=== PATIENT | female | born 1950 | race Caucasian/White ===

== ENCOUNTER 2016-07-20 13:23 | Inpatient (IN) | payer MEDICARE, OTHER ==
[~2016-07-20] VITALS: Ht 157.5 cm; Wt 75.0 kg
[~2016-07-20 13:23] MED LIST: ETOMIDATE 20 MG INJ ONE
[2016-07-20 13:25] VITALS: Ht 157.5 cm; Wt 75.0 kg
[2016-07-20] MEDS ORDERED: CEFEPIME 2GM/50 ML (PMX) 50 ML IVPB STA (13:28)
[2016-07-20] MEDS ORDERED: SOD CHLORIDE 0.9% 1,000 ML IV STA ×3 (13:28→14:08)
[2016-07-20] MEDS ORDERED: PROPOFOL 100 ML IV STA (13:29)
[2016-07-20] MEDS ORDERED: ETOMIDATE 20 MG INJ IV STA (13:29)
[2016-07-20] MEDS ORDERED: ROCURONIUM 50 MG INJ IV STA (13:29)
[2016-07-20] MEDS ORDERED: VANCOMYCIN 1 GM (PMX) 250 ML IVPB ONE (13:30)
[2016-07-20] MEDS ORDERED: METO-448 PO (13:44)
[2016-07-20] MEDS ORDERED: TICA90TA PO (13:44)
[2016-07-20] MEDS ORDERED: HYDROmorphONE 1 MG/ML SYG IV STA (13:44)
[2016-07-20] MEDS ORDERED: ASPI-664 PO (13:44)
[2016-07-20] MEDS ORDERED: NIFE60TA7 PO (13:45)
[2016-07-20] MEDS ORDERED: TRAM-40 PO (13:46)
[2016-07-20] MEDS ORDERED: GABA100C14 PO (13:47)
[2016-07-20] MEDS ORDERED: DIAZ2TAB3 PO (13:47)
[2016-07-20] MEDS ORDERED: ACET-141 PO (13:47)
[2016-07-20 13:48] LABS: HEMATOCRIT 26.1 % (37.0-47.0); HEMOGLOBIN 8.8 g/dl (12.0-16.0); MEAN CORPUSCULAR HEMOGLOBIN 32.1 pg (29.0-33.0); MEAN CORPUSCULAR HGB CONC 33.7 g/dl (32.0-37.0); MEAN CORPUSCULAR VOLUME 95.2 fl (82.0-101.0); PLATELET COUNT 340 10^3/UL (140-440); RED BLOOD COUNT 2.74 10^6/ul (4.20-5.40); RED CELL DISTRIBUTION WIDTH 16.7 % (11.5-14.5)
[2016-07-20] MEDS ORDERED: ISOS60TA PO (13:49)
[2016-07-20] MEDS ORDERED: NOVO3I SC (13:49)
[2016-07-20] MEDS ORDERED: HYDR-3671 PO (13:50)
[2016-07-20] MEDS ORDERED: ATOR40TA68 PO (13:52)
[2016-07-20] MEDS ORDERED: SEVE800T7 PO (13:52)
[2016-07-20] MEDS ORDERED: DOCU-159 PO (13:53)
[2016-07-20] MEDS ORDERED: BENA40TA41 PO (13:53)
[2016-07-20] MEDS ORDERED: LANT3I SC (13:54)
[2016-07-20] MEDS ORDERED: CALC667C PO (13:55)
[2016-07-20] MEDS ORDERED: MIN25 PO (13:55)
[2016-07-20] MEDS ORDERED: DOXA2TAB PO (13:56)
[2016-07-20] MEDS ORDERED: FOLI-49 PO (13:56)
[2016-07-20 13:57] LABS: CONDITION 1; INR 1.05; LH ANALYZER COMMENTS 1; PROTIME 13.7 Sec (12.2-14.2); PT RATIO 1.1; SUSPECT 1
[2016-07-20 13:58] LABS: ALBUMIN 3.7 g/dl (3.3-4.9); CHLORIDE 93 mmol/L (97-110); PARTIAL THROMBOPLASTIN TIME 27.6 Sec (25.0-35.0); POTASSIUM 4.6 mmol/L (3.5-5.1); SODIUM 144 mmol/L (135-144)
--- NOTE | 2016-07-20 13:58 | RADRPT ---
PROCEDURE: XR Chest. CLINICAL INDICATION: Shortness of breath. Sepsis. TECHNIQUE: Single frontal view. COMPARISON: None. FINDINGS: There is consolidation in the right upper lobe consistent with pneumonia. The lungs are otherwise cl ear. The endotracheal tube and nasogastric tube are in satisfactory position. The heart is enlarged. There is calcification in the aorta consistent with atherosclerosis. There is no pleural effusion. There is no pneumothorax. IMPRESSION: 1. Right upper lobe pneumonia. 2. Endotracheal tube and nasogastric tube in satisfactory position. 3. Cardiomegaly and atherosclerosis. RPTAT: QQ .Sebastian Banks MD, MD Date Time Electronically viewed and signed by .Sebastian Banks MD, MD on 07/20/2016 13:57 .R/
[2016-07-20 14:00] LABS: CREATININE 5.44 mg/dl (0.44-1.00)
[2016-07-20 14:01] LABS: ALANINE AMINOTRANSFERASE 20 IU/L (13-69); ALBUMIN/GLOBULIN RATIO 0.88; ALKALINE PHOSPHATASE 202 IU/L (42-121); ANION GAP 22 (8-16); ASPARTATE AMINO TRANSFERASE 31 IU/L (15-46); BLOOD UREA NITROGEN 38 mg/dl (7-20); CALCIUM 9.3 mg/dl (8.4-10.2); CARBON DIOXIDE 34 mmol/L (21-31); GLUCOSE 128 mg/dl (70-220); TOTAL PROTEIN 7.9 g/dl (6.1-8.1)
[2016-07-20 14:02] LABS: ACETAMINOPHEN < 10.0 ug/ml (10.0-30.0); ETHANOL < 10.0 mg/dl; SALICYLATE < 1.0 mg/dl (5.0-30.0)
[2016-07-20] MEDS ORDERED: MIDAZOLAM 50 MG in DEXTROSE 5% 40 ML IV STA (14:11)
[2016-07-20] MEDS ORDERED: NORepinephrine 8MG/250 ML (PMX 250 ML IV STA (14:11)
[2016-07-20 14:18] LABS: TROPONIN-I 0.199 ng/ml (0.00-0.12)
[2016-07-20] MEDS ORDERED: ASPIRIN 300 MG SUPP PR ONE (14:30)
[2016-07-20 14:57] LABS: AADO2 Arterial 253.6 mmHg (7.0-24.0); Arterial Base Excess 6.5 mmol/L (-3.0-3); Arterial Fraction of Oxyhgb 98.3 % (93.0-99.0); Arterial HCO3 30.8 mmol/L (22.0-26.0); Arterial MetHb 0.3 % (0.0-1.5); Arterial Total Hemglobin 7.8 g/dl (12.0-18.0); MODE VENT - AC
[2016-07-20 15:51] LABS: LYMPHOCYTES # 0.9 10^3/ul (0.8-2.9); MONOCYTE # 2.1 10^3/ul (0.3-0.9)
--- NOTE | 2016-07-20 16:03 | ERA ---
ER Documentation Chief Complaint Date/Time DATE: 07/20/16 TIME: 15:58 Chief Complaint PT MARY BETH FROM HOME FOUND DOWN IN RES ARREST. HPI Patient is a 65-year-old female with dialysis who presents as a respiratory arrest. Please note the history and physical exam is limited secondary to the patient's mental status upon arrival. The patient was brought in by ambulance and was being bagged as she was not breathing well. The patient never lost pulses but she was unresponsive. She was unable to be intubated in the field. She did have dialysis on Thursday. Her sugar by the paramedics was 167. Upon review of old medical records this is the patient's first visit to the ER but my staff knows her from 2 weeks ago when she was actually admitted and had a cardiac arrest. ROS All systems reviewed and are negative except as per history of present illness. Medications Home Meds Reported Medications Doxazosin Mesylate* (Doxazosin Mesylate*) 2 Mg Tablet, 2 MG PO HS, TAB 07/20/16 Folic Acid* (Folic Acid*) 1 Mg Tablet, 1 MG PO DAILY, TAB 07/20/16 Calcium Acetate* (Calcium Acetate*) 667 Mg Capsule, 667 MG PO WITH MEALS, #30 CAP 07/20/16 Minoxidil* (Lonitin*) 2.5 Mg Tab, 1.25 MG PO BID, TAB 07/20/16 Insulin Glargine* (Lantus*) 100 Unit/Ml Soln, 10 UNIT SC QHS, #1 VIAL 07/20/16 Benazepril Hcl* (Benazepril Hcl*) 40 Mg Tablet, 40 MG PO DAILY, #30 TAB 07/20/16 Docusate Sodium* (Docusate Sodium*) 100 Mg Capsule, 100 MG PO TID Y for CONSTIPATION, #30 CAP 07/20/16 Atorvastatin* (Atorvastatin*) 40 Mg Tablet, 40 MG PO QHS, #30 TAB 07/20/16 Sevelamer Carbonate* (Renvela*) 800 Mg Tablet, 3.2 GM PO WITH MEALS, TAB 07/20/16 Hydralazine Hcl* (Hydralazine Hcl*) 25 Mg Tab, 25 MG PO TID, #90 TAB 07/20/16 Insulin Aspart* (Novolog Insulin Pen*) 100 Unit/Ml Soln, 2 UNIT SC BID, EA 07/20/16 Isosorbide Mononitrate* (Isosorbide Mononitrate*) 60 Mg Tab.er.24h, 60 MG PO DAILY, TAB 07/20/16 Acetaminophen* (Acetaminophen*) 500 MG Extra Strength Tablet, 500 MG PO Q4H Y for PAIN AND OR ELEVATED TEMP, TAB 07/20/16 Gabapentin* (Gabapentin*) 100 Mg Capsule, 100 MG PO TID, #90 CAP 07/20/16 Tramadol Hcl* (Ultram*) 50 Mg Tablet, 50 MG PO Q4 Y for PAIN, TAB 07/20/16 Nifedipine* (Nifedipine ER*) 60 Mg Tablet.sa, 120 MG PO DAILY, TAB.SA 07/20/16 Aspirin (Low Dose Aspirin) 81 Mg Tablet.dr, 81 MG PO DAILY, #30 TAB 07/20/16 Ticagrelor* (Brilinta*) 90 Mg Tablet, 90 MG PO Q12, TAB 07/20/16 Metoprolol Tartrate* (Lopressor*) 25 Mg Tab, 75 MG PO TID, #180 TAB 07/20/16 Discontinued Reported Medications Diazepam* (Diazepam*) 2 Mg Tablet, 2 MG PO TID, TAB 07/20/16 Allergies Allergies: Coded Allergies: No Known Allergy (Unverified , 07/20/16) PMhx/Soc Anesthesia Reaction: No Hx Neurological Disorder: No Hx Cardiac Disorders: Yes (CARDIAC ARREST 06/27, HTN) Hx Psychiatric Problems: No Hx Miscellaneous Medical Probl: Yes (DM, KIDNEY FAILURE. ) Hx Alcohol Use: No Hx Substance Use: No Hx Tobacco Use: No Smoking Status: Unknown if ever smoked FmHx Unable to obtain Physical Exam Vitals Vital Signs Date Time Temp Pulse Resp B/P Pulse Ox O2 Delivery O2 Flow Rate FiO2 07/20/16 15:05 92 152/56 100 Mechanical Ventilator 07/20/16 15:02 92 14 100 60 07/20/16 14:38 90 82/46 100 Mechanical Ventilator 07/20/16 14:10 90 70/42 100 Mechanical Ventilator 07/20/16 13:35 92 14 100 100 07/20/16 13:25 Bag Valve Mask 07/20/16 13:25 99.1 91 177/88 93 Physical Exam Const: Acute distress of being bagged at this time Head: Atraumatic Eyes: Normal Conjunctiva ENT: Normal External Ears, Nose and Mouth. Neck: Full range of motion..~ No meningismus. Resp: Clear to auscultation bilaterally Cardio: Regular rate and rhythm, no murmurs Abd: Soft, non tender, non distended. Normal bowel sounds Skin: Pale Back: No midline or flank tenderness Ext: No cyanosis, or edema Neur: Unresponsive and not moving at this time, GCS 1, 1, 1 Result Diagram: 07/20/16 1328 07/20/16 1328 Results 24 hrs Laboratory Tests Test 07/20/16 13:28 07/20/16 13:29 Acetaminophen Level < 10.0ug/ml Activated Partial Thromboplast Time 27.6Sec Alanine Aminotransferase (ALT/SGPT) 20IU/L Albumin 3.7g/dl Albumin/Globulin Ratio 0.88 Alkaline Phosphatase 202IU/L Anion Gap 22 Aspartate Amino Transf (AST/SGOT) 31IU/L Basophils # 10^3/ul Basophils % % Blood Morphology Comment Blood Urea Nitrogen 38mg/dl Calcium Level 9.3mg/dl Carbon Dioxide Level 34mmol/L Chloride Level 93mmol/L Creatinine 5.44mg/dl Direct Bilirubin 0.00mg/dl Eosinophils # 10^3/ul Eosinophils % % Ethyl Alcohol Level < 10.0mg/dl Globulin 4.20g/dl Glucose Level 128mg/dl Hematocrit 26.1% Hemoglobin 8.8g/dl INR International Normalized Ratio 1.05 Indirect Bilirubin 0.0mg/dl Lactic Acid Level 2.6mmol/L Lymphocytes # 0.910^3/ul Lymphocytes % 3.0% Macrocytosis 1+ Mean Corpuscular Hemoglobin 32.1pg Mean Corpuscular Hemoglobin Concent 33.7g/dl Mean Corpuscular Volume 95.2fl Mean Platelet Volume 8.0fl Monocytes # 2.110^3/ul Monocytes % 7.0% Neutrophils # 27.010^3/ul Neutrophils % 90.0% Nucleated Red Blood Cells # 10^3/ul Nucleated Red Blood Cells % /100WBC Platelet Count 91079^3/UL Potassium Level 4.6mmol/L Prothrombin Time 13.7Sec Prothrombin Time Ratio 1.1 Red Blood Count 2.7410^6/ul Red Cell Distribution Width 16.7% Salicylates Level < 1.0mg/dl Sodium Level 144mmol/L Total Bilirubin 0.0mg/dl Total Protein 7.9g/dl Troponin I 0.199ng/ml White Blood Count 30.010^3/ul Arterial Blood HCO3 30.8mmol/L Arterial Blood Base Excess 6.5mmol/L Arterial Blood Oxygen Saturation 99.6mmHG Javi Test N/A Arterial Blood Gas Puncture Site Right Brachial Arterial Blood Carboxyhemoglobin 1.0% Arterial Blood Date Drawn 07/20/2016 2:47:31 PM Arterial Blood Methemoglobin 0.3% Arterial Blood pCO2 (Temp correct) 43.7mmhg Arterial Blood pH (Temp corrected) 7.466 Arterial Blood pO2 (Temp corrected) 415.7mmHG Blood Gas A-a O2 Differential 253.6mmHg Blood Gas Actual Respiration Rate 14 Blood Gas Low PEEP Setting 5.0cmH2O Blood Gas Modality VENT - AC Blood Gas Notified Time 07/20/2016 2:57:39 PM Blood Gas Notified Whom AT Blood Gas Respiration Rate 14.0 Blood Gas Specimen Source Blood arterial Blood Gas Temperature 37.0C Blood Gas Tidal Volume 500.0mL FiO2 100.0% Oxyhemoglobin Percent 98.3% Total Hemoglobin 7.8g/dl Current Medications Medications (Trade) Dose Ordered Sig/Harriet Route PRN Reason Start Time Stop Time Status Last Admin Dose Admin Cefepime HCl 50 ml @ 100 mls/hr ONCE STAT IVPB 07/20/16 13:28 07/20/16 13:57 DC 07/20/16 14:35 Vancomycin HCl 250 ml @ 125 mls/hr ONCE ONCE IVPB 07/20/16 13:30 07/20/16 15:29 DC 07/20/16 15:44 Sodium Chloride 1,000 ml @ 1,000 mls/hr Q1H STAT IV 07/20/16 13:28 07/20/16 14:27 DC 07/20/16 14:13 Sodium Chloride (NS) 1,000 ml @ 1,000 mls/hr Q1H STAT IV 07/20/16 13:28 07/20/16 14:27 DC 07/20/16 14:34 Rocuronium [place] (Zemuron) 70 mg ONCE STAT IV 07/20/16 13:29 07/20/16 13:30 DC Etomidate 20 mg 20 mg ONCE STAT IV 07/20/16 13:29 07/20/16 13:30 DC Propofol (Diprivan) 100 ml @ 0 mls/hr ONCE STAT IV 07/20/16 13:29 07/20/16 14:12 DC Hydromorphone HCl 1 mg 1 mg ONCE STAT IV 07/20/16 13:44 07/20/16 13:45 DC Sodium Chloride 1,000 ml @ 1,000 mls/hr Q1H STAT IV 07/20/16 14:08 07/20/16 15:07 DC Norepinephrine 250 ml @ 7.5 mls/hr ONCE STAT IV 07/20/16 14:11 07/21/16 23:30 07/20/16 14:33 Midazolam HCl/ Dextrose (Versed/D5W) 50 ml @ 3 mls/hr [id number] STAT IV 07/20/16 14:11 07/21/16 06:50 07/20/16 15:45 Aspirin (Aspirin) 300 mg ONCE ONCE IA 07/20/16 14:30 07/20/16 14:31 DC Procedures/MDM EKG read by me: Rate/Rhythm: Regular rate and rhythm at a rate of 93 Intervals: Normal Impression: ST depressions in the lateral leads Chest X-ray 1V Interpreted by me: Soft Tissue: No acute abnormalities Bones: No acute abnormalities Mediastinum/Cardiac Silhouette/Lungs: Right upper lobe pneumonia with ET tube in good position CT scan of the brain pending at this time. Admit MDM: Patient's infectious symptoms have not stabilized and the patient is at risk of rapid decompensation. The patient will be admitted for careful hydration, antibiotic therapy, and infectious source control. Severe Sepsis criteria: Infectious source: Pneumonia End organ damage indicated by: Lactate greater than 2 and respiratory failure Sepsis Management: Time of recognition of sepsis: Upon arrival Within 3 hours of recognition: Blood cultures x 2 before broad-spectrum antibiotics: Yes 30 ml/kg NS bolus Completed Initial lactate 2.6 Repeat lactate pending Time of recognition of septic shock: Upon arrival Septic Shock Assessment: Any lactic acid > 4.0 No Persistent hypotension (SBP < 90 or 40 mmHg drop, MAP < 65) despite 30 mL/kg IV fluid bolus yes Volume Re-assessment for Septic Shock (post 30 ml/kg bolus): Temp 99.1, BP 152/56, HR 92, RR 14, Pox 100% Heart Regular rate & rhythm Lungs No crackles Skin Warm & dry Cap Refill Less than 2 seconds Peripheral pulses Radially present Persistent Hypotension Treatment: Comfort care No Central line right femoral central line Vasopressor started Levophed I considered further perfusion assessment with CVP measurement, SCVO2, bedside ultrasound volume assessment, passive leg raise, trial of further fluid bolus. And proceeded with 30 ml/kg fluid bolus of NSS, broad spectrum antibiotics, and admission. Accepting Care Team Current data and ongoing care discussed. Admitting Physician: Dr. Cox as the patient has regal [employer] Rater(s): None Outstanding Data: Culture results and repeat lactic acid Critical Care: Critical care time 45 minutes excluding all billable procedures Emergent fluid management while maintaining close respiratory support. Provision of immediate and broad-spectrum antibiotic therapy. Simultaneous assessment for possible sources in order to direct targeted therapy. Consideration for invasive and chemical support to prevent cardiopulmonary collapse. Endotracheal Intubation by me: Pre assessment performed. Pre-oxygenation performed with 100% oxygen RSI: Performed w/o complication or hypoxic events. Medications as ordered. Blade: MAC 4 Glidescope ET Tube: 7.5 cm Depth: 23 cm at the lip Intubation confirmed by colorimetric CO2, equal breath sounds, quiet over the stomach. Central Line Placement by me: Patient consented, sterilely draped, full prep, gown, glove, mask, time out performed. Anesthesia: 1% lidocaine locally Location: Right femoral Device: Multiple lumen Technique: Seldinger technique. Secured with suture. Results: Venous return from all ports with easy saline flush. No complications. Guide wire retrieved and disposed of. ED Ultrasound: Central line placed by me using concurrent ultrasound guidance. Real time image confirms vascular anatomy. Unable to print images due to our usual ultrasound being fixed at this time. Departure Diagnosis: Primary Impression: Septic shock Additional Impressions: Respiratory arrest NSTEMI (non-ST elevated myocardial infarction) Pneumonia Qualified Code: J18.9 - Pneumonia of right upper lobe due to infectious organism Condition: Critical HARRIS MURRAY MD Jul 20, 2016 16:03
--- NOTE | 2016-07-20 16:36 | HP ---
Date/Time of Note Date/Time of Note DATE: 07/20/16 TIME: 16:29 Assessment/Plan VTE Prophylaxis VTE Prophylaxis Intervention: heparin Assessment/Plan Assessment/Plan [facility] 1. 65-year-old woman who was found in unresponsive by her daughter this afternoon. Mask ventilation in the field and intubation on arrival in the ER. She was hospitalized two weeks ago for weakness and suffered a cardiac arrest with asystole in the ER. 2-D echocardiogram then showed normal left ventricular systolic function and cavity size, with moderate concentric left ventricular hypertrophy and EF est at 65%. Her estimated peak PA systolic pressure 61 mmHg, with moderate tricuspid regurgitation. She has elevated troponin now, with lateral T-wave depression. Concern for acute ischemia as a precipitating event. 2. Endstage renal disease on hemodialysis, most recently two days ago * Repeat hemodialysis planned for tomorrow; contacted Dr. Talita Leon about arranging dialysis. 3. Diabetes mellitus. * Continue Lantus insulin 4. Possible anoxic injury. There was a two-hour window during which she was "asleep" prior to being found unresponsive at 12:30pm today. Wincing to abdominal deep palpation and movement of her extremities. * Neuro consult tomorrow with Dr. Jessy Arshad. 5. Lateral T-wave abnormalities, similar to previous pattern two weeks ago. * Serial troponins * Aspirin given per rectum * Too hypotensive for nitrates for now * Cardiology consultation; contacted Dr. Matt Castelan (performed the PTCA two weeks ago). 6. History of hypertension, but her daughters said she had been hypotensive since discharge 07/11/16 and had not received any of her hypertensive medications. * Hold anti-hypertensives for now 7. Right lower extremity pain with questionable history of sciatica. Cord still present on exam. * Doppler study negative ten days ago for DVT on the right. 8. Prophylaxis. * Famotidine for gastrointestinal prophylaxis. * SQ heparin for DVT prevention 9. DISPOSITION: She is admitted to the intensive care unit. Critical care consult pending. Nephrology consult pending. * Confirmed with her daughter Shara that she is Full-Code. Christoph Cox MD PhD [phone] HPI/ROS Admit Date/Time Admit Date/Time Hx of Present Illness DATE OF ADMISSION: 07/20/2016 CHIEF COMPLAINT ON ADMISSION: Respiratory arrest HISTORY OF PRESENT ILLNESS: This 65-year-old woman is well-known to me from her hospitalization two weeks ago (under the name "Libby") for asystole cardiac arrest with compelte recovery. She has a history of endstage renal disease on hemodialysis (last two days ago), hypertension, diabetes mellitus, and hyperlipidemia. She was discharged on 07/11/16, feeling great, and continued to feel quite well until early this morning. I spoke today with 2 for daughters, who were at her bedside in the emergency room. They indicated that she had been relatively hypotensive since the previous discharge, and had not received any of her antihypertensive medications. She woke up at about 3 AM feeling sick to her stomach, and had an episode of emesis today, but went right back to sleep. Twice this morning, she felt very sleepy and lethargic, and insisted on going back to bed without any breakfast, most recently at 10:30 AM. At 12:30 AM, her daughter went to wake her and found her unresponsive. Paramedics were summoned, and she was determined to be in respiratory arrest. She had had a negative Lexiscan in April 2016, which showed only diastolic dysfunction. But she presented last month with generalized weakness, and while in the emergency department after ambulating to the restroom, she lost consciousness and progressed to asystole cardiac arrest. CPR was initiated, she received epinephrine, was intubated, and was subsequently treated in the intensive care unit on heparin drip for NSTEMI, with an EKG showing inferior and lateral T-wave abnormalities. She subsequently underwent PTCA/stent to a thrombotic ostial left circumflex lesion and also with PTCA of a subtotal occlusion of a previously stented long left circumflex zone. She was treated with antibiotics, aspirin, Brilinta, and had Procardia XL added to address persistent hypertension. On hospital day 4 she had the first cardiac catheterization, and on hospital day 8 returned to the cardiac clinical laboratory assistant for left heart catheterization that led to PTCA with placement of a Promus drug- eluting stent to the distal circumflex, 2.25 x 12 mm, and with PTCA alone to a, another total mid circumflex area of in-stent restenosis. The post-PTCA course was also marked by persistent leukocytosis and her sputum grew E.coli (ESBL) and Marilyn. She was treated with Cefepime, Diflucan, and Flagyl, all of which were discontinued at the time of discharge. Home Meds Active Scripts Metoprolol Tartrate* (Lopressor*) 25 Mg Tab, 75 MG PO TID, #90 TAB Prov:KRZYSZTOF COX M.D. 07/11/16 Ticagrelor* (Brilinta*) 90 Mg Tablet, 90 MG PO BID, #60 TAB Prov:KRZYSZTOF COX M.D. 07/11/16 Aspirin* (Aspirin* EC) 81 Mg Tablet.dr, 81 MG PO DAILY, #30 Prov:KRZYSZTOF COX M.D. 07/11/16 Tramadol HCl (Tramadol HCl) 50 Mg Tablet, 50 MG PO Q4 Y for PAIN, #20 TAB Prov:KIAH GARCIA 06/15/16 Reported Medications Acetaminophen* (Acetaminophen*) 500 MG Extra Strength Tablet, 500 MG PO Q4H Y for PAIN AND OR ELEVATED TEMP, TAB 07/01/16 Gabapentin* (Gabapentin*) 100 Mg Capsule, 100 MG PO TID, #90 CAP 07/01/16 Diazepam* (Diazepam*) 2 Mg Tablet, 2 MG PO TID, TAB 07/01/16 Nifedipine* (Nifedipine ER*) 30 Mg Tablet.sa, 120 MG PO DAILY, TAB.SA 05/22/15 Isosorbide Mononitrate* (Isosorbide Mononitrate*) 60 Mg Tab.er.24h, 60 MG PO DAILY, TAB 05/22/15 Insulin Aspart* (Novolog Insulin Vial*) 100 U/Ml Vial, 2 UNIT SC BID, VIAL 05/22/15 Hydralazine Hcl* (Hydralazine Hcl*) 25 Mg Tab, 25 MG PO TID, TAB 05/22/15 Sevelamer Carbonate* (Renvela*) 800 Mg Tablet, 3200 MG PO WITH MEALS, TAB 05/22/15 Calcium Acetate* (Phoslo*) 667 Mg Tablet, 667 MG PO WITH MEALS, TAB 05/22/15 Minoxidil* (Lonitin*) 2.5 Mg Tab, 1.25 MG PO BID, TAB 05/22/15 Insulin Glargine* (Lantus*) 100 Unit/Ml Soln, 10 UNIT SC QHS, EA 05/22/15 Benazepril Hcl* (Benazepril Hcl*) 40 Mg Tablet, 40 MG PO DAILY, TAB 05/22/15 Docusate Sodium* (Colace*) 100 Mg Capsule, 100 MG PO TID Y for CONSTIPATION 07/28/13 Atorvastatin* (Atorvastatin*) 40 Mg Tablet, 40 MG PO DAILY 07/28/13 Doxazosin* (CARDURA*) 2 Mg Tablet, 2 MG PO HS 04/21/13 Folic Acid* (Folic Acid*) 1 Mg Tablet, 1 MG PO DAILY 04/21/13 Discontinued Reported Medications Meloxicam* (Meloxicam*) 7.5 Mg Tablet, 15 MG PO DAILY, #30 TAB 07/01/16 Clonidine Hcl* (Clonidine Hcl*) 0.1 Mg Tab, 0.1 MG PO BID, TAB 05/22/15 Metoprolol Tartrate* (Lopressor*) 25 Mg Tab, 25 MG PO BID 04/21/13 ALLERGIES: NO KNOWN ALLERGIES. PAST MEDICAL HISTORY: 1. Hypertension. 2. Endstage renal disease on hemodialysis Thursday, Thursday, Thursday. 3. Diabetes mellitus. 4. Hyperlipidemia. 5. Questionable history of coronary artery disease with recent episode of elevated troponin on her past admission. She was seen by Dr. Castelan and Dr. Puga then. PAST SURGICAL HISTORY: 1. Status post foot surgery. 2. Status post AV graft placement. SOCIAL HISTORY: The patient lives with family. She does not smoke or drink alcohol. ROS Her daughters indicated that she had not complained of any headache, visual change, loss of appetite, nausea, change in bowel habitus, cough or fever. Another sister from [place] did have a cold during a visit 2 weeks ago, but that was the only recalled no contact. PMH/Family/Social Social History Smoking Status: Unknown if ever smoked Exam/Review of Systems Vital Signs Vitals Vital Signs Date Time Temp Pulse Resp B/P Pulse Ox O2 Delivery O2 Flow Rate FiO2 07/20/16 16:12 90 107/54 100 Mechanical Ventilator 07/20/16 16:02 98.2 07/20/16 15:02 14 60 Exam Exam Constitutional: Grimacing in response to abdominal palpation. Intubated and ventilated. Respiratory: Clear to auscultation bilaterally, good air movement Cardiovascular: Symmetric pulses, regular rhythm, normal rate. Gastrointestinal: Moderate tenderness, no hepatosplenomegaly, bowel sounds positive Musculoskeletal: nl extremities to inspection. Intact vascular hemodialysis access. Neurological: Pupils responsive. Toes upgoing bilaterally. Trace patellar reflexes. Labs Result Diagram: 07/20/16 1328 07/20/16 1328 Copies To: CC: MATT CASTELAN; NADIA SARGENT; ADELFO PUGA MD; TALITA LEON JOHN P. M.D. Jul 20, 2016 16:35
[2016-07-20] MEDS ORDERED: ACETAMINOPHEN 325 MG TAB NGT PRN (17:30)
[2016-07-20] MEDS ORDERED: HYDROCODONE/APAP (5/325) TAB NGT PRN (17:30)
[2016-07-20] MEDS ORDERED: DOCUSATE SODIUM 10 MG/ML (10ML CUP) NGT PRN (17:30)
[2016-07-20] MEDS ORDERED: NACL 0.9% 3 ML SYG IV SCH (17:30)
--- NOTE | 2016-07-20 18:08 | RADRPT ---
PROCEDURE: CT Brain without contrast. CLINICAL INDICATION: Pain, headache TECHNIQUE: Routine CT scan of the brain was performed on a high resolution multi detector scanner without intravenous contrast. One or more of the following dose reduction techniques were used: Auto mated exposure control; Adjustment of the mA and/or kV according to patient size; Use of iterative r econstruction technique. CTDI = 43 mGy. DLP = 720 mGy-cm. COMPARISON: No prior relevant examinations are available for comparison. FINDINGS: Hemorrhage: No evidence of intracranial hemorrhage. Acute ischemic changes: No evidence of acute ischemic changes. Mass effect/Midline shift: None. Parenchymal volume: Mild central parenchymal volume loss is evident. Ventricular system: Concordant with parenchymal volume. Chronic changes: Mild chronic-appearing microvascular ischemic changes of the supratentorial white m atter. Atherosclerotic calcifications of the cavernous portions of both internal carotid arteries ar e present. Small idiopathic appearing dural calcifications are noted. Extracranial soft tissues: Unremarkable. Calvarium: No fractures. Paranasal sinuses: Visualized paranasal sinuses are clear. Mastoid air cells: Visualized mastoid air cells are clear. IMPRESSION: No acute intracranial abnormalities. Mild chronic-appearing microvascular ischemic changes of the supratentorial white matter. RPTAT: AADD .Rodríguez Haddad MD, MD Date Time Electronically viewed and signed by .Rodríguez Haddad MD, on 07/20/2016 18:08 .B/
[2016-07-20 18:34] LABS: ALBUMIN 2.8 g/dl (3.3-4.9)
[2016-07-20 18:35] LABS: POTASSIUM 4.3 mmol/L (3.5-5.1)
[2016-07-20 18:37] LABS: ALBUMIN/GLOBULIN RATIO 0.82; CREATININE 5.14 mg/dl (0.44-1.00); TOTAL PROTEIN 6.2 g/dl (6.1-8.1)
[2016-07-20 18:38] LABS: CALCIUM 8.1 mg/dl (8.4-10.2)
[2016-07-20] MEDS: SEVELAMER CARBONATE 0.8 GM PKT NGT SCH (20:05)
[2016-07-20] MEDS: CALCIUM ACETATE 667 MG CAP NGT SCH (20:05)
[2016-07-20] MEDS: HEPARIN 5,000 UNIT/0.5 ML SYG SC SCH ×2 (20:06→22:00)
[2016-07-20] MEDS ORDERED: INSULIN GLARGINE [LANtus] 3 ML PEN SC SCH (21:00)
[2016-07-20] MEDS: FAMOTIDINE 20 MG INJ IV SCH (21:54)
[2016-07-20] MEDS: ATORVASTATIN 40 MG TAB NGT SCH (21:54)
[2016-07-20] MEDS: TICAGRELOR 90 MG TABLET NGT SCH (23:26)
[2016-07-21] VITALS (25 sets, daily range): BP systolic 134–195; BP diastolic 43–82; PULSE 65–84; RESP 16–21; TEMP 99
[2016-07-21 02:33] LABS: ADD UMIC YES; URINE BILIRUBIN (Dip) 1+ (NEGATIVE); URINE BLOOD (Dip) 3+ (NEGATIVE); URINE COLOR DK. YELLOW (YELLOW); URINE GLUCOSE (Dip) NEGATIVE (NEGATIVE); URINE KETONES (Dip) NEGATIVE (NEGATIVE); URINE LEUKOCYTE ESTERASE (Dip) TRACE (NEGATIVE); URINE NITRITE (Dip) POSITIVE (NEGATIVE); URINE TOTAL PROTEIN (Dip) 4+ (NEGATIVE); URINE UROBILINOGEN (Dip) 0.2 E.U./dL (0.1-1.0)
[2016-07-21 02:59] LABS: ICTOTEST NEGATIVE (NEGATIVE)
[2016-07-21 03:02] LABS: BACTERIA,URINE MANY; SQUAMOUS EPITHELIAL CELL,UR FEW
[2016-07-21] MEDS: HEPARIN 5,000 UNIT/0.5 ML SYG SC SCH ×3 (05:17→22:05)
[2016-07-21 06:09] LABS: HEMATOCRIT 21.9 % (37.0-47.0); HEMOGLOBIN 7.4 g/dl (12.0-16.0); MEAN CORPUSCULAR HEMOGLOBIN 32.3 pg (29.0-33.0); MEAN CORPUSCULAR HGB CONC 33.8 g/dl (32.0-37.0); MEAN CORPUSCULAR VOLUME 95.6 fl (82.0-101.0); PLATELET COUNT 249 10^3/UL (140-440); RED BLOOD COUNT 2.29 10^6/ul (4.20-5.40); UNCORRECTED WBC 21.6 10^3/ul (4.8-10.8); WHITE BLOOD COUNT 21.6 10^3/ul (4.8-10.8)
[2016-07-21 06:13] LABS: CONDITION 1; LH ANALYZER COMMENTS 1; SUSPECT 1
[2016-07-21 06:16] LABS: ALBUMIN 2.9 g/dl (3.3-4.9)
[2016-07-21 06:17] LABS: POTASSIUM 4.6 mmol/L (3.5-5.1)
[2016-07-21 06:18] LABS: CREATININE 5.76 mg/dl (0.44-1.00)
[2016-07-21 06:19] LABS: ALBUMIN/GLOBULIN RATIO 0.85; CALCIUM 8.4 mg/dl (8.4-10.2); MAGNESIUM 2.4 mg/dl (1.7-2.5); TOTAL PROTEIN 6.3 g/dl (6.1-8.1)
[2016-07-21 06:45] LABS: TROPONIN-I 0.44 ng/ml (0.00-0.12)
--- NOTE | 2016-07-21 07:38 | RADRPT ---
PROCEDURE: XR Chest. CLINICAL INDICATION: Sepsis TECHNIQUE: An AP view of the chest was obtained. COMPARISON: Chest x-ray dated 07/20/2016 FINDINGS: The endotracheal tube tip is approximately 3 point a cm above the osfya. The tip of the enteric t ube extends below the left diaphragm. There is prominence of the interstitial markings. There is a focal opacity in the left mid lung. No pleural effusion or pneumothorax is seen. The cardiomediastinal silhouette is mildly enlarged . C alcifications are seen within the aortic arch. The osseous structures demonstrate senescent changes . IMPRESSION: 1. Mild prominence of the interstitial markings, may reflect mild underlying interstitial edema or chronic lung changes. There is improved aeration of the right upper lobe when compared to the prior examination. 2. Focal left mid lung opacity may reflect residual pneumonitis. Follow-up to resolution is advise d. 3. Mild cardiomegaly and aortic atherosclerosis. 4. Tubes and lines, as described above. RPTAT: .Juhi Ruano MD, Date Time Electronically viewed and signed by .Juhi Ruano MD, on 07/21/2016 07:38 .G/
[2016-07-21] MEDS: SEVELAMER CARBONATE 0.8 GM PKT NGT SCH ×3 (08:00→18:13)
[2016-07-21] MEDS: CALCIUM ACETATE 667 MG CAP NGT SCH ×3 (08:00→18:12)
[2016-07-21] MEDS: FOLIC ACID 1 MG TAB NGT SCH (09:22)
[2016-07-21] MEDS: TICAGRELOR 90 MG TABLET NGT SCH ×2 (09:22→21:01)
[2016-07-21] MEDS: ASPIRIN 81 MG TAB NGT SCH (09:22)
[2016-07-21 10:02] LABS: BASOPHIL # 0.4 10^3/ul (0.0-0.1); LYMPHOCYTES # 2.4 10^3/ul (0.8-2.9); MONOCYTE # 1.5 10^3/ul (0.3-0.9); NEUTROPHIL # 17.3 10^3/ul (1.6-7.5)
--- NOTE | 2016-07-21 14:00 | CONS ---
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 REQUESTING PHYSICIAN: Dr. Sargent HISTORY OF PRESENT ILLNESS: Ms. Carranza is a 65-year-old female with a history of recent NSTEMI sta tus post PTCA and stent placement to ostial circumflex lesion and a distal circumflex lesion Decembe r 2015, diastolic dysfunction by most recent echo April 2016, end-stage renal disease, on hemodial ysis, dyslipidemia, hypertension who presents with recurrent respiratory failure. Per family, the venita hollins had been doing fine at home, and when they went to awaken her on the day of admit, she says s he is very sleepy and slept in. Thereafter the family says they tried to arouse her later and it wa s very difficult, she was breathing heavily, 911 was called and she was brought here to the emergenc y department at [facility]. Upon arrival, temperature 99.1, blood pressure 177/88 , pulse 91, saturating 93% on 100%. The patient's labs revealed a white blood count of 30, hemoglob in 8.8, platelet count 340. Sodium of 144, potassium 4.6, creatinine 5.44, BUN 38. Troponin 0.199. AST 31, ALT 20. INR 1.0. Tox screen negative. UA positive. The patient underwent a chest x-ray revealing endotracheal tube, right upper lobe pneumonia, and a head CT revealed no acute intracrani al abnormalities, mild chronic-appearing microvascular ischemic change. The patient's EKG revealed n ormal sinus rhythm at a rate of 93 with sinus arrhythmia, borderline inferior and anterolatera l T-wave inversions deep across precordial leads. The patient subsequently required emergent intuba tion, has been treated with aspirin, and now is to be continued on her aspirin and Brilinta with sta ble to elevated systolic blood pressures after having a low blood pressure when she first arrived an d was intubated. PAST MEDICAL HISTORY: As above in HPI. MEDICATIONS CURRENTLY IN HOSPITAL: 1. Aspirin 81 mg daily. 2. Lipitor 40 mg at bedtime. 3. Lantus 10 units subQ at bedtime. 4. Brilinta 90 mg q.12h. 5. Pepcid 20 mg IV q.12h. 6. PhosLo. 7. Colace. 8. Tylenol. 9. [place]. 10. Heparin 5000 subQ q.8h. Leave the pressor support now off. ALLERGIES: NO KNOWN DRUG ALLERGIES. SOCIAL HISTORY: No tobacco, ETOH, or illicit drug use. FAMILY HISTORY: No history of sudden cardiac or early CAD. REVIEW OF SYSTEMS: As above in HPI. CONSTITUTIONAL: No fevers, chills. PULMONARY: Respiratory failure. CARDIOVASCULAR: History of recent NSTEMI, positive troponin. GASTROINTESTINAL: Positive volume prior to admit. GENITOURINARY: Renal failure. PSYCHIATRIC: No documented psychiatric history. NEUROLOGIC: Altered mental state. PHYSICAL EXAMINATION: VITAL SIGNS: Temperature of 99, blood pressure 149/54, pulse 76, respiratory rate 16, saturating 10 0% on FIO2 50%. GENERAL: The patient is encephalopathic, not arousable. NECK: JVP approximately 9 to 10 cm of water. CHEST: Bibasilar crackles. Upper airway sounds are rhonchorous sounds. HEART: Regular rate and rhythm. Normal S1, S2, 1/6 systolic murmur, nondisplaced PMI. ABDOMEN: Positive bowel sounds, soft. EXTREMITIES: No pitting edema, 1+ pulses bilaterally posterior tibial. LABORATORIES: As above in HPI, with most recent from yesterday, sodium 144, potassium 4.3, creatini ne 5.1. White blood cell count 21.6, hemoglobin 7.4, platelet count of 249, MCV 95. Troponin trend ed up to 0.504 and back down to 0.440. IMAGING STUDIES: As above in HPI with a chest x-ray from today revealing mild prominence of interst itial markings, improved aeration, right upper lobe, focal left mid lung opacity may represent recre ational pneumonitis. ECG: As above in HPI. No further electrocardiograms for my review at this time. IMPRESSION: 1. Positive troponin in the setting of respiratory failure and renal failure. 2. Abnormal electrocardiogram, assess for acute coronary syndrome. 3. History of a recent PTCA and stent placement to circumflex June 2016 with drug-eluting stent s. 4. Altered mental state. 5. Respiratory failure, status post intubation. 6. End-stage renal disease on hemodialysis. 7. Urinary tract infection. 8. Pneumonia. 9. Dyslipidemia. RECOMMENDATIONS: 1. At this time, the patient will be admitted to the ICU and maintained on telemetry monitoring. 2. Will continue the patient's dual antiplatelet therapy with aspirin and Brilinta for stent patenc y. 3. Would continue to trend the patient's cardiac enzymes. 4. Would check serial EKGs to assess for significant ongoing changes, consider repeat echocardiogra phic imaging to ensure no change had occurred the patient's ejection fraction. 5. Continue the patient's statin therapy and adjust it according to a fasting lipid panel to be colleen cked. 6. Hemodialysis for volume removal. 7. Continue to follow the patient's volume status closely and wean the patient's ventilator as poss ible. 8. Follow the patient's blood pressure closely with possible reinitiation of antihypertensives if h is blood pressure remains stable, initiating with beta kathy given positive troponin. Thank you for allowing me to take part in the care of this patient. I will continue to follow along very closely with you with further recommendations to be made as the patient progresses through her inpatient hospital clinical course. Dictated By: MATT NOGUEIRA/RANI Conf#: [id number] DID#: [id number] CC: NADIA SARGENT MD;*EndCC*
[2016-07-21] MEDS ORDERED: SOD CHLORIDE 0.9% 250 ML IV* ONE (15:54)
[2016-07-21] MEDS ORDERED: VANCOMYCIN IV PER PHARMACY XX SCH (16:00)
--- NOTE | 2016-07-21 16:17 | PN ---
Date/Time of Note Date/Time of Note DATE: 07/21/16 TIME: 15:35 Assessment/Plan VTE Prophylaxis VTE Prophylaxis Intervention: SCD's Assessment/Plan Assessment/Plan 65-year-old woman: 1. Acute respiratory failure and unresponsiveness, s/p intubation on arrival in the ER. Etiology unclear She was hospitalized two weeks ago after suffered a cardiac arrest with asystole in the ER. S/p Angio x 2 with stenting 2-D echocardiogram then showed normal left ventricular systolic function and cavity size, with moderate concentric left ventricular hypertrophy and EF est at 65%. Mildly elevated troponin on this admission Cardiology, Pulmonary, Nephrology and Neurology consulted 2. Endstage renal disease on hemodialysis: on HD M/W/F Hemodialysis today Appreciate assistance from Dr. Gomez. 3. Acute on chronic anemia with hb down to 7.4, will ogive 2 units pRBC with HD if possible today 4. Diabetes mellitus: d/c Lantus for now and SSI, once more stable and on tube feeding or extubated or if BG up with resume Lantus 5. 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 There was a two-hour window during which she was "asleep" prior to being found unresponsive yesterday. Awake now but on Versed Appreciate Neurology consult with Dr. Arshad. EEG ordered 6. CAD s/p angio and stenting x 2 approx 2 weeks ago EKG similar to previous ekg two weeks ago. Serial troponins ASA and Brilinta, Cardiology consultation with Dr. Castelan. 7. History of hypertension, but her daughters said she had been hypotensive since discharge 07/11/16 and had not received any of her hypertensive medications. Continue Holding anti-hypertensives for now 8. Right lower extremity pain with questionable history of sciatica. Doppler study negative ten days ago for DVT on the right. 9. Leukocytosis and likely aspiration pneumonitis/pneumonia vs HCAP Agree with Vancomycin and Cefepime given in ED, will continue to be dosed by pharmacy. Prophylaxis: Famotidine for gastrointestinal prophylaxis. SCDs for DVT prevention Disposition: ICU level of care. Critical care consult with Dr Mayen, Nephrology consult with Dr Barraza and Neurology consult with Dr Arshad. Full-Code. Subjective 24 Hr Interval Summary Free Text/Dictation Patient on versed for sedation EEG pending CT head negative WBC trending down pRBC with HD today Exam/Review of Systems Vital Signs Vitals Vital Signs Date Time Temp Pulse Resp B/P Pulse Ox O2 Delivery O2 Flow Rate FiO2 07/21/16 15:12 80 16 98 50 07/21/16 15:00 100.1 145/52 Mechanical Ventilator Intake and Output 07/20/16 07/20/16 07/21/16 14:59 22:59 06:59 Intake Total 23.5 ml Balance 23.5 ml Exam Constitutional: frail, other Respiratory: diminished breath sounds (bases > upper lobes ) Cardiovascular: nl pulses, regular rate and rhythm Gastrointestinal: non-tender, soft Musculoskeletal: nl extremities to inspection Extremities: normal pulses, other (no edema, clubbing or cyanosis ) Neurological: lethargic, other (intubated and sedated ) Results Result Diagram: 07/21/16 0550 07/21/16 0550 Results 24 hrs Laboratory Tests Test 07/20/16 17:25 07/20/16 17:33 07/20/16 21:30 07/20/16 21:45 Alanine Aminotransferase (ALT/SGPT) 23 Albumin 2.8 L Albumin/Globulin Ratio 0.82 Alkaline Phosphatase 165 H Anion Gap 18 H Aspartate Amino Transf (AST/SGOT) 24 Blood Urea Nitrogen 35 H Calcium Level 8.1 L Carbon Dioxide Level 30 Chloride Level 100 Creatinine 5.14 H Direct Bilirubin 0.00 Globulin 3.40 H Glucose Level 106 Indirect Bilirubin 0.0 Potassium Level 4.3 Sodium Level 144 Total Bilirubin 0.0 L Total Protein 6.2 # Lactic Acid Level 1.0 1.0 Troponin I 0.504 *H Bedside Glucose 101 Test 07/21/16 01:05 07/21/16 05:50 Urine Bacteria MANY Urine Bilirubin 1+ H Urine Clarity CLEAR Urine Color DK. YELLOW Urine Glucose NEGATIVE Urine Hemoglobin 3+ H Urine Ictotest NEGATIVE Urine Ketones NEGATIVE Urine Leukocyte Esterase TRACE H Urine Microscopic RBC 2-5 Urine Microscopic WBC 25-50 Urine Nitrite POSITIVE H Urine Specific [place] 1.020 Urine Squamous Epithelial Cells FEW Urine Total Protein 4+ H Urine Urobilinogen 0.2 E.U./dL Urine pH 7.5 Alanine Aminotransferase (ALT/SGPT) 20 Albumin 2.9 L Albumin/Globulin Ratio 0.85 Alkaline Phosphatase 165 H Anion Gap 18 H Aspartate Amino Transf (AST/SGOT) 21 Basophils # 0.4 H Basophils % 2.0 Blood Morphology Comment Blood Urea Nitrogen 44 H Calcium Level 8.4 Carbon Dioxide Level 29 Chloride Level 99 Creatinine 5.76 H Differential Comment MANUAL DIFF Direct Bilirubin 0.00 Eosinophils # Eosinophils % Globulin 3.40 H Glucose Level 71 Hematocrit 21.9 L Hemoglobin 7.4 L Indirect Bilirubin 0.0 Lactic Acid Level 0.7 Lymphocytes # 2.4 Lymphocytes % 11.0 L Magnesium Level 2.4 Mean Corpuscular Hemoglobin 32.3 Mean Corpuscular Hemoglobin Concent 33.8 Mean Corpuscular Volume 95.6 Mean Platelet Volume 8.0 Monocytes # 1.5 H Monocytes % 7.0 Neutrophils # 17.3 H Neutrophils % 80.0 H Nucleated Red Blood Cells # Nucleated Red Blood Cells % Platelet Count 249 # Potassium Level 4.6 Red Blood Count 2.29 L Red Cell Distribution Width 17.0 H Sodium Level 141 Total Bilirubin 0.0 L Total Protein 6.3 Troponin I 0.440 *H White Blood Count 21.6 #H Medications Medications Current Medications Aspirin (Aspirin) 81 mg DAILY NGT Last administered on 07/21/16 09:22; Admin Dose 81 MG; Start 07/21/16 at 09:00 Atorvastatin Calcium (Lipitor) 40 mg QHS NGT Last administered on 07/20/16 21: 54; Admin Dose 40 MG; Start 07/20/16 at 21:00 Docusate Sodium (Colace Liquid Cup) 100 mg TID PRN NGT CONSTIPATION; Start 07/20 at 17:30 Folic Acid (Folic Acid) 1 mg DAILY NGT Last administered on 07/21/16 09:22; Admin Dose 1 MG; Start 07/21/16 at 09:00 Insulin Glargine (Lantus) 10 unit QHS SC Last administered on 07/20/16 21:56; Admin Dose 10 UNIT; Start 07/20/16 at 21:00 Ticagrelor (Brilinta) 90 mg Q12 NGT Last administered on 07/21/16 09:22; Admin Dose 90 MG; Start 07/20/16 at 21:00 Acetaminophen (Tylenol Tab) 650 mg Q6H PRN NGT PAIN LEVEL 1-3 OR FEVER; Start 07/20/16 at 17:30 Acetaminophen/ Hydrocodone Bitart ([place] (5/325)) 1 tab Q6H PRN NGT PAIN LEVEL 4-6; Start 07/20/16 at 17:30 Acetaminophen/ Hydrocodone Bitart ([place] [address] (5/325)) 2 tab Q6H PRN NGT PAIN LEVEL 7-10; Start 07/20/16 at 17:30 Famotidine (Pepcid Iv) 20 mg Q24H IV Last administered on 07/20/16 21:54; Admin Dose 20 MG; Start 07/20/16 at 21:00 Heparin Sodium (Porcine) (Heparin (5000 Units/0.5 ml)) 5,000 unit Q8 SC Last administered on 07/21/16 05:17; Admin Dose 5,000 UNIT; Start 07/20/16 at 17:30 Metoprolol Tartrate 25 mg 25 mg BID PO ; Start 07/21/16 at 21:00 Midazolam HCl/ Dextrose (Versed/D5W) 50 ml @ 1 mls/hr TITRATE IV ; Start at 15:30; Stop 07/28/16 at 09:00 NADIA SARGENT Jul 21, 2016 15:46
[2016-07-21] MEDS ORDERED: GLUCAGON 1 MG INJ IM PRN (16:30)
[2016-07-21] MEDS ORDERED: DEXTROSE 50% 50 ML SYRINGE IV PRN ×2 (16:30)
[2016-07-21] MEDS ORDERED: GLUCOSE GEL 15 GRAM TUBE BUCCAL PRN (16:30)
[2016-07-21] MEDS ORDERED: GLUCOSE GEL 15 GRAM TUBE PO PRN ×2 (16:30)
[2016-07-21] MEDS: INSULIN ASPART [NOVOLOG] 3 ML PEN SC SCH ×2 (17:00→21:00)
--- NOTE | 2016-07-21 17:07 | CONS ---
DATE OF ADMISSION: 07/20/2016 DATE OF CONSULTATION: 07/21/2016 REASON FOR CONSULTATION: End-stage renal disease, volume overload. REQUESTING PHYSICIAN: Osman Cox MD HISTORY OF PRESENT ILLNESS: This is a 65-year-old female with a past medical history of end-stage r enal disease on dialysis Thursday, Thursday, Thursday, access is a left upper extremity AV fistula. [facility] patient's primary queen producer is Dr. Perez. The patient's last hemodialysis was Thursday. The andrea ent recently was admitted to [facility] due to a non-STEMI, cardiac arrest. The p atdelores had a prolonged hospital course where she underwent cardiac catheterization and PCI was perfo rmed to her distal circumflex and left main. The patient was also in respiratory failure, was event ually extubated and recovered and discharged home on 07/11/2016. Since her discharge, the patient h ad been stable until 1 day prior to admission when she was noted to be lethargic. The patient sever al hours later was noted to be more confused and had an episode of emesis. The patient was found to be unresponsive by her family members and 911 was called when the patient was brought into the [facility] room, found to be in respiratory distress and underwent urgent mechanical ventilation. In [facility] emergency room, the patient was diagnosed with a pneumonia and was in severe sepsis. The patient was given IV fluids, started on IV antibiotics and was placed on pressor support. The patient in [facility] emergency room was able to be weaned off pressors. She still remains critically ill on full venti latory support. In terms of the patient's renal failure she is currently dialysis dependent. As stated above, last hemodialysis was Thursday. Of note, the patient's family says that she was looking more edematous ove r the last 2 to 3 days. PAST MEDICAL HISTORY: As stated above, history of end-stage renal disease, history of hypertension, history of coronary artery disease, history of diabetes, dyslipidemia. PAST SURGICAL HISTORY: Status post AV fistula placement, status post foot surgery, status post PCI. SOCIAL HISTORY: Lives with her family. FAMILY HISTORY: No family history of kidney disease or heart disease. ALLERGIES: NO KNOWN DRUG ALLERGIES. MEDICATIONS: The patient's medications have been reviewed. REVIEW OF SYSTEMS: Unable to do adequate review of systems as patient is intubated and obtunded. PHYSICAL EXAMINATION: VITAL SIGNS: Blood pressure is currently 161/56, respiration 18, pulse 78, temperature 99.0. HEENT: Head is normocephalic. NECK: Supple. HEART: Regular rate. LUNGS: Show diminished breath sounds at the base. Positive rhonchi and crackles. ABDOMEN: Soft, nontender to palpation. No rebound or guarding. EXTREMITIES: Negative for clubbing, cyanosis. Positive edema upper and lower extremity. DERMATOLOGIC: No rashes. MUSCULOSKELETAL: No joint effusions. The patient has a left AV fistula with palpable thrill and bru it. NEUROLOGIC: Limited exam due to lack of patient cooperation. IMAGING STUDIES: Chest x-ray shows interstitial edema, chronic lung changes, upper lobe, improved a eration of the upper lobe, left middle lung opacity. LABORATORY DATA: Shows white count 21.6, hemoglobin 7.4, hematocrit 21.9, platelet count 249. Sodi um 141, potassium 4.6, chloride 99, BUN 44, creatinine 5.6 and troponin 0.44. Urinalysis positive n itrites. Microbiology: Blood cultures no growth after 24 hours. Urine culture is pending. ASSESSMENT AND PLAN: This is a 65-year-old female who presents with: 1. End-stage renal disease. The patient is on dialysis Thursday, Thursday, Thursday with access of le ft upper extremity AV fistula. The patient's last hemodialysis was Thursday. Plan for urgent dialysi s today for 3 hours on 3 K bath, calcium 2.5, will ultrafiltrate as tolerated. Also, anticipate sly lysis in the next 1 to 2 days daily for solute clearance and volume removal. 2. Volume overload. The patient's chest x-ray shows noted interstitial edema. The patient also horton s edema on her upper and lower extremities. Plan for ultrafiltration with dialysis, minimize IV flu ids. 3. Anemia of chronic disease. We will check iron panel, stool for occult blood. We will give Epog en following dialysis. Monitor closely. 4. Mineral bone disorder, monitor calcium and phosphorus levels. Continue phosphate binders. 5. Severe sepsis, status post shock. Underlying etiology is likely due to healthcare-associated pn eumonia, possible urinary tract infection. The patient is currently on broad spectrum antibiotics. We will continue. Cultures have been reviewed. 6. Ventilator dependent respiratory failure. Etiology is felt to be secondary to pneumonia. Vent settings have been reviewed. ABG has been reviewed. Follow up with Pulmonary. 7. Elevated troponin. Etiology may be due to non-STEMI type 1 versus type 2. We will continue to check serial troponins. Follow up with Cardiology. Continue medical management. 8. History of coronary artery disease status post recent PCI. Currently stable. Continue medical m anagement and follow up with Cardiology. 9. Dyslipidemia. Continue statin therapy. 10. Diabetes. Continue Accu-Cheks, insulin sliding scale. 11. Hypertension. Etiology is multifactorial in part due to increased intravascular volume. Clarice nue current blood pressure regimen. We will ultrafiltrate as tolerated. Thank you, Dr. Cox, for this interesting consultation. It will be a pleasure to follow patient w vincent rivera throughout the hospital course. Dictated By: TALITA GARCIA/RANI Conf#: [id number] DID#: [id number]
--- NOTE | 2016-07-21 17:15 | CONS ---
Date/Time of Note Date/Time of Note DATE: 07/21/16 TIME: 17:09 Assessment/Plan Assessment/Plan Chief Complaint/Hosp Course 65 year old F with ESRD, recent admission for cardiac arrest s/p stent admitted after she was found unresponsive with respiratory distress possibly over 2 hours undergoing further medical management, neurology consulted to evaluate for potential hypoxic ischemic encephalopathy. -CTH reviewed no acute changes will require MRI Brain w/o contrast when more stable if unable to obtain in the next few days due to critical status we may repeat Head CT -Routine EEG this afternoon -will continue to follow Problems: Consultation Date/Type/Reason Admit Date/Time 07/21/2016 Date of Consultation: Jul 21, 2016 Type of Consultation: neurology Reason for Consultation evaluate for anoxic injury Referring Provider: KRZYSZTOF MAY M.D. Hx of Present Illness 65 year old female with ESRD on HD M/W/F, acute on chronic anemia, DM, admitted with acute respiratory failure and unresponsiveness. She was hospitalized 2 weeks ago after cardiac arrest with asystole, s/p angiogram and stenting. Per hx obtained from daughter at bedside,her mom was c/o abdominal pain vomiting and went to sleep yesterday with difficulty breathing noted by another daughter. She was reportedly sleeping in the room for 2 hours prior to being found unresponsive, neurology eval requested to evaluate for possible anoxic injury. Subjective hx not possible: pt critical Social History Smoking Status: Unknown if ever smoked Exam/Review of Systems Vital Signs Vitals Vital Signs Date Time Temp Pulse Resp B/P Pulse Ox O2 Delivery O2 Flow Rate FiO2 07/21/16 16:45 81 07/21/16 15:20 17 07/21/16 15:12 98 50 07/21/16 15:00 100.1 145/52 Mechanical Ventilator Intake and Output 07/20/16 07/20/16 07/21/16 15:00 23:00 07:00 Intake Total 23.5 ml Balance 23.5 ml Exam patient is intubated examined on sedation limited exam she is unable to open her eyes to verbal stimuli when eyes are forced open she attempts to close them grimaces briefly not following any commands CN: right pupil sightly irregular b/l 2 mm reactive, no sig. facial asymmetry appreciated corneals and gag reflex present Motor: withdraws briefly in both arms, minimal withdrawal in legs to noxious toes are mute Results Result Diagram: 07/21/16 0550 07/21/16 0550 Results 24 hrs Laboratory Tests Test 07/20/16 17:25 07/20/16 17:33 07/20/16 21:30 07/20/16 21:45 Alanine Aminotransferase (ALT/SGPT) 23 Albumin 2.8 L Albumin/Globulin Ratio 0.82 Alkaline Phosphatase 165 H Anion Gap 18 H Aspartate Amino Transf (AST/SGOT) 24 Blood Urea Nitrogen 35 H Calcium Level 8.1 L Carbon Dioxide Level 30 Chloride Level 100 Creatinine 5.14 H Direct Bilirubin 0.00 Globulin 3.40 H Glucose Level 106 Indirect Bilirubin 0.0 Potassium Level 4.3 Sodium Level 144 Total Bilirubin 0.0 L Total Protein 6.2 # Lactic Acid Level 1.0 1.0 Troponin I 0.504 *H Bedside Glucose 101 Test 07/21/16 01:05 07/21/16 05:50 Urine Bacteria MANY Urine Bilirubin 1+ H Urine Clarity CLEAR Urine Color DK. YELLOW Urine Glucose NEGATIVE Urine Hemoglobin 3+ H Urine Ictotest NEGATIVE Urine Ketones NEGATIVE Urine Leukocyte Esterase TRACE H Urine Microscopic RBC 2-5 Urine Microscopic WBC 25-50 Urine Nitrite POSITIVE H Urine Specific Tracy 1.020 Urine Squamous Epithelial Cells FEW Urine Total Protein 4+ H Urine Urobilinogen 0.2 E.U./dL Urine pH 7.5 Alanine Aminotransferase (ALT/SGPT) 20 Albumin 2.9 L Albumin/Globulin Ratio 0.85 Alkaline Phosphatase 165 H Anion Gap 18 H Aspartate Amino Transf (AST/SGOT) 21 Basophils # 0.4 H Basophils % 2.0 Blood Morphology Comment Blood Urea Nitrogen 44 H Calcium Level 8.4 Carbon Dioxide Level 29 Chloride Level 99 Creatinine 5.76 H Differential Comment MANUAL DIFF Direct Bilirubin 0.00 Eosinophils # Eosinophils % Globulin 3.40 H Glucose Level 71 Hematocrit 21.9 L Hemoglobin 7.4 L Indirect Bilirubin 0.0 Lactic Acid Level 0.7 Lymphocytes # 2.4 Lymphocytes % 11.0 L Magnesium Level 2.4 Mean Corpuscular Hemoglobin 32.3 Mean Corpuscular Hemoglobin Concent 33.8 Mean Corpuscular Volume 95.6 Mean Platelet Volume 8.0 Monocytes # 1.5 H Monocytes % 7.0 Neutrophils # 17.3 H Neutrophils % 80.0 H Nucleated Red Blood Cells # Nucleated Red Blood Cells % Platelet Count 249 # Potassium Level 4.6 Red Blood Count 2.29 L Red Cell Distribution Width 17.0 H Sodium Level 141 Total Bilirubin 0.0 L Total Protein 6.3 Troponin I 0.440 *H White Blood Count 21.6 #H Medications Medications Current Medications Aspirin (Aspirin) 81 mg DAILY NGT Last administered on 07/21/16 09:22; Admin Dose 81 MG; Start 07/21/16 at 09:00 Atorvastatin Calcium (Lipitor) 40 mg QHS NGT Last administered on 07/20/16 21: 54; Admin Dose 40 MG; Start 07/20/16 at 21:00 Docusate Sodium (Colace Liquid Cup) 100 mg TID PRN NGT CONSTIPATION; Start 07/20 at 17:30 Folic Acid (Folic Acid) 1 mg DAILY NGT Last administered on 07/21/16 09:22; Admin Dose 1 MG; Start 07/21/16 at 09:00 Ticagrelor (Brilinta) 90 mg Q12 NGT Last administered on 07/21/16 09:22; Admin Dose 90 MG; Start 07/20/16 at 21:00 Acetaminophen (Tylenol Tab) 650 mg Q6H PRN NGT PAIN LEVEL 1-3 OR FEVER; Start 07/20/16 at 17:30 Acetaminophen/ Hydrocodone Bitart ([place] (5/325)) 1 tab Q6H PRN NGT PAIN LEVEL 4-6; Start 07/20/16 at 17:30 Acetaminophen/ Hydrocodone Bitart ([place] (5/325)) 2 tab Q6H PRN NGT PAIN LEVEL 7-10; Start 07/20/16 at 17:30 Famotidine (Pepcid Iv) 20 mg Q24H IV Last administered on 07/20/16 21:54; Admin Dose 20 MG; Start 07/20/16 at 21:00 Heparin Sodium (Porcine) (Heparin (5000 Units/0.5 ml)) 5,000 unit Q8 SC Last administered on 07/21/16 05:17; Admin Dose 5,000 UNIT; Start 07/20/16 at 17:30 Metoprolol Tartrate 25 mg 25 mg BID PO ; Start 07/21/16 at 21:00 Midazolam HCl 50 mg/Dextrose 50 ml @ 1 mls/hr TITRATE IV ; Start 07/21/16 at 15: 30; Stop 07/28/16 at 09:00 Cefepime HCl (Maxipime 1gm/50 ml (Pmx)) 50 ml @ 100 mls/hr Q24H IVPB ; Start at 18:00 Insulin Aspart (Novolog Insulin Pen) NOVOLOG *MODERATE* ALGORI... Q4 SC ; Start 07/21/16 at 17:00 Miscellaneous Information 1 ea NOTE XX ; Start 07/21/16 at 16:30 Glucose (Glutose) 15 gm Q15M PRN PO DECREASED GLUCOSE; Start 07/21/16 at 16:30 Glucose (Glutose) 22.5 gm Q15M PRN PO DECREASED GLUCOSE; Start 07/21/16 at 16:30 Dextrose (D50w Syringe) 25 ml Q15M PRN IV DECREASED GLUCOSE; Start 07/21/16 at 16:30 Dextrose (D50w Syringe) 50 ml Q15M PRN IV DECREASED GLUCOSE; Start 07/21/16 at 16:30 Glucagon (Glucagen) 1 mg Q15M PRN IM DECREASED GLUCOSE; Start 07/21/16 at 16:30 Glucose (Glutose) 15 gm Q15M PRN BUCCAL DECREASED GLUCOSE; Start 07/21/16 at 16: 30 Miscellaneous Information (*Rx Drug Level Order Reminder*) VANCOMYCIN RANDOM AT 0,500 ON... ONCE ONCE XX ; Start 07/22/16 at 05:00; Stop 07/22/16 at 05:01 CHARLIE MUNOZ MD Jul 21, 2016 17:15
[2016-07-21] MEDS: MIDAZOLAM 50 MG in DEXTROSE 5% 40 ML IV SCH ×2 (17:39→21:33)
[2016-07-21] MEDS: CEFEPIME 1GM/50 ML (PMX) 50 ML IVPB SCH (18:13)
[2016-07-21 18:16] LABS: CK-MB 0.94 ng/ml (0.0-2.4)
[2016-07-21 18:23] LABS: TROPONIN-I 0.396 ng/ml (0.00-0.12)
[2016-07-21] MEDS: FAMOTIDINE 20 MG INJ IV SCH (20:59)
[2016-07-21] MEDS: ATORVASTATIN 40 MG TAB NGT SCH (21:00)
[2016-07-21] MEDS: METOPROLOL 25 MG TAB PO SCH (21:00)
--- NOTE | 2016-07-21 22:20 | SP ---
DATE OF PROCEDURE: 07/21/2016 ELECTROENCEPHALOGRAM REPORT HISTORY: This is a patient admitted with cardiac arrest. EEG is to rule out encephalopathy. CURRENT MEDICATIONS: Not known. PROCEDURE: Utilizing a 16-channel EEG machine, cap scalp electrodes were applied in accordance with International 10-20 system. [id number] and quoht-[id number] montages were displayed. Electrical i mpedances were measured and reported. DESCRIPTION: During the resting state, a posterior dominant rhythm of about 7 to 8 Hz were seen bih emispherically. Photic stimulation had a good response. Blink artifact was noted at times during t he tracing. There was no focal lateralizing or epileptiform discharge identified. INTERPRETATION: This is an abnormal EEG because of presence of generalized bihemispheric background slowing consistent with bihemispheric subcortical dysfunction consistent with encephalopathy withou t epileptiform activity. Please correlate these findings with the patient's clinical picture. Dictated By: CONCETTA ORTEGA/RANI Conf#: [id number] DID#: [id number]
[2016-07-22] VITALS (42 sets, daily range): BP systolic 106–179; BP diastolic 42–94; PULSE 61–76; RESP 14–20
[2016-07-22] MEDS: INSULIN ASPART [NOVOLOG] 3 ML PEN SC SCH ×6 (01:30→22:05)
[2016-07-22 01:48] LABS: CK-MB 0.76 ng/ml (0.0-2.4)
[2016-07-22 01:54] LABS: TROPONIN-I 0.283 ng/ml (0.00-0.12)
[2016-07-22] MEDS: MIDAZOLAM 50 MG in DEXTROSE 5% 40 ML IV SCH ×3 (04:26→20:23)
[2016-07-22 06:03] LABS: BASOPHIL # 0.1 10^3/ul (0.0-0.1); BASOPHILS % 0.3 % (0.0-2.0); EOSINOPHILS # 0.1 10^3/ul (0.0-0.5); EOSINOPHILS % 0.8 % (0.0-7.0); HEMATOCRIT 21.1 % (37.0-47.0); HEMOGLOBIN 7.2 g/dl (12.0-16.0); LYMPHOCYTES # 1.7 10^3/ul (0.8-2.9); LYMPHOCYTES % 10.4 % (15.0-51.0); MEAN CORPUSCULAR HEMOGLOBIN 32.6 pg (29.0-33.0); MEAN PLATELET VOLUME 8.4 fl (7.4-10.4); MONOCYTE # 1.4 10^3/ul (0.3-0.9); MONOCYTES % 8.3 % (0.0-11.0); NEUTROPHIL # 13.1 10^3/ul (1.6-7.5); NEUTROPHILS % 80.2 % (39.0-77.0); PLATELET COUNT 236 10^3/UL (140-440); RED CELL DISTRIBUTION WIDTH 16.5 % (11.5-14.5); UNCORRECTED WBC 16.3 10^3/ul (4.8-10.8); WHITE BLOOD COUNT 16.3 10^3/ul (4.8-10.8)
[2016-07-22 06:12] LABS: CONDITION 1; LH ANALYZER COMMENTS 1
[2016-07-22 06:30] LABS: CHOL/HDL RATIO 4.6 RATIO
[2016-07-22] MEDS: HEPARIN 5,000 UNIT/0.5 ML SYG SC SCH ×3 (06:30→22:05)
[2016-07-22 06:33] LABS: POTASSIUM 3.8 mmol/L (3.5-5.1)
[2016-07-22 06:35] LABS: CREATININE 3.81 mg/dl (0.44-1.00)
[2016-07-22 06:36] LABS: PHOSPHORUS 2.5 mg/dl (2.5-4.9)
[2016-07-22 06:37] LABS: CALCIUM 8.4 mg/dl (8.4-10.2); MAGNESIUM 2.1 mg/dl (1.7-2.5)
[2016-07-22] MEDS: CALCIUM ACETATE 667 MG CAP NGT SCH ×3 (08:34→17:49)
[2016-07-22] MEDS: SEVELAMER CARBONATE 0.8 GM PKT NGT SCH ×3 (08:34→17:49)
[2016-07-22] MEDS: FOLIC ACID 1 MG TAB NGT SCH (08:35)
[2016-07-22] MEDS: TICAGRELOR 90 MG TABLET NGT SCH ×2 (08:35→22:04)
[2016-07-22] MEDS: METOPROLOL 25 MG TAB PO SCH (08:36)
[2016-07-22] MEDS: DEXTROSE 5% 1,000 ML IV SCH (08:39)
[2016-07-22] MEDS: ASPIRIN 81 MG TAB NGT SCH (08:43)
--- NOTE | 2016-07-22 09:09 | PN ---
DATE: 07/22/2016 SUBJECTIVE: The patient remains critically ill on ventilatory support. No other acute events noted overnight. The patient had hemodialysis yesterday, tolerated well with 3.5 L removed. OBJECTIVE: VITAL SIGNS: Blood pressure 126/48, respirations 14, pulse 61, temperature 99.3. I'S and O's reviewed. HEENT: Head is normocephalic. NECK: Supple. HEART: Regular rate. LUNGS: Show diminished breath sounds at base. ABDOMEN: Soft, nontender to palpation, no rebound or guarding. EXTREMITIES: Negative for clubbing, cyanosis. Trace edema. DERMATOLOGIC: No rashes. MUSCULOSKELETAL: No joint effusions. NEUROLOGIC: No change in exam. MEDICATIONS: The patient's medications have been reviewed. LABORATORY DATA: Shows sodium 140, potassium 3.8, chloride 98, bicarbonate 31, BUN 29, creatinine 3 .81. White count today is 16.3, hemoglobin 7.2, hematocrit 21.1, platelet count 236. The patient's cultures have been negative to date. ASSESSMENT AND PLAN: 1. End-stage renal disease. The patient is on dialysis Thursday, Thursday, Thursday with access to le ft upper extremity AV fistula. The patient had hemodialysis yesterday, tolerated it well. Plan for dialysis again today for solute clearance and volume removal. The patient will be transfused 2 uni ts of PRBCs today. 2. Volume overload. The patient is clinically improving with 3.5 L removed yesterday. Will contin ue dialysis today for ultrafiltration. 3. Anemia of chronic disease. Hemoglobin levels are low, will transfuse 2 units of PRBC. Continue Epogen. 4. Mineral bone disorder. Will monitor calcium and phosphorus levels. Continue phosphate binders. 5. Severe sepsis status post shock secondary to healthcare-associated pneumonia, possible urinary t ract infection. The patient is on broad-spectrum antibiotics. Will continue. Follow up with cultu res. 6. Ventilator-dependent respiratory failure. Etiology secondary to pneumonia. Vent settings have been reviewed. ABG has have been reviewed. Continue to monitor. 7. Elevated troponin, possibly [id number] myocardial infarction type 2 due to demand ischemia . We will continue medical management. Follow up with cardiology. 8. History of coronary artery disease, status post recent percutaneous coronary intervention. Cont inue current treatment plan. 9. Dyslipidemia. Continue statin therapy. 10. Diabetes. Continue Accu-Cheks and insulin sliding scale. 11. Hypertension. Blood pressure improved. Continue current blood pressure regimen. Dictated By: TALITA GARCIA/RANI Conf#: [id number] DID#: [id number]
--- NOTE | 2016-07-22 09:13 | CONS ---
Date/Time of Note Date/Time of Note DATE: 07/22/16 TIME: 09:10 Assessment/Plan Assessment/Plan Additional Assessment/Plan 1. Positive troponin in the setting of respiratory failure and renal failure- stable BP, conservative Rx for now. 2. Abnormal electrocardiogram, assess for acute coronary syndrome- stable. 3. History of a recent PTCA and stent placement to circumflex June 2016 with drug-eluting stents- con't dual anti-platelet therapy 4. Altered mental state- now intibated. 5. Respiratory failure, status post intubation- better, con't to wean. 6. End-stage renal disease on hemodialysis - Rx as needed p[er renal team. 7. Urinary tract infection. 8. Pneumonia- on anti-Bx now, 9. Dyslipidemia. Consultation Date/Type/Reason Admit Date/Time Jul 20, 2016 at 15:20 Initial Consult Date 07/21/16 Type of Consultation: neurology Referring Provider: KRZYSZTOF MAY M.D. 24 HR Interval Summary Free Text/Dictation NO acute change - BP stable - on anti-Bx now. ROS: No fever, no chills, no nausea, no vomiting, no diarrhea/constipation No recent weight changes No chest pain, no PND, no orthopnea No dizziness, blurred vision No thirst, no heat or cold intolerance (per nurse) Exam/Review of Systems Vital Signs Vitals Vital Signs Date Time Temp Pulse Resp B/P Pulse Ox O2 Delivery O2 Flow Rate FiO2 07/22/16 07:57 73 16 100 40 07/22/16 07:00 126/48 Mechanical Ventilator 07/22/16 04:00 99.3 Intake and Output 07/21/16 07/21/16 07/22/16 15:00 23:00 07:00 Intake Total 0 ml 560 ml 66.5 ml Output Total 0 ml 4000 ml Balance 0 ml -3440 ml 66.5 ml Exam General: WN/WD/NAD, AOx 0 HEENT: Unicetric/atraumatic/EOMI (does not follow commands) NECK: JVD elevated, no thyromegaly, intub Lymph: no lymphadenopathy HEART: regular with no S3, II/ systolic murmur at apex LUNGS: Coarse sounds ABD: soft, NT, ND, +BS : Intact Neuro: non focal SKIN: chronic changes EXT: trace edema Results Result Diagram: 07/22/16 0500 07/22/16 0500 Results 24 hrs Laboratory Tests Test 07/21/16 17:35 07/21/16 18:10 07/21/16 21:07 07/21/16 21:30 Creatine Kinase 41 Creatine Kinase Index 2.3 Creatinine Kinase MB (Mass) 0.94 Troponin I 0.396 *H Bedside Glucose 124 67 L 112 Test 07/21/16 21:59 07/22/16 00:23 07/22/16 01:32 07/22/16 04:55 Bedside Glucose 98 83 81 Creatine Kinase 44 Creatine Kinase Index 1.7 Creatinine Kinase MB (Mass) 0.76 Troponin I 0.283 *H Test 07/22/16 05:00 07/22/16 08:46 Anion Gap 15 Basophils # 0.1 Basophils % 0.3 Blood Morphology Comment Blood Urea Nitrogen 29 #H Calcium Level 8.4 Carbon Dioxide Level 31 Chloride Level 98 Cholesterol Level 88 L Cholesterol/HDL Ratio 4.6 Creatinine 3.81 #H Eosinophils # 0.1 Eosinophils % 0.8 Glucose Level 78 HDL Cholesterol 19 L Hematocrit 21.1 L Hemoglobin 7.2 L LDL Cholesterol, Calculated 40 Lymphocytes # 1.7 Lymphocytes % 10.4 L Magnesium Level 2.1 Mean Corpuscular Hemoglobin 32.6 Mean Corpuscular Hemoglobin Concent 34.0 Mean Corpuscular Volume 96.0 Mean Platelet Volume 8.4 Monocytes # 1.4 H Monocytes % 8.3 Neutrophils # 13.1 H Neutrophils % 80.2 H Nucleated Red Blood Cells # 0.0 Nucleated Red Blood Cells % 0.0 Phosphorus Level 2.5 Platelet Count 236 Potassium Level 3.8 Random Vancomycin Level 10.4 Red Blood Count 2.20 L Red Cell Distribution Width 16.5 H Sodium Level 140 Triglycerides Level 145 White Blood Count 16.3 #H Bedside Glucose 81 Medications Medications Current Medications Aspirin (Aspirin) 81 mg DAILY NGT Last administered on 07/22/16 08:43; Admin Dose 81 MG; Start 07/21/16 at 09:00 Atorvastatin Calcium (Lipitor) 40 mg QHS NGT Last administered on 07/21/16 21: 00; Admin Dose 40 MG; Start 07/20/16 at 21:00 Docusate Sodium (Colace Liquid Cup) 100 mg TID PRN NGT CONSTIPATION; Start 07/20 at 17:30 Folic Acid (Folic Acid) 1 mg DAILY NGT Last administered on 07/22/16 08:35; Admin Dose 1 MG; Start 07/21/16 at 09:00 Ticagrelor (Brilinta) 90 mg Q12 NGT Last administered on 07/22/16 08:35; Admin Dose 90 MG; Start 07/20/16 at 21:00 Acetaminophen (Tylenol Tab) 650 mg Q6H PRN NGT PAIN LEVEL 1-3 OR FEVER; Start 07/20/16 at 17:30 Acetaminophen/ Hydrocodone Bitart ([place] (5/325)) 1 tab Q6H PRN NGT PAIN LEVEL 4-6; Start 07/20/16 at 17:30 Acetaminophen/ Hydrocodone Bitart ([place] (5/325)) 2 tab Q6H PRN NGT PAIN LEVEL 7-10; Start 07/20/16 at 17:30 Famotidine (Pepcid Iv) 20 mg Q24H IV Last administered on 07/21/16 20:59; Admin Dose 20 MG; Start 07/20/16 at 21:00 Heparin Sodium (Porcine) (Heparin (5000 Units/0.5 ml)) 5,000 unit Q8 SC Last administered on 07/22/16 06:30; Admin Dose 5,000 UNIT; Start 07/20/16 at 17:30 Metoprolol Tartrate 25 mg 25 mg BID PO Last administered on 07/22/16 08:36; Admin Dose 25 MG; Start 07/21/16 at 21:00 Midazolam HCl 50 mg/Dextrose 50 ml @ 1 mls/hr TITRATE IV Last administered on 08:43; Admin Dose 7 MLS/HR; Start 07/21/16 at 15:30; Stop 07/28/16 at 09 :00 Cefepime HCl (Maxipime 1gm/50 ml (Pmx)) 50 ml @ 100 mls/hr Q24H IVPB Last administered on 07/21/16 18:13; Admin Dose 100 MLS/HR; Start 07/21/16 at 18:00 Insulin Aspart (Novolog Insulin Pen) NOVOLOG *MODERATE* ALGORI... Q4 SC ; Start 07/21/16 at 17:00 Miscellaneous Information 1 ea NOTE XX ; Start 07/21/16 at 16:30 Glucose (Glutose) 15 gm Q15M PRN PO DECREASED GLUCOSE; Start 07/21/16 at 16:30 Glucose (Glutose) 22.5 gm Q15M PRN PO DECREASED GLUCOSE; Start 07/21/16 at 16:30 Dextrose (D50w Syringe) 25 ml Q15M PRN IV DECREASED GLUCOSE Last administered on 07/21/16t 21:13; Admin Dose 25 ML; Start 07/21/16 at 16:30 Dextrose (D50w Syringe) 50 ml Q15M PRN IV DECREASED GLUCOSE; Start 07/21/16 at 16:30 Glucagon (Glucagen) 1 mg Q15M PRN IM DECREASED GLUCOSE; Start 07/21/16 at 16:30 Glucose 15 gm 15 gm Q15M PRN BUCCAL DECREASED GLUCOSE; Start 07/21/16 at 16:30 Dextrose (D5W) 1,000 ml @ 40 mls/hr Q24H IV Last administered on 07/22/16 08: 39; Admin Dose 40 MLS/HR; Start 07/22/16 at 09:00 ADELFO PUGA MD Jul 22, 2016 09:12
--- NOTE | 2016-07-22 09:53 | PN ---
Date/Time of Note Date/Time of Note DATE: 07/22/16 TIME: 09:26 Assessment/Plan VTE Prophylaxis VTE Prophylaxis Intervention: SCD's Lines/Catheters IV Catheter Type (from Nrsg): Central Line Central line still needed: Yes (for IV access ) Assessment/Plan Assessment/Plan 65-year-old woman: 1. Acute respiratory failure and unresponsiveness, s/p intubation on arrival in the ER. Etiology unclear She was hospitalized two weeks ago after suffered a cardiac arrest with asystole in the ER. S/p Angio x 2 with stenting 2-D echocardiogram 2 weeks ago EF 65%. Mildly elevated troponin on this admission, appreciate cardiology recommendations Cardiology, Pulmonary, Nephrology and Neurology consulted 2. Endstage renal disease on hemodialysis: on HD M/W/F Hemodialysis yesterday and also planned for today with 2 units pRBC to be given Appreciate assistance from Dr. Gomez. 3. Acute on chronic anemia with hb down to 7.2, getting 2 units pRBC with HD today 4. Diabetes mellitus: OFF Lantus with episode of hypoglycemia noted SSI Will start TF post dietary consult 5. 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 There was a two-hour window during which she was "asleep" prior to being found unresponsive yesterday. Titrating Versed down EEG done yesterday and showing encephalopathy Appreciate Neurology consult with Dr. Arshad. 6. CAD s/p angio and stenting x 2 approx 2 weeks ago EKG similar to previous ekg two weeks ago. Serial troponins KURT and Juan, Dr Castelan following 7. History of hypertension, but her daughters said she had been hypotensive since discharge 07/11/16 and had not received any of her hypertensive medications. Continue Holding anti-hypertensives for now, BP stable 8. Right lower extremity pain with questionable history of sciatica. Doppler study negative ten days ago for DVT on the right. 9. Leukocytosis and likely aspiration pneumonitis/pneumonia vs HCAP Agree with Vancomycin and Cefepime given in ED, will continue to be dosed by pharmacy. Prophylaxis: Pepcid for gastrointestinal prophylaxis. SCDs for DVT prevention Disposition: ICU level of care. Dr Mayen, Dr Castelan, Dr Barraza and Dr Arshad following. Full-Code. Subjective 24 Hr Interval Summary Free Text/Dictation Patient's sedation being weaned down VSS more stable WBC trending down and afebrile BG down, will start TF Vent weaning per Pulmonary Exam/Review of Systems Vital Signs Vitals Vital Signs Date Time Temp Pulse Resp B/P Pulse Ox O2 Delivery O2 Flow Rate FiO2 07/22/16 07:57 73 16 100 40 07/22/16 07:00 126/48 Mechanical Ventilator 07/22/16 04:00 99.3 Intake and Output 07/21/16 07/21/16 07/22/16 15:00 23:00 07:00 Intake Total 0 ml 560 ml 66.5 ml Output Total 0 ml 4000 ml Balance 0 ml -3440 ml 66.5 ml Exam Constitutional: other (sedated and intubated ) Respiratory: diminished breath sounds (bases ), other (on mechanical ventialtion ) Cardiovascular: nl pulses, regular rate and rhythm Gastrointestinal: non-tender, soft Musculoskeletal: nl extremities to inspection, other (no edema, clubbing or cyanosis ) Extremities: normal pulses Neurological: other (intubated and sedated ) Results Result Diagram: 07/22/16 0500 07/22/16 0500 Results 24 hrs Laboratory Tests Test 07/21/16 17:35 07/21/16 18:10 07/21/16 21:07 07/21/16 21:30 Creatine Kinase 41 Creatine Kinase Index 2.3 Creatinine Kinase MB (Mass) 0.94 Troponin I 0.396 *H Bedside Glucose 124 67 L 112 Test 07/21/16 21:59 07/22/16 00:23 07/22/16 01:32 07/22/16 04:55 Bedside Glucose 98 83 81 Creatine Kinase 44 Creatine Kinase Index 1.7 Creatinine Kinase MB (Mass) 0.76 Troponin I 0.283 *H Test 07/22/16 05:00 07/22/16 08:46 Anion Gap 15 Basophils # 0.1 Basophils % 0.3 Blood Morphology Comment Blood Urea Nitrogen 29 #H Calcium Level 8.4 Carbon Dioxide Level 31 Chloride Level 98 Cholesterol Level 88 L Cholesterol/HDL Ratio 4.6 Creatinine 3.81 #H Eosinophils # 0.1 Eosinophils % 0.8 Glucose Level 78 HDL Cholesterol 19 L Hematocrit 21.1 L Hemoglobin 7.2 L LDL Cholesterol, Calculated 40 Lymphocytes # 1.7 Lymphocytes % 10.4 L Magnesium Level 2.1 Mean Corpuscular Hemoglobin 32.6 Mean Corpuscular Hemoglobin Concent 34.0 Mean Corpuscular Volume 96.0 Mean Platelet Volume 8.4 Monocytes # 1.4 H Monocytes % 8.3 Neutrophils # 13.1 H Neutrophils % 80.2 H Nucleated Red Blood Cells # 0.0 Nucleated Red Blood Cells % 0.0 Phosphorus Level 2.5 Platelet Count 236 Potassium Level 3.8 Random Vancomycin Level 10.4 Red Blood Count 2.20 L Red Cell Distribution Width 16.5 H Sodium Level 140 Triglycerides Level 145 White Blood Count 16.3 #H Bedside Glucose 81 Medications Medications Current Medications Aspirin (Aspirin) 81 mg DAILY NGT Last administered on 07/22/16 08:43; Admin Dose 81 MG; Start 07/21/16 at 09:00 Atorvastatin Calcium (Lipitor) 40 mg QHS NGT Last administered on 07/21/16 21: 00; Admin Dose 40 MG; Start 07/20/16 at 21:00 Docusate Sodium (Colace Liquid Cup) 100 mg TID PRN NGT CONSTIPATION; Start 07/20 at 17:30 Folic Acid (Folic Acid) 1 mg DAILY NGT Last administered on 07/22/16 08:35; Admin Dose 1 MG; Start 07/21/16 at 09:00 Ticagrelor (Brilinta) 90 mg Q12 NGT Last administered on 07/22/16 08:35; Admin Dose 90 MG; Start 07/20/16 at 21:00 Acetaminophen (Tylenol Tab) 650 mg Q6H PRN NGT PAIN LEVEL 1-3 OR FEVER; Start 07/20/16 at 17:30 Acetaminophen/ Hydrocodone Bitart ([place] (5/325)) 1 tab Q6H PRN NGT PAIN LEVEL 4-6; Start 07/20/16 at 17:30 Acetaminophen/ Hydrocodone Bitart ([place] (5/325)) 2 tab Q6H PRN NGT PAIN LEVEL 7-10; Start 07/20/16 at 17:30 Famotidine (Pepcid Iv) 20 mg Q24H IV Last administered on 07/21/16 20:59; Admin Dose 20 MG; Start 07/20/16 at 21:00 Heparin Sodium (Porcine) (Heparin (5000 Units/0.5 ml)) 5,000 unit Q8 SC Last administered on 07/22/16 06:30; Admin Dose 5,000 UNIT; Start 07/20/16 at 17:30 Metoprolol Tartrate 25 mg 25 mg BID PO Last administered on 07/22/16 08:36; Admin Dose 25 MG; Start 07/21/16 at 21:00 Midazolam HCl 50 mg/Dextrose 50 ml @ 1 mls/hr TITRATE IV Last administered on 08:43; Admin Dose 7 MLS/HR; Start 07/21/16 at 15:30; Stop 07/28/16 at 09 :00 Cefepime HCl (Maxipime 1gm/50 ml (Pmx)) 50 ml @ 100 mls/hr Q24H IVPB Last administered on 07/21/16 18:13; Admin Dose 100 MLS/HR; Start 07/21/16 at 18:00 Insulin Aspart (Novolog Insulin Pen) NOVOLOG *MODERATE* ALGORI... Q4 SC ; Start 07/21/16 at 17:00 Miscellaneous Information 1 ea NOTE XX ; Start 07/21/16 at 16:30 Glucose (Glutose) 15 gm Q15M PRN PO DECREASED GLUCOSE; Start 07/21/16 at 16:30 Glucose (Glutose) 22.5 gm Q15M PRN PO DECREASED GLUCOSE; Start 07/21/16 at 16:30 Dextrose (D50w Syringe) 25 ml Q15M PRN IV DECREASED GLUCOSE Last administered on 07/21/16 21:13; Admin Dose 25 ML; Start 07/21/16 at 16:30 Dextrose (D50w Syringe) 50 ml Q15M PRN IV DECREASED GLUCOSE; Start 07/21/16 at 16:30 Glucagon (Glucagen) 1 mg Q15M PRN IM DECREASED GLUCOSE; Start 07/21/16 at 16:30 Glucose 15 gm 15 gm Q15M PRN BUCCAL DECREASED GLUCOSE; Start 07/21/16 at 16:30 Dextrose (D5W) 1,000 ml @ 40 mls/hr Q24H IV Last administered on 07/22/16 08: 39; Admin Dose 40 MLS/HR; Start 07/22/16 at 09:00 NADIA SARGENT Jul 22, 2016 09:41
--- NOTE | 2016-07-22 10:48 | RADRPT ---
Echocardiogram Report Patient Name: OH ZHONG Gender: Female Date: 1950 Study Date: 21-Jul-2016 Poke In: Yan Trujillo RDCS Location: Ref. Physician: MATT PEARCE Quality: Good Procedures: Transthoracic echocardiogram with complete 2D, M-Mode, and doppler examination. Indications: Evaluate Left Ventricular function. 2D/M Mode Doppler Measurement Value Normal Ranges Measurement Value Normal Ranges LVIDd 2D 5.2 3.5 - 5.6 cm AV Peak José 1.6 m/sec LVIDs 2D 3.4 2.1 - 4.1 cm AV Peak PG 11.0 mmHg FS 2D 34.5 % LVOT Peak José 1.3 m/sec LVPWd 2D 1.1 0.6 - 1.1 cm LVOT Peak PG 6.0 mmHg IVSd 2D 1.2 0.6 - 1.1 cm MV E Peak José 1.4 m/sec IVS/LVPW 2D 1.0 MV A Peak José 1.4 m/sec AoR Diam 2D 2.3 2.0 - 3.7 cm MV E/A 1.0 LA/Ao 2D 2 0 - 1 MV Decel Time 271 msec EDV 2D 141.0 cm3 MV E/A 1.0 ESV 2D 39.7 cm3 TR Peak José 3.1 m/sec LA Dimen 2D 3.6 2.3 - 4.0 cm TR Peak PG 39.0 mmHg RVSP 54.0 mmHg Findings Left Ventricle: Normal left ventricular systolic function. Normal left ventricular cavity size. Mild concentric left ventricular hypertrophy. Ejection fraction is visually estimated at 55 %. Tissue Doppler/Mitral Doppler indices are consistent with impaired relaxation (Stage I diastolic dysfunction). Right Ventricle: Normal right ventricular size. Normal right ventricular systolic function. Left Atrium: The left atrium is normal in size. Right Atrium: The right atrium is normal in size. Mitral Valve: Mitral valve leaflets appear mildly thickened. Mild mitral valve regurgitation. Aortic Valve: Normal appearance of the aortic valve. No significant aortic stenosis or insufficiency. Tricuspid Valve: Normal appearance of the tricuspid valve. Estimated peak PA systolic pressure 54 mmHg. There is mild tricuspid regurgitation. Pericardium: Trivial pericardial effusion. No echocardiographic evidence to suggest pericardial tamponade. Aorta: Normal aortic root. IVC: Inferior vena cava without respiratory collapse, however, patient on ventilator. Conclusions 1.Normal left ventricular systolic function. Normal left ventricular cavity size. Mild concentric left ventricular hypertrophy. Ejection fraction is visually estimated at 55 %. Tissue Doppler/Mitral Doppler indices are consistent with impaired relaxation (Stage I diastolic dysfunction). 2.Mitral valve leaflets appear mildly thickened. Mild mitral valve regurgitation. 3.Normal appearance of the aortic valve. No significant aortic stenosis or insufficiency. 4.Normal appearance of the tricuspid valve. Estimated peak PA systolic pressure 54 mmHg. There is mild tricuspid regurgitation. Electronically Signed By: Petar Sanchez 22-Jul-2016 10:47:45 -0800 Patient Name: OH ZHONG Study Date: 21-Jul-2016 [id number]
[2016-07-22] MEDS ORDERED: VANCOMYCIN 1 GM in NS 250 ML IVPB ONE (11:00)
--- NOTE | 2016-07-22 11:30 | CONS ---
Date/Time of Note Date/Time of Note DATE: 07/22/16 TIME: 11:27 Consult Date/Type/Reason Admit Date/Time Jul 20, 2016 at 15:20 Initial Consult Date 07/21/16 Type of Consultation: neurology Reason for Consultation evaluate for anoxic injury Ordering Provider: KRZYSZTOF MAY M.D. Subjective remains intubated, per daughter she briefly awakens not following any commands Objective Vital Signs Date Time Temp Pulse Resp B/P Pulse Ox O2 Delivery O2 Flow Rate FiO2 07/22/16 09:00 30 07/22/16 09:00 63 15 154/54 100 Mechanical Ventilator 07/22/16 08:00 99.3 Intake and Output 07/21/16 07/21/16 07/22/16 15:00 23:00 07:00 Intake Total 0 ml 560 ml 66.5 ml Output Total 0 ml 4000 ml Balance 0 ml -3440 ml 66.5 ml patient is intubated examined off sedation she is unable to open her eyes to verbal stimuli when eyes are forced open she attempts to close them grimaces briefly to noxious in all four extremities not following any commands CN: right pupil sightly irregular b/l 2 mm reactive, no sig. facial asymmetry appreciated corneals and gag reflex present Motor: withdraws briefly in both arms, minimal withdrawal in legs to noxious toes are mute Results/Medications Result Diagram: 07/22/16 0500 07/22/16 0500 Results 24 hrs Laboratory Tests Test 07/21/16 17:35 07/21/16 18:10 07/21/16 21:07 07/21/16 21:30 Creatine Kinase 41 Creatine Kinase Index 2.3 Creatinine Kinase MB (Mass) 0.94 Troponin I 0.396 *H Bedside Glucose 124 67 L 112 Test 07/21/16 21:59 07/22/16 00:23 07/22/16 01:32 07/22/16 04:55 Bedside Glucose 98 83 81 Creatine Kinase 44 Creatine Kinase Index 1.7 Creatinine Kinase MB (Mass) 0.76 Troponin I 0.283 *H Test 07/22/16 05:00 07/22/16 08:46 Anion Gap 15 Basophils # 0.1 Basophils % 0.3 Blood Morphology Comment Blood Urea Nitrogen 29 #H Calcium Level 8.4 Carbon Dioxide Level 31 Chloride Level 98 Cholesterol Level 88 L Cholesterol/HDL Ratio 4.6 Creatinine 3.81 #H Eosinophils # 0.1 Eosinophils % 0.8 Glucose Level 78 HDL Cholesterol 19 L Hematocrit 21.1 L Hemoglobin 7.2 L LDL Cholesterol, Calculated 40 Lymphocytes # 1.7 Lymphocytes % 10.4 L Magnesium Level 2.1 Mean Corpuscular Hemoglobin 32.6 Mean Corpuscular Hemoglobin Concent 34.0 Mean Corpuscular Volume 96.0 Mean Platelet Volume 8.4 Monocytes # 1.4 H Monocytes % 8.3 Neutrophils # 13.1 H Neutrophils % 80.2 H Nucleated Red Blood Cells # 0.0 Nucleated Red Blood Cells % 0.0 Phosphorus Level 2.5 Platelet Count 236 Potassium Level 3.8 Random Vancomycin Level 10.4 Red Blood Count 2.20 L Red Cell Distribution Width 16.5 H Sodium Level 140 Triglycerides Level 145 White Blood Count 16.3 #H Bedside Glucose 81 Medications Current Medications Aspirin (Aspirin) 81 mg DAILY NGT Last administered on 07/22/16 08:43; Admin Dose 81 MG; Start 07/21/16 at 09:00 Atorvastatin Calcium (Lipitor) 40 mg QHS NGT Last administered on 07/21/16 21: 00; Admin Dose 40 MG; Start 07/20/16 at 21:00 Docusate Sodium (Colace Liquid Cup) 100 mg TID PRN NGT CONSTIPATION; Start 07/20 at 17:30 Folic Acid (Folic Acid) 1 mg DAILY NGT Last administered on 07/22/16 08:35; Admin Dose 1 MG; Start 07/21/16 at 09:00 Ticagrelor (Brilinta) 90 mg Q12 NGT Last administered on 07/22/16 08:35; Admin Dose 90 MG; Start 07/20/16 at 21:00 Acetaminophen (Tylenol Tab) 650 mg Q6H PRN NGT PAIN LEVEL 1-3 OR FEVER; Start 07/20/16 at 17:30 Acetaminophen/ Hydrocodone Bitart ([place] (5/325)) 1 tab Q6H PRN NGT PAIN LEVEL 4-6; Start 07/20/16 at 17:30 Acetaminophen/ Hydrocodone Bitart ([place] (5/325)) 2 tab Q6H PRN NGT PAIN LEVEL 7-10; Start 07/20/16 at 17:30 Famotidine (Pepcid Iv) 20 mg Q24H IV Last administered on 07/21/16 20:59; Admin Dose 20 MG; Start 07/20/16 at 21:00 Heparin Sodium (Porcine) (Heparin (5000 Units/0.5 ml)) 5,000 unit Q8 SC Last administered on 07/22/16 06:30; Admin Dose 5,000 UNIT; Start 07/20/16 at 17:30 Metoprolol Tartrate 25 mg 25 mg BID PO Last administered on 07/22/16 08:36; Admin Dose 25 MG; Start 07/21/16 at 21:00 Midazolam HCl 50 mg/Dextrose 50 ml @ 1 mls/hr TITRATE IV Last administered on 08:43; Admin Dose 7 MLS/HR; Start 07/21/16 at 15:30; Stop 07/28/16 at 09 :00 Cefepime HCl (Maxipime 1gm/50 ml (Pmx)) 50 ml @ 100 mls/hr Q24H IVPB Last administered on 07/21/16 18:13; Admin Dose 100 MLS/HR; Start 07/21/16 at 18:00 Insulin Aspart (Novolog Insulin Pen) NOVOLOG *MODERATE* ALGORI... Q4 SC ; Start 07/21/16 at 17:00 Miscellaneous Information 1 ea NOTE XX ; Start 07/21/16 at 16:30 Glucose (Glutose) 15 gm Q15M PRN PO DECREASED GLUCOSE; Start 07/21/16 at 16:30 Glucose (Glutose) 22.5 gm Q15M PRN PO DECREASED GLUCOSE; Start 07/21/16 at 16:30 Dextrose (D50w Syringe) 25 ml Q15M PRN IV DECREASED GLUCOSE Last administered on 07/21/16 21:13; Admin Dose 25 ML; Start 07/21/16 at 16:30 Dextrose (D50w Syringe) 50 ml Q15M PRN IV DECREASED GLUCOSE; Start 07/21/16 at 16:30 Glucagon (Glucagen) 1 mg Q15M PRN IM DECREASED GLUCOSE; Start 07/21/16 at 16:30 Glucose 15 gm 15 gm Q15M PRN BUCCAL DECREASED GLUCOSE; Start 07/21/16 at 16:30 Dextrose 1,000 ml @ 40 mls/hr Q24H IV Last administered on 07/22/16 08:39; Admin Dose 40 MLS/HR; Start 07/22/16 at 09:00 Vancomycin HCl (Vancocin) 250 ml @ 125 mls/hr ONCE ONCE IVPB Last administered on 07/22/16t 10:54; Admin Dose 125 MLS/HR; Start 07/22/16 at 11:00 ; Stop 07/22/16 at 12:59 Assessment/Plan Chief Complaint/Hosp Course 65 year old F with ESRD, recent admission for cardiac arrest s/p stent admitted after she was found unresponsive with respiratory distress possibly over 2 hours undergoing further medical management, neurology consulted to evaluate for potential hypoxic ischemic encephalopathy. CTH shows no acute changes Routine EEG shows generalized background slowing c/w encephalopathy. Plan: MRI Brain w/o contrast today to evaluate for hypoxic injury discussed results with daughter at bedside Problems: CHARLIE MUNOZ MD Jul 22, 2016 11:30
--- NOTE | 2016-07-22 12:44 | CONS ---
DATE OF ADMISSION: 07/20/2016 DATE OF CONSULTATION: REASON FOR CONSULTATION: Ventilator management. Thank you, Dr. Feng, for this consultation. HISTORY OF PRESENT ILLNESS: This is an unfortunate 65-year-old lady who presented to [facility] with increasing shortness of breath, altered mental status, found to be altered by [facility] members. Upon arrival, she required emergent intubation, mechanical ventilation, and since the n has been somewhat altered from baseline. Currently pending further hemodialysis. PAST MEDICAL HISTORY: 1. End-stage renal failure on hemodialysis. 2. Morbid obesity. 3. History of coronary artery disease status post stent placement. 4. Hypertension. 5. Hyperlipidemia. 6. Diabetes. 7. Probable underlying obstructive sleep apnea. MEDICATIONS: Per chart. ALLERGIES: NONE. SOCIAL HISTORY: Nonsmoker, no alcohol, no history of drug use. FAMILY HISTORY: Noncontributory. SYSTEMS REVIEW: A 12-point review of systems was negative other than that mentioned above. PHYSICAL EXAMINATION: GENERAL: Chronically ill appearing lady, intubated on mechanical ventilation, appears comfortable a t rest, no acute distress. VITAL SIGNS: Currently afebrile, pulse is 60, blood pressure 154/54, O2 saturation 96%, FIO2 of 30% , orally intubated. NECK: Supple, no JVD or lymphadenopathy. CARDIAC EXAMINATION: S1, S2, no added sounds or murmurs. CHEST: Diminished air entry bilaterally. ABDOMEN: Soft, nontender. No guarding or rebound. EXTREMITIES: No cyanosis, clubbing. !+ edema. NEUROLOGIC: Generalized weakness. LABORATORY DATA: White count 16.3 down from 30, hemoglobin 7.2, platelets 236. BUN 29, creatinine 3.81. INR 1.15. Repeat arterial blood gas is pending. Urinalysis was consistent with UTI. DIAGNOSTIC DATA: Chest x-ray was reviewed, shows mild pulmonary edema, possible left-sided pneumoni a. IMPRESSION AND PLAN: 1. Hypoxemic respiratory failure. 2. Possible aspiration. 3. Probable underlying obstructive sleep apnea. 4. Encephalopathy, toxic metabolic. 5. End-stage renal failure on hemodialysis. 6. Significant anemia, questionable . 7. History of hypertension. THE PATIENT WILL NEED: 1. Continued mechanical ventilation. 2. Neurology recommendations. 3. Consider transfusion of 1 unit packed red blood cells. 4. Continue antibiotics for possible pneumonia. 5. Continue glycemic management. 6. DVT and GI prophylaxis. Dictated By: SANDI DOE/RANI Conf#: [id number] DID#: [id number]
[2016-07-22] MEDS: CEFEPIME 1GM/50 ML (PMX) 50 ML IVPB SCH (17:50)
[2016-07-22] MEDS: EPOETIN 10000 UNITS/1 ML INJ (ESRD) SC SCH (17:50)
[2016-07-22] MEDS: METOPROLOL 50 MG TAB PO SCH (22:01)
[2016-07-22] MEDS: ATORVASTATIN 40 MG TAB NGT SCH (22:02)
[2016-07-22] MEDS: FAMOTIDINE 20 MG INJ IV SCH (22:02)
[2016-07-23] VITALS (43 sets, daily range): BP systolic 135–189; BP diastolic 47–97; PULSE 60–77; RESP 13–28
[2016-07-23] MEDS: INSULIN ASPART [NOVOLOG] 3 ML PEN SC SCH ×6 (01:00→20:56)
[2016-07-23 05:55] LABS: BASOPHILS % 0.1 % (0.0-2.0); EOSINOPHILS # 0.1 10^3/ul (0.0-0.5); EOSINOPHILS % 1.1 % (0.0-7.0); HEMATOCRIT 27.3 % (37.0-47.0); HEMOGLOBIN 9.5 g/dl (12.0-16.0); LYMPHOCYTES # 1.2 10^3/ul (0.8-2.9); LYMPHOCYTES % 9.7 % (15.0-51.0); MEAN CORPUSCULAR HEMOGLOBIN 32.6 pg (29.0-33.0); MEAN CORPUSCULAR HGB CONC 34.7 g/dl (32.0-37.0); MEAN PLATELET VOLUME 8.2 fl (7.4-10.4); MONOCYTE # 1.2 10^3/ul (0.3-0.9); MONOCYTES % 9.4 % (0.0-11.0); NEUTROPHIL # 10.2 10^3/ul (1.6-7.5); NEUTROPHILS % 79.7 % (39.0-77.0); PLATELET COUNT 222 10^3/UL (140-440); RED BLOOD COUNT 2.91 10^6/ul (4.20-5.40); RED CELL DISTRIBUTION WIDTH 15.3 % (11.5-14.5); UNCORRECTED WBC 12.8 10^3/ul (4.8-10.8); WHITE BLOOD COUNT 12.8 10^3/ul (4.8-10.8)
[2016-07-23 05:58] LABS: CONDITION 1; LH ANALYZER COMMENTS 1
[2016-07-23 06:04] LABS: POTASSIUM 3.5 mmol/L (3.5-5.1)
[2016-07-23 06:06] LABS: CREATININE 3.13 mg/dl (0.44-1.00)
[2016-07-23 06:07] LABS: CALCIUM 8.1 mg/dl (8.4-10.2); MAGNESIUM 2.1 mg/dl (1.7-2.5); PHOSPHORUS 2.1 mg/dl (2.5-4.9)
[2016-07-23] MEDS: HEPARIN 5,000 UNIT/0.5 ML SYG SC SCH ×3 (06:50→23:53)
[2016-07-23] MEDS: MIDAZOLAM 50 MG in DEXTROSE 5% 40 ML IV SCH ×2 (07:00→20:14)
[2016-07-23] MEDS: DEXTROSE 5% 1,000 ML IV SCH (07:28)
[2016-07-23] MEDS ORDERED: NEUTRA-PHOS 250 MG PACKET PO ONE (07:30)
[2016-07-23 07:59] LABS: AADO2 Arterial 69.7 mmHg (7.0-24.0); Allen Test ACCEPTAB; Arterial Base Excess 5.6 mmol/L (-3.0-3); Arterial COHb 0.2 % (0.0-3.0); Arterial Fraction of Oxyhgb 96.9 % (93.0-99.0); Arterial HCO3 29.5 mmol/L (22.0-26.0); Arterial MetHb 0.1 % (0.0-1.5); Arterial Total Hemglobin 10.3 g/dl (12.0-18.0); MODE VENT - AC
[2016-07-23] MEDS: ASPIRIN 81 MG TAB NGT SCH (08:01)
[2016-07-23] MEDS: FOLIC ACID 1 MG TAB NGT SCH (08:01)
[2016-07-23] MEDS: METOPROLOL 50 MG TAB PO SCH ×2 (08:03→20:53)
[2016-07-23] MEDS: TICAGRELOR 90 MG TABLET NGT SCH ×2 (08:06→20:56)
--- NOTE | 2016-07-23 08:58 | RADRPT ---
PROCEDURE: XR Chest. CLINICAL INDICATION: Pneumonia. TECHNIQUE: Single frontal view of the chest was obtained. COMPARISON: 07/21/2016. FINDINGS: Cardiac silhouette is enlarged. There is calcification and unfolding of the thoracic aorta. There is pulmonary vascular congestion. There is prominence of interstitial markings similar to the prior study. There is early air space consolidation and/or atelectasis at the left lung base. There is a small left pleural effusion. Endotracheal tube tip is in the mid trachea. There is a nasogastric tube descending into the body of the stomach. Osseous structures appear intact. IMPRESSION: 1. There is slight interval increase in congestive heart failure. 2. Early air space consolidation and/or atelectasis in the left lower lobe. This may reflect alveol ar edema versus superimposed pneumonitis. 3. Aortic atherosclerosis. RPTAT: [facility] Physician Jovan Date Time Electronically viewed and signed by Physician Jovan on 07/23/2016 08:58 /
--- NOTE | 2016-07-23 09:32 | PN ---
DATE: 07/23/2016 SUBJECTIVE: The patient is stable, no acute events overnight. The patient had hemodialysis yesterd ay with 3 liters removed. No other acute events noted. OBJECTIVE: VITAL SIGNS: Blood pressure 154/59, respirations 15, pulse 67, temperature 99.8. HEENT: Head is normocephalic. NECK: Supple. HEART: Regular rate. LUNGS: Show diminished breath sounds at the base. ABDOMEN: Soft, nontender to palpation without rebound or guarding. EXTREMITIES: Negative for clubbing, cyanosis. Trace edema. DERMATOLOGIC: No rashes. MUSCULOSKELETAL: No joint effusions. NEUROLOGIC: Limited exam as patient is obtunded. LABORATORY DATA: Shows white count 12.8, hemoglobin 9.5, hematocrit 27.3, platelet count 222. [place] um 138, potassium 3.4, chloride 98, BUN 21, creatinine 3.13, calcium 8.1, phosphorus 2.1. IMAGING: Chest x-ray on July 21 shows focal lung opacity with residual pneumonitis. ASSESSMENT AND PLAN: 1. End-stage renal disease. The patient is on dialysis Thursday, Thursday, Thursday with an access le ft upper extremity fistula. The patient was dialyzed last 2 days for solute clearance and volume re moval. Plan is to continue dialysis today to maintain a normal schedule. We will dialyze for 2 enrique rs on 3 K bath, calcium 2.5. Will ultrafiltrate as tolerated. 2. Volume overload, clinically improving. Continue dialysis. Continue ultrafiltration. 3. Anemia. The patient is status post blood transfusion. Hemoglobin level stable. Continue Epogen . 4. Mineral bone disorder. Continue to monitor calcium and phosphorous levels. Continue phosphate bi nders. 5. Sepsis, status post shock secondary to healthcare-associated pneumonia. Continue broad spectrum antibiotics. Cultures have been reviewed. 6. Ventilator dependent respiratory failure. Vent settings have been reviewed. ABG has been revie thu. Follow up with pulmonary. 7. Acute encephalopathy, etiology is unclear. EEG shows no evidence of epilepsy. MRI is pending. Elevated troponin, possible non-ST elevation myocardial infarction type 2. Continue medical manage ment. 8. History of coronary artery disease. Continue medical management. 9. Dyslipidemia. Continue statin therapy. 10. Diabetes. Continue Accu-Cheks and sliding scale. 11. Hypertension. Continue current blood pressure regimen. Dictated By: TALITA LEON DO NR/NTS Conf#: [id number] DID#: [id number]
--- NOTE | 2016-07-23 10:23 | CONS ---
Date/Time of Note Date/Time of Note DATE: 07/23/16 TIME: 10:16 Assessment/Plan Assessment/Plan Chief Complaint/Hosp Course IMPRESSION: 1. Positive troponin in the setting of respiratory failure and renal failure- now downtrended. 2. Abnormal electrocardiogram, assess for acute coronary syndrome. 3. History of a recent PTCA and stent placement to circumflex June 2016 with drug-eluting stents.- EF 55% by echo this admit 4. Altered mental state. 5. Respiratory failure, status post intubation. 6. End-stage renal disease on hemodialysis. 7. Urinary tract infection. 8. Pneumonia. 9. Dyslipidemia. 10.HTN-elevated moderately Recc: -Tele -Continue BB -Continue asa/brilinta -HD for volume removal -pnding MRI -Slow resumption of baseline anti-hypertensives -Continue abx's and f/u cx data Problems: Consultation Date/Type/Reason Admit Date/Time Jul 20, 2016 at 15:20 Initial Consult Date 07/21/16 Type of Consultation: Cardiology Reason for Consultation positive troponin Referring Provider: KRZYSZTOF MAY M.D. Exam/Review of Systems Vital Signs Vitals Vital Signs Date Time Temp Pulse Resp B/P Pulse Ox O2 Delivery O2 Flow Rate FiO2 07/23/16 10:00 17 166/60 100 Mechanical Ventilator 07/23/16 09:00 68 07/23/16 07:00 99.0 07/23/16 05:19 30 Intake and Output 07/22/16 07/22/16 07/23/16 15:00 23:00 07:00 Intake Total 565 ml 732 ml 282 ml Output Total 3000 ml 5 ml Balance 565 ml -2268 ml 277 ml Exam Review of Systems: CONSTITUTIONAL: No fevers, chills. PULMONARY: intubated CARDIOVASCULAR: No obvious chest pain/palpitations GASTROINTESTINAL: No nausea/vomiting. GENITOURINARY: No hematuria/dysuria. MUSCULOSKELETAL: No obvious myagias/arthalgias. PSYCHIATRIC: The patient denies depression. NEUROLOGIC: sedated Constitutional: other (sedated) ENMT: intubated Neck: jvd (9 cm water), supple Respiratory: other (upoper airway rhonchi) Cardiovascular: regular rate and rhythm Gastrointestinal: non-tender, soft Musculoskeletal: muscle tone Extremities: edema (none) Neurological: other (sedated) Results Result Diagram: 07/23/16 0530 07/23/16 0530 Results 24 hrs Laboratory Tests Test 07/22/16 13:08 07/22/16 17:48 07/22/16 22:03 07/23/16 01:17 Bedside Glucose 83 116 106 107 Test 07/23/16 05:30 07/23/16 07:00 07/23/16 07:59 Anion Gap 14 Basophils # 0.0 Basophils % 0.1 Blood Morphology Comment Blood Urea Nitrogen 21 H Calcium Level 8.1 L Carbon Dioxide Level 30 Chloride Level 98 Creatinine 3.13 H Eosinophils # 0.1 Eosinophils % 1.1 Glucose Level 123 # Hematocrit 27.3 #L Hemoglobin 9.5 #L Lymphocytes # 1.2 Lymphocytes % 9.7 L Magnesium Level 2.1 Mean Corpuscular Hemoglobin 32.6 Mean Corpuscular Hemoglobin Concent 34.7 Mean Corpuscular Volume 94.0 Mean Platelet Volume 8.2 Monocytes # 1.2 H Monocytes % 9.4 Neutrophils # 10.2 H Neutrophils % 79.7 H Nucleated Red Blood Cells # 0.0 Nucleated Red Blood Cells % 0.0 Phosphorus Level 2.1 L Platelet Count 222 Potassium Level 3.5 Red Blood Count 2.91 #L Red Cell Distribution Width 15.3 H Sodium Level 138 White Blood Count 12.8 #H Arterial Blood HCO3 29.5 H Arterial Blood Base Excess 5.6 H Arterial Blood Oxygen Saturation 97.2 Javi Test ACCEPTAB Arterial Blood Gas Puncture Site Right Radial Arterial Blood Carboxyhemoglobin 0.2 Arterial Blood Date Drawn 07/23/2016 7:20:03 AM Arterial Blood Methemoglobin 0.1 Arterial Blood pCO2 (Temp correct) 40.4 Arterial Blood pH (Temp corrected) 7.481 H Arterial Blood pO2 (Temp corrected) 96.7 Blood Gas A-a O2 Differential 69.7 H Blood Gas Actual Respiration Rate 16 Blood Gas Low PEEP Setting 5.0 Blood Gas Modality VENT - AC Blood Gas Notified Time 07/23/2016 7:59:51 AM Blood Gas Notified Whom JLD Blood Gas Respiration Rate 16.0 Blood Gas Specimen Source Blood arterial Blood Gas Temperature 37.0 Blood Gas Tidal Volume 500.0 FiO2 30.0 Oxyhemoglobin Percent 96.9 Total Hemoglobin 10.3 L Bedside Glucose 165 Medications Medications Current Medications Aspirin (Aspirin) 81 mg DAILY NGT Last administered on 07/23/16 08:01; Admin Dose 81 MG; Start 07/21/16 at 09:00 Atorvastatin Calcium (Lipitor) 40 mg QHS NGT Last administered on 07/22/16 22: 02; Admin Dose 40 MG; Start 07/20/16 at 21:00 Docusate Sodium (Colace Liquid Cup) 100 mg TID PRN NGT CONSTIPATION; Start 07/20 at 17:30 Folic Acid (Folic Acid) 1 mg DAILY NGT Last administered on 07/23/16 08:01; Admin Dose 1 MG; Start 07/21/16 at 09:00 Ticagrelor (Brilinta) 90 mg Q12 NGT Last administered on 07/23/16 08:06; Admin Dose 90 MG; Start 07/20/16 at 21:00 Acetaminophen (Tylenol Tab) 650 mg Q6H PRN NGT PAIN LEVEL 1-3 OR FEVER; Start 07/20/16 at 17:30 Acetaminophen/ Hydrocodone Bitart ([place] (5/325)) 1 tab Q6H PRN NGT PAIN LEVEL 4-6; Start 07/20/16 at 17:30 Acetaminophen/ Hydrocodone Bitart ([place] (5/325)) 2 tab Q6H PRN NGT PAIN LEVEL 7-10; Start 07/20/16 at 17:30 Famotidine (Pepcid Iv) 20 mg Q24H IV Last administered on 07/22/16 22:02; Admin Dose 20 MG; Start 07/20/16 at 21:00 Heparin Sodium (Porcine) 5000 unit 5,000 unit Q8 SC Last administered on 06:50; Admin Dose 5,000 UNIT; Start 07/20/16 at 17:30 Midazolam HCl 50 mg/Dextrose 50 ml @ 1 mls/hr TITRATE IV Last administered on 07:00; Admin Dose 5 MLS/HR; Start 07/21/16 at 15:30; Stop 07/28/16 at 09 :00 Cefepime HCl (Maxipime 1gm/50 ml (Pmx)) 50 ml @ 100 mls/hr Q24H IVPB Last administered on 07/22/16 17:50; Admin Dose 100 MLS/HR; Start 07/21/16 at 18:00 Insulin Aspart (Novolog Insulin Pen) NOVOLOG *MODERATE* ALGORI... Q4 SC Last administered on 07/23/16 08:05; Admin Dose 2 UNIT; Start 07/21/16 at 17:00 Miscellaneous Information 1 ea NOTE XX ; Start 07/21/16 at 16:30 Glucose (Glutose) 15 gm Q15M PRN PO DECREASED GLUCOSE; Start 07/21/16 at 16:30 Glucose (Glutose) 22.5 gm Q15M PRN PO DECREASED GLUCOSE; Start 07/21/16 at 16:30 Dextrose (D50w Syringe) 25 ml Q15M PRN IV DECREASED GLUCOSE Last administered on 07/21/16 21:13; Admin Dose 25 ML; Start 07/21/16 at 16:30 Dextrose (D50w Syringe) 50 ml Q15M PRN IV DECREASED GLUCOSE; Start 07/21/16 at 16:30 Glucagon (Glucagen) 1 mg Q15M PRN IM DECREASED GLUCOSE; Start 07/21/16 at 16:30 Glucose (Glutose) 15 gm Q15M PRN BUCCAL DECREASED GLUCOSE; Start 07/21/16 at 16: 30 Metoprolol Tartrate (Lopressor) 50 mg BID PO Last administered on 07/23/16 08: 03; Admin Dose 50 MG; Start 07/22/16 at 21:00 MTAT PEARCE Jul 23, 2016 10:23
[2016-07-23] MEDS ORDERED: BENAZEPRIL 40 MG TAB PO SCH (10:30)
--- NOTE | 2016-07-23 10:45 | PN ---
Date/Time of Note Date/Time of Note DATE: 07/23/16 TIME: 10:28 Assessment/Plan VTE Prophylaxis VTE Prophylaxis Intervention: heparin Lines/Catheters IV Catheter Type (from Nrsg): Central Line Central line still needed: Yes (for IV access ) Assessment/Plan Assessment/Plan 65-year-old woman: 1. Acute respiratory failure and unresponsiveness, s/p intubation on arrival in the ER. Etiology unclear She was hospitalized two weeks ago after suffered a cardiac arrest with asystole in the ER. S/p Angio x 2 with stenting 2-D echocardiogram 2 weeks ago EF 65%. Mildly elevated troponin on this admission, appreciate cardiology recommendations Cardiology, Pulmonary, Nephrology and Neurology following. 2. Endstage renal disease on hemodialysis: on HD M/W/F Hemodialysis yesterday and also planned for today with 2 units pRBC to be given Appreciate assistance from Dr. Gomez. 3. Acute on chronic anemia with hb down to 7.2, s/p 2 units pRBC with HD yesterday and hb up to 9.5. 4. Diabetes mellitus: OFF Lantus with episode of hypoglycemia noted SSI On TF and free H20 now 5. 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 There was a two-hour window during which she was "asleep" prior to being found unresponsive yesterday. Titrating Versed down EEG done yesterday and showing encephalopathy Appreciate Neurology consult with Dr. Arshad, MRI brain pending today 6. CAD s/p angio and stenting x 2 approx 2 weeks ago EKG similar to previous ekg two weeks ago. Serial troponins trended down Continue ASA and Brilinta, Dr Castelan following and also back on BBlock as BP up 7. Hypertension, but her daughters said she had been hypotensive since discharge 07/11/16 and had not received any of her hypertensive medications. Now hypertensive back to baseline Resumed Metoprolol yesterday and today resuming Benazepril and Nifedipine 8. Right lower extremity pain with questionable history of sciatica. Doppler study negative ten days ago for DVT on the right. 9. Leukocytosis and likely aspiration pneumonitis/pneumonia vs HCAP, trending down On Vancomycin and Cefepime. Prophylaxis: Pepcid for gastrointestinal prophylaxis. SCDs for DVT prevention Disposition: ICU level of care. Dr Mayen, Dr Castelan, Dr Barraza and Dr Arshad following. MRI pending this AM Full-Code. Subjective 24 Hr Interval Summary Free Text/Dictation Patient doing Ok , stable and BP now up and requiring BP meds to be resumed Afebrile, WBC trending down and awaiting MRI this AM Exam/Review of Systems Vital Signs Vitals Vital Signs Date Time Temp Pulse Resp B/P Pulse Ox O2 Delivery O2 Flow Rate FiO2 07/23/16 10:00 17 166/60 100 Mechanical Ventilator 07/23/16 09:00 68 07/23/16 08:00 30 07/23/16 07:00 99.0 Intake and Output 07/22/16 07/22/16 07/23/16 15:00 23:00 07:00 Intake Total 565 ml 732 ml 282 ml Output Total 3000 ml 5 ml Balance 565 ml -2268 ml 277 ml Exam Constitutional: other (sedated and intubated) Respiratory: diminished breath sounds (bases bilaterally ), other (on vent) Cardiovascular: nl pulses, regular rate and rhythm Gastrointestinal: non-tender, soft Musculoskeletal: nl extremities to inspection Extremities: normal pulses, other (no edema, clubbinfor cyanosis) Neurological: other (sedated and intubated ) Results Result Diagram: 07/23/16 0530 07/23/16 0530 Results 24 hrs Laboratory Tests Test 07/22/16 13:08 07/22/16 17:48 07/22/16 22:03 07/23/16 01:17 Bedside Glucose 83 116 106 107 Test 07/23/16 05:30 07/23/16 07:00 07/23/16 07:59 Anion Gap 14 Basophils # 0.0 Basophils % 0.1 Blood Morphology Comment Blood Urea Nitrogen 21 H Calcium Level 8.1 L Carbon Dioxide Level 30 Chloride Level 98 Creatinine 3.13 H Eosinophils # 0.1 Eosinophils % 1.1 Glucose Level 123 # Hematocrit 27.3 #L Hemoglobin 9.5 #L Lymphocytes # 1.2 Lymphocytes % 9.7 L Magnesium Level 2.1 Mean Corpuscular Hemoglobin 32.6 Mean Corpuscular Hemoglobin Concent 34.7 Mean Corpuscular Volume 94.0 Mean Platelet Volume 8.2 Monocytes # 1.2 H Monocytes % 9.4 Neutrophils # 10.2 H Neutrophils % 79.7 H Nucleated Red Blood Cells # 0.0 Nucleated Red Blood Cells % 0.0 Phosphorus Level 2.1 L Platelet Count 222 Potassium Level 3.5 Red Blood Count 2.91 #L Red Cell Distribution Width 15.3 H Sodium Level 138 White Blood Count 12.8 #H Arterial Blood HCO3 29.5 H Arterial Blood Base Excess 5.6 H Arterial Blood Oxygen Saturation 97.2 Javi Test ACCEPTAB Arterial Blood Gas Puncture Site Right Radial Arterial Blood Carboxyhemoglobin 0.2 Arterial Blood Date Drawn 07/23/2016 7:20:03 AM Arterial Blood Methemoglobin 0.1 Arterial Blood pCO2 (Temp correct) 40.4 Arterial Blood pH (Temp corrected) 7.481 H Arterial Blood pO2 (Temp corrected) 96.7 Blood Gas A-a O2 Differential 69.7 H Blood Gas Actual Respiration Rate 16 Blood Gas Low PEEP Setting 5.0 Blood Gas Modality VENT - AC Blood Gas Notified Time 07/23/2016 7:59:51 AM Blood Gas Notified Whom JLD Blood Gas Respiration Rate 16.0 Blood Gas Specimen Source Blood arterial Blood Gas Temperature 37.0 Blood Gas Tidal Volume 500.0 FiO2 30.0 Oxyhemoglobin Percent 96.9 Total Hemoglobin 10.3 L Bedside Glucose 165 Medications Medications Current Medications Aspirin (Aspirin) 81 mg DAILY NGT Last administered on 07/23/16 08:01; Admin Dose 81 MG; Start 07/21/16 at 09:00 Atorvastatin Calcium (Lipitor) 40 mg QHS NGT Last administered on 07/22/16 22: 02; Admin Dose 40 MG; Start 07/20/16 at 21:00 Docusate Sodium (Colace Liquid Cup) 100 mg TID PRN NGT CONSTIPATION; Start 07/20 at 17:30 Folic Acid (Folic Acid) 1 mg DAILY NGT Last administered on 07/23/16 08:01; Admin Dose 1 MG; Start 07/21/16 at 09:00 Ticagrelor (Brilinta) 90 mg Q12 NGT Last administered on 07/23/16 08:06; Admin Dose 90 MG; Start 07/20/16 at 21:00 Acetaminophen (Tylenol Tab) 650 mg Q6H PRN NGT PAIN LEVEL 1-3 OR FEVER; Start 07/20/16 at 17:30 Acetaminophen/ Hydrocodone Bitart ([place] (5/325)) 1 tab Q6H PRN NGT PAIN LEVEL 4-6; Start 07/20/16 at 17:30 Acetaminophen/ Hydrocodone Bitart ([place] (5/325)) 2 tab Q6H PRN NGT PAIN LEVEL 7-10; Start 07/20/16 at 17:30 Famotidine (Pepcid Iv) 20 mg Q24H IV Last administered on 07/22/16 22:02; Admin Dose 20 MG; Start 07/20/16 at 21:00 Heparin Sodium (Porcine) 5000 unit 5,000 unit Q8 SC Last administered on 06:50; Admin Dose 5,000 UNIT; Start 07/20/16 at 17:30 Midazolam HCl 50 mg/Dextrose 50 ml @ 1 mls/hr TITRATE IV Last administered on 07:00; Admin Dose 5 MLS/HR; Start 07/21/16 at 15:30; Stop 07/28/16 at 09 :00 Cefepime HCl (Maxipime 1gm/50 ml (Pmx)) 50 ml @ 100 mls/hr Q24H IVPB Last administered on 07/22/16 17:50; Admin Dose 100 MLS/HR; Start 07/21/16 at 18:00 Insulin Aspart (Novolog Insulin Pen) NOVOLOG *MODERATE* ALGORI... Q4 SC Last administered on 07/23/16 08:05; Admin Dose 2 UNIT; Start 07/21/16 at 17:00 Miscellaneous Information 1 ea NOTE XX ; Start 07/21/16 at 16:30 Glucose (Glutose) 15 gm Q15M PRN PO DECREASED GLUCOSE; Start 07/21/16 at 16:30 Glucose (Glutose) 22.5 gm Q15M PRN PO DECREASED GLUCOSE; Start 07/21/16 at 16:30 Dextrose (D50w Syringe) 25 ml Q15M PRN IV DECREASED GLUCOSE Last administered on 07/21/16 21:13; Admin Dose 25 ML; Start 07/21/16 at 16:30 Dextrose (D50w Syringe) 50 ml Q15M PRN IV DECREASED GLUCOSE; Start 07/21/16 at 16:30 Glucagon (Glucagen) 1 mg Q15M PRN IM DECREASED GLUCOSE; Start 07/21/16 at 16:30 Glucose (Glutose) 15 gm Q15M PRN BUCCAL DECREASED GLUCOSE; Start 07/21/16 at 16: 30 Metoprolol Tartrate (Lopressor) 50 mg BID PO Last administered on 07/23/16t 08: 03; Admin Dose 50 MG; Start 07/22/16 at 21:00 Procedures Procedures PROCEDURE: XR Chest. CLINICAL INDICATION: Pneumonia. TECHNIQUE: Single frontal view of the chest was obtained. COMPARISON: 07/21/2016. FINDINGS: Cardiac silhouette is enlarged. There is calcification and unfolding of the thoracic aorta. There is pulmonary vascular congestion. There is prominence of interstitial markings similar to the prior study. There is early air space consolidation and/or atelectasis at the left lung base. There is a small left pleural effusion. Endotracheal tube tip is in the mid trachea. There is a nasogastric tube descending into the body of the stomach. Osseous structures appear intact. IMPRESSION: 1. There is slight interval increase in congestive heart failure. 2. Early air space consolidation and/or atelectasis in the left lower lobe. This may reflect alveolar edema versus superimposed pneumonitis. 3. Aortic atherosclerosis. NADIA SARGENT Jul 23, 2016 10:39
[2016-07-23] MEDS ORDERED: NIFEdipine (XL) 60 MG TAB PO SCH (12:00)
--- NOTE | 2016-07-23 12:28 | RADRPT ---
PROCEDURE: MRI Brain without contrast. CLINICAL INDICATION: Altered mental status, sepsis. TECHNIQUE: An MRI of the brain was performed utilizing the following sequences: Sagittal and axial T1 weighted, axial T2 weighted, axial diffusion weighted with ADC mapping, coronal GRE, and axial F LAIR. COMPARISON: Brain CT 07/20/2016. FINDINGS: No diffusion weighted abnormalities are seen to suggest the presence of acute ischemia or recent inf arct. No hypointense signal abnormalities are seen on the GRE images to suggest the presence of blo od degradation products. There is no evidence of intracranial hemorrhage, mass effect, or midline s hift. No extra-axial fluid collections are seen. The ventricles and sulci are mildly enlarged indica tive of volume loss. There are mild foci of T2 FLAIR hyperintensity in the periventricular, deep, and subcortical white m atter, which are nonspecific in etiology but likely reflect chronic small vessel ischemic changes. No abnormal intracranial vascular flow void is noted. The visualized paranasal sinuses demonstrate p artial opacification of the ethmoid air cells and sphenoid sinuses with associated air fluid levels as well as moderate circumferential mucosal thickening. There is trace fluid in bilateral mastoid ai r cells. There is thinning of right lens indicative of prior lens replacement. IMPRESSION: 1. No acute intracranial hemorrhage, infarction or mass. 2. Mild chronic small vessel ischemic changes. 3. Mild generalized cerebral volume loss. 4. Moderate paranasal sinus disease with associated air fluid levels, correlate for acute sinusitis . RPTAT: HH .Wei Hernandez MD, MD Date Time Electronically viewed and signed by .Wei Hernandez MD, MD on 07/23/2016 12:28 .N/
--- NOTE | 2016-07-23 12:53 | CONS ---
Date/Time of Note Date/Time of Note DATE: 07/23/16 TIME: 12:52 Consult Date/Type/Reason Admit Date/Time Jul 20, 2016 at 15:20 Initial Consult Date 07/21/16 Type of Consultation: pulmonary Ordering Provider: [email or web address] MAY M.D. Subjective Continues mechanical ventilation remains somewhat somnolent Currently hemodynamically stable Pending MRI this morning pending repeat hemodialysis this afternoon Objective Vital Signs Date Time Temp Pulse Resp B/P Pulse Ox O2 Delivery O2 Flow Rate FiO2 07/23/16 12:00 63 07/23/16 10:00 17 166/60 100 Mechanical Ventilator 07/23/16 08:00 30 07/23/16 07:00 99.0 Intake and Output 07/22/16 07/22/16 07/23/16 14:59 22:59 06:59 Intake Total 534 ml 751 ml 308 ml Output Total 3000 ml 5 ml Balance 534 ml -2249 ml 303 ml PHYSICAL EXAMINATION: GENERAL: Chronically ill appearing lady, intubated on mechanical ventilation, appears comfortable at rest, no acute distress. VITAL SIGNS: As above NECK: Supple, no JVD or lymphadenopathy. CARDIAC EXAMINATION: S1, S2, no added sounds or murmurs. CHEST: Diminished air entry bilaterally. ABDOMEN: Soft, nontender. No guarding or rebound. EXTREMITIES: No cyanosis, clubbing. !+ edema. NEUROLOGIC: Generalized weakness. Results/Medications Result Diagram: 07/23/16 0530 07/23/16 0530 Results 24 hrs Laboratory Tests Test 07/22/16 13:08 07/22/16 17:48 07/22/16 22:03 07/23/16 01:17 Bedside Glucose 83 116 106 107 Test 07/23/16 05:30 07/23/16 07:00 07/23/16 07:59 Anion Gap 14 Basophils # 0.0 Basophils % 0.1 Blood Morphology Comment Blood Urea Nitrogen 21 H Calcium Level 8.1 L Carbon Dioxide Level 30 Chloride Level 98 Creatinine 3.13 H Eosinophils # 0.1 Eosinophils % 1.1 Glucose Level 123 # Hematocrit 27.3 #L Hemoglobin 9.5 #L Lymphocytes # 1.2 Lymphocytes % 9.7 L Magnesium Level 2.1 Mean Corpuscular Hemoglobin 32.6 Mean Corpuscular Hemoglobin Concent 34.7 Mean Corpuscular Volume 94.0 Mean Platelet Volume 8.2 Monocytes # 1.2 H Monocytes % 9.4 Neutrophils # 10.2 H Neutrophils % 79.7 H Nucleated Red Blood Cells # 0.0 Nucleated Red Blood Cells % 0.0 Phosphorus Level 2.1 L Platelet Count 222 Potassium Level 3.5 Red Blood Count 2.91 #L Red Cell Distribution Width 15.3 H Sodium Level 138 White Blood Count 12.8 #H Arterial Blood HCO3 29.5 H Arterial Blood Base Excess 5.6 H Arterial Blood Oxygen Saturation 97.2 Javi Test ACCEPTAB Arterial Blood Gas Puncture Site Right Radial Arterial Blood Carboxyhemoglobin 0.2 Arterial Blood Date Drawn 07/23/2016 7:20:03 AM Arterial Blood Methemoglobin 0.1 Arterial Blood pCO2 (Temp correct) 40.4 Arterial Blood pH (Temp corrected) 7.481 H Arterial Blood pO2 (Temp corrected) 96.7 Blood Gas A-a O2 Differential 69.7 H Blood Gas Actual Respiration Rate 16 Blood Gas Low PEEP Setting 5.0 Blood Gas Modality VENT - AC Blood Gas Notified Time 07/23/2016 7:59:51 AM Blood Gas Notified Whom JLD Blood Gas Respiration Rate 16.0 Blood Gas Specimen Source Blood arterial Blood Gas Temperature 37.0 Blood Gas Tidal Volume 500.0 FiO2 30.0 Oxyhemoglobin Percent 96.9 Total Hemoglobin 10.3 L Bedside Glucose 165 Medications Current Medications Aspirin (Aspirin) 81 mg DAILY NGT Last administered on 07/23/16 08:01; Admin Dose 81 MG; Start 07/21/16 at 09:00 Atorvastatin Calcium (Lipitor) 40 mg QHS NGT Last administered on 07/22/16 22: 02; Admin Dose 40 MG; Start 07/20/16 at 21:00 Docusate Sodium (Colace Liquid Cup) 100 mg TID PRN NGT CONSTIPATION; Start 07/20 at 17:30 Folic Acid (Folic Acid) 1 mg DAILY NGT Last administered on 07/23/16 08:01; Admin Dose 1 MG; Start 07/21/16 at 09:00 Ticagrelor (Brilinta) 90 mg Q12 NGT Last administered on 07/23/16 08:06; Admin Dose 90 MG; Start 07/20/16 at 21:00 Acetaminophen (Tylenol Tab) 650 mg Q6H PRN NGT PAIN LEVEL 1-3 OR FEVER; Start 07/20/16 at 17:30 Acetaminophen/ Hydrocodone Bitart ([place] (5/325)) 1 tab Q6H PRN NGT PAIN LEVEL 4-6; Start 07/20/16 at 17:30 Acetaminophen/ Hydrocodone Bitart ([place] (5/325)) 2 tab Q6H PRN NGT PAIN LEVEL 7-10; Start 07/20/16 at 17:30 Famotidine (Pepcid Iv) 20 mg Q24H IV Last administered on 07/22/16 22:02; Admin Dose 20 MG; Start 07/20/16 at 21:00 Heparin Sodium (Porcine) 5000 unit 5,000 unit Q8 SC Last administered on 06:50; Admin Dose 5,000 UNIT; Start 07/20/16 at 17:30 Midazolam HCl 50 mg/Dextrose 50 ml @ 1 mls/hr TITRATE IV Last administered on 07:00; Admin Dose 5 MLS/HR; Start 07/21/16 at 15:30; Stop 07/28/16 at 09 :00 Cefepime HCl (Maxipime 1gm/50 ml (Pmx)) 50 ml @ 100 mls/hr Q24H IVPB Last administered on 07/22/16 17:50; Admin Dose 100 MLS/HR; Start 07/21/16 at 18:00 Insulin Aspart (Novolog Insulin Pen) NOVOLOG *MODERATE* ALGORI... Q4 SC Last administered on 07/23/16 08:05; Admin Dose 2 UNIT; Start 07/21/16 at 17:00 Miscellaneous Information 1 ea NOTE XX ; Start 07/21/16 at 16:30 Glucose (Glutose) 15 gm Q15M PRN PO DECREASED GLUCOSE; Start 07/21/16 at 16:30 Glucose (Glutose) 22.5 gm Q15M PRN PO DECREASED GLUCOSE; Start 07/21/16 at 16:30 Dextrose (D50w Syringe) 25 ml Q15M PRN IV DECREASED GLUCOSE Last administered on 07/21/16 21:13; Admin Dose 25 ML; Start 07/21/16 at 16:30 Dextrose (D50w Syringe) 50 ml Q15M PRN IV DECREASED GLUCOSE; Start 07/21/16 at 16:30 Glucagon (Glucagen) 1 mg Q15M PRN IM DECREASED GLUCOSE; Start 07/21/16 at 16:30 Glucose (Glutose) 15 gm Q15M PRN BUCCAL DECREASED GLUCOSE; Start 07/21/16 at 16: 30 Metoprolol Tartrate (Lopressor) 50 mg BID PO Last administered on 07/23/16t 08: 03; Admin Dose 50 MG; Start 07/22/16 at 21:00 Nifedipine (Procardia Xl) 120 mg DAILY PO ; Start 07/23/16 at 12:00 Benazepril HCl (Lotensin) 40 mg DAILY PO ; Start 07/23/16 at 11:00 Assessment/Plan Chief Complaint/Hosp Course IMPRESSION AND PLAN: 1. Hypoxemic respiratory failure. 2. Possible aspiration. 3. Probable underlying obstructive sleep apnea. 4. Encephalopathy, toxic metabolic. Rule out CVA 5. End-stage renal failure on hemodialysis. 6. Significant anemia, questionable GI bleed 7. History of hypertension. THE PATIENT WILL NEED: 1. Continued mechanical ventilation. 2. Neurology recommendations. MRI today 3. Monitor H&H 4. Continue antibiotics for possible pneumonia. 5. Continue glycemic management. 6. DVT and GI prophylaxis. Disposition Continue ICU care Discussed with staff and family at bedside Problems: SANDI BUSCH MD, [facility] Jul 23, 2016 12:53
[2016-07-23] MEDS: BENAZEPRIL 20 MG TAB PO SCH (13:19)
[2016-07-23] MEDS: AMLODIPINE 5 MG TAB GTB SCH ×2 (17:08→20:52)
[2016-07-23] MEDS: CEFEPIME 1GM/50 ML (PMX) 50 ML IVPB SCH (17:09)
[2016-07-23] MEDS: ATORVASTATIN 40 MG TAB NGT SCH (20:52)
[2016-07-23] MEDS: FAMOTIDINE 20 MG INJ IV SCH (20:53)
--- NOTE | 2016-07-23 22:50 | RADRPT ---
Vent Rate: 65 bpm RR Interval: 0 msec ID Interval: 190 msec QRS Duration: 96 msec QT Interval: 412 msec QTC Interval: 428 msec P-R-T [place]: 51 - 39 - 0 degrees Normal sinus rhythm ST amp; T wave abnormality, consider inferolateral ischemia Abnormal ECG Electronically Signed By: Osman Yañez [id number]
[2016-07-24] VITALS (33 sets, daily range): BP systolic 146–183; BP diastolic 51–130; PULSE 59–78; RESP 13–28
[2016-07-24] MEDS: INSULIN ASPART [NOVOLOG] 3 ML PEN SC SCH ×6 (01:00→20:24)
[2016-07-24] MEDS: hydrALAzine 20 MG INJ IV PRN ×2 (04:01→18:10)
[2016-07-24] MEDS: MIDAZOLAM 50 MG in DEXTROSE 5% 40 ML IV SCH ×2 (04:04→19:51)
[2016-07-24 05:58] LABS: BASOPHIL # 0.1 10^3/ul (0.0-0.1); BASOPHILS % 0.6 % (0.0-2.0); EOSINOPHILS # 0.2 10^3/ul (0.0-0.5); EOSINOPHILS % 2.1 % (0.0-7.0); HEMATOCRIT 26.4 % (37.0-47.0); LYMPHOCYTES # 1.4 10^3/ul (0.8-2.9); LYMPHOCYTES % 12.9 % (15.0-51.0); MEAN CORPUSCULAR HEMOGLOBIN 32.4 pg (29.0-33.0); MEAN CORPUSCULAR HGB CONC 34.1 g/dl (32.0-37.0); MEAN CORPUSCULAR VOLUME 95.1 fl (82.0-101.0); MEAN PLATELET VOLUME 8.4 fl (7.4-10.4); MONOCYTE # 1.2 10^3/ul (0.3-0.9); MONOCYTES % 11.4 % (0.0-11.0); NEUTROPHIL # 7.8 10^3/ul (1.6-7.5); PLATELET COUNT 197 10^3/UL (140-440); RED BLOOD COUNT 2.78 10^6/ul (4.20-5.40); UNCORRECTED WBC 10.7 10^3/ul (4.8-10.8); WHITE BLOOD COUNT 10.7 10^3/ul (4.8-10.8)
[2016-07-24] MEDS: HEPARIN 5,000 UNIT/0.5 ML SYG SC SCH ×3 (06:00→20:17)
[2016-07-24 06:08] LABS: CONDITION 1; LH ANALYZER COMMENTS 1
[2016-07-24 06:26] LABS: POTASSIUM 3.4 mmol/L (3.5-5.1)
[2016-07-24 06:28] LABS: CREATININE 3.08 mg/dl (0.44-1.00)
[2016-07-24 06:29] LABS: CALCIUM 8.4 mg/dl (8.4-10.2); PHOSPHORUS 1.8 mg/dl (2.5-4.9)
[2016-07-24 06:30] LABS: MAGNESIUM 2.1 mg/dl (1.7-2.5)
[2016-07-24] MEDS ORDERED: POTASSIUM CHLORIDE (SR) 20 MEQ TAB PO STA (07:41)
[2016-07-24] MEDS ORDERED: POTASSIUM CHLORIDE 20 MEQ POWDER FOR ORAL SOLN NGT ONE (08:00)
[2016-07-24] MEDS ORDERED: POTASSIUM PHOSPHATE 15 MM in SOD CHLORIDE 0.9% 250 ML IVPB ONE (08:00)
[2016-07-24] MEDS: AMLODIPINE 5 MG TAB GTB SCH ×2 (08:19→20:15)
[2016-07-24] MEDS: ASPIRIN 81 MG TAB NGT SCH (08:19)
[2016-07-24] MEDS: FOLIC ACID 1 MG TAB NGT SCH (08:19)
[2016-07-24] MEDS: BENAZEPRIL 20 MG TAB PO SCH ×2 (08:20→21:00)
[2016-07-24] MEDS: METOPROLOL 50 MG TAB PO SCH ×2 (08:20→20:15)
[2016-07-24] MEDS: EPOETIN 10000 UNITS/1 ML INJ (ESRD) SC SCH (08:21)
[2016-07-24] MEDS: TICAGRELOR 90 MG TABLET NGT SCH ×2 (08:21→20:17)
--- NOTE | 2016-07-24 09:53 | PN ---
Date/Time of Note Date/Time of Note DATE: 07/24/16 TIME: 09:49 Assessment/Plan VTE Prophylaxis VTE Prophylaxis Intervention: heparin Lines/Catheters IV Catheter Type (from Nrsg): Central Line Central line still needed: Yes (for IV access ) Urinary Cath still in place: Yes Reason Cath still needed: other (indicate) (intubated ) Assessment/Plan Assessment/Plan 65-year-old woman: 1. Acute respiratory failure and unresponsiveness, s/p intubation on arrival in the ER. Etiology unclear She was hospitalized two weeks ago after suffered a cardiac arrest with asystole in the ER. S/p Angio x 2 with stenting Repeat echo with EF 55% Mildly elevated troponin on this admission, appreciate cardiology recommendations Cardiology, Pulmonary, Nephrology and Neurology following. 2. Endstage renal disease on hemodialysis: on HD M/W/F Hemodialysis yesterday and also planned for today with 2 units pRBC to be given Appreciate assistance from Dr. Gomez. 3. Acute on chronic anemia with hb down to 7.2, s/p 2 units pRBC with HD yesterday and hb up to 9.5. 4. Diabetes mellitus: OFF Lantus with episode of hypoglycemia noted SSI On TF and free H20 now 5. 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 There was a two-hour window during which she was "asleep" prior to being found unresponsive yesterday. Titrating Versed down EEG showing encephalopathy, MRI with no acute findings Appreciate Neurology consult with Dr. Asrhad. 6. CAD s/p angio and stenting x 2 approx 2 weeks ago EKG similar to previous ekg two weeks ago. Serial troponins trended down Continue ASA and Brilinta, Dr Castelan following and also back on BBlock as BP up 7. Hypertension, but her daughters said she had been hypotensive since discharge 07/11/16 and had not received any of her hypertensive medications. Now hypertensive back to baseline Resumed Metoprolol, Benazepril and Norvasc while intubated, further titration of meds prn 8. Right lower extremity pain with questionable history of sciatica. Doppler study negative ten days ago for DVT on the right. 9. Leukocytosis and likely aspiration pneumonitis/pneumonia vs HCAP, trending down On Vancomycin and Cefepime. 10. ? Enterococcal UTI: on Vancomycin already Prophylaxis: Pepcid for gastrointestinal prophylaxis. SCDs for DVT prevention Disposition: ICU level of care. Dr Mayen, Dr Castelan, Dr Barraza and Dr Arshad following. MRI pending this AM Full-Code. Subjective 24 Hr Interval Summary Free Text/Dictation Patient on CPAP trial WBC wnl On Abx Exam/Review of Systems Vital Signs Vitals Vital Signs Date Time Temp Pulse Resp B/P Pulse Ox O2 Delivery O2 Flow Rate FiO2 07/24/16 08:00 60 07/24/16 08:00 99.5 16 158/52 97 Mechanical Ventilator 07/24/16 05:10 30 Intake and Output 07/23/16 07/23/16 07/24/16 15:00 23:00 07:00 Intake Total 307 ml 946 ml 282 ml Output Total 15 ml 2500 ml 0 ml Balance 292 ml -1554 ml 282 ml Exam Constitutional: other (intubated and on CPAP trial ) Respiratory: diminished breath sounds (lower lobes bilaterally), other (on Vent ) Cardiovascular: nl pulses, regular rate and rhythm Gastrointestinal: non-tender, soft Musculoskeletal: nl extremities to inspection Extremities: normal pulses, other (no edema, clubbing or cyanosis ) Neurological: other (sedated and on vent ) Results Result Diagram: 07/24/16 0435 07/24/16 0435 Results 24 hrs Laboratory Tests Test 07/23/16 13:17 07/23/16 17:10 07/23/16 20:56 07/24/16 01:53 Bedside Glucose 120 139 133 119 Test 07/24/16 04:35 07/24/16 05:57 07/24/16 08:18 Anion Gap 14 Basophils # 0.1 Basophils % 0.6 Blood Morphology Comment Blood Urea Nitrogen 21 H Calcium Level 8.4 Carbon Dioxide Level 32 H Chloride Level 97 Creatinine 3.08 H Eosinophils # 0.2 Eosinophils % 2.1 Glucose Level 108 Hematocrit 26.4 L Hemoglobin 9.0 L Lymphocytes # 1.4 Lymphocytes % 12.9 L Magnesium Level 2.1 Mean Corpuscular Hemoglobin 32.4 Mean Corpuscular Hemoglobin Concent 34.1 Mean Corpuscular Volume 95.1 Mean Platelet Volume 8.4 Monocytes # 1.2 H Monocytes % 11.4 H Neutrophils # 7.8 H Neutrophils % 73.0 Nucleated Red Blood Cells # 0.0 Nucleated Red Blood Cells % 0.0 Phosphorus Level 1.8 L Platelet Count 197 Potassium Level 3.4 L Red Blood Count 2.78 L Red Cell Distribution Width 15.0 H Sodium Level 140 White Blood Count 10.7 Bedside Glucose 125 120 Medications Medications Current Medications Aspirin (Aspirin) 81 mg DAILY NGT Last administered on 07/24/16 08:19; Admin Dose 81 MG; Start 07/21/16 at 09:00 Atorvastatin Calcium (Lipitor) 40 mg QHS NGT Last administered on 07/23/16 20: 52; Admin Dose 40 MG; Start 07/20/16 at 21:00 Docusate Sodium (Colace Liquid Cup) 100 mg TID PRN NGT CONSTIPATION; Start 07/20 at 17:30 Folic Acid (Folic Acid) 1 mg DAILY NGT Last administered on 07/24/16 08:19; Admin Dose 1 MG; Start 07/21/16 at 09:00 Ticagrelor (Brilinta) 90 mg Q12 NGT Last administered on 07/24/16 08:21; Admin Dose 90 MG; Start 07/20/16 at 21:00 Acetaminophen (Tylenol Tab) 650 mg Q6H PRN NGT PAIN LEVEL 1-3 OR FEVER; Start 07/20/16 at 17:30 Acetaminophen/ Hydrocodone Bitart ([place] (5/325)) 1 tab Q6H PRN NGT PAIN LEVEL 4-6; Start 07/20/16 at 17:30 Acetaminophen/ Hydrocodone Bitart ([place] (5/325)) 2 tab Q6H PRN NGT PAIN LEVEL 7-10; Start 07/20/16 at 17:30 Famotidine (Pepcid Iv) 20 mg Q24H IV Last administered on 07/23/16 20:53; Admin Dose 20 MG; Start 07/20/16 at 21:00 Heparin Sodium (Porcine) 5000 unit 5,000 unit Q8 SC Last administered on 06:00; Admin Dose 5,000 UNIT; Start 07/20/16 at 17:30 Midazolam HCl 50 mg/Dextrose 50 ml @ 1 mls/hr TITRATE IV Last administered on 04:04; Admin Dose 6 MLS/HR; Start 07/21/16 at 15:30; Stop 07/28/16 at 09 :00 Cefepime HCl (Maxipime 1gm/50 ml (Pmx)) 50 ml @ 100 mls/hr Q24H IVPB Last administered on 07/23/16 17:09; Admin Dose 100 MLS/HR; Start 07/21/16 at 18:00 Insulin Aspart (Novolog Insulin Pen) NOVOLOG *MODERATE* ALGORI... Q4 SC Last administered on 07/23/16 08:05; Admin Dose 2 UNIT; Start 07/21/16 at 17:00 Miscellaneous Information 1 ea NOTE XX ; Start 07/21/16 at 16:30 Glucose (Glutose) 15 gm Q15M PRN PO DECREASED GLUCOSE; Start 07/21/16 at 16:30 Glucose (Glutose) 22.5 gm Q15M PRN PO DECREASED GLUCOSE; Start 07/21/16 at 16:30 Dextrose (D50w Syringe) 25 ml Q15M PRN IV DECREASED GLUCOSE Last administered on 07/21/16 21:13; Admin Dose 25 ML; Start 07/21/16 at 16:30 Dextrose (D50w Syringe) 50 ml Q15M PRN IV DECREASED GLUCOSE; Start 07/21/16 at 16:30 Glucagon (Glucagen) 1 mg Q15M PRN IM DECREASED GLUCOSE; Start 07/21/16 at 16:30 Glucose (Glutose) 15 gm Q15M PRN BUCCAL DECREASED GLUCOSE; Start 07/21/16 at 16: 30 Metoprolol Tartrate (Lopressor) 50 mg BID PO Last administered on 07/24/16 08: 20; Admin Dose 50 MG; Start 07/22/16 at 21:00 Benazepril HCl (Lotensin) 40 mg DAILY PO Last administered on 07/24/16 08:20; Admin Dose 40 MG; Start 07/23/16 at 11:00 Amlodipine Besylate (Norvasc) 5 mg BID GTB Last administered on 07/24/16 08:19 ; Admin Dose 5 MG; Start 07/23/16 at 14:30 Hydralazine HCl 10 mg 10 mg Q4H PRN IV SBP GREATER THAN 170 Last administered on 07/24/16 04:01; Admin Dose 10 MG; Start 07/24/16 at 04:00 Potassium Phosphate/Sodium Chloride (K Phos (Mm)/NS) 255 ml @ 63.75 mls/ hr ONCE ONCE IVPB ; Start 07/24/16 at 08:00; Stop 07/24/16 at 11:59 Procedures Procedures PROCEDURE: MRI Brain without contrast. CLINICAL INDICATION: Altered mental status, sepsis. TECHNIQUE: An MRI of the brain was performed utilizing the following sequences : Sagittal and axial T1 weighted, axial T2 weighted, axial diffusion weighted with ADC mapping, coronal GRE, and axial FLAIR. COMPARISON: Brain CT 07/20/2016. FINDINGS: No diffusion weighted abnormalities are seen to suggest the presence of acute ischemia or recent infarct. No hypointense signal abnormalities are seen on the GRE images to suggest the presence of blood degradation products. There is no evidence of intracranial hemorrhage, mass effect, or midline shift. No extra- axial fluid collections are seen. The ventricles and sulci are mildly enlarged indicative of volume loss. There are mild foci of T2 FLAIR hyperintensity in the periventricular, deep, and subcortical white matter, which are nonspecific in etiology but likely reflect chronic small vessel ischemic changes. No abnormal intracranial vascular flow void is noted. The visualized paranasal sinuses demonstrate partial opacification of the ethmoid air cells and sphenoid sinuses with associated air fluid levels as well as moderate circumferential mucosal thickening. There is trace fluid in bilateral mastoid air cells. There is thinning of right lens indicative of prior lens replacement. IMPRESSION: 1. No acute intracranial hemorrhage, infarction or mass. 2. Mild chronic small vessel ischemic changes. 3. Mild generalized cerebral volume loss. 4. Moderate paranasal sinus disease with associated air fluid levels, correlate for acute sinusitis. NADIA SARGENT Jul 24, 2016 09:53
--- NOTE | 2016-07-24 10:17 | RADRPT ---
PROCEDURE: XR Chest. CLINICAL INDICATION: Shortness of breath. TECHNIQUE: Single frontal view. COMPARISON: 07/23/2016. FINDINGS: The endotracheal tube and nasogastric tube remain in satisfactory position. Pulmonary edema is unch anged. The heart is enlarged. There is calcification in the aorta consistent with atherosclerosis. There is no pleural effusion. There is no pneumothorax. IMPRESSION: 1. No change from 07/23/2016. RPTAT: QQ .Sebastian Banks MD, MD Date Time Electronically viewed and signed by .Sebastian Banks MD, MD on 07/24/2016 10:17 .R/
--- NOTE | 2016-07-24 10:23 | PN ---
DATE: 07/24/2016 SUBJECTIVE: The patient had hemodialysis yesterday, tolerated well. No other acute events are note d. The patient had an MRI yesterday, showed no acute findings. The patient's daughter is at bedsid e. OBJECTIVE: VITAL SIGNS: Blood pressure is 163/58, respiration is 17, pulse 69, temperature 99.3. HEENT: Head is normocephalic. NECK: Supple. HEART: Regular rate. LUNGS: Show diminished breath sounds at the base. ABDOMEN: Soft, nontender to palpation without guarding. EXTREMITIES: Negative for clubbing, cyanosis. No edema. DERMATOLOGIC: No rashes. MUSCULOSKELETAL: No joint effusions. NEUROLOGIC: No change in exam. MEDICATIONS: The patient's medications have been reviewed. LABORATORY DATA: Showed sodium 140, potassium 3.4, chloride 97, BUN 21, creatinine 3.08, phosphorus 1.8. White count 10.7, hemoglobin 9.0, hematocrit 26.4, platelet count is 197. Patient's chest x-ray is currently pending. ASSESSMENT AND PLAN: 1. End-stage renal disease. The patient's dialysis last several days for solute clearance and volu me removal. Will anticipate hemodialysis for tomorrow. 2. Volume overload, clinically improving. Continue ultrafiltration with dialysis. 3. Anemia. The patient is status post transfusion. Continue to monitor hemoglobin and hematocrit levels. Continue Epogen. 4. Mineral bone disorder. The patient's phosphorus levels remain low, will replete with potassium phosphate 15 millimoles IV x1. 5. Hyperkalemia with potassium chloride 40 mEq p.o. x1. Will dialyze on a higher potassium bath. 6. Sepsis, status post shock secondary to healthcare-associated pneumonia. Continue current antibi otic regimen. 7. Ventilator dependent respiratory failure. Vent settings reviewed. reviewed. Continue to monitor. Follow up with pulmonary. 8. Encephalopathy. Etiology is unclear. Questionable toxic metabolic, questionable anoxic injury. The patient is status post MRI, showed no acute findings. Continue to monitor. Follow up with [place] urology. 9. Coronary artery disease. Continue current medical management. 10. Dyslipidemia. Continue statin therapy. 11. Diabetes. Continue Accu-Cheks and sliding scale. 12. Hypertension. Continue current blood pressure regimen. Continue ultrafiltration with hemodial ysis. Dictated By: TALITA GARCIA/RANI Conf#: [id number] DID#: [id number]
--- NOTE | 2016-07-24 10:31 | CONS ---
Date/Time of Note Date/Time of Note DATE: 07/24/16 TIME: 10:29 Consult Date/Type/Reason Admit Date/Time Jul 20, 2016 at 15:20 Initial Consult Date 07/21/16 Type of Consultation: pulmonary Ordering Provider: RKZYSZTOF MAY M.D. Subjective Patient more alert today Continues mechanical ventilation Remains intermittently somnolent No hemodynamic compromise Objective Vital Signs Date Time Temp Pulse Resp B/P Pulse Ox O2 Delivery O2 Flow Rate FiO2 07/24/16 10:00 66 16 166/56 97 Mechanical Ventilator 07/24/16 08:00 99.5 07/24/16 05:10 30 Intake and Output 07/23/16 07/23/16 07/24/16 15:00 23:00 07:00 Intake Total 307 ml 946 ml 282 ml Output Total 15 ml 2500 ml 0 ml Balance 292 ml -1554 ml 282 ml PHYSICAL EXAMINATION: GENERAL: Chronically ill appearing lady, intubated on mechanical ventilation, appears comfortable at rest, no acute distress. VITAL SIGNS: As above NECK: Supple, no JVD or lymphadenopathy. CARDIAC EXAMINATION: S1, S2, no added sounds or murmurs. CHEST: Diminished air entry bilaterally. ABDOMEN: Soft, nontender. No guarding or rebound. EXTREMITIES: No cyanosis, clubbing. !+ edema. NEUROLOGIC: Generalized weakness. Results/Medications Result Diagram: 07/24/16 0435 07/24/16 0435 Results 24 hrs Laboratory Tests Test 07/23/16 13:17 07/23/16 17:10 07/23/16 20:56 07/24/16 01:53 Bedside Glucose 120 139 133 119 Test 07/24/16 04:35 07/24/16 05:57 07/24/16 08:18 Anion Gap 14 Basophils # 0.1 Basophils % 0.6 Blood Morphology Comment Blood Urea Nitrogen 21 H Calcium Level 8.4 Carbon Dioxide Level 32 H Chloride Level 97 Creatinine 3.08 H Eosinophils # 0.2 Eosinophils % 2.1 Glucose Level 108 Hematocrit 26.4 L Hemoglobin 9.0 L Lymphocytes # 1.4 Lymphocytes % 12.9 L Magnesium Level 2.1 Mean Corpuscular Hemoglobin 32.4 Mean Corpuscular Hemoglobin Concent 34.1 Mean Corpuscular Volume 95.1 Mean Platelet Volume 8.4 Monocytes # 1.2 H Monocytes % 11.4 H Neutrophils # 7.8 H Neutrophils % 73.0 Nucleated Red Blood Cells # 0.0 Nucleated Red Blood Cells % 0.0 Phosphorus Level 1.8 L Platelet Count 197 Potassium Level 3.4 L Red Blood Count 2.78 L Red Cell Distribution Width 15.0 H Sodium Level 140 White Blood Count 10.7 Bedside Glucose 125 120 Medications Current Medications Aspirin (Aspirin) 81 mg DAILY NGT Last administered on 07/24/16 08:19; Admin Dose 81 MG; Start 07/21/16 at 09:00 Atorvastatin Calcium (Lipitor) 40 mg QHS NGT Last administered on 07/23/16 20: 52; Admin Dose 40 MG; Start 07/20/16 at 21:00 Docusate Sodium (Colace Liquid Cup) 100 mg TID PRN NGT CONSTIPATION; Start 07/20 at 17:30 Folic Acid (Folic Acid) 1 mg DAILY NGT Last administered on 07/24/16 08:19; Admin Dose 1 MG; Start 07/21/16 at 09:00 Ticagrelor (Brilinta) 90 mg Q12 NGT Last administered on 07/24/16 08:21; Admin Dose 90 MG; Start 07/20/16 at 21:00 Acetaminophen (Tylenol Tab) 650 mg Q6H PRN NGT PAIN LEVEL 1-3 OR FEVER; Start 07/20/16 at 17:30 Acetaminophen/ Hydrocodone Bitart ([place] (5/325)) 1 tab Q6H PRN NGT PAIN LEVEL 4-6; Start 07/20/16 at 17:30 Acetaminophen/ Hydrocodone Bitart ([place] (5/325)) 2 tab Q6H PRN NGT PAIN LEVEL 7-10; Start 07/20/16 at 17:30 Famotidine (Pepcid Iv) 20 mg Q24H IV Last administered on 07/23/16 20:53; Admin Dose 20 MG; Start 07/20/16 at 21:00 Heparin Sodium (Porcine) 5000 unit 5,000 unit Q8 SC Last administered on 06:00; Admin Dose 5,000 UNIT; Start 07/20/16 at 17:30 Midazolam HCl 50 mg/Dextrose 50 ml @ 1 mls/hr TITRATE IV Last administered on 04:04; Admin Dose 6 MLS/HR; Start 07/21/16 at 15:30; Stop 07/28/16 at 09 :00 Cefepime HCl (Maxipime 1gm/50 ml (Pmx)) 50 ml @ 100 mls/hr Q24H IVPB Last administered on 07/23/16 17:09; Admin Dose 100 MLS/HR; Start 07/21/16 at 18:00 Insulin Aspart (Novolog Insulin Pen) NOVOLOG *MODERATE* ALGORI... Q4 SC Last administered on 07/23/16 08:05; Admin Dose 2 UNIT; Start 07/21/16 at 17:00 Miscellaneous Information 1 ea NOTE XX ; Start 07/21/16 at 16:30 Glucose (Glutose) 15 gm Q15M PRN PO DECREASED GLUCOSE; Start 07/21/16 at 16:30 Glucose (Glutose) 22.5 gm Q15M PRN PO DECREASED GLUCOSE; Start 07/21/16 at 16:30 Dextrose (D50w Syringe) 25 ml Q15M PRN IV DECREASED GLUCOSE Last administered on 07/21/16 21:13; Admin Dose 25 ML; Start 07/21/16 at 16:30 Dextrose (D50w Syringe) 50 ml Q15M PRN IV DECREASED GLUCOSE; Start 07/21/16 at 16:30 Glucagon (Glucagen) 1 mg Q15M PRN IM DECREASED GLUCOSE; Start 07/21/16 at 16:30 Glucose (Glutose) 15 gm Q15M PRN BUCCAL DECREASED GLUCOSE; Start 07/21/16 at 16: 30 Metoprolol Tartrate (Lopressor) 50 mg BID PO Last administered on 07/24/16 08: 20; Admin Dose 50 MG; Start 07/22/16 at 21:00 Benazepril HCl (Lotensin) 40 mg DAILY PO Last administered on 07/24/16 08:20; Admin Dose 40 MG; Start 07/23/16 at 11:00 Amlodipine Besylate (Norvasc) 5 mg BID GTB Last administered on 07/24/16 08:19 ; Admin Dose 5 MG; Start 07/23/16 at 14:30 Hydralazine HCl 10 mg 10 mg Q4H PRN IV SBP GREATER THAN 170 Last administered on 07/24/16 04:01; Admin Dose 10 MG; Start 07/24/16 at 04:00 Potassium Phosphate/Sodium Chloride (K Phos (Mm)/NS) 255 ml @ 63.75 mls/ hr ONCE ONCE IVPB Last administered on 07/24/16t 10:06; Admin Dose 63.75 MLS/HR; Start 07/24/16 at 08:00; Stop 07/24/16 at 11:59 Assessment/Plan Chief Complaint/Hosp Course IMPRESSION AND PLAN: 1. Hypoxemic respiratory failure. 2. Possible aspiration. 3. Probable underlying obstructive sleep apnea. 4. Encephalopathy, toxic metabolic. Rule out CVA 5. End-stage renal failure on hemodialysis. 6. Significant anemia, questionable GI bleed 7. History of hypertension. THE PATIENT WILL NEED: 1. Continued mechanical ventilation. CPAP weaning trial 2. Neurology recommendations. MRI noted 3. Monitor H&H 4. Continue antibiotics for possible pneumonia. 5. Continue glycemic management. 6. DVT and GI prophylaxis. 7. Hemodialysis per nephrology Disposition Continue ICU care Discussed with staff and family at bedside Problems: SANDI BUSCH MD, [facility] Jul 24, 2016 10:30
--- NOTE | 2016-07-24 11:22 | CONS ---
Date/Time of Note Date/Time of Note DATE: 07/24/16 TIME: 11:18 Assessment/Plan Assessment/Plan Chief Complaint/Hosp Course IMPRESSION: 1. Positive troponin in the setting of respiratory failure and renal failure- now downtrended. 2. Abnormal electrocardiogram, assess for acute coronary syndrome. 3. History of a recent PTCA and stent placement to circumflex June 2016 with drug-eluting stents.- EF 55% by echo this admit 4. Altered mental state.-MRI negative 07/23 5. Respiratory failure, status post intubation. 6. End-stage renal disease on hemodialysis. 7. Urinary tract infection. 8. Pneumonia. 9. Dyslipidemia. 10.HTN-elevated moderately Recc: -Tele -Continue BB -Continue norvasc -increase benazepril to improve BP control -Continue asa/brilinta -HD for volume removal -Continue abx's and f/u cx data Problems: Consultation Date/Type/Reason Admit Date/Time Jul 20, 2016 at 15:20 Initial Consult Date 07/21/16 Type of Consultation: Cardiology Reason for Consultation positive troponin Referring Provider: KRZYSZTOF MAY M.D. Exam/Review of Systems Vital Signs Vitals Vital Signs Date Time Temp Pulse Resp B/P Pulse Ox O2 Delivery O2 Flow Rate FiO2 07/24/16 10:00 66 16 166/56 97 Mechanical Ventilator 07/24/16 08:00 99.5 07/24/16 05:10 30 Intake and Output 07/23/16 07/23/16 07/24/16 15:00 23:00 07:00 Intake Total 307 ml 946 ml 282 ml Output Total 15 ml 2500 ml 0 ml Balance 292 ml -1554 ml 282 ml Exam Review of Systems: CONSTITUTIONAL: No fevers, chills. PULMONARY: intubated CARDIOVASCULAR: No obvious chest pain/palpitations GASTROINTESTINAL: No nausea/vomiting. GENITOURINARY: No hematuria/dysuria. MUSCULOSKELETAL: No obvious myagias/arthalgias. PSYCHIATRIC: The patient denies depression. NEUROLOGIC: sedated Constitutional: other (sedated) Head: normocephalic ENMT: mucosa pink and moist Neck: jvd (9 cm water), supple Respiratory: diminished breath sounds (at bases/B) Cardiovascular: regular rate and rhythm Gastrointestinal: non-tender, soft Musculoskeletal: muscle tone (normal) Extremities: edema (none) Neurological: other (sedated) Results Result Diagram: 07/24/16 0435 07/24/16 0435 Results 24 hrs Laboratory Tests Test 07/23/16 13:17 07/23/16 17:10 07/23/16 20:56 07/24/16 01:53 Bedside Glucose 120 139 133 119 Test 07/24/16 04:35 07/24/16 05:57 07/24/16 08:18 Anion Gap 14 Basophils # 0.1 Basophils % 0.6 Blood Morphology Comment Blood Urea Nitrogen 21 H Calcium Level 8.4 Carbon Dioxide Level 32 H Chloride Level 97 Creatinine 3.08 H Eosinophils # 0.2 Eosinophils % 2.1 Glucose Level 108 Hematocrit 26.4 L Hemoglobin 9.0 L Lymphocytes # 1.4 Lymphocytes % 12.9 L Magnesium Level 2.1 Mean Corpuscular Hemoglobin 32.4 Mean Corpuscular Hemoglobin Concent 34.1 Mean Corpuscular Volume 95.1 Mean Platelet Volume 8.4 Monocytes # 1.2 H Monocytes % 11.4 H Neutrophils # 7.8 H Neutrophils % 73.0 Nucleated Red Blood Cells # 0.0 Nucleated Red Blood Cells % 0.0 Phosphorus Level 1.8 L Platelet Count 197 Potassium Level 3.4 L Red Blood Count 2.78 L Red Cell Distribution Width 15.0 H Sodium Level 140 White Blood Count 10.7 Bedside Glucose 125 120 Medications Medications Current Medications Aspirin (Aspirin) 81 mg DAILY NGT Last administered on 07/24/16 08:19; Admin Dose 81 MG; Start 07/21/16 at 09:00 Atorvastatin Calcium (Lipitor) 40 mg QHS NGT Last administered on 07/23/16 20: 52; Admin Dose 40 MG; Start 07/20/16 at 21:00 Docusate Sodium (Colace Liquid Cup) 100 mg TID PRN NGT CONSTIPATION; Start 07/20 at 17:30 Folic Acid (Folic Acid) 1 mg DAILY NGT Last administered on 07/24/16 08:19; Admin Dose 1 MG; Start 07/21/16 at 09:00 Ticagrelor (Brilinta) 90 mg Q12 NGT Last administered on 07/24/16 08:21; Admin Dose 90 MG; Start 07/20/16 at 21:00 Acetaminophen (Tylenol Tab) 650 mg Q6H PRN NGT PAIN LEVEL 1-3 OR FEVER; Start 07/20/16 at 17:30 Acetaminophen/ Hydrocodone Bitart ([place] (5/325)) 1 tab Q6H PRN NGT PAIN LEVEL 4-6; Start 07/20/16 at 17:30 Acetaminophen/ Hydrocodone Bitart ([place] (5/325)) 2 tab Q6H PRN NGT PAIN LEVEL 7-10; Start 07/20/16 at 17:30 Famotidine (Pepcid Iv) 20 mg Q24H IV Last administered on 07/23/16 20:53; Admin Dose 20 MG; Start 07/20/16 at 21:00 Heparin Sodium (Porcine) 5000 unit 5,000 unit Q8 SC Last administered on 06:00; Admin Dose 5,000 UNIT; Start 07/20/16 at 17:30 Midazolam HCl 50 mg/Dextrose 50 ml @ 1 mls/hr TITRATE IV Last administered on 04:04; Admin Dose 6 MLS/HR; Start 07/21/16 at 15:30; Stop 07/28/16 at 09 :00 Cefepime HCl (Maxipime 1gm/50 ml (Pmx)) 50 ml @ 100 mls/hr Q24H IVPB Last administered on 07/23/16 17:09; Admin Dose 100 MLS/HR; Start 07/21/16 at 18:00 Insulin Aspart (Novolog Insulin Pen) NOVOLOG *MODERATE* ALGORI... Q4 SC Last administered on 07/23/16 08:05; Admin Dose 2 UNIT; Start 07/21/16 at 17:00 Miscellaneous Information 1 ea NOTE XX ; Start 07/21/16 at 16:30 Glucose (Glutose) 15 gm Q15M PRN PO DECREASED GLUCOSE; Start 07/21/16 at 16:30 Glucose (Glutose) 22.5 gm Q15M PRN PO DECREASED GLUCOSE; Start 07/21/16 at 16:30 Dextrose (D50w Syringe) 25 ml Q15M PRN IV DECREASED GLUCOSE Last administered on 07/21/16 21:13; Admin Dose 25 ML; Start 07/21/16 at 16:30 Dextrose (D50w Syringe) 50 ml Q15M PRN IV DECREASED GLUCOSE; Start 07/21/16 at 16:30 Glucagon (Glucagen) 1 mg Q15M PRN IM DECREASED GLUCOSE; Start 07/21/16 at 16:30 Glucose (Glutose) 15 gm Q15M PRN BUCCAL DECREASED GLUCOSE; Start 07/21/16 at 16: 30 Metoprolol Tartrate (Lopressor) 50 mg BID PO Last administered on 07/24/16 08: 20; Admin Dose 50 MG; Start 07/22/16 at 21:00 Benazepril HCl (Lotensin) 40 mg DAILY PO Last administered on 07/24/16 08:20; Admin Dose 40 MG; Start 07/23/16 at 11:00 Amlodipine Besylate (Norvasc) 5 mg BID GTB Last administered on 07/24/16 08:19 ; Admin Dose 5 MG; Start 07/23/16 at 14:30 Hydralazine HCl 10 mg 10 mg Q4H PRN IV SBP GREATER THAN 170 Last administered on 07/24/16 04:01; Admin Dose 10 MG; Start 07/24/16 at 04:00 Potassium Phosphate/Sodium Chloride (K Phos (Mm)/NS) 255 ml @ 63.75 mls/ hr ONCE ONCE IVPB Last administered on 07/24/16 10:06; Admin Dose 63.75 MLS/HR; Start 07/24/16 at 08:00; Stop 07/24/16 at 11:59 MATT PEARCE Jul 24, 2016 11:21
--- NOTE | 2016-07-24 11:51 | CONS ---
Date/Time of Note Date/Time of Note DATE: 07/24/16 TIME: 11:41 Consult Date/Type/Reason Admit Date/Time Jul 20, 2016 at 15:20 Initial Consult Date 07/21/16 Type of Consultation: Neurology Reason for Consultation encephalopathy evaluate for anoxic injury Ordering Provider: KRZYSZTOF MAY M.D. Subjective remains intubated, on very light sedation per daughter she briefly opens her eyes at times she is unable to follow commands, withdraws to noxious and grimaces Objective Vital Signs Date Time Temp Pulse Resp B/P Pulse Ox O2 Delivery O2 Flow Rate FiO2 07/24/16 10:00 66 16 166/56 97 Mechanical Ventilator 07/24/16 08:00 99.5 07/24/16 08:00 30 Intake and Output 07/23/16 07/23/16 07/24/16 15:00 23:00 07:00 Intake Total 307 ml 946 ml 288 ml Output Total 15 ml 2500 ml 0 ml Balance 292 ml -1554 ml 288 ml patient is intubated, examined on very light sedation briefly opens her eyes to voice when eyes are forced open she attempts to close them grimaces briefly to noxious in all four extremities not following any commands CN: right pupil sightly irregular b/l 2 mm reactive, no sig. facial asymmetry appreciated corneals and gag reflex present Motor: withdraws briefly in both arms, minimal withdrawal in legs to noxious toes are mute Results/Medications Result Diagram: 07/24/16 0435 07/24/16 0435 Results 24 hrs Laboratory Tests Test 07/23/16 13:17 07/23/16 17:10 07/23/16 20:56 07/24/16 01:53 Bedside Glucose 120 139 133 119 Test 07/24/16 04:35 07/24/16 05:57 07/24/16 08:18 Anion Gap 14 Basophils # 0.1 Basophils % 0.6 Blood Morphology Comment Blood Urea Nitrogen 21 H Calcium Level 8.4 Carbon Dioxide Level 32 H Chloride Level 97 Creatinine 3.08 H Eosinophils # 0.2 Eosinophils % 2.1 Glucose Level 108 Hematocrit 26.4 L Hemoglobin 9.0 L Lymphocytes # 1.4 Lymphocytes % 12.9 L Magnesium Level 2.1 Mean Corpuscular Hemoglobin 32.4 Mean Corpuscular Hemoglobin Concent 34.1 Mean Corpuscular Volume 95.1 Mean Platelet Volume 8.4 Monocytes # 1.2 H Monocytes % 11.4 H Neutrophils # 7.8 H Neutrophils % 73.0 Nucleated Red Blood Cells # 0.0 Nucleated Red Blood Cells % 0.0 Phosphorus Level 1.8 L Platelet Count 197 Potassium Level 3.4 L Red Blood Count 2.78 L Red Cell Distribution Width 15.0 H Sodium Level 140 White Blood Count 10.7 Bedside Glucose 125 120 Medications Current Medications Aspirin (Aspirin) 81 mg DAILY NGT Last administered on 07/24/16 08:19; Admin Dose 81 MG; Start 07/21/16 at 09:00 Atorvastatin Calcium (Lipitor) 40 mg QHS NGT Last administered on 07/23/16 20: 52; Admin Dose 40 MG; Start 07/20/16 at 21:00 Docusate Sodium (Colace Liquid Cup) 100 mg TID PRN NGT CONSTIPATION; Start 07/20 at 17:30 Folic Acid (Folic Acid) 1 mg DAILY NGT Last administered on 07/24/16 08:19; Admin Dose 1 MG; Start 07/21/16 at 09:00 Ticagrelor (Brilinta) 90 mg Q12 NGT Last administered on 07/24/16 08:21; Admin Dose 90 MG; Start 07/20/16 at 21:00 Acetaminophen (Tylenol Tab) 650 mg Q6H PRN NGT PAIN LEVEL 1-3 OR FEVER; Start 07/20/16 at 17:30 Acetaminophen/ Hydrocodone Bitart ([place] (5/325)) 1 tab Q6H PRN NGT PAIN LEVEL 4-6; Start 07/20/16 at 17:30 Acetaminophen/ Hydrocodone Bitart ([place] (5/325)) 2 tab Q6H PRN NGT PAIN LEVEL 7-10; Start 07/20/16 at 17:30 Famotidine (Pepcid Iv) 20 mg Q24H IV Last administered on 07/23/16 20:53; Admin Dose 20 MG; Start 07/20/16 at 21:00 Heparin Sodium (Porcine) 5000 unit 5,000 unit Q8 SC Last administered on 06:00; Admin Dose 5,000 UNIT; Start 07/20/16 at 17:30 Midazolam HCl 50 mg/Dextrose 50 ml @ 1 mls/hr TITRATE IV Last administered on 04:04; Admin Dose 6 MLS/HR; Start 07/21/16 at 15:30; Stop 07/28/16 at 09 :00 Cefepime HCl (Maxipime 1gm/50 ml (Pmx)) 50 ml @ 100 mls/hr Q24H IVPB Last administered on 07/23/16 17:09; Admin Dose 100 MLS/HR; Start 07/21/16 at 18:00 Insulin Aspart (Novolog Insulin Pen) NOVOLOG *MODERATE* ALGORI... Q4 SC Last administered on 07/23/16 08:05; Admin Dose 2 UNIT; Start 07/21/16 at 17:00 Miscellaneous Information 1 ea NOTE XX ; Start 07/21/16 at 16:30 Glucose (Glutose) 15 gm Q15M PRN PO DECREASED GLUCOSE; Start 07/21/16 at 16:30 Glucose (Glutose) 22.5 gm Q15M PRN PO DECREASED GLUCOSE; Start 07/21/16 at 16:30 Dextrose (D50w Syringe) 25 ml Q15M PRN IV DECREASED GLUCOSE Last administered on 07/21/16 21:13; Admin Dose 25 ML; Start 07/21/16 at 16:30 Dextrose (D50w Syringe) 50 ml Q15M PRN IV DECREASED GLUCOSE; Start 07/21/16 at 16:30 Glucagon (Glucagen) 1 mg Q15M PRN IM DECREASED GLUCOSE; Start 07/21/16 at 16:30 Glucose (Glutose) 15 gm Q15M PRN BUCCAL DECREASED GLUCOSE; Start 07/21/16 at 16: 30 Metoprolol Tartrate (Lopressor) 50 mg BID PO Last administered on 07/24/16 08: 20; Admin Dose 50 MG; Start 07/22/16 at 21:00 Amlodipine Besylate (Norvasc) 5 mg BID GTB Last administered on 07/24/16 08:19 ; Admin Dose 5 MG; Start 07/23/16 at 14:30 Hydralazine HCl 10 mg 10 mg Q4H PRN IV SBP GREATER THAN 170 Last administered on 07/24/16 04:01; Admin Dose 10 MG; Start 07/24/16 at 04:00 Potassium Phosphate/Sodium Chloride (K Phos (Mm)/NS) 255 ml @ 63.75 mls/ hr ONCE ONCE IVPB Last administered on 07/24/16t 10:06; Admin Dose 63.75 MLS/HR; Start 07/24/16 at 08:00; Stop 07/24/16 at 11:59 Benazepril HCl (Lotensin) 40 mg Q12 PO ; Start 07/24/16 at 21:00 Assessment/Plan Chief Complaint/Hosp Course 65 year old F with ESRD, recent admission for cardiac arrest s/p stent admitted after she was found unresponsive with respiratory distress possibly over 2 hours undergoing further medical management, neurology consulted to evaluate for potential hypoxic ischemic encephalopathy. CTH shows no acute changes Routine EEG shows generalized background slowing c/w encephalopathy. MRI shows no acute areas of ischemia. Plan: discussed results with daughter at bedside will reevaluate her on Thursday/ after extubated to assess neurologic status if any issues arise over the weekend, Dr. Omalley will be covering Problems: CHARLIE MUNOZ MD Jul 24, 2016 11:51
[2016-07-24] MEDS: CEFEPIME 1GM/50 ML (PMX) 50 ML IVPB SCH (17:15)
[2016-07-24] MEDS: FAMOTIDINE 20 MG INJ IV SCH (20:15)
[2016-07-24] MEDS: ATORVASTATIN 40 MG TAB NGT SCH (20:15)
[2016-07-25] VITALS (47 sets, daily range): BP systolic 150–187; BP diastolic 7–77; PULSE 62–82; RESP 14–25
[2016-07-25] MEDS: INSULIN ASPART [NOVOLOG] 3 ML PEN SC SCH ×6 (01:00→21:00)
[2016-07-25] MEDS: hydrALAzine 20 MG INJ IV PRN ×4 (01:11→17:27)
[2016-07-25 05:44] LABS: BASOPHIL # 0.1 10^3/ul (0.0-0.1); BASOPHILS % 0.5 % (0.0-2.0); EOSINOPHILS # 0.4 10^3/ul (0.0-0.5); EOSINOPHILS % 3.6 % (0.0-7.0); HEMATOCRIT 26.5 % (37.0-47.0); HEMOGLOBIN 9.1 g/dl (12.0-16.0); LYMPHOCYTES # 1.2 10^3/ul (0.8-2.9); LYMPHOCYTES % 12.2 % (15.0-51.0); MEAN CORPUSCULAR HEMOGLOBIN 32.2 pg (29.0-33.0); MEAN CORPUSCULAR HGB CONC 34.2 g/dl (32.0-37.0); MEAN CORPUSCULAR VOLUME 94.2 fl (82.0-101.0); MEAN PLATELET VOLUME 8.3 fl (7.4-10.4); MONOCYTE # 1.2 10^3/ul (0.3-0.9); MONOCYTES % 11.7 % (0.0-11.0); NEUTROPHIL # 7.3 10^3/ul (1.6-7.5); PLATELET COUNT 236 10^3/UL (140-440); RED BLOOD COUNT 2.81 10^6/ul (4.20-5.40); RED CELL DISTRIBUTION WIDTH 15.7 % (11.5-14.5); UNCORRECTED WBC 10.1 10^3/ul (4.8-10.8); WHITE BLOOD COUNT 10.1 10^3/ul (4.8-10.8)
[2016-07-25 05:54] LABS: CONDITION 1; LH ANALYZER COMMENTS 1
[2016-07-25 05:56] LABS: POTASSIUM 4.3 mmol/L (3.5-5.1)
[2016-07-25] MEDS: HEPARIN 5,000 UNIT/0.5 ML SYG SC SCH ×3 (05:57→21:28)
[2016-07-25 05:58] LABS: CREATININE 4.29 mg/dl (0.44-1.00)
[2016-07-25 05:59] LABS: CALCIUM 8.6 mg/dl (8.4-10.2); MAGNESIUM 2.2 mg/dl (1.7-2.5); PHOSPHORUS 2.8 mg/dl (2.5-4.9)
[2016-07-25] MEDS: MIDAZOLAM 50 MG in DEXTROSE 5% 40 ML IV SCH ×2 (07:54→15:47)
--- NOTE | 2016-07-25 08:40 | RADRPT ---
PROCEDURE: XR Chest. CLINICAL INDICATION: Pneumonia/CHF TECHNIQUE: Single portable view of the chest was obtained COMPARISON: Chest 07/24/2016 FINDINGS: Again noted is an endotracheal tube and nasogastric tube unchanged in position. The heart is enlarg ed. The pulmonary vessels appear prominent and there is adriana vascular wall indistinctness. Rule out mild congestive heart failure and interstitial pulmonary edema. Increased density at the bases as likely due to atelectasis though basilar infiltrates particularly at the left base cannot be exclude d. No gross pleural effusions and pneumothorax. IMPRESSION: 1. Cardiomegaly and probable mild congestive heart failure and interstitial edema. 2. Increased density bases probably all due to atelectasis in technique the rule out basilar infilt rates particularly at the left base. RPTAT:AAJJ Physician Angely Date Time Electronically viewed and signed by Jesus Strong Physician on 07/25/2016 08:39 /
[2016-07-25] MEDS: FOLIC ACID 1 MG TAB NGT SCH (08:42)
[2016-07-25] MEDS: METOPROLOL 50 MG TAB PO SCH ×2 (08:43→21:20)
[2016-07-25] MEDS: ASPIRIN 81 MG TAB NGT SCH (08:44)
[2016-07-25] MEDS: TICAGRELOR 90 MG TABLET NGT SCH ×2 (08:44→21:28)
[2016-07-25] MEDS: AMLODIPINE 5 MG TAB GTB SCH ×2 (08:45→21:20)
[2016-07-25] MEDS: BENAZEPRIL 20 MG TAB PO SCH ×2 (08:45→21:19)
--- NOTE | 2016-07-25 09:12 | PN ---
DATE: 07/25/2016 SUBJECTIVE: The patient remains intubated on full ventilatory support. No significant change noted . No hemoptysis symptoms, hematochezia. OBJECTIVE: VITAL SIGNS: Blood pressure 179/63, respirations 14, pulse 68, temperature 98.8. I'S AND O'S: Have been reviewed. HEENT: Head is normocephalic. NECK: Supple. HEART: Regular rate. LUNGS: Show diminished breath sounds at the base. ABDOMEN: Soft, nontender to palpation, no rebound or guarding. EXTREMITIES: Negative for clubbing, cyanosis, no edema. DERMATOLOGIC: No rashes. MUSCULOSKELETAL: No joint effusions. NEUROLOGIC: No change in exam. MEDICATIONS: The patient's medications have been reviewed. LABORATORY DATA: Showed sodium 142, potassium 4.3, chloride 99, BUN 32, creatinine 4.29. White cou nt is 10.1, hemoglobin 9.1, hematocrit 26.5, platelet count is 236. ASSESSMENT AND PLAN: 1. End-stage renal disease. The patient is scheduled for hemodialysis today for 3 hours on a 3 K b ath, calcium 2.5, ultrafiltrate as tolerated. 2. Volume overload. Continue ultrafiltration with dialysis. 3. Anemia. Continue to monitor H and H levels. Continue Epogen. 4. Mineral bone disorder, continue to monitor calcium and phosphorus levels. 5. Hypokalemia, improved. 6. Sepsis, status post shock secondary to pneumonia. Continue current antibiotic regimen. 7. Ventilator-dependent respiratory failure. Vent settings have been reviewed. ABG is reviewed. Continue to monitor. 8. Encephalopathy. Etiology is unclear, possibly toxic metabolic. MRI reviewed. Continue to [facility]. Follow up with neurology. 9. Coronary artery disease. Continue current treatment plan. 10. Dyslipidemia. Continue statin therapy. 11. Diabetes. Continue Accu-Cheks and insulin sliding scale. 12. Hypertension. Continue current blood pressure regimen. Continue ultrafiltration with dialysis . Dictated By: TALITA GARCIA/RANI Conf#: [id number] DID#: [id number]
--- NOTE | 2016-07-25 09:47 | PN ---
Date/Time of Note Date/Time of Note DATE: 07/25/16 TIME: 09:46 Assessment/Plan VTE Prophylaxis VTE Prophylaxis Intervention: heparin Lines/Catheters IV Catheter Type (from Nrsg): Central Line Central line still needed: Yes (for IV access ) Urinary Cath still in place: Yes Reason Cath still needed: other (indicate) (monitor UOP ) Assessment/Plan Assessment/Plan 65-year-old woman: 1. Acute respiratory failure and unresponsiveness, s/p intubation on arrival in the ER. Etiology unclear She was hospitalized two weeks ago after suffered a cardiac arrest with asystole in the ER. S/p Angio x 2 with stenting Repeat echo with EF 55% Mildly elevated troponin on this admission, appreciate cardiology recommendations Cardiology, Pulmonary, Nephrology and Neurology following. 2. Endstage renal disease on hemodialysis: on HD M/W/F Hemodialysis planned for today Appreciate assistance from Dr. Gomez. 3. Acute on chronic anemia with hb stable @ 9.1. 4. Diabetes mellitus: OFF Lantus with episode of hypoglycemia noted SSI On TF and free H20 now 5. 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 There was a two-hour window during which she was "asleep" prior to being found unresponsive on admission EEG showing encephalopathy, MRI with no acute findings Appreciate Neurology consult with Dr. Arshad. No further intervention for now per Neurology, Dr Bentley covering this weekend 6. CAD s/p angio and stenting x 2 approx 2 weeks ago EKG similar to previous ekg two weeks ago. Serial troponins trended down Continue ASA and Brilinta, Dr Castelan following and also back on BBlock as BP up 7. Hypertension, better controlled BP with current regimen Metoprolol, Benazepril and Norvasc and will also resume Imdur today, further titration of meds prn 8. Right lower extremity pain with questionable history of sciatica. Doppler study negative ten days ago for DVT on the right. 9. Leukocytosis and likely aspiration pneumonitis/pneumonia vs HCAP, back to normal On Vancomycin and Cefepime. 10. ? Enterococcal UTI: on Vancomycin already Prophylaxis: Pepcid for gastrointestinal prophylaxis. SCDs for DVT prevention Disposition: ICU level of care. Dr Mayen, Dr Castelan, Dr Barraza and Dr Arshad following. ? CPAP trial today Full-Code. Subjective 24 Hr Interval Summary Free Text/Dictation Patient on A, full vent support Labs stable and HD today HTN and BP meds to be adjusted Exam/Review of Systems Vital Signs Vitals Vital Signs Date Time Temp Pulse Resp B/P Pulse Ox O2 Delivery O2 Flow Rate FiO2 07/25/16 08:09 30 07/25/16 07:20 70 16 99 07/25/16 06:00 179/63 Mechanical Ventilator 07/25/16 04:00 98.8 Intake and Output 07/24/16 07/24/16 07/25/16 15:00 23:00 07:00 Intake Total 78 ml 268 ml 51 ml Output Total 5 ml 0 ml 0 ml Balance 73 ml 268 ml 51 ml Exam Constitutional: obese, other (sedated and intubated ) Respiratory: diminished breath sounds (bilaterally ), other (on full vent support ) Cardiovascular: nl pulses, regular rate and rhythm Gastrointestinal: non-tender, soft Extremities: normal pulses, other (edema, clubibng or cyanosis ) Neurological: other (sedated and intubated ) Results Result Diagram: 07/25/16 0430 07/25/16 0430 Results 24 hrs Laboratory Tests Test 07/24/16 13:44 07/24/16 17:14 07/24/16 20:14 07/25/16 01:09 Bedside Glucose 109 88 103 104 Test 07/25/16 04:30 07/25/16 05:56 07/25/16 08:49 Anion Gap 18 H Basophils # 0.1 Basophils % 0.5 Blood Morphology Comment Blood Urea Nitrogen 32 #H Calcium Level 8.6 Carbon Dioxide Level 29 Chloride Level 99 Creatinine 4.29 #H Eosinophils # 0.4 Eosinophils % 3.6 Glucose Level 98 Hematocrit 26.5 L Hemoglobin 9.1 L Lymphocytes # 1.2 Lymphocytes % 12.2 L Magnesium Level 2.2 Mean Corpuscular Hemoglobin 32.2 Mean Corpuscular Hemoglobin Concent 34.2 Mean Corpuscular Volume 94.2 Mean Platelet Volume 8.3 Monocytes # 1.2 H Monocytes % 11.7 H Neutrophils # 7.3 Neutrophils % 72.0 Nucleated Red Blood Cells # 0.0 Nucleated Red Blood Cells % 0.0 Phosphorus Level 2.8 Platelet Count 236 Potassium Level 4.3 Random Vancomycin Level 12.4 Red Blood Count 2.81 L Red Cell Distribution Width 15.7 H Sodium Level 142 White Blood Count 10.1 Bedside Glucose 103 116 Medications Medications Current Medications Aspirin (Aspirin) 81 mg DAILY NGT Last administered on 07/25/16 08:44; Admin Dose 81 MG; Start 07/21/16 at 09:00 Atorvastatin Calcium (Lipitor) 40 mg QHS NGT Last administered on 07/24/16 20: 15; Admin Dose 40 MG; Start 07/20/16 at 21:00 Docusate Sodium (Colace Liquid Cup) 100 mg TID PRN NGT CONSTIPATION; Start 07/20 at 17:30 Folic Acid (Folic Acid) 1 mg DAILY NGT Last administered on 07/25/16 08:42; Admin Dose 1 MG; Start 07/21/16 at 09:00 Ticagrelor (Brilinta) 90 mg Q12 NGT Last administered on 07/25/16 08:44; Admin Dose 90 MG; Start 07/20/16 at 21:00 Acetaminophen (Tylenol Tab) 650 mg Q6H PRN NGT PAIN LEVEL 1-3 OR FEVER; Start 07/20/16 at 17:30 Acetaminophen/ Hydrocodone Bitart ([place] (5/325)) 1 tab Q6H PRN NGT PAIN LEVEL 4-6; Start 07/20/16 at 17:30 Acetaminophen/ Hydrocodone Bitart ([place] (5/325)) 2 tab Q6H PRN NGT PAIN LEVEL 7-10; Start 07/20/16 at 17:30 Famotidine (Pepcid Iv) 20 mg Q24H IV Last administered on 07/24/16 20:15; Admin Dose 20 MG; Start 07/20/16 at 21:00 Heparin Sodium (Porcine) 5000 unit 5,000 unit Q8 SC Last administered on 05:57; Admin Dose 5,000 UNIT; Start 07/20/16 at 17:30 Midazolam HCl 50 mg/Dextrose 50 ml @ 1 mls/hr TITRATE IV Last administered on 07:54; Admin Dose 6 MLS/HR; Start 07/21/16 at 15:30; Stop 07/28/16 at 09 :00 Cefepime HCl (Maxipime 1gm/50 ml (Pmx)) 50 ml @ 100 mls/hr Q24H IVPB Last administered on 07/24/16 17:15; Admin Dose 100 MLS/HR; Start 07/21/16 at 18:00 Insulin Aspart (Novolog Insulin Pen) NOVOLOG *MODERATE* ALGORI... Q4 SC Last administered on 07/23/16 08:05; Admin Dose 2 UNIT; Start 07/21/16 at 17:00 Miscellaneous Information 1 ea NOTE XX ; Start 07/21/16 at 16:30 Glucose (Glutose) 15 gm Q15M PRN PO DECREASED GLUCOSE; Start 07/21/16 at 16:30 Glucose (Glutose) 22.5 gm Q15M PRN PO DECREASED GLUCOSE; Start 07/21/16 at 16:30 Dextrose (D50w Syringe) 25 ml Q15M PRN IV DECREASED GLUCOSE Last administered on 07/21/16 21:13; Admin Dose 25 ML; Start 07/21/16 at 16:30 Dextrose (D50w Syringe) 50 ml Q15M PRN IV DECREASED GLUCOSE; Start 07/21/16 at 16:30 Glucagon (Glucagen) 1 mg Q15M PRN IM DECREASED GLUCOSE; Start 07/21/16 at 16:30 Glucose (Glutose) 15 gm Q15M PRN BUCCAL DECREASED GLUCOSE; Start 07/21/16 at 16: 30 Metoprolol Tartrate (Lopressor) 50 mg BID PO Last administered on 07/25/16 08: 43; Admin Dose 50 MG; Start 07/22/16 at 21:00 Amlodipine Besylate (Norvasc) 5 mg BID GTB Last administered on 07/25/16 08:45 ; Admin Dose 5 MG; Start 07/23/16 at 14:30 Hydralazine HCl (Apresoline) 10 mg Q4H PRN IV SBP GREATER THAN 170 Last administered on 07/25/16 05:59; Admin Dose 10 MG; Start 07/24/16 at 04:00 Benazepril HCl (Lotensin) 40 mg Q12 PO Last administered on 07/25/16 08:45; Admin Dose 40 MG; Start 07/24/16 at 21:00 Procedures Procedures PROCEDURE: XR Chest. CLINICAL INDICATION: Pneumonia/CHF TECHNIQUE: Single portable view of the chest was obtained COMPARISON: Chest 07/24/2016 FINDINGS: Again noted is an endotracheal tube and nasogastric tube unchanged in position. The heart is enlarged. The pulmonary vessels appear prominent and there is adriana vascular wall indistinctness. Rule out mild congestive heart failure and interstitial pulmonary edema. Increased density at the bases as likely due to atelectasis though basilar infiltrates particularly at the left base cannot be excluded. No gross pleural effusions and pneumothorax. IMPRESSION: 1. Cardiomegaly and probable mild congestive heart failure and interstitial edema. 2. Increased density bases probably all due to atelectasis in technique the rule out basilar infiltrates particularly at the left base. RPTAT:AAJJ Physician Angely Date Time Electronically viewed and signed by Jesus Strong Physician on 07/25/2016 08:39 NADIA SARGENT Jul 25, 2016 09:47
--- NOTE | 2016-07-25 11:12 | CONS ---
Date/Time of Note Date/Time of Note DATE: 07/25/16 TIME: 11:10 Consult Date/Type/Reason Admit Date/Time Jul 20, 2016 at 15:20 Initial Consult Date 07/21/16 Type of Consultation: pulmonary Ordering Provider: KRZYSZTOF MAY M.D. Subjective Remains intubated sedated still somewhat confused Continues mechanical ventilation Objective Vital Signs Date Time Temp Pulse Resp B/P Pulse Ox O2 Delivery O2 Flow Rate FiO2 07/25/16 08:09 30 07/25/16 07:20 70 16 99 07/25/16 06:00 179/63 Mechanical Ventilator 07/25/16 04:00 98.8 Intake and Output 07/24/16 07/24/16 07/25/16 15:00 23:00 07:00 Intake Total 78 ml 268 ml 51 ml Output Total 5 ml 0 ml 0 ml Balance 73 ml 268 ml 51 ml PHYSICAL EXAMINATION: GENERAL: Chronically ill appearing lady, intubated on mechanical ventilation, appears comfortable at rest, no acute distress. VITAL SIGNS: As above NECK: Supple, no JVD or lymphadenopathy. CARDIAC EXAMINATION: S1, S2, no added sounds or murmurs. CHEST: Diminished air entry bilaterally. ABDOMEN: Soft, nontender. No guarding or rebound. EXTREMITIES: No cyanosis, clubbing. !+ edema. NEUROLOGIC: Generalized weakness. Results/Medications Result Diagram: 07/25/16 0430 07/25/16 0430 Results 24 hrs Laboratory Tests Test 07/24/16 13:44 07/24/16 17:14 07/24/16 20:14 07/25/16 01:09 Bedside Glucose 109 88 103 104 Test 07/25/16 04:30 07/25/16 05:56 07/25/16 08:49 Anion Gap 18 H Basophils # 0.1 Basophils % 0.5 Blood Morphology Comment Blood Urea Nitrogen 32 #H Calcium Level 8.6 Carbon Dioxide Level 29 Chloride Level 99 Creatinine 4.29 #H Eosinophils # 0.4 Eosinophils % 3.6 Glucose Level 98 Hematocrit 26.5 L Hemoglobin 9.1 L Lymphocytes # 1.2 Lymphocytes % 12.2 L Magnesium Level 2.2 Mean Corpuscular Hemoglobin 32.2 Mean Corpuscular Hemoglobin Concent 34.2 Mean Corpuscular Volume 94.2 Mean Platelet Volume 8.3 Monocytes # 1.2 H Monocytes % 11.7 H Neutrophils # 7.3 Neutrophils % 72.0 Nucleated Red Blood Cells # 0.0 Nucleated Red Blood Cells % 0.0 Phosphorus Level 2.8 Platelet Count 236 Potassium Level 4.3 Random Vancomycin Level 12.4 Red Blood Count 2.81 L Red Cell Distribution Width 15.7 H Sodium Level 142 White Blood Count 10.1 Bedside Glucose 103 116 Medications Current Medications Aspirin (Aspirin) 81 mg DAILY NGT Last administered on 07/25/16 08:44; Admin Dose 81 MG; Start 07/21/16 at 09:00 Atorvastatin Calcium (Lipitor) 40 mg QHS NGT Last administered on 07/24/16 20: 15; Admin Dose 40 MG; Start 07/20/16 at 21:00 Docusate Sodium (Colace Liquid Cup) 100 mg TID PRN NGT CONSTIPATION; Start 07/20 at 17:30 Folic Acid (Folic Acid) 1 mg DAILY NGT Last administered on 07/25/16 08:42; Admin Dose 1 MG; Start 07/21/16 at 09:00 Ticagrelor (Brilinta) 90 mg Q12 NGT Last administered on 07/25/16 08:44; Admin Dose 90 MG; Start 07/20/16 at 21:00 Acetaminophen (Tylenol Tab) 650 mg Q6H PRN NGT PAIN LEVEL 1-3 OR FEVER; Start 07/20/16 at 17:30 Acetaminophen/ Hydrocodone Bitart ([place] (5/325)) 1 tab Q6H PRN NGT PAIN LEVEL 4-6; Start 07/20/16 at 17:30 Acetaminophen/ Hydrocodone Bitart ([place] (5/325)) 2 tab Q6H PRN NGT PAIN LEVEL 7-10; Start 07/20/16 at 17:30 Famotidine (Pepcid Iv) 20 mg Q24H IV Last administered on 07/24/16 20:15; Admin Dose 20 MG; Start 07/20/16 at 21:00 Heparin Sodium (Porcine) 5000 unit 5,000 unit Q8 SC Last administered on 05:57; Admin Dose 5,000 UNIT; Start 07/20/16 at 17:30 Midazolam HCl 50 mg/Dextrose 50 ml @ 1 mls/hr TITRATE IV Last administered on 07:54; Admin Dose 6 MLS/HR; Start 07/21/16 at 15:30; Stop 07/28/16 at 09 :00 Cefepime HCl (Maxipime 1gm/50 ml (Pmx)) 50 ml @ 100 mls/hr Q24H IVPB Last administered on 07/24/16 17:15; Admin Dose 100 MLS/HR; Start 07/21/16 at 18:00 Insulin Aspart (Novolog Insulin Pen) NOVOLOG *MODERATE* ALGORI... Q4 SC Last administered on 07/23/16 08:05; Admin Dose 2 UNIT; Start 07/21/16 at 17:00 Miscellaneous Information 1 ea NOTE XX ; Start 07/21/16 at 16:30 Glucose (Glutose) 15 gm Q15M PRN PO DECREASED GLUCOSE; Start 07/21/16 at 16:30 Glucose (Glutose) 22.5 gm Q15M PRN PO DECREASED GLUCOSE; Start 07/21/16 at 16:30 Dextrose (D50w Syringe) 25 ml Q15M PRN IV DECREASED GLUCOSE Last administered on 07/21/16 21:13; Admin Dose 25 ML; Start 07/21/16 at 16:30 Dextrose (D50w Syringe) 50 ml Q15M PRN IV DECREASED GLUCOSE; Start 07/21/16 at 16:30 Glucagon (Glucagen) 1 mg Q15M PRN IM DECREASED GLUCOSE; Start 07/21/16 at 16:30 Glucose (Glutose) 15 gm Q15M PRN BUCCAL DECREASED GLUCOSE; Start 07/21/16 at 16: 30 Metoprolol Tartrate (Lopressor) 50 mg BID PO Last administered on 07/25/16 08: 43; Admin Dose 50 MG; Start 07/22/16 at 21:00 Amlodipine Besylate (Norvasc) 5 mg BID GTB Last administered on 07/25/16 08:45 ; Admin Dose 5 MG; Start 07/23/16 at 14:30 Hydralazine HCl (Apresoline) 10 mg Q4H PRN IV SBP GREATER THAN 170 Last administered on 07/25/16 09:54; Admin Dose 10 MG; Start 07/24/16 at 04:00 Benazepril HCl (Lotensin) 40 mg Q12 PO Last administered on 07/25/16 08:45; Admin Dose 40 MG; Start 07/24/16 at 21:00 Isosorbide Mononitrate (Imdur) 60 mg DAILY PO ; Start 07/25/16 at 10:30 Assessment/Plan Chief Complaint/Hosp Course IMPRESSION AND PLAN: 1. Hypoxemic respiratory failure. 2. Possible aspiration. 3. Probable underlying obstructive sleep apnea. 4. Encephalopathy, toxic metabolic. 5. End-stage renal failure on hemodialysis. 6. Significant anemia, questionable GI bleed 7. History of hypertension. THE PATIENT WILL NEED: 1. Continued mechanical ventilation. CPAP weaning trial once more alert 2. Neurology recommendations. MRI noted 3. Monitor H&H 4. Continue antibiotics for possible pneumonia. 5. Continue glycemic management. 6. DVT and GI prophylaxis. 7. Hemodialysis per nephrology Disposition Continue ICU care Discussed with staff and family at bedside Problems: SANDI BUSCH MD, [facility] Jul 25, 2016 11:12
[2016-07-25] MEDS: VANCOMYCIN 1 GM in NS 250 ML IVPB SCH (12:58)
[2016-07-25] MEDS: ISOSORBIDE MONONITRATE(SR)60 MG TAB PO SCH (12:59)
--- NOTE | 2016-07-25 15:53 | CONS ---
Date/Time of Note Date/Time of Note DATE: 07/25/16 TIME: 15:48 Assessment/Plan Assessment/Plan Chief Complaint/Hosp Course IMPRESSION: 1. Positive troponin in the setting of respiratory failure and renal failure- now downtrended. 2. Abnormal electrocardiogram, assess for acute coronary syndrome. 3. History of a recent PTCA and stent placement to circumflex June 2016 with drug-eluting stents.- EF 55% by echo this admit 4. Altered mental state.-MRI negative 07/23 5. Respiratory failure, status post intubation. 6. End-stage renal disease on hemodialysis. 7. Urinary tract infection. 8. Pneumonia. 9. Dyslipidemia. 10.HTN-elevated moderately Recc: -Tele -Continue BB -Continue norvasc/benazepril with possible need for further uptitration -Continue asa/brilinta -HD for volume removal -Continue abx's and f/u cx data Problems: Consultation Date/Type/Reason Admit Date/Time Jul 20, 2016 at 15:20 Initial Consult Date 07/21/16 Type of Consultation: Cardiology Reason for Consultation positive troponin Referring Provider: KRZYSZTOF MAY M.D. Exam/Review of Systems Vital Signs Vitals Vital Signs Date Time Temp Pulse Resp B/P Pulse Ox O2 Delivery O2 Flow Rate FiO2 07/25/16 15:30 73 07/25/16 15:07 16 100 30 07/25/16 13:00 164/57 Mechanical Ventilator 07/25/16 12:00 98.9 Intake and Output 07/24/16 07/24/16 07/25/16 15:00 23:00 07:00 Intake Total 78 ml 268 ml 77 ml Output Total 5 ml 0 ml 0 ml Balance 73 ml 268 ml 77 ml Exam Review of Systems: CONSTITUTIONAL: No fevers, chills. PULMONARY: intubated CARDIOVASCULAR: No obvious chest pain/palpitations GASTROINTESTINAL: No nausea/vomiting. GENITOURINARY: No hematuria/dysuria. MUSCULOSKELETAL: No obvious myagias/arthalgias. PSYCHIATRIC: The patient denies depression. NEUROLOGIC: sedated Constitutional: other (sedated) Psych: no complaints Head: normocephalic ENMT: intubated, mucosa pink and moist Neck: jvd (9 cm water), supple Respiratory: diminished breath sounds (at bases/B) Cardiovascular: regular rate and rhythm Gastrointestinal: non-tender, soft Musculoskeletal: muscle tone (norMAL) Extremities: edema (none) Neurological: other (No focal deficits) Results Result Diagram: 07/25/16 0430 07/25/16 0430 Results 24 hrs Laboratory Tests Test 07/24/16 17:14 07/24/16 20:14 07/25/16 01:09 07/25/16 04:30 Bedside Glucose 88 103 104 Anion Gap 18 H Basophils # 0.1 Basophils % 0.5 Blood Morphology Comment Blood Urea Nitrogen 32 #H Calcium Level 8.6 Carbon Dioxide Level 29 Chloride Level 99 Creatinine 4.29 #H Eosinophils # 0.4 Eosinophils % 3.6 Glucose Level 98 Hematocrit 26.5 L Hemoglobin 9.1 L Lymphocytes # 1.2 Lymphocytes % 12.2 L Magnesium Level 2.2 Mean Corpuscular Hemoglobin 32.2 Mean Corpuscular Hemoglobin Concent 34.2 Mean Corpuscular Volume 94.2 Mean Platelet Volume 8.3 Monocytes # 1.2 H Monocytes % 11.7 H Neutrophils # 7.3 Neutrophils % 72.0 Nucleated Red Blood Cells # 0.0 Nucleated Red Blood Cells % 0.0 Phosphorus Level 2.8 Platelet Count 236 Potassium Level 4.3 Random Vancomycin Level 12.4 Red Blood Count 2.81 L Red Cell Distribution Width 15.7 H Sodium Level 142 White Blood Count 10.1 Test 07/25/16 05:56 07/25/16 08:49 07/25/16 13:07 Bedside Glucose 103 116 139 Medications Medications Current Medications Aspirin (Aspirin) 81 mg DAILY NGT Last administered on 07/25/16 08:44; Admin Dose 81 MG; Start 07/21/16 at 09:00 Atorvastatin Calcium (Lipitor) 40 mg QHS NGT Last administered on 07/24/16 20: 15; Admin Dose 40 MG; Start 07/20/16 at 21:00 Docusate Sodium (Colace Liquid Cup) 100 mg TID PRN NGT CONSTIPATION; Start 07/20 at 17:30 Folic Acid (Folic Acid) 1 mg DAILY NGT Last administered on 07/25/16 08:42; Admin Dose 1 MG; Start 07/21/16 at 09:00 Ticagrelor (Brilinta) 90 mg Q12 NGT Last administered on 07/25/16 08:44; Admin Dose 90 MG; Start 07/20/16 at 21:00 Acetaminophen (Tylenol Tab) 650 mg Q6H PRN NGT PAIN LEVEL 1-3 OR FEVER; Start 07/20/16 at 17:30 Acetaminophen/ Hydrocodone Bitart ([place] (5/325)) 1 tab Q6H PRN NGT PAIN LEVEL 4-6; Start 07/20/16 at 17:30 Acetaminophen/ Hydrocodone Bitart ([place] (5/325)) 2 tab Q6H PRN NGT PAIN LEVEL 7-10; Start 07/20/16 at 17:30 Famotidine (Pepcid Iv) 20 mg Q24H IV Last administered on 07/24/16 20:15; Admin Dose 20 MG; Start 07/20/16 at 21:00 Heparin Sodium (Porcine) 5000 unit 5,000 unit Q8 SC Last administered on 13:23; Admin Dose 5,000 UNIT; Start 07/20/16 at 17:30 Midazolam HCl 50 mg/Dextrose 50 ml @ 1 mls/hr TITRATE IV Last administered on 15:47; Admin Dose 6 MLS/HR; Start 07/21/16 at 15:30; Stop 07/28/16 at 09 :00 Cefepime HCl (Maxipime 1gm/50 ml (Pmx)) 50 ml @ 100 mls/hr Q24H IVPB Last administered on 07/24/16 17:15; Admin Dose 100 MLS/HR; Start 07/21/16 at 18:00 Insulin Aspart (Novolog Insulin Pen) NOVOLOG *MODERATE* ALGORI... Q4 SC Last administered on 07/23/16 08:05; Admin Dose 2 UNIT; Start 07/21/16 at 17:00 Miscellaneous Information 1 ea NOTE XX ; Start 07/21/16 at 16:30 Glucose (Glutose) 15 gm Q15M PRN PO DECREASED GLUCOSE; Start 07/21/16 at 16:30 Glucose (Glutose) 22.5 gm Q15M PRN PO DECREASED GLUCOSE; Start 07/21/16 at 16:30 Dextrose (D50w Syringe) 25 ml Q15M PRN IV DECREASED GLUCOSE Last administered on 07/21/16 21:13; Admin Dose 25 ML; Start 07/21/16 at 16:30 Dextrose (D50w Syringe) 50 ml Q15M PRN IV DECREASED GLUCOSE; Start 07/21/16 at 16:30 Glucagon (Glucagen) 1 mg Q15M PRN IM DECREASED GLUCOSE; Start 07/21/16 at 16:30 Glucose (Glutose) 15 gm Q15M PRN BUCCAL DECREASED GLUCOSE; Start 07/21/16 at 16: 30 Metoprolol Tartrate (Lopressor) 50 mg BID PO Last administered on 07/25/16 08: 43; Admin Dose 50 MG; Start 07/22/16 at 21:00 Amlodipine Besylate (Norvasc) 5 mg BID GTB Last administered on 07/25/16 08:45 ; Admin Dose 5 MG; Start 07/23/16 at 14:30 Hydralazine HCl (Apresoline) 10 mg Q4H PRN IV SBP GREATER THAN 170 Last administered on 07/25/16 09:54; Admin Dose 10 MG; Start 07/24/16 at 04:00 Benazepril HCl (Lotensin) 40 mg Q12 PO Last administered on 07/25/16 08:45; Admin Dose 40 MG; Start 07/24/16 at 21:00 Isosorbide Mononitrate 60 mg 60 mg DAILY PO Last administered on 07/25/16 12: 59; Admin Dose 60 MG; Start 07/25/16 at 10:30 Vancomycin HCl (Vancocin) 250 ml @ 125 mls/hr Q72H IVPB Last administered on 12:58; Admin Dose 125 MLS/HR; Start 07/25/16 at 13:00 MATT PEARCE Jul 25, 2016 15:53
[2016-07-25] MEDS: CEFEPIME 1GM/50 ML (PMX) 50 ML IVPB SCH (17:20)
[2016-07-25] MEDS ORDERED: hydrALAzine 20 MG INJ IV STA (20:09)
[2016-07-25] MEDS: FAMOTIDINE 20 MG INJ IV SCH (21:19)
[2016-07-25] MEDS: ATORVASTATIN 40 MG TAB NGT SCH (21:20)
[2016-07-26] VITALS (37 sets, daily range): BP systolic 131–170; BP diastolic 53–68; PULSE 62–93; RESP 8–38
[2016-07-26] MEDS: NITROGLYCERIN 2% 1 GM OINT PKT TD SCH ×2 (01:07→07:58)
[2016-07-26] MEDS: INSULIN ASPART [NOVOLOG] 3 ML PEN SC SCH ×6 (01:17→21:00)
[2016-07-26] MEDS: MIDAZOLAM 50 MG in DEXTROSE 5% 40 ML IV SCH ×2 (01:18→23:45)
[2016-07-26] MEDS: hydrALAzine 20 MG INJ IV PRN ×3 (03:58→18:35)
[2016-07-26 05:29] LABS: BASOPHIL # 0.1 10^3/ul (0.0-0.1); BASOPHILS % 0.6 % (0.0-2.0); EOSINOPHILS # 0.2 10^3/ul (0.0-0.5); EOSINOPHILS % 1.2 % (0.0-7.0); HEMATOCRIT 28.1 % (37.0-47.0); HEMOGLOBIN 9.6 g/dl (12.0-16.0); LYMPHOCYTES # 1.2 10^3/ul (0.8-2.9); LYMPHOCYTES % 9.1 % (15.0-51.0); MEAN CORPUSCULAR HEMOGLOBIN 32.4 pg (29.0-33.0); MEAN CORPUSCULAR VOLUME 95.4 fl (82.0-101.0); MEAN PLATELET VOLUME 8.4 fl (7.4-10.4); MONOCYTE # 1.2 10^3/ul (0.3-0.9); MONOCYTES % 9.2 % (0.0-11.0); NEUTROPHIL # 10.6 10^3/ul (1.6-7.5); NEUTROPHILS % 79.9 % (39.0-77.0); PLATELET COUNT 258 10^3/UL (140-440); RED BLOOD COUNT 2.94 10^6/ul (4.20-5.40); RED CELL DISTRIBUTION WIDTH 15.9 % (11.5-14.5); UNCORRECTED WBC 13.3 10^3/ul (4.8-10.8); WHITE BLOOD COUNT 13.3 10^3/ul (4.8-10.8)
[2016-07-26 05:38] LABS: MAGNESIUM 2.2 mg/dl (1.7-2.5)
[2016-07-26] MEDS: HEPARIN 5,000 UNIT/0.5 ML SYG SC SCH ×3 (05:41→23:42)
[2016-07-26 05:58] LABS: POTASSIUM 3.6 mmol/L (3.5-5.1)
[2016-07-26 06:01] LABS: CREATININE 3.01 mg/dl (0.44-1.00)
[2016-07-26 06:02] LABS: CALCIUM 8.7 mg/dl (8.4-10.2)
[2016-07-26 06:21] LABS: CONDITION 1; LH ANALYZER COMMENTS 1
[2016-07-26] MEDS ORDERED: POTASSIUM PHOSPHATE 20 MEQ in SOD CHLORIDE 0.9% 250 ML IVPB ONE (07:00)
[2016-07-26] MEDS: BENAZEPRIL 20 MG TAB PO SCH ×2 (07:59→23:39)
[2016-07-26] MEDS: METOPROLOL 50 MG TAB PO SCH ×2 (08:00→23:38)
[2016-07-26] MEDS: ASPIRIN 81 MG TAB NGT SCH (08:00)
--- NOTE | 2016-07-26 08:00 | PN ---
DATE: 07/26/2016 SUBJECTIVE: The patient had hemodialysis yesterday, with 4 liters removed. The patient overnight s till remains hypertensive, with systolic pressures in the 160s to 180s. No other acute events noted . No hemoptysis, hematemesis or hematochezia. OBJECTIVE: VITAL SIGNS: Blood pressure is 169/55, respirations , pulse 72, temperature 98.6. I's AND O'S: The patient had 200 in, with 4 liters out. HEENT: Head is normocephalic. NECK: Supple. HEART: Regular rate. LUNGS: Show diminished breath sounds at the base. ABDOMEN: Soft, nontender to palpation. No rebound or guarding. EXTREMITIES: Negative for clubbing or cyanosis. Trace edema. DERMATOLOGIC: No rashes. MUSCULOSKELETAL: Have no joint effusion. NEUROLOGIC: No change in exam. MEDICATIONS: The patient's medications have been reviewed. LABORATORY DATA: Shows sodium 141, potassium 3.6, chloride 98, bicarbonate 33, BUN 18, creatinine 3 .01, phosphorus 2.0. White count 13.3, hemoglobin 9.6, hematocrit 28.1, and platelet count is 258. Chest x-ray on 07/25/2016 shows increased base density, probably due to atelectasis and mild CHF wit h interstitial edema. ASSESSMENT AND PLAN: 1. End-stage renal disease. The patient has been receiving near daily dialysis without clearance v olume removal. Will continue dialysis today for ultrafiltration. 2. Volume overload. The patient's x-rays continue to show interstitial edema. Continue ultrafiltr ation dialysis. 3. Anemia. Continue to monitor hemoglobin and hematocrit levels. Will continue Epogen. 4. Mineral bone disorder. Will continue to monitor calcium and phosphorus levels. Will hold phosp hate binders, as the patient is hypophosphatemic. 5. Hypokalemia. Improved. 6. Sepsis. Status post shock secondary to pneumonia. Continue the current antibiotic regimen. 7. Ventilatory-dependent respiratory failure. Vent settings have been reviewed. ABG was reviewed. Will continue to monitor. 8. Encephalopathy. Etiology is unclear, possibly toxic metabolic. MRI reviewed. Continue to obse rve. 9. Coronary artery disease. Continue the current treatment plan. 10. Dyslipidemia. Continue statin therapy. 11. Diabetes. Continue Accu-Cheks and insulin sliding scale. 12. Hypertension. Etiology is multifactorial secondary to increased intravascular volume and endot helial dysfunction. Will continue the current blood pressure regimen. Will continue ultrafiltratio n with dialysis and monitor closely. May consider adding Minoxidil if blood pressures remain elevat ed. Dictated By: TALITA LEON DO NR/NTS Conf#: [id number] DID#: [id number]
[2016-07-26] MEDS: ISOSORBIDE MONONITRATE(SR)60 MG TAB PO SCH (08:01)
[2016-07-26] MEDS: AMLODIPINE 5 MG TAB GTB SCH ×2 (08:01→23:39)
[2016-07-26] MEDS: FOLIC ACID 1 MG TAB NGT SCH (08:02)
[2016-07-26] MEDS: TICAGRELOR 90 MG TABLET NGT SCH ×2 (08:03→23:45)
[2016-07-26] MEDS ORDERED: POTASSIUM PHOSPHATE 20 MEQ in SOD CHLORIDE 0.9% 250 ML IVPB SCH (09:00)
--- NOTE | 2016-07-26 09:30 | RADRPT ---
PROCEDURE: XR Chest. CLINICAL INDICATION: Shortness of breath. TECHNIQUE: Single frontal view. COMPARISON: 07/25/2016. FINDINGS: The endotracheal tube and nasogastric tube remain in satisfactory position. Mild pulmonary edema is slightly worse than seen previously. There is mild atelectasis at the lung bases, unchanged. The heart is enlarged. There is calcification in the aorta consistent with atherosclerosis. There is no pleural effusion. There is no pneumothorax. IMPRESSION: 1. Slightly worse pulmonary edema. 2. No other change from 07/25/2016. RPTAT: QQ .Sebastian Banks MD, Date Time Electronically viewed and signed by .Sebastian Banks MD, on 07/26/2016 09:30 .R/
--- NOTE | 2016-07-26 10:10 | PN ---
Date/Time of Note Date/Time of Note DATE: 07/26/16 TIME: 09:59 Assessment/Plan VTE Prophylaxis VTE Prophylaxis Intervention: heparin (5000u SQ q8h) Lines/Catheters IV Catheter Type (from Nrsg): Central Line Central line still needed: Yes (Critically ill) Urinary Cath still in place: Yes Reason Cath still needed: terminal illness/intractable pain Assessment/Plan Assessment/Plan [facility] 1. 65-year-old woman who is hospital day 8 s/p acute respiratory failure, arrest , and unresponsiveness at home, intubated on arrival in the ER. Etiology unclear She was hospitalized two weeks ago after suffered a cardiac arrest with asystole in the ER. S/p PCI x 2 with stenting. Repeat echo with EF 55%. Mildly elevated troponin on this admission. Cardiology, Pulmonary, Nephrology and Neurology following. She was hypertensive overnight, slightly improved with topical nitrates. * Discussed with Dr. Gomez this morning; continued hemodialysis to take off extra fluid that is evident on CXR * Discussed with Dr. Mayen; Continued full ventilatory support 2. Endstage renal disease on hemodialysis: on HD M/W/ * Hemodialysis planned again for today 3. Acute on chronic anemia with hemoglobin stable at 9.6g/dl today. 4. Diabetes mellitus, with blood sugars 88 - 109 * Sliding scale insulin for now; continue to hold Lantus with episode of hypoglycemia * Continue tube feedings and free H20 supplementation 5. 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 There was a two-hour window during which she was "asleep" prior to being found unresponsive on admission. EEG showing encephalopathy, MRI with no acute findings. * Our thanks to Dr. Arshad and Dr. Medrano for Neurology input 6. CAD s/p angio and stenting x 2 approx 2 weeks ago. EKG unchanged. Serial troponins trended down. Increased systolic pressures overnight, possibly secondary to fluid overload. * Continue ASA and Brilinta * Lopressor 25mg q12h; Lotensin 40mg daily; Imdur; Norvasc * Discontinue topical nitrates * Dialysis today 7. Right lower extremity pain with history of sciatica. Doppler study negative ten days ago for DVT. 8. Leukocytosis resolved. Likely secondary to aspiration pneumonitis/pneumonia vs health care-associated pneumonia. * Day 8 Vancomycin and Cefepime. 9. Enterococcal UTI *vVancomycin 10. Prophylaxis: Pepcid for gastrointestinal prophylaxis. SCDs for DVT prevention 11. Disposition: ICU level of care. Dr Mayen, Dr Castelan, Dr Barraza and Dr Medrano following today. Currently on Versed, holding trial of CPAP for completion of dialysis and assessment of current mental status. * Full-Code. Christoph Cox MD PhD [phone] Subjective 24 Hr Interval Summary Free Text/Dictation Two daughters at bedside. Unresponsive on Versed, but they report that she was interacting yesterday and pulled out her own NG tube. Exam/Review of Systems Vital Signs Vitals Vital Signs Date Time Temp Pulse Resp B/P Pulse Ox O2 Delivery O2 Flow Rate FiO2 07/26/16 08:00 68 07/26/16 05:04 16 100 30 07/26/16 00:00 169/55 Mechanical Ventilator 07/25/16 20:00 99.2 Intake and Output 07/25/16 07/25/16 07/26/16 15:00 23:00 07:00 Intake Total 608 ml 814 ml 132 ml Output Total 10 ml 4505 ml 0 ml Balance 598 ml -3691 ml 132 ml Exam Constitutional: Intubated and ventilated, sedated. Respiratory: Clear to auscultation bilaterally, good air movement Cardiovascular: Symmetric pulses, regular rhythm, normal rate. Gastrointestinal: Moderate tenderness, no hepatosplenomegaly, bowel sounds positive Musculoskeletal: Chronic stasis changes of the lower extremities to inspection. Intact vascular hemodialysis access. Neurological: Sedated. Trace patellar reflexes. Results Result Diagram: 07/26/16 0420 07/26/16 0400 Results 24 hrs Laboratory Tests Test 07/25/16 13:07 07/25/16 17:12 07/25/16 21:18 07/26/16 01:15 Bedside Glucose 139 156 128 151 Test 07/26/16 04:00 07/26/16 04:20 07/26/16 05:39 07/26/16 08:07 Anion Gap 14 Blood Urea Nitrogen 18 # Calcium Level 8.7 Carbon Dioxide Level 33 H Chloride Level 98 Creatinine 3.01 #H Glucose Level 123 Potassium Level 3.6 Sodium Level 141 Basophils # 0.1 Basophils % 0.6 Blood Morphology Comment Eosinophils # 0.2 Eosinophils % 1.2 Hematocrit 28.1 L Hemoglobin 9.6 L Lymphocytes # 1.2 Lymphocytes % 9.1 L Magnesium Level 2.2 Mean Corpuscular Hemoglobin 32.4 Mean Corpuscular Hemoglobin Concent 34.0 Mean Corpuscular Volume 95.4 Mean Platelet Volume 8.4 Monocytes # 1.2 H Monocytes % 9.2 Neutrophils # 10.6 H Neutrophils % 79.9 H Nucleated Red Blood Cells # 0.0 Nucleated Red Blood Cells % 0.0 Phosphorus Level 2.0 L Platelet Count 258 Red Blood Count 2.94 L Red Cell Distribution Width 15.9 H White Blood Count 13.3 #H Bedside Glucose 127 139 Medications Medications Current Medications Aspirin (Aspirin) 81 mg DAILY NGT Last administered on 07/26/16 08:00; Admin Dose 81 MG; Start 07/21/16 at 09:00 Atorvastatin Calcium (Lipitor) 40 mg QHS NGT Last administered on 07/25/16 21: 20; Admin Dose 40 MG; Start 07/20/16 at 21:00 Docusate Sodium (Colace Liquid Cup) 100 mg TID PRN NGT CONSTIPATION; Start 07/20 at 17:30 Folic Acid (Folic Acid) 1 mg DAILY NGT Last administered on 07/26/16 08:02; Admin Dose 1 MG; Start 07/21/16 at 09:00 Ticagrelor (Brilinta) 90 mg Q12 NGT Last administered on 07/26/16 08:03; Admin Dose 90 MG; Start 07/20/16 at 21:00 Acetaminophen (Tylenol Tab) 650 mg Q6H PRN NGT PAIN LEVEL 1-3 OR FEVER; Start 07/20/16 at 17:30 Acetaminophen/ Hydrocodone Bitart ([place] (5/325)) 1 tab Q6H PRN NGT PAIN LEVEL 4-6; Start 07/20/16 at 17:30 Acetaminophen/ Hydrocodone Bitart ([place] (5/325)) 2 tab Q6H PRN NGT PAIN LEVEL 7-10; Start 07/20/16 at 17:30 Famotidine (Pepcid Iv) 20 mg Q24H IV Last administered on 07/25/16 21:19; Admin Dose 20 MG; Start 07/20/16 at 21:00 Heparin Sodium (Porcine) 5000 unit 5,000 unit Q8 SC Last administered on 05:41; Admin Dose 5,000 UNIT; Start 07/20/16 at 17:30 Midazolam HCl 50 mg/Dextrose 50 ml @ 1 mls/hr TITRATE IV Last administered on 01:18; Admin Dose 6 MLS/HR; Start 07/21/16 at 15:30; Stop 07/28/16 at 09 :00 Cefepime HCl (Maxipime 1gm/50 ml (Pmx)) 50 ml @ 100 mls/hr Q24H IVPB Last administered on 07/25/16 17:20; Admin Dose 100 MLS/HR; Start 07/21/16 at 18:00 Insulin Aspart (Novolog Insulin Pen) NOVOLOG *MODERATE* ALGORI... Q4 SC Last administered on 07/26/16 01:17; Admin Dose 2 UNIT; Start 07/21/16 at 17:00 Miscellaneous Information 1 ea NOTE XX ; Start 07/21/16 at 16:30 Glucose (Glutose) 15 gm Q15M PRN PO DECREASED GLUCOSE; Start 07/21/16 at 16:30 Glucose (Glutose) 22.5 gm Q15M PRN PO DECREASED GLUCOSE; Start 07/21/16 at 16:30 Dextrose (D50w Syringe) 25 ml Q15M PRN IV DECREASED GLUCOSE Last administered on 07/21/16 21:13; Admin Dose 25 ML; Start 07/21/16 at 16:30 Dextrose (D50w Syringe) 50 ml Q15M PRN IV DECREASED GLUCOSE; Start 07/21/16 at 16:30 Glucagon (Glucagen) 1 mg Q15M PRN IM DECREASED GLUCOSE; Start 07/21/16 at 16:30 Glucose (Glutose) 15 gm Q15M PRN BUCCAL DECREASED GLUCOSE; Start 07/21/16 at 16: 30 Metoprolol Tartrate (Lopressor) 50 mg BID PO Last administered on 07/26/16 08: 00; Admin Dose 50 MG; Start 07/22/16 at 21:00 Amlodipine Besylate (Norvasc) 5 mg BID GTB Last administered on 07/26/16 08:01 ; Admin Dose 5 MG; Start 07/23/16 at 14:30 Benazepril HCl (Lotensin) 40 mg Q12 PO Last administered on 07/26/16 07:59; Admin Dose 40 MG; Start 07/24/16 at 21:00 Isosorbide Mononitrate 60 mg 60 mg DAILY PO Last administered on 07/26/16 08: 01; Admin Dose 60 MG; Start 07/25/16 at 10:30 Vancomycin HCl (Vancocin) 250 ml @ 125 mls/hr Q72H IVPB Last administered on 12:58; Admin Dose 125 MLS/HR; Start 07/25/16 at 13:00 Hydralazine HCl (Apresoline) 25 mg Q4H PRN IV SBP >170 Last administered on 03:58; Admin Dose 25 MG; Start 07/25/16 at 20:30 Nitroglycerin 0.5 inch 0.5 inch Q6 TD Last administered on 07/26/16 07:58; Admin Dose 0.5 INCH; Start 07/26/16 at 00:30 Potassium Phosphate/Sodium Chloride (K Phos (Meq)/NS) 254.5455 ml @ 63.636 m... ONCE IVPB ; Start 07/26/16 at 09:00; Stop 07/26/16 at 12:59 KRZYSZTOF COX M.D. Jul 26, 2016 10:10
--- NOTE | 2016-07-26 10:15 | CONS ---
Date/Time of Note Date/Time of Note DATE: 07/26/16 TIME: 10:14 Consult Date/Type/Reason Admit Date/Time Jul 20, 2016 at 15:20 Initial Consult Date 07/21/16 Type of Consultation: pulmonary Ordering Provider: KRZYSZTOF MAY M.D. Subjective Continues Versed drip this morning Remains somnolent on mechanical ventilation Hemodynamically stable at present Tube feeding tolerated Objective Chest x-ray patchy bilateral infiltrates Vital Signs Date Time Temp Pulse Resp B/P Pulse Ox O2 Delivery O2 Flow Rate FiO2 07/26/16 08:00 68 07/26/16 05:04 16 100 30 07/26/16 00:00 169/55 Mechanical Ventilator 07/25/16 20:00 99.2 Intake and Output 07/25/16 07/25/16 07/26/16 15:00 23:00 07:00 Intake Total 608 ml 814 ml 132 ml Output Total 10 ml 4505 ml 0 ml Balance 598 ml -3691 ml 132 ml PHYSICAL EXAMINATION: GENERAL: Chronically ill appearing lady, intubated on mechanical ventilation, appears comfortable at rest, no acute distress. VITAL SIGNS: As above NECK: Supple, no JVD or lymphadenopathy. CARDIAC EXAMINATION: S1, S2, no added sounds or murmurs. CHEST: Diminished air entry bilaterally. ABDOMEN: Soft, nontender. No guarding or rebound. EXTREMITIES: No cyanosis, clubbing. !+ edema. NEUROLOGIC: Generalized weakness. Results/Medications Result Diagram: 07/26/16 0420 07/26/16 0400 Results 24 hrs Laboratory Tests Test 07/25/16 13:07 07/25/16 17:12 07/25/16 21:18 07/26/16 01:15 Bedside Glucose 139 156 128 151 Test 07/26/16 04:00 07/26/16 04:20 07/26/16 05:39 07/26/16 08:07 Anion Gap 14 Blood Urea Nitrogen 18 # Calcium Level 8.7 Carbon Dioxide Level 33 H Chloride Level 98 Creatinine 3.01 #H Glucose Level 123 Potassium Level 3.6 Sodium Level 141 Basophils # 0.1 Basophils % 0.6 Blood Morphology Comment Eosinophils # 0.2 Eosinophils % 1.2 Hematocrit 28.1 L Hemoglobin 9.6 L Lymphocytes # 1.2 Lymphocytes % 9.1 L Magnesium Level 2.2 Mean Corpuscular Hemoglobin 32.4 Mean Corpuscular Hemoglobin Concent 34.0 Mean Corpuscular Volume 95.4 Mean Platelet Volume 8.4 Monocytes # 1.2 H Monocytes % 9.2 Neutrophils # 10.6 H Neutrophils % 79.9 H Nucleated Red Blood Cells # 0.0 Nucleated Red Blood Cells % 0.0 Phosphorus Level 2.0 L Platelet Count 258 Red Blood Count 2.94 L Red Cell Distribution Width 15.9 H White Blood Count 13.3 #H Bedside Glucose 127 139 Medications Current Medications Aspirin (Aspirin) 81 mg DAILY NGT Last administered on 07/26/16 08:00; Admin Dose 81 MG; Start 07/21/16 at 09:00 Atorvastatin Calcium (Lipitor) 40 mg QHS NGT Last administered on 07/25/16 21: 20; Admin Dose 40 MG; Start 07/20/16 at 21:00 Docusate Sodium (Colace Liquid Cup) 100 mg TID PRN NGT CONSTIPATION; Start 07/20 at 17:30 Folic Acid (Folic Acid) 1 mg DAILY NGT Last administered on 07/26/16 08:02; Admin Dose 1 MG; Start 07/21/16 at 09:00 Ticagrelor (Brilinta) 90 mg Q12 NGT Last administered on 07/26/16 08:03; Admin Dose 90 MG; Start 07/20/16 at 21:00 Acetaminophen (Tylenol Tab) 650 mg Q6H PRN NGT PAIN LEVEL 1-3 OR FEVER; Start 07/20/16 at 17:30 Acetaminophen/ Hydrocodone Bitart ([place] (5/325)) 1 tab Q6H PRN NGT PAIN LEVEL 4-6; Start 07/20/16 at 17:30 Acetaminophen/ Hydrocodone Bitart ([place] (5/325)) 2 tab Q6H PRN NGT PAIN LEVEL 7-10; Start 07/20/16 at 17:30 Famotidine (Pepcid Iv) 20 mg Q24H IV Last administered on 07/25/16 21:19; Admin Dose 20 MG; Start 07/20/16 at 21:00 Heparin Sodium (Porcine) 5000 unit 5,000 unit Q8 SC Last administered on 05:41; Admin Dose 5,000 UNIT; Start 07/20/16 at 17:30 Midazolam HCl 50 mg/Dextrose 50 ml @ 1 mls/hr TITRATE IV Last administered on 01:18; Admin Dose 6 MLS/HR; Start 07/21/16 at 15:30; Stop 07/28/16 at 09 :00 Cefepime HCl (Maxipime 1gm/50 ml (Pmx)) 50 ml @ 100 mls/hr Q24H IVPB Last administered on 07/25/16 17:20; Admin Dose 100 MLS/HR; Start 07/21/16 at 18:00 Insulin Aspart (Novolog Insulin Pen) NOVOLOG *MODERATE* ALGORI... Q4 SC Last administered on 07/26/16 01:17; Admin Dose 2 UNIT; Start 07/21/16 at 17:00 Miscellaneous Information 1 ea NOTE XX ; Start 07/21/16 at 16:30 Glucose (Glutose) 15 gm Q15M PRN PO DECREASED GLUCOSE; Start 07/21/16 at 16:30 Glucose (Glutose) 22.5 gm Q15M PRN PO DECREASED GLUCOSE; Start 07/21/16 at 16:30 Dextrose (D50w Syringe) 25 ml Q15M PRN IV DECREASED GLUCOSE Last administered on 07/21/16 21:13; Admin Dose 25 ML; Start 07/21/16 at 16:30 Dextrose (D50w Syringe) 50 ml Q15M PRN IV DECREASED GLUCOSE; Start 07/21/16 at 16:30 Glucagon (Glucagen) 1 mg Q15M PRN IM DECREASED GLUCOSE; Start 07/21/16 at 16:30 Glucose (Glutose) 15 gm Q15M PRN BUCCAL DECREASED GLUCOSE; Start 07/21/16 at 16: 30 Metoprolol Tartrate (Lopressor) 50 mg BID PO Last administered on 07/26/16 08: 00; Admin Dose 50 MG; Start 07/22/16 at 21:00 Amlodipine Besylate (Norvasc) 5 mg BID GTB Last administered on 07/26/16 08:01 ; Admin Dose 5 MG; Start 07/23/16 at 14:30 Benazepril HCl (Lotensin) 40 mg Q12 PO Last administered on 07/26/16 07:59; Admin Dose 40 MG; Start 07/24/16 at 21:00 Isosorbide Mononitrate 60 mg 60 mg DAILY PO Last administered on 07/26/16 08: 01; Admin Dose 60 MG; Start 07/25/16 at 10:30 Vancomycin HCl (Vancocin) 250 ml @ 125 mls/hr Q72H IVPB Last administered on 12:58; Admin Dose 125 MLS/HR; Start 07/25/16 at 13:00 Hydralazine HCl 25 mg 25 mg Q4H PRN IV SBP >170 Last administered on 07/26/16 03:58; Admin Dose 25 MG; Start 07/25/16 at 20:30 Potassium Phosphate/Sodium Chloride (K Phos (Meq)/NS) 254.5455 ml @ 63.636 m... ONCE IVPB ; Start 07/26/16 at 09:00; Stop 07/26/16 at 12:59 Assessment/Plan Chief Complaint/Hosp Course IMPRESSION AND PLAN: 1. Hypoxemic respiratory failure. 2. Possible aspiration pneumonia 3. Probable underlying obstructive sleep apnea. 4. Encephalopathy, toxic metabolic. Questionable anoxic brain injury following collapse 5. End-stage renal failure on hemodialysis. 6. Significant anemia, questionable GI bleed 7. History of hypertension. THE PATIENT WILL NEED: 1. Continued mechanical ventilation. CPAP weaning trial this morning 2. Neurology recommendations. MRI noted 3. Monitor H&H 4. Continue antibiotics for possible pneumonia. 5. Continue glycemic management. 6. DVT and GI prophylaxis. 7. Hemodialysis per nephrology Disposition Continue ICU care Discussed with staff and family at bedside Problems: SANDI BUSCH MD, [facility] Jul 26, 2016 10:15
--- NOTE | 2016-07-26 12:17 | CONS ---
Date/Time of Note Date/Time of Note DATE: 07/26/16 TIME: 12:13 Assessment/Plan Assessment/Plan Chief Complaint/Hosp Course IMPRESSION: 1. Positive troponin in the setting of respiratory failure and renal failure- now downtrended. 2. Abnormal electrocardiogram, assess for acute coronary syndrome. 3. History of a recent PTCA and stent placement to circumflex June 2016 with drug-eluting stents.- EF 55% by echo this admit 4. Altered mental state.-MRI negative 07/23 5. Respiratory failure, status post intubation. 6. End-stage renal disease on hemodialysis. 7. Urinary tract infection. 8. Pneumonia. 9. Dyslipidemia. 10.HTN-elevated moderately Recc: -Tele -Continue BB -Continue norvasc/benazepril -start hydralazine to improve BP -Continue asa/brilinta -HD for volume removal -Continue abx's and f/u cx data -Vent weaning as tolerated -sedation vacation Problems: Consultation Date/Type/Reason Admit Date/Time Jul 20, 2016 at 15:20 Initial Consult Date 07/21/16 Type of Consultation: Cardiology Reason for Consultation CHF Referring Provider: KRZYSZTOF MAY M.D. Exam/Review of Systems Vital Signs Vitals Vital Signs Date Time Temp Pulse Resp B/P Pulse Ox O2 Delivery O2 Flow Rate FiO2 07/26/16 10:30 71 16 169/59 100 07/26/16 10:00 Mechanical Ventilator 07/26/16 08:00 98.8 07/26/16 05:04 30 Intake and Output 07/25/16 07/25/16 07/26/16 15:00 23:00 07:00 Intake Total 608 ml 814 ml 132 ml Output Total 10 ml 4505 ml 0 ml Balance 598 ml -3691 ml 132 ml Exam Review of Systems: CONSTITUTIONAL: No fevers, chills. PULMONARY: intubated CARDIOVASCULAR: No obvious chest pain/palpitations GASTROINTESTINAL: No nausea/vomiting. GENITOURINARY: No hematuria/dysuria. MUSCULOSKELETAL: No myagias/arthalgias. PSYCHIATRIC: No documented depression. NEUROLOGIC: No weakness Constitutional: alert Head: normocephalic ENMT: mucosa pink and moist Neck: supple Respiratory: diminished breath sounds Cardiovascular: regular rate and rhythm Gastrointestinal: non-tender, soft Musculoskeletal: muscle tone Extremities: edema (none) Neurological: other (No focal deficits) Results Result Diagram: 07/26/16 0420 07/26/16 0400 Results 24 hrs Laboratory Tests Test 07/25/16 13:07 07/25/16 17:12 07/25/16 21:18 07/26/16 01:15 Bedside Glucose 139 156 128 151 Test 07/26/16 04:00 07/26/16 04:20 07/26/16 05:39 07/26/16 08:07 Anion Gap 14 Blood Urea Nitrogen 18 # Calcium Level 8.7 Carbon Dioxide Level 33 H Chloride Level 98 Creatinine 3.01 #H Glucose Level 123 Potassium Level 3.6 Sodium Level 141 Basophils # 0.1 Basophils % 0.6 Blood Morphology Comment Eosinophils # 0.2 Eosinophils % 1.2 Hematocrit 28.1 L Hemoglobin 9.6 L Lymphocytes # 1.2 Lymphocytes % 9.1 L Magnesium Level 2.2 Mean Corpuscular Hemoglobin 32.4 Mean Corpuscular Hemoglobin Concent 34.0 Mean Corpuscular Volume 95.4 Mean Platelet Volume 8.4 Monocytes # 1.2 H Monocytes % 9.2 Neutrophils # 10.6 H Neutrophils % 79.9 H Nucleated Red Blood Cells # 0.0 Nucleated Red Blood Cells % 0.0 Phosphorus Level 2.0 L Platelet Count 258 Red Blood Count 2.94 L Red Cell Distribution Width 15.9 H White Blood Count 13.3 #H Bedside Glucose 127 139 Medications Medications Current Medications Aspirin (Aspirin) 81 mg DAILY NGT Last administered on 07/26/16 08:00; Admin Dose 81 MG; Start 07/21/16 at 09:00 Atorvastatin Calcium (Lipitor) 40 mg QHS NGT Last administered on 07/25/16 21: 20; Admin Dose 40 MG; Start 07/20/16 at 21:00 Docusate Sodium (Colace Liquid Cup) 100 mg TID PRN NGT CONSTIPATION; Start 07/20 at 17:30 Folic Acid (Folic Acid) 1 mg DAILY NGT Last administered on 07/26/16 08:02; Admin Dose 1 MG; Start 07/21/16 at 09:00 Ticagrelor (Brilinta) 90 mg Q12 NGT Last administered on 07/26/16 08:03; Admin Dose 90 MG; Start 07/20/16 at 21:00 Acetaminophen (Tylenol Tab) 650 mg Q6H PRN NGT PAIN LEVEL 1-3 OR FEVER; Start 07/20/16 at 17:30 Acetaminophen/ Hydrocodone Bitart ([place] (5/325)) 1 tab Q6H PRN NGT PAIN LEVEL 4-6; Start 07/20/16 at 17:30 Acetaminophen/ Hydrocodone Bitart ([place] (5/325)) 2 tab Q6H PRN NGT PAIN LEVEL 7-10; Start 07/20/16 at 17:30 Famotidine (Pepcid Iv) 20 mg Q24H IV Last administered on 07/25/16 21:19; Admin Dose 20 MG; Start 07/20/16 at 21:00 Heparin Sodium (Porcine) 5000 unit 5,000 unit Q8 SC Last administered on 05:41; Admin Dose 5,000 UNIT; Start 07/20/16 at 17:30 Midazolam HCl 50 mg/Dextrose 50 ml @ 1 mls/hr TITRATE IV Last administered on 01:18; Admin Dose 6 MLS/HR; Start 07/21/16 at 15:30; Stop 07/28/16 at 09 :00 Cefepime HCl (Maxipime 1gm/50 ml (Pmx)) 50 ml @ 100 mls/hr Q24H IVPB Last administered on 07/25/16 17:20; Admin Dose 100 MLS/HR; Start 07/21/16 at 18:00 Insulin Aspart (Novolog Insulin Pen) NOVOLOG *MODERATE* ALGORI... Q4 SC Last administered on 07/26/16 01:17; Admin Dose 2 UNIT; Start 07/21/16 at 17:00 Miscellaneous Information 1 ea NOTE XX ; Start 07/21/16 at 16:30 Glucose (Glutose) 15 gm Q15M PRN PO DECREASED GLUCOSE; Start 07/21/16 at 16:30 Glucose (Glutose) 22.5 gm Q15M PRN PO DECREASED GLUCOSE; Start 07/21/16 at 16:30 Dextrose (D50w Syringe) 25 ml Q15M PRN IV DECREASED GLUCOSE Last administered on 07/21/16 21:13; Admin Dose 25 ML; Start 07/21/16 at 16:30 Dextrose (D50w Syringe) 50 ml Q15M PRN IV DECREASED GLUCOSE; Start 07/21/16 at 16:30 Glucagon (Glucagen) 1 mg Q15M PRN IM DECREASED GLUCOSE; Start 07/21/16 at 16:30 Glucose (Glutose) 15 gm Q15M PRN BUCCAL DECREASED GLUCOSE; Start 07/21/16 at 16: 30 Metoprolol Tartrate (Lopressor) 50 mg BID PO Last administered on 07/26/16 08: 00; Admin Dose 50 MG; Start 07/22/16 at 21:00 Amlodipine Besylate (Norvasc) 5 mg BID GTB Last administered on 07/26/16 08:01 ; Admin Dose 5 MG; Start 07/23/16 at 14:30 Benazepril HCl (Lotensin) 40 mg Q12 PO Last administered on 07/26/16 07:59; Admin Dose 40 MG; Start 07/24/16 at 21:00 Isosorbide Mononitrate 60 mg 60 mg DAILY PO Last administered on 07/26/16 08: 01; Admin Dose 60 MG; Start 07/25/16 at 10:30 Vancomycin HCl (Vancocin) 250 ml @ 125 mls/hr Q72H IVPB Last administered on 12:58; Admin Dose 125 MLS/HR; Start 07/25/16 at 13:00 Hydralazine HCl 25 mg 25 mg Q4H PRN IV SBP >170 Last administered on 07/26/16 11:08; Admin Dose 25 MG; Start 07/25/16 at 20:30 Potassium Phosphate/Sodium Chloride (K Phos (Meq)/NS) 254.5455 ml @ 63.636 m... ONCE IVPB ; Start 07/26/16 at 09:00; Stop 07/26/16 at 12:59 MATT PEARCE Jul 26, 2016 12:16
[2016-07-26] MEDS: CEFEPIME 1GM/50 ML (PMX) 50 ML IVPB SCH (18:32)
[2016-07-26] MEDS: FAMOTIDINE 20 MG INJ IV SCH (23:38)
[2016-07-26] MEDS: ATORVASTATIN 40 MG TAB NGT SCH (23:44)
[2016-07-27] VITALS (40 sets, daily range): BP systolic 130–185; BP diastolic 53–93; PULSE 65–96; RESP 14–38
[2016-07-27] MEDS: INSULIN ASPART [NOVOLOG] 3 ML PEN SC SCH ×6 (01:00→21:00)
[2016-07-27 05:10] LABS: BASOPHIL # 0.1 10^3/ul (0.0-0.1); BASOPHILS % 0.3 % (0.0-2.0); EOSINOPHILS # 0.3 10^3/ul (0.0-0.5); EOSINOPHILS % 1.5 % (0.0-7.0); HEMATOCRIT 29.7 % (37.0-47.0); LYMPHOCYTES # 1.8 10^3/ul (0.8-2.9); LYMPHOCYTES % 9.5 % (15.0-51.0); MEAN CORPUSCULAR HEMOGLOBIN 32.1 pg (29.0-33.0); MEAN CORPUSCULAR HGB CONC 33.6 g/dl (32.0-37.0); MEAN CORPUSCULAR VOLUME 95.8 fl (82.0-101.0); MEAN PLATELET VOLUME 8.4 fl (7.4-10.4); MONOCYTE # 1.7 10^3/ul (0.3-0.9); MONOCYTES % 9.3 % (0.0-11.0); NEUTROPHIL # 14.8 10^3/ul (1.6-7.5); NEUTROPHILS % 79.4 % (39.0-77.0); PLATELET COUNT 295 10^3/UL (140-440); RED CELL DISTRIBUTION WIDTH 15.8 % (11.5-14.5); UNCORRECTED WBC 18.7 10^3/ul (4.8-10.8); WHITE BLOOD COUNT 18.7 10^3/ul (4.8-10.8)
[2016-07-27] MEDS: hydrALAzine 20 MG INJ IV PRN ×2 (05:15→20:09)
[2016-07-27 05:22] LABS: CONDITION 1; LH ANALYZER COMMENTS 1
[2016-07-27 05:38] LABS: POTASSIUM 3.5 mmol/L (3.5-5.1)
[2016-07-27 05:41] LABS: CREATININE 2.74 mg/dl (0.44-1.00)
[2016-07-27 05:42] LABS: CALCIUM 8.8 mg/dl (8.4-10.2); PHOSPHORUS 2.3 mg/dl (2.5-4.9)
[2016-07-27] MEDS: HEPARIN 5,000 UNIT/0.5 ML SYG SC SCH ×3 (06:47→21:35)
[2016-07-27] MEDS ORDERED: NEUTRA-PHOS 250 MG PACKET PO ONE (08:00)
[2016-07-27] MEDS: BENAZEPRIL 20 MG TAB PO SCH ×2 (08:42→20:07)
[2016-07-27] MEDS: AMLODIPINE 5 MG TAB GTB SCH ×2 (08:42→21:32)
[2016-07-27] MEDS: ASPIRIN 81 MG TAB NGT SCH (08:42)
[2016-07-27] MEDS: METOPROLOL 50 MG TAB PO SCH ×2 (08:42→20:08)
[2016-07-27] MEDS: FOLIC ACID 1 MG TAB NGT SCH (08:43)
[2016-07-27] MEDS: ISOSORBIDE MONONITRATE(SR)60 MG TAB PO SCH (08:43)
[2016-07-27] MEDS: TICAGRELOR 90 MG TABLET NGT SCH ×2 (08:44→21:29)
[2016-07-27] MEDS: PROPOFOL 100 ML IV SCH ×2 (11:51→17:52)
[2016-07-27] MEDS ORDERED: LIDOCAINE 1% (MDV) 20 ML INJ SC ONE (12:00)
[2016-07-27] MEDS ORDERED: FENTAnyl 1,000 MCG in DEXTROSE 5% 80 ML IV SCH (12:00)
--- NOTE | 2016-07-27 12:09 | RADRPT ---
PROCEDURE: XR Chest AP portable CLINICAL INDICATION: Pneumonia, CHF TECHNIQUE: An AP portable radiograph of the chest was submitted. COMPARISON: 07/26/2016 FINDINGS: Support Hardware: The endotracheal tube and the NG tube are stable and positioning. Cardiovascular: The heart remains moderately enlarged, the aorta appears atherosclerotic and the pul monary vasculature appears congested. Lung [place]: Interstitial infiltrates are again seen extend from the prior L region suspicious for p ulmonary edema. Pleural Spaces: No pneumothorax or pleural effusion is identified. Osseous Structures: The osseous structures appear intact. Soft Tissues: The soft tissues appear unremarkable. IMPRESSION: 1. The tubes and lines are stable and positioning. 2. Persistent cardiomegaly with CHF and interstitial pulmonary edema, unchanged. Physician Lena Date Time Electronically viewed and signed by Franky Pantoja Physician on 07/27/2016 12:09 /
--- NOTE | 2016-07-27 12:55 | CONS ---
Date/Time of Note Date/Time of Note DATE: 07/27/16 TIME: 12:54 Consult Date/Type/Reason Admit Date/Time Jul 20, 2016 at 15:20 Initial Consult Date 07/21/16 Type of Consultation: Cardiology Ordering Provider: KRZYSZTOF MAY M.D. Subjective Patient little agitated this morning off sedation Not opening eyes or following commands yet Remains hemodynamically stable Objective Vital Signs Date Time Temp Pulse Resp B/P Pulse Ox O2 Delivery O2 Flow Rate FiO2 07/27/16 12:00 84 07/27/16 10:00 16 162/60 98 Mechanical Ventilator 07/27/16 08:00 99.1 07/27/16 08:00 30 Intake and Output 07/26/16 07/26/16 07/27/16 15:00 23:00 07:00 Intake Total 278 ml 740 ml 258 ml Output Total 10 ml 3515 ml Balance 268 ml -2775 ml 258 ml PHYSICAL EXAMINATION: GENERAL: Chronically ill appearing lady, intubated on mechanical ventilation, appears comfortable at rest, no acute distress. VITAL SIGNS: As above NECK: Supple, no JVD or lymphadenopathy. CARDIAC EXAMINATION: S1, S2, no added sounds or murmurs. CHEST: Diminished air entry bilaterally. ABDOMEN: Soft, nontender. No guarding or rebound. EXTREMITIES: No cyanosis, clubbing. !+ edema. NEUROLOGIC: Generalized weakness. Results/Medications Result Diagram: 07/27/16 0440 07/27/16 0440 Results 24 hrs Chest x-ray Ongoing interstitial edema Laboratory Tests Test 07/26/16 17:43 07/27/16 01:25 07/27/16 04:40 07/27/16 08:47 Bedside Glucose 135 135 123 Anion Gap 17 H Basophils # 0.1 Basophils % 0.3 Blood Morphology Comment Blood Urea Nitrogen 16 Calcium Level 8.8 Carbon Dioxide Level 32 H Chloride Level 93 L Creatinine 2.74 H Eosinophils # 0.3 Eosinophils % 1.5 Glucose Level 136 Hematocrit 29.7 L Hemoglobin 10.0 L Lymphocytes # 1.8 Lymphocytes % 9.5 L Magnesium Level 2.0 Mean Corpuscular Hemoglobin 32.1 Mean Corpuscular Hemoglobin Concent 33.6 Mean Corpuscular Volume 95.8 Mean Platelet Volume 8.4 Monocytes # 1.7 H Monocytes % 9.3 Neutrophils # 14.8 H Neutrophils % 79.4 H Nucleated Red Blood Cells # 0.0 Nucleated Red Blood Cells % 0.0 Phosphorus Level 2.3 L Platelet Count 295 Potassium Level 3.5 Red Blood Count 3.10 L Red Cell Distribution Width 15.8 H Sodium Level 138 White Blood Count 18.7 #H Medications Current Medications Aspirin (Aspirin) 81 mg DAILY NGT Last administered on 07/27/16 08:42; Admin Dose 81 MG; Start 07/21/16 at 09:00 Atorvastatin Calcium (Lipitor) 40 mg QHS NGT Last administered on 07/26/16 23: 44; Admin Dose 40 MG; Start 07/20/16 at 21:00 Docusate Sodium (Colace Liquid Cup) 100 mg TID PRN NGT CONSTIPATION; Start 07/20 at 17:30 Folic Acid (Folic Acid) 1 mg DAILY NGT Last administered on 07/27/16 08:43; Admin Dose 1 MG; Start 07/21/16 at 09:00 Ticagrelor (Brilinta) 90 mg Q12 NGT Last administered on 07/27/16 08:44; Admin Dose 90 MG; Start 07/20/16 at 21:00 Acetaminophen (Tylenol Tab) 650 mg Q6H PRN NGT PAIN LEVEL 1-3 OR FEVER; Start 07/20/16 at 17:30 Acetaminophen/ Hydrocodone Bitart ([place] (5/325)) 1 tab Q6H PRN NGT PAIN LEVEL 4-6; Start 07/20/16 at 17:30 Acetaminophen/ Hydrocodone Bitart ([place] (5/325)) 2 tab Q6H PRN NGT PAIN LEVEL 7-10; Start 07/20/16 at 17:30 Famotidine (Pepcid Iv) 20 mg Q24H IV Last administered on 07/26/16 23:38; Admin Dose 20 MG; Start 07/20/16 at 21:00 Heparin Sodium (Porcine) 5000 unit 5,000 unit Q8 SC Last administered on 06:47; Admin Dose 5,000 UNIT; Start 07/20/16 at 17:30 Midazolam HCl 50 mg/Dextrose 50 ml @ 1 mls/hr TITRATE IV Last administered on 23:45; Admin Dose 4 MLS/HR; Start 07/21/16 at 15:30; Stop 07/28/16 at 09 :00 Cefepime HCl (Maxipime 1gm/50 ml (Pmx)) 50 ml @ 100 mls/hr Q24H IVPB Last administered on 07/26/16 18:32; Admin Dose 100 MLS/HR; Start 07/21/16 at 18:00 Insulin Aspart (Novolog Insulin Pen) NOVOLOG *MODERATE* ALGORI... Q4 SC Last administered on 07/26/16 01:17; Admin Dose 2 UNIT; Start 07/21/16 at 17:00 Miscellaneous Information 1 ea NOTE XX ; Start 07/21/16 at 16:30 Glucose (Glutose) 15 gm Q15M PRN PO DECREASED GLUCOSE; Start 07/21/16 at 16:30 Glucose (Glutose) 22.5 gm Q15M PRN PO DECREASED GLUCOSE; Start 07/21/16 at 16:30 Dextrose (D50w Syringe) 25 ml Q15M PRN IV DECREASED GLUCOSE Last administered on 07/21/16 21:13; Admin Dose 25 ML; Start 07/21/16 at 16:30 Dextrose (D50w Syringe) 50 ml Q15M PRN IV DECREASED GLUCOSE; Start 07/21/16 at 16:30 Glucagon (Glucagen) 1 mg Q15M PRN IM DECREASED GLUCOSE; Start 07/21/16 at 16:30 Glucose (Glutose) 15 gm Q15M PRN BUCCAL DECREASED GLUCOSE; Start 07/21/16 at 16: 30 Metoprolol Tartrate (Lopressor) 50 mg BID PO Last administered on 07/27/16 08: 42; Admin Dose 50 MG; Start 07/22/16 at 21:00 Amlodipine Besylate (Norvasc) 5 mg BID GTB Last administered on 07/27/16 08:42 ; Admin Dose 5 MG; Start 07/23/16 at 14:30 Benazepril HCl (Lotensin) 40 mg Q12 PO Last administered on 07/27/16 08:42; Admin Dose 40 MG; Start 07/24/16 at 21:00 Isosorbide Mononitrate 60 mg 60 mg DAILY PO Last administered on 07/27/16 08: 43; Admin Dose 60 MG; Start 07/25/16 at 10:30 Vancomycin HCl (Vancocin) 250 ml @ 125 mls/hr Q72H IVPB Last administered on 12:58; Admin Dose 125 MLS/HR; Start 07/25/16 at 13:00 Hydralazine HCl (Apresoline) 25 mg Q4H PRN IV SBP >170 Last administered on 05:15; Admin Dose 25 MG; Start 07/25/16 at 20:30 Hydralazine HCl 25 mg 25 mg Q8 PO Last administered on 07/27/16 06:46; Admin Dose 25 MG; Start 07/26/16 at 14:00 Fentanyl 1000 mcg/ Dextrose 100 ml @ 2.5 mls/hr TITRATE IV Last administered on 07/27/16 12:16; Admin Dose 2.5 MLS/HR; Start 07/27/16 at 12:00 Propofol (Diprivan) 100 ml @ 2.25 mls/hr Q12H IV ; Start 07/27/16 at 12:00 Assessment/Plan Chief Complaint/Hosp Course IMPRESSION AND PLAN: 1. Hypoxemic respiratory failure. 2. Possible aspiration pneumonia, worsening leukocytosis 3. Probable underlying obstructive sleep apnea. 4. Encephalopathy, toxic metabolic. Questionable anoxic brain injury following collapse 5. End-stage renal failure on hemodialysis. 6. Significant anemia, questionable GI bleed 7. History of hypertension. THE PATIENT WILL NEED: 1. Continued mechanical ventilation. CPAP weaning trial this morning will add fentanyl for pain control 2. Neurology recommendations. MRI noted 3. Monitor H&H 4. Continue antibiotics for possible pneumonia. 5. Continue glycemic management. 6. DVT and GI prophylaxis. 7. Hemodialysis per nephrology Disposition Continue ICU care Discussed with staff and family at bedside Problems: SANDI BUSCH MD, [facility] Jul 27, 2016 12:55
[2016-07-27] MEDS: EPOETIN 10000 UNITS/1 ML INJ (ESRD) SC SCH (13:36)
--- NOTE | 2016-07-27 14:00 | CONS ---
Date/Time of Note Date/Time of Note DATE: 07/27/16 TIME: 13:57 Assessment/Plan Assessment/Plan Chief Complaint/Hosp Course IMPRESSION: 1. Positive troponin in the setting of respiratory failure and renal failure- now downtrended. 2. Abnormal electrocardiogram, assess for acute coronary syndrome. 3. History of a recent PTCA and stent placement to circumflex June 2016 with drug-eluting stents.- EF 55% by echo this admit 4. Altered mental state.-MRI negative 07/23 5. Respiratory failure, status post intubation. 6. End-stage renal disease on hemodialysis. 7. Urinary tract infection. 8. Pneumonia. 9. Dyslipidemia. 10.HTN-elevated moderately Recc: -Tele -Continue BB -Continue norvasc/benazepril -Increase hydralazine to improve BP -Continue asa/brilinta -HD for volume removal -Continue abx's and f/u cx data -Vent weaning as tolerated -sedation vacation Problems: Consultation Date/Type/Reason Admit Date/Time Jul 20, 2016 at 15:20 Initial Consult Date 07/21/16 Type of Consultation: Cardiology Reason for Consultation CHF Referring Provider: KRZYSZTOF MAY M.D. Exam/Review of Systems Vital Signs Vitals Vital Signs Date Time Temp Pulse Resp B/P Pulse Ox O2 Delivery O2 Flow Rate FiO2 07/27/16 13:00 68 16 130/57 99 Mechanical Ventilator 07/27/16 12:03 30 07/27/16 12:00 99.8 Intake and Output 07/26/16 07/26/16 07/27/16 15:00 23:00 07:00 Intake Total 278 ml 740 ml 258 ml Output Total 10 ml 3515 ml Balance 268 ml -2775 ml 258 ml Exam Review of Systems: CONSTITUTIONAL: No fevers, chills. PULMONARY: No sob CARDIOVASCULAR: No chest pain/palpitations GASTROINTESTINAL: No nausea/vomiting. GENITOURINARY: No hematuria/dysuria. MUSCULOSKELETAL: No myagias/arthalgias. PSYCHIATRIC: The patient denies depression. NEUROLOGIC: No weakness Constitutional: other (sleepoing) Psych: no complaints Respiratory: diminished breath sounds (at bases/B) Cardiovascular: regular rate and rhythm Gastrointestinal: non-tender, soft Musculoskeletal: muscle tone (normal) Extremities: edema (tarce/B) Neurological: other (No focal deficits) Results Result Diagram: 1/15/17 0440 07/27/16 0440 Results 24 hrs Laboratory Tests Test 07/26/16 17:43 07/27/16 01:25 07/27/16 04:40 07/27/16 08:47 Bedside Glucose 135 135 123 Anion Gap 17 H Basophils # 0.1 Basophils % 0.3 Blood Morphology Comment Blood Urea Nitrogen 16 Calcium Level 8.8 Carbon Dioxide Level 32 H Chloride Level 93 L Creatinine 2.74 H Eosinophils # 0.3 Eosinophils % 1.5 Glucose Level 136 Hematocrit 29.7 L Hemoglobin 10.0 L Lymphocytes # 1.8 Lymphocytes % 9.5 L Magnesium Level 2.0 Mean Corpuscular Hemoglobin 32.1 Mean Corpuscular Hemoglobin Concent 33.6 Mean Corpuscular Volume 95.8 Mean Platelet Volume 8.4 Monocytes # 1.7 H Monocytes % 9.3 Neutrophils # 14.8 H Neutrophils % 79.4 H Nucleated Red Blood Cells # 0.0 Nucleated Red Blood Cells % 0.0 Phosphorus Level 2.3 L Platelet Count 295 Potassium Level 3.5 Red Blood Count 3.10 L Red Cell Distribution Width 15.8 H Sodium Level 138 White Blood Count 18.7 #H Test 07/27/16 13:02 Bedside Glucose 148 Medications Medications Current Medications Aspirin (Aspirin) 81 mg DAILY NGT Last administered on 07/27/16 08:42; Admin Dose 81 MG; Start 07/21/16 at 09:00 Atorvastatin Calcium (Lipitor) 40 mg QHS NGT Last administered on 07/26/16 23: 44; Admin Dose 40 MG; Start 07/20/16 at 21:00 Docusate Sodium (Colace Liquid Cup) 100 mg TID PRN NGT CONSTIPATION; Start 07/20 at 17:30 Folic Acid (Folic Acid) 1 mg DAILY NGT Last administered on 07/27/16 08:43; Admin Dose 1 MG; Start 07/21/16 at 09:00 Ticagrelor (Brilinta) 90 mg Q12 NGT Last administered on 07/27/16 08:44; Admin Dose 90 MG; Start 07/20/16 at 21:00 Acetaminophen (Tylenol Tab) 650 mg Q6H PRN NGT PAIN LEVEL 1-3 OR FEVER Last administered on 07/27/16 13:08; Admin Dose 650 MG; Start 07/20/16 at 17:30 Acetaminophen/ Hydrocodone Bitart ([place] (5/325)) 1 tab Q6H PRN NGT PAIN LEVEL 4-6; Start 07/20/16 at 17:30 Acetaminophen/ Hydrocodone Bitart ([place] (5/325)) 2 tab Q6H PRN NGT PAIN LEVEL 7-10; Start 07/20/16 at 17:30 Famotidine (Pepcid Iv) 20 mg Q24H IV Last administered on 07/26/16 23:38; Admin Dose 20 MG; Start 07/20/16 at 21:00 Heparin Sodium (Porcine) 5000 unit 5,000 unit Q8 SC Last administered on 13:05; Admin Dose 5,000 UNIT; Start 07/20/16 at 17:30 Cefepime HCl (Maxipime 1gm/50 ml (Pmx)) 50 ml @ 100 mls/hr Q24H IVPB Last administered on 07/26/16 18:32; Admin Dose 100 MLS/HR; Start 07/21/16 at 18:00 Insulin Aspart (Novolog Insulin Pen) NOVOLOG *MODERATE* ALGORI... Q4 SC Last administered on 07/27/16 13:04; Admin Dose 2 UNIT; Start 07/21/16 at 17:00 Miscellaneous Information 1 ea NOTE XX ; Start 07/21/16 at 16:30 Glucose (Glutose) 15 gm Q15M PRN PO DECREASED GLUCOSE; Start 07/21/16 at 16:30 Glucose (Glutose) 22.5 gm Q15M PRN PO DECREASED GLUCOSE; Start 07/21/16 at 16:30 Dextrose (D50w Syringe) 25 ml Q15M PRN IV DECREASED GLUCOSE Last administered on 07/21/16 21:13; Admin Dose 25 ML; Start 07/21/16 at 16:30 Dextrose (D50w Syringe) 50 ml Q15M PRN IV DECREASED GLUCOSE; Start 07/21/16 at 16:30 Glucagon (Glucagen) 1 mg Q15M PRN IM DECREASED GLUCOSE; Start 07/21/16 at 16:30 Glucose (Glutose) 15 gm Q15M PRN BUCCAL DECREASED GLUCOSE; Start 07/21/16 at 16: 30 Metoprolol Tartrate (Lopressor) 50 mg BID PO Last administered on 07/27/16 08: 42; Admin Dose 50 MG; Start 07/22/16 at 21:00 Amlodipine Besylate (Norvasc) 5 mg BID GTB Last administered on 07/27/16 08:42 ; Admin Dose 5 MG; Start 07/23/16 at 14:30 Benazepril HCl (Lotensin) 40 mg Q12 PO Last administered on 07/27/16 08:42; Admin Dose 40 MG; Start 07/24/16 at 21:00 Isosorbide Mononitrate 60 mg 60 mg DAILY PO Last administered on 07/27/16 08: 43; Admin Dose 60 MG; Start 07/25/16 at 10:30 Vancomycin HCl (Vancocin) 250 ml @ 125 mls/hr Q72H IVPB Last administered on 12:58; Admin Dose 125 MLS/HR; Start 07/25/16 at 13:00 Hydralazine HCl (Apresoline) 25 mg Q4H PRN IV SBP >170 Last administered on 05:15; Admin Dose 25 MG; Start 07/25/16 at 20:30 Hydralazine HCl 25 mg 25 mg Q8 PO Last administered on 07/27/16 13:03; Admin Dose 25 MG; Start 07/26/16 at 14:00 Fentanyl 1000 mcg/ Dextrose 100 ml @ 2.5 mls/hr TITRATE IV Last administered on 07/27/16 12:16; Admin Dose 2.5 MLS/HR; Start 07/27/16 at 12:00 Propofol (Diprivan) 100 ml @ 2.25 mls/hr Q12H IV ; Start 07/27/16 at 12:00 MATT PEARCE Jul 27, 2016 14:00
--- NOTE | 2016-07-27 14:23 | PN ---
DATE: 07/27/2016 SUBJECTIVE: The patient had hemodialysis yesterday with 2.5 liters removed, tolerated well. The nikko chaparro remains on full ventilatory support. The patient still unable to follow commands, but does mo ve all extremities. No other events noted. OBJECTIVE: VITAL SIGNS: Blood pressure 166/58, respirations 14, pulse 87, temperature 98.7. I's and O's show 1 liter in with 3 liters removed. HEENT: Head is normocephalic. NECK: Supple. HEART: Regular rate. LUNGS: Show diminished breath sounds at base. Positive rhonchi. ABDOMEN: Soft, nontender to palpation. No rebound or guarding. EXTREMITIES: Negative for clubbing, cyanosis, edema. DERMATOLOGIC: No rashes. MUSCULOSKELETAL: No joint effusions. NEUROLOGIC: No change in exam. MEDICATIONS: The patient's medications have been reviewed. LABORATORY DATA: Shows sodium 138, potassium 3.5, chloride 93, bicarbonate 32, BUN 16, creatinine 2 .74 phosphorus 2.3. White count 18.7, hemoglobin 10.0, hematocrit 29.7, platelet count 295. IMAGING: Chest x-ray from 07/26/2016 shows worsening pulmonary edema. ASSESSMENT AND PLAN: 1. End-stage renal disease. The patient has been receiving daily dialysis for solute clearance and volume removal. The patient had hemodialysis yesterday, tolerated well. Anticipate next hemodialy sis tomorrow for 3 hours, 3K bath, calcium 2.5. 2. Volume overload, the patient's chest x-ray yesterday showed pulmonary edema. Hemodialysis remov ed 3 liters. Anticipate dialysis tomorrow, minimize IV fluids. 3. Anemia. Continue to monitor hemoglobin and hematocrit Continue Epogen. 4. Mineral bone patient's phosphorus levels remain low, will replete with IV phosphate. Continue t o hold phosphate binders. 5. Hypokalemia, improved. 6. Sepsis, status post shock. Continue antibiotic regimen. 7. Ventilator dependent respiratory failure. Vent settings been reviewed. Arterial blood gases re viewed. Continue to monitor. 8. Encephalopathy, etiology is unclear, possibly anoxic injury. Continue to monitor. 9. Coronary artery disease. Continue current treatment plan. 10. Dyslipidemia. Continue statin therapy. 11. Diabetes. Continue current insulin regimen. 12. Hypertension. Etiology is multifactorial secondary to increased intravascular volume and dysfunction. Blood pressures are improving. Will continue volume removal with dialysis. Continue current blood pressure regimen. Dictated By: TALITA GARCIA/RANI Conf#: [id number] DID#: [id number]
--- NOTE | 2016-07-27 14:50 | PN ---
Date/Time of Note Date/Time of Note DATE: 07/27/16 TIME: 14:43 Assessment/Plan VTE Prophylaxis VTE Prophylaxis Intervention: heparin Lines/Catheters IV Catheter Type (from Nrs): Central Line Central line still needed: Yes (critically ill) Urinary Cath still in place: Yes Reason Cath still needed: terminal illness/intractable pain Assessment/Plan Assessment/Plan [facility] 1. 65-year-old woman who is hospital day 9 s/p acute respiratory failure, arrest , and unresponsiveness at home, intubated on arrival in the ER. Etiology still unclear, without clear cardiac ischemia or arrhythmia and no respiratory distress prior to her arrest. She was hospitalized two weeks ago after suffered a cardiac arrest with asystole in the ER. S/p PCI x 2 at that time with stenting. Repeat echo showed EF 55%. Mildly elevated troponin on this admission. She has a higher WBC count now of 18k/ul, with mild temp elevation. Treated with broad-spectrum antibiotics -- vancomycin + cefepime. * My thanks to Dr. Gomez for his diligent care, and for dialysis yesterday that removed 3L; next dialysis tomorrow * Continued full ventilatory support * Repeat blood cultures; change cefepime to Zosyn for broader coverage in light of the higher WBC and fever. 2. Endstage renal disease on hemodialysis: on HD // * Hemodialysis planned again for tomorrow 3. Acute on chronic anemia with hemoglobin stable at 10.0 g/dl today. 4. Diabetes mellitus, with blood sugars 123 - 148 * Holding Lantus with episode of hypoglycemia last week and generally good sugar control. * Continue tube feedings and free H20 supplementation 5. 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 There was a two-hour window during which she was "asleep" prior to being found unresponsive on admission. EEG showing encephalopathy, MRI with no acute findings. * Our thanks to Dr. Arshad and Dr. Medrano for Neurology input 6. CAD s/p angio and stenting x 2 approx 2 weeks ago. EKG unchanged. Serial troponins trended down. Increased systolic pressures overnight, possibly secondary to fluid overload. * Continue ASA and Brilinta * Lopressor 25mg q12h; Lotensin 40mg daily; Imdur; Norvasc * Discontinue topical nitrates * Dialysis today 7. Right lower extremity pain with history of sciatica. Doppler study negative ten days ago for DVT. 8. Leukocytosis resolved. Likely secondary to aspiration pneumonitis/pneumonia vs health care-associated pneumonia. Day 9 Vancomycin and Cefepime. * Continue vancomycin * Stop Cefepime * Start Zosyn 9. Enterococcal UTI * Sensitive to vancomycin 10. Prophylaxis: Pepcid for gastrointestinal prophylaxis. SCDs for DVT prevention 11. Disposition: ICU level of care. Dialysis again tomorrow. Our thanks to all the specialists handling her care. * Full-Code. Christoph Cox MD PhD [phone] Subjective 24 Hr Interval Summary Free Text/Dictation One daughter and two other family members at bedside. Still unresponsive, even off Versed this morning. Exam/Review of Systems Vital Signs Vitals Vital Signs Date Time Temp Pulse Resp B/P Pulse Ox O2 Delivery O2 Flow Rate FiO2 07/27/16 13:00 68 16 130/57 99 Mechanical Ventilator 07/27/16 12:03 30 07/27/16 12:00 99.8 Intake and Output 07/26/16 07/26/16 07/27/16 15:00 23:00 07:00 Intake Total 278 ml 740 ml 258 ml Output Total 10 ml 3515 ml Balance 268 ml -2775 ml 258 ml Exam Constitutional: Still intubated and sedated. Respiratory: Clear to auscultation bilaterally, good air movement Cardiovascular: Symmetric pulses, regular rhythm, normal rate. Gastrointestinal: No response today with palpation of abdomen, no hepatosplenomegaly, bowel sounds positive Musculoskeletal: Chronic stasis changes of the calves bilaterally. Intact vascular hemodialysis access. Neurological: Sedated. Trace symmetric patellar reflexes. Equivocal Babinski reflexes Results Result Diagram: 07/27/1643907/27/16439 Results 24 hrs Laboratory Tests Test 07/26/16 17:43 07/27/16 01:25 07/27/16 04:40 07/27/16 08:47 Bedside Glucose 135 135 123 Anion Gap 17 H Basophils # 0.1 Basophils % 0.3 Blood Morphology Comment Blood Urea Nitrogen 16 Calcium Level 8.8 Carbon Dioxide Level 32 H Chloride Level 93 L Creatinine 2.74 H Eosinophils # 0.3 Eosinophils % 1.5 Glucose Level 136 Hematocrit 29.7 L Hemoglobin 10.0 L Lymphocytes # 1.8 Lymphocytes % 9.5 L Magnesium Level 2.0 Mean Corpuscular Hemoglobin 32.1 Mean Corpuscular Hemoglobin Concent 33.6 Mean Corpuscular Volume 95.8 Mean Platelet Volume 8.4 Monocytes # 1.7 H Monocytes % 9.3 Neutrophils # 14.8 H Neutrophils % 79.4 H Nucleated Red Blood Cells # 0.0 Nucleated Red Blood Cells % 0.0 Phosphorus Level 2.3 L Platelet Count 295 Potassium Level 3.5 Red Blood Count 3.10 L Red Cell Distribution Width 15.8 H Sodium Level 138 White Blood Count 18.7 #H Test 07/27/16 13:02 Bedside Glucose 148 Medications Medications Current Medications Aspirin (Aspirin) 81 mg DAILY NGT Last administered on 07/27/16 08:42; Admin Dose 81 MG; Start 07/21/16 at 09:00 Atorvastatin Calcium (Lipitor) 40 mg QHS NGT Last administered on 07/26/16 23: 44; Admin Dose 40 MG; Start 07/20/16 at 21:00 Docusate Sodium (Colace Liquid Cup) 100 mg TID PRN NGT CONSTIPATION; Start 07/20 at 17:30 Folic Acid (Folic Acid) 1 mg DAILY NGT Last administered on 07/27/16 08:43; Admin Dose 1 MG; Start 07/21/16 at 09:00 Ticagrelor (Brilinta) 90 mg Q12 NGT Last administered on 07/27/16 08:44; Admin Dose 90 MG; Start 07/20/16 at 21:00 Acetaminophen (Tylenol Tab) 650 mg Q6H PRN NGT PAIN LEVEL 1-3 OR FEVER Last administered on 07/27/16 13:08; Admin Dose 650 MG; Start 07/20/16 at 17:30 Acetaminophen/ Hydrocodone Bitart ([place] (5/325)) 1 tab Q6H PRN NGT PAIN LEVEL 4-6; Start 07/20/16 at 17:30 Acetaminophen/ Hydrocodone Bitart ([place] (5/325)) 2 tab Q6H PRN NGT PAIN LEVEL 7-10; Start 07/20/16 at 17:30 Famotidine (Pepcid Iv) 20 mg Q24H IV Last administered on 07/26/16 23:38; Admin Dose 20 MG; Start 07/20/16 at 21:00 Heparin Sodium (Porcine) 5000 unit 5,000 unit Q8 SC Last administered on 13:05; Admin Dose 5,000 UNIT; Start 07/20/16 at 17:30 Cefepime HCl (Maxipime 1gm/50 ml (Pmx)) 50 ml @ 100 mls/hr Q24H IVPB Last administered on 07/26/16 18:32; Admin Dose 100 MLS/HR; Start 07/21/16 at 18:00 Insulin Aspart (Novolog Insulin Pen) NOVOLOG *MODERATE* ALGORI... Q4 SC Last administered on 07/27/16 13:04; Admin Dose 2 UNIT; Start 07/21/16 at 17:00 Miscellaneous Information 1 ea NOTE XX ; Start 07/21/16 at 16:30 Glucose (Glutose) 15 gm Q15M PRN PO DECREASED GLUCOSE; Start 07/21/16 at 16:30 Glucose (Glutose) 22.5 gm Q15M PRN PO DECREASED GLUCOSE; Start 07/21/16 at 16:30 Dextrose (D50w Syringe) 25 ml Q15M PRN IV DECREASED GLUCOSE Last administered on 07/21/16 21:13; Admin Dose 25 ML; Start 07/21/16 at 16:30 Dextrose (D50w Syringe) 50 ml Q15M PRN IV DECREASED GLUCOSE; Start 07/21/16 at 16:30 Glucagon (Glucagen) 1 mg Q15M PRN IM DECREASED GLUCOSE; Start 07/21/16 at 16:30 Glucose (Glutose) 15 gm Q15M PRN BUCCAL DECREASED GLUCOSE; Start 07/21/16 at 16: 30 Metoprolol Tartrate (Lopressor) 50 mg BID PO Last administered on 07/27/16 08: 42; Admin Dose 50 MG; Start 07/22/16 at 21:00 Amlodipine Besylate (Norvasc) 5 mg BID GTB Last administered on 07/27/16 08:42 ; Admin Dose 5 MG; Start 07/23/16 at 14:30 Benazepril HCl (Lotensin) 40 mg Q12 PO Last administered on 07/27/16 08:42; Admin Dose 40 MG; Start 07/24/16 at 21:00 Isosorbide Mononitrate 60 mg 60 mg DAILY PO Last administered on 07/27/16 08: 43; Admin Dose 60 MG; Start 07/25/16 at 10:30 Vancomycin HCl (Vancocin) 250 ml @ 125 mls/hr Q72H IVPB Last administered on 12:58; Admin Dose 125 MLS/HR; Start 07/25/16 at 13:00 Hydralazine HCl 25 mg 25 mg Q4H PRN IV SBP >170 Last administered on 07/27/16 05:15; Admin Dose 25 MG; Start 07/25/16 at 20:30 Fentanyl 1000 mcg/ Dextrose 100 ml @ 2.5 mls/hr TITRATE IV Last administered on 07/27/16 12:16; Admin Dose 2.5 MLS/HR; Start 07/27/16 at 12:00 Propofol (Diprivan) 100 ml @ 2.25 mls/hr Q12H IV ; Start 07/27/16 at 12:00 Hydralazine HCl (Apresoline) 50 mg Q8 PO ; Start 07/27/16 at 22:00 [id number] COX M.D. Jul 27, 2016 14:49
[2016-07-27 15:50] LABS: TROPONIN-I 0.037 ng/ml (0.00-0.12)
[2016-07-27 15:55] LABS: CK-MB < 0.22 ng/ml (0.0-2.4); CREATINE KINASE < 20 IU/L (23-200)
[2016-07-27] MEDS: CEFEPIME 1GM/50 ML (PMX) 50 ML IVPB SCH (17:34)
[2016-07-27] MEDS: ATORVASTATIN 40 MG TAB NGT SCH (21:27)
[2016-07-27] MEDS: FAMOTIDINE 20 MG INJ IV SCH (22:31)
[2016-07-28] VITALS (59 sets, daily range): BP systolic 113–177; BP diastolic 50–74; PULSE 65–93; RESP 15–21
[2016-07-28] MEDS: INSULIN ASPART [NOVOLOG] 3 ML PEN SC SCH ×6 (01:00→21:00)
[2016-07-28] MEDS: hydrALAzine 20 MG INJ IV PRN (01:22)
[2016-07-28] MEDS: PROPOFOL 100 ML IV SCH (03:22)
[2016-07-28 04:57] LABS: BASOPHIL # 0.1 10^3/ul (0.0-0.1); BASOPHILS % 0.7 % (0.0-2.0); EOSINOPHILS # 0.3 10^3/ul (0.0-0.5); HEMATOCRIT 27.9 % (37.0-47.0); HEMOGLOBIN 9.5 g/dl (12.0-16.0); LYMPHOCYTES # 1.6 10^3/ul (0.8-2.9); LYMPHOCYTES % 9.6 % (15.0-51.0); MEAN CORPUSCULAR HEMOGLOBIN 32.4 pg (29.0-33.0); MEAN CORPUSCULAR HGB CONC 34.1 g/dl (32.0-37.0); MEAN CORPUSCULAR VOLUME 94.9 fl (82.0-101.0); MONOCYTE # 1.7 10^3/ul (0.3-0.9); MONOCYTES % 9.7 % (0.0-11.0); NEUTROPHIL # 13.4 10^3/ul (1.6-7.5); PLATELET COUNT 325 10^3/UL (140-440); RED BLOOD COUNT 2.94 10^6/ul (4.20-5.40); RED CELL DISTRIBUTION WIDTH 15.4 % (11.5-14.5); UNCORRECTED WBC 17.2 10^3/ul (4.8-10.8); WHITE BLOOD COUNT 17.2 10^3/ul (4.8-10.8)
[2016-07-28 04:59] LABS: CONDITION 1; LH ANALYZER COMMENTS 1
[2016-07-28 05:00] LABS: POTASSIUM 3.8 mmol/L (3.5-5.1)
[2016-07-28 05:03] LABS: CREATININE 3.96 mg/dl (0.44-1.00)
[2016-07-28 05:04] LABS: CALCIUM 8.6 mg/dl (8.4-10.2); PHOSPHORUS 2.4 mg/dl (2.5-4.9)
[2016-07-28 05:05] LABS: MAGNESIUM 2.1 mg/dl (1.7-2.5)
[2016-07-28] MEDS: HEPARIN 5,000 UNIT/0.5 ML SYG SC SCH ×3 (06:43→21:23)
[2016-07-28 07:59] LABS: AADO2 Arterial 64.7 mmHg (7.0-24.0); Allen Test ACCEPTAB; Arterial Base Excess 7.2 mmol/L (-3.0-3); Arterial COHb 0.4 % (0.0-3.0); Arterial Fraction of Oxyhgb 97.5 % (93.0-99.0); Arterial HCO3 30.5 mmol/L (22.0-26.0); Arterial MetHb 0.1 % (0.0-1.5); Arterial Total Hemglobin 11.6 g/dl (12.0-18.0); MODE VENT - AC
[2016-07-28] MEDS ORDERED: NEUTRA-PHOS 250 MG PACKET PO ONE (08:00)
--- NOTE | 2016-07-28 08:31 | RADRPT ---
PROCEDURE: XR Chest. CLINICAL INDICATION: Pneumonia TECHNIQUE: An AP view of the chest was obtained. COMPARISON: Chest x-ray dated 07/27/2016 FINDINGS: The endotracheal tube tip is approximately 3.2 cm above the sofya. The tip of the enteric tube ex tends below the left diaphragm. There is prominence of the interstitial and central pulmonary vascular markings. No pleural effusi on or pneumothorax is seen. The cardiomediastinal silhouette is mildly enlarged . Calcifications a re seen within the aortic arch. The osseous structures demonstrate senescent changes. IMPRESSION: 1. Findings suggestive of pulmonary vascular congestion, improved when compared to the prior exami nation . 2. Mild cardiomegaly and aortic atherosclerosis. 3. Tubes and lines, as described above. RPTAT: HH .Juhi Ruano MD, MD Date Time Electronically viewed and signed by .Juhi Ruano MD, on 07/28/2016 08:31 .G/
[2016-07-28] MEDS: FOLIC ACID 1 MG TAB NGT SCH (08:41)
[2016-07-28] MEDS: ASPIRIN 81 MG TAB NGT SCH (08:42)
[2016-07-28] MEDS: METOPROLOL 50 MG TAB PO SCH ×2 (08:48→21:25)
[2016-07-28] MEDS: ISOSORBIDE MONONITRATE(SR)60 MG TAB PO SCH (08:48)
[2016-07-28] MEDS: AMLODIPINE 5 MG TAB GTB SCH ×2 (08:48→21:26)
[2016-07-28] MEDS: TICAGRELOR 90 MG TABLET NGT SCH ×2 (08:48→21:24)
[2016-07-28] MEDS: BENAZEPRIL 20 MG TAB PO SCH ×2 (08:49→21:25)
--- NOTE | 2016-07-28 10:24 | PN ---
Date/Time of Note Date/Time of Note DATE: 07/28/16 TIME: 10:15 Assessment/Plan VTE Prophylaxis VTE Prophylaxis Intervention: SCD's Lines/Catheters IV Catheter Type (from Nrsg): Central Line Central line still needed: Yes (for IV access, to be changed today ) Urinary Cath still in place: Yes Reason Cath still needed: other (indicate) (intubated ) Assessment/Plan Assessment/Plan 65-year-old woman: 1. Acute respiratory failure and unresponsiveness, s/p intubation on arrival in the ER. Etiology unclear She was hospitalized two weeks prior to this admission after she suffered a cardiac arrest with asystole in the ER. S/p Angio x 2 with stenting Repeat echo with EF 55% Mildly elevated troponin on this admission, appreciate cardiology recommendations Cardiology, Pulmonary, Nephrology and Neurology following. Still on Vent Volume status management with HD 2. Endstage renal disease on hemodialysis: on HD M/W/F Hemodialysis planned for today Appreciate assistance from Dr. Gomez. 3. Acute on chronic anemia with hb stable @ 9.5 stable. 4. Diabetes mellitus: OFF Lantus with episode of hypoglycemia noted SSI On TF and free H20 now 5. 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 There was a two-hour window during which she was "asleep" prior to being found unresponsive on admission EEG showing encephalopathy, MRI with no acute findings Appreciate Neurology consult with Dr. Arshad. No further intervention for now per Neurology. 6. CAD s/p angio and stenting x 2 approx 2 weeks ago EKG similar to previous ekg two weeks ago. Serial troponins trended down Continue ASA and Brilinta, Dr Castelan following and back on BBlock. 7. Hypertension, better controlled BP with current regimen Metoprolol, Benazepril and Norvasc and will also resume Imdur today, further titration of meds prn 8. Right lower extremity pain with questionable history of sciatica. Doppler study negative ten days ago for DVT on the right. 9. Leukocytosis recurrent, on abx for aspiration pneumonitis/pneumonia vs HCAP, Ua/Ucx pending, continue Vancomycin and Cefepime. 10. ? Enterococcal UTI: on Vancomycin already, repeat UA and Urine cx Prophylaxis: Pepcid for gastrointestinal prophylaxis. SCDs for DVT prevention Disposition: ICU level of care. Dr Mayen, Dr Castelan, Dr Barraza and Dr Arshad following. ? CPAP trial today after central line placed/changed Full-Code. Subjective 24 Hr Interval Summary Free Text/Dictation Patient on Fentanyl and Propofol for sedation Afebrile WBC trending down Exam/Review of Systems Vital Signs Vitals Vital Signs Date Time Temp Pulse Resp B/P Pulse Ox O2 Delivery O2 Flow Rate FiO2 07/28/16 09:40 72 18 100 30 07/28/16 09:00 158/59 Mechanical Ventilator 07/28/16 08:00 99.1 Intake and Output 07/27/16 07/27/16 07/28/16 15:00 23:00 07:00 Intake Total 374.5 ml 273.0 ml 393.10 ml Output Total 10 ml Balance 364.5 ml 273.0 ml 393.10 ml Exam Constitutional: alert, oriented, other (sedated and intubated ) Respiratory: diminished breath sounds (bases bilaterally ), other (on Vent ) Cardiovascular: nl pulses, regular rate and rhythm Gastrointestinal: non-tender, soft Musculoskeletal: nl extremities to inspection Extremities: normal pulses, other (+1 edema/anasarca ) Neurological: other (sedated and intubated but agitated when off ) Results Result Diagram: 07/28/16 0440 07/28/16 0440 Results 24 hrs Laboratory Tests Test 07/27/16 13:02 07/27/16 15:14 07/27/16 16:24 07/27/16 22:30 Bedside Glucose 148 141 125 Creatine Kinase < 20 L Creatine Kinase Index Creatinine Kinase MB (Mass) < 0.22 Troponin I 0.037 Test 07/28/16 04:40 07/28/16 07:00 07/28/16 08:43 Anion Gap 15 Basophils # 0.1 Basophils % 0.7 Blood Morphology Comment Blood Urea Nitrogen 30 #H Calcium Level 8.6 Carbon Dioxide Level 31 Chloride Level 93 L Creatinine 3.96 #H Eosinophils # 0.3 Eosinophils % 2.0 Glucose Level 114 Hematocrit 27.9 L Hemoglobin 9.5 L Lymphocytes # 1.6 Lymphocytes % 9.6 L Magnesium Level 2.1 Mean Corpuscular Hemoglobin 32.4 Mean Corpuscular Hemoglobin Concent 34.1 Mean Corpuscular Volume 94.9 Mean Platelet Volume 8.0 Monocytes # 1.7 H Monocytes % 9.7 Neutrophils # 13.4 H Neutrophils % 78.0 H Nucleated Red Blood Cells # 0.0 Nucleated Red Blood Cells % 0.0 Phosphorus Level 2.4 L Platelet Count 325 Potassium Level 3.8 Red Blood Count 2.94 L Red Cell Distribution Width 15.4 H Sodium Level 135 White Blood Count 17.2 H Arterial Blood HCO3 30.5 H Arterial Blood Base Excess 7.2 H Arterial Blood Oxygen Saturation 98.0 Javi Test ACCEPTAB Arterial Blood Gas Puncture Site Left Radial Arterial Blood Carboxyhemoglobin 0.4 Arterial Blood Date Drawn 07/28/2016 7:41:54 AM Arterial Blood Methemoglobin 0.1 Arterial Blood pCO2 (Temp correct) 38.2 Arterial Blood pH (Temp corrected) 7.520 H Arterial Blood pO2 (Temp corrected) 104.3 H Blood Gas A-a O2 Differential 64.7 H Blood Gas Actual Respiration Rate 16 Blood Gas Low PEEP Setting 5.0 Blood Gas Modality VENT - AC Blood Gas Notified Time 07/28/2016 7:58:50 AM Blood Gas Notified Whom JLD Blood Gas Respiration Rate 16.0 Blood Gas Specimen Source Blood arterial Blood Gas Temperature 37.0 Blood Gas Tidal Volume 500.0 FiO2 30.0 Oxyhemoglobin Percent 97.5 Total Hemoglobin 11.6 L Bedside Glucose 123 Medications Medications Current Medications Aspirin (Aspirin) 81 mg DAILY NGT Last administered on 07/28/16 08:42; Admin Dose 81 MG; Start 07/21/16 at 09:00 Atorvastatin Calcium (Lipitor) 40 mg QHS NGT Last administered on 07/27/16 21: 27; Admin Dose 40 MG; Start 07/20/16 at 21:00 Docusate Sodium (Colace Liquid Cup) 100 mg TID PRN NGT CONSTIPATION; Start 07/20 at 17:30 Folic Acid (Folic Acid) 1 mg DAILY NGT Last administered on 07/28/16 08:41; Admin Dose 1 MG; Start 07/21/16 at 09:00 Ticagrelor (Brilinta) 90 mg Q12 NGT Last administered on 07/28/16 08:48; Admin Dose 90 MG; Start 07/20/16 at 21:00 Acetaminophen (Tylenol Tab) 650 mg Q6H PRN NGT PAIN LEVEL 1-3 OR FEVER Last administered on 07/27/16 13:08; Admin Dose 650 MG; Start 07/20/16 at 17:30 Acetaminophen/ Hydrocodone Bitart ([place] (5/325)) 1 tab Q6H PRN NGT PAIN LEVEL 4-6; Start 07/20/16 at 17:30 Acetaminophen/ Hydrocodone Bitart ([place] (5/325)) 2 tab Q6H PRN NGT PAIN LEVEL 7-10; Start 07/20/16 at 17:30 Famotidine (Pepcid Iv) 20 mg Q24H IV Last administered on 07/27/16 22:31; Admin Dose 20 MG; Start 07/20/16 at 21:00 Heparin Sodium (Porcine) 5000 unit 5,000 unit Q8 SC Last administered on 06:43; Admin Dose 5,000 UNIT; Start 07/20/16 at 17:30 Cefepime HCl (Maxipime 1gm/50 ml (Pmx)) 50 ml @ 100 mls/hr Q24H IVPB Last administered on 07/27/16 17:34; Admin Dose 100 MLS/HR; Start 07/21/16 at 18:00 Insulin Aspart (Novolog Insulin Pen) NOVOLOG *MODERATE* ALGORI... Q4 SC Last administered on 07/27/16 16:27; Admin Dose 2 UNIT; Start 07/21/16 at 17:00 Miscellaneous Information 1 ea NOTE XX ; Start 07/21/16 at 16:30 Glucose (Glutose) 15 gm Q15M PRN PO DECREASED GLUCOSE; Start 07/21/16 at 16:30 Glucose (Glutose) 22.5 gm Q15M PRN PO DECREASED GLUCOSE; Start 07/21/16 at 16:30 Dextrose (D50w Syringe) 25 ml Q15M PRN IV DECREASED GLUCOSE Last administered on 07/21/16 21:13; Admin Dose 25 ML; Start 07/21/16 at 16:30 Dextrose (D50w Syringe) 50 ml Q15M PRN IV DECREASED GLUCOSE; Start 07/21/16 at 16:30 Glucagon (Glucagen) 1 mg Q15M PRN IM DECREASED GLUCOSE; Start 07/21/16 at 16:30 Glucose (Glutose) 15 gm Q15M PRN BUCCAL DECREASED GLUCOSE; Start 07/21/16 at 16: 30 Metoprolol Tartrate (Lopressor) 50 mg BID PO Last administered on 07/28/16 08: 48; Admin Dose 50 MG; Start 07/22/16 at 21:00 Amlodipine Besylate (Norvasc) 5 mg BID GTB Last administered on 07/28/16 08:48 ; Admin Dose 5 MG; Start 07/23/16 at 14:30 Benazepril HCl (Lotensin) 40 mg Q12 PO Last administered on 07/28/16 08:49; Admin Dose 40 MG; Start 07/24/16 at 21:00 Isosorbide Mononitrate 60 mg 60 mg DAILY PO Last administered on 07/28/16 08: 48; Admin Dose 60 MG; Start 07/25/16 at 10:30 Vancomycin HCl (Vancocin) 250 ml @ 125 mls/hr Q72H IVPB Last administered on 12:58; Admin Dose 125 MLS/HR; Start 07/25/16 at 13:00 Hydralazine HCl 25 mg 25 mg Q4H PRN IV SBP >170 Last administered on 07/28/16 01:22; Admin Dose 25 MG; Start 07/25/16 at 20:30 Fentanyl 1000 mcg/ Dextrose 100 ml @ 2.5 mls/hr TITRATE IV Last administered on 07/27/16 12:16; Admin Dose 2.5 MLS/HR; Start 07/27/16 at 12:00 Propofol (Diprivan) 100 ml @ 2.25 mls/hr Q12H IV Last administered on 03:22; Admin Dose 15.75 MLS/HR; Start 07/27/16 at 12:00 Hydralazine HCl (Apresoline) 50 mg Q8 PO Last administered on 07/28/16 06:42; Admin Dose 50 MG; Start 07/27/16 at 22:00 NADIA SARGENT Jul 28, 2016 10:24
--- NOTE | 2016-07-28 11:06 | CONS ---
Date/Time of Note Date/Time of Note DATE: 07/28/16 TIME: 11:04 Consult Date/Type/Reason Admit Date/Time Jul 20, 2016 at 15:20 Initial Consult Date 07/21/16 Type of Consultation: pulmonary Ordering Provider: KRZYSZTOF MAY M.D. Subjective Patient intubated sedated overnight Grimaces to painful stimuli this morning but not opening eyes or following commands Continues mechanical ventilation Right femoral central line catheter in place Objective Vital Signs Date Time Temp Pulse Resp B/P Pulse Ox O2 Delivery O2 Flow Rate FiO2 07/28/16 09:40 72 18 100 30 07/28/16 09:00 158/59 Mechanical Ventilator 07/28/16 08:00 99.1 Intake and Output 07/27/16 07/27/16 07/28/16 15:00 23:00 07:00 Intake Total 374.5 ml 273.0 ml 406.85 ml Output Total 10 ml Balance 364.5 ml 273.0 ml 406.85 ml PHYSICAL EXAMINATION: GENERAL: Chronically ill appearing lady, intubated on mechanical ventilation, appears comfortable at rest, no acute distress. VITAL SIGNS: As above NECK: Supple, no JVD or lymphadenopathy. CARDIAC EXAMINATION: S1, S2, no added sounds or murmurs. CHEST: Diminished air entry bilaterally. ABDOMEN: Soft, nontender. No guarding or rebound. EXTREMITIES: No cyanosis, clubbing. !+ edema. NEUROLOGIC: Generalized weakness. Results/Medications Result Diagram: 07/28/16 0440 07/28/16 0440 Results 24 hrs Laboratory Tests Test 07/27/16 13:02 07/27/16 15:14 07/27/16 16:24 07/27/16 22:30 Bedside Glucose 148 141 125 Creatine Kinase < 20 L Creatine Kinase Index Creatinine Kinase MB (Mass) < 0.22 Troponin I 0.037 Test 07/28/16 04:40 07/28/16 07:00 07/28/16 08:43 Anion Gap 15 Basophils # 0.1 Basophils % 0.7 Blood Morphology Comment Blood Urea Nitrogen 30 #H Calcium Level 8.6 Carbon Dioxide Level 31 Chloride Level 93 L Creatinine 3.96 #H Eosinophils # 0.3 Eosinophils % 2.0 Glucose Level 114 Hematocrit 27.9 L Hemoglobin 9.5 L Lymphocytes # 1.6 Lymphocytes % 9.6 L Magnesium Level 2.1 Mean Corpuscular Hemoglobin 32.4 Mean Corpuscular Hemoglobin Concent 34.1 Mean Corpuscular Volume 94.9 Mean Platelet Volume 8.0 Monocytes # 1.7 H Monocytes % 9.7 Neutrophils # 13.4 H Neutrophils % 78.0 H Nucleated Red Blood Cells # 0.0 Nucleated Red Blood Cells % 0.0 Phosphorus Level 2.4 L Platelet Count 325 Potassium Level 3.8 Red Blood Count 2.94 L Red Cell Distribution Width 15.4 H Sodium Level 135 White Blood Count 17.2 H Arterial Blood HCO3 30.5 H Arterial Blood Base Excess 7.2 H Arterial Blood Oxygen Saturation 98.0 Javi Test ACCEPTAB Arterial Blood Gas Puncture Site Left Radial Arterial Blood Carboxyhemoglobin 0.4 Arterial Blood Date Drawn 07/28/2016 7:41:54 AM Arterial Blood Methemoglobin 0.1 Arterial Blood pCO2 (Temp correct) 38.2 Arterial Blood pH (Temp corrected) 7.520 H Arterial Blood pO2 (Temp corrected) 104.3 H Blood Gas A-a O2 Differential 64.7 H Blood Gas Actual Respiration Rate 16 Blood Gas Low PEEP Setting 5.0 Blood Gas Modality VENT - AC Blood Gas Notified Time 07/28/2016 7:58:50 AM Blood Gas Notified Whom JLD Blood Gas Respiration Rate 16.0 Blood Gas Specimen Source Blood arterial Blood Gas Temperature 37.0 Blood Gas Tidal Volume 500.0 FiO2 30.0 Oxyhemoglobin Percent 97.5 Total Hemoglobin 11.6 L Bedside Glucose 123 Medications Current Medications Aspirin (Aspirin) 81 mg DAILY NGT Last administered on 07/28/16 08:42; Admin Dose 81 MG; Start 07/21/16 at 09:00 Atorvastatin Calcium (Lipitor) 40 mg QHS NGT Last administered on 07/27/16 21: 27; Admin Dose 40 MG; Start 07/20/16 at 21:00 Docusate Sodium (Colace Liquid Cup) 100 mg TID PRN NGT CONSTIPATION; Start 07/20 at 17:30 Folic Acid (Folic Acid) 1 mg DAILY NGT Last administered on 07/28/16 08:41; Admin Dose 1 MG; Start 07/21/16 at 09:00 Ticagrelor (Brilinta) 90 mg Q12 NGT Last administered on 07/28/16 08:48; Admin Dose 90 MG; Start 07/20/16 at 21:00 Acetaminophen (Tylenol Tab) 650 mg Q6H PRN NGT PAIN LEVEL 1-3 OR FEVER Last administered on 07/27/16 13:08; Admin Dose 650 MG; Start 07/20/16 at 17:30 Acetaminophen/ Hydrocodone Bitart ([place] (5/325)) 1 tab Q6H PRN NGT PAIN LEVEL 4-6; Start 07/20/16 at 17:30 Acetaminophen/ Hydrocodone Bitart ([place] (5/325)) 2 tab Q6H PRN NGT PAIN LEVEL 7-10; Start 07/20/16 at 17:30 Famotidine (Pepcid Iv) 20 mg Q24H IV Last administered on 07/27/16 22:31; Admin Dose 20 MG; Start 07/20/16 at 21:00 Heparin Sodium (Porcine) 5000 unit 5,000 unit Q8 SC Last administered on 06:43; Admin Dose 5,000 UNIT; Start 07/20/16 at 17:30 Cefepime HCl (Maxipime 1gm/50 ml (Pmx)) 50 ml @ 100 mls/hr Q24H IVPB Last administered on 07/27/16 17:34; Admin Dose 100 MLS/HR; Start 07/21/16 at 18:00 Insulin Aspart (Novolog Insulin Pen) NOVOLOG *MODERATE* ALGORI... Q4 SC Last administered on 07/27/16 16:27; Admin Dose 2 UNIT; Start 07/21/16 at 17:00 Miscellaneous Information 1 ea NOTE XX ; Start 07/21/16 at 16:30 Glucose (Glutose) 15 gm Q15M PRN PO DECREASED GLUCOSE; Start 07/21/16 at 16:30 Glucose (Glutose) 22.5 gm Q15M PRN PO DECREASED GLUCOSE; Start 07/21/16 at 16:30 Dextrose (D50w Syringe) 25 ml Q15M PRN IV DECREASED GLUCOSE Last administered on 07/21/16 21:13; Admin Dose 25 ML; Start 07/21/16 at 16:30 Dextrose (D50w Syringe) 50 ml Q15M PRN IV DECREASED GLUCOSE; Start 07/21/16 at 16:30 Glucagon (Glucagen) 1 mg Q15M PRN IM DECREASED GLUCOSE; Start 07/21/16 at 16:30 Glucose (Glutose) 15 gm Q15M PRN BUCCAL DECREASED GLUCOSE; Start 07/21/16 at 16: 30 Metoprolol Tartrate (Lopressor) 50 mg BID PO Last administered on 07/28/16 08: 48; Admin Dose 50 MG; Start 07/22/16 at 21:00 Amlodipine Besylate (Norvasc) 5 mg BID GTB Last administered on 07/28/16 08:48 ; Admin Dose 5 MG; Start 07/23/16 at 14:30 Benazepril HCl (Lotensin) 40 mg Q12 PO Last administered on 07/28/16 08:49; Admin Dose 40 MG; Start 07/24/16 at 21:00 Isosorbide Mononitrate 60 mg 60 mg DAILY PO Last administered on 07/28/16 08: 48; Admin Dose 60 MG; Start 07/25/16 at 10:30 Vancomycin HCl (Vancocin) 250 ml @ 125 mls/hr Q72H IVPB Last administered on 12:58; Admin Dose 125 MLS/HR; Start 07/25/16 at 13:00 Hydralazine HCl 25 mg 25 mg Q4H PRN IV SBP >170 Last administered on 07/28/16 01:22; Admin Dose 25 MG; Start 07/25/16 at 20:30 Fentanyl 1000 mcg/ Dextrose 100 ml @ 2.5 mls/hr TITRATE IV Last administered on 07/27/16 12:16; Admin Dose 2.5 MLS/HR; Start 07/27/16 at 12:00 Propofol (Diprivan) 100 ml @ 2.25 mls/hr Q12H IV Last administered on 03:22; Admin Dose 15.75 MLS/HR; Start 07/27/16 at 12:00 Hydralazine HCl (Apresoline) 50 mg Q8 PO Last administered on 07/28/16 06:42; Admin Dose 50 MG; Start 07/27/16 at 22:00 Assessment/Plan Chief Complaint/Hosp Course IMPRESSION AND PLAN: 1. Hypoxemic respiratory failure. Improved radiographic pulmonary edema 2. Possible aspiration pneumonia, worsening leukocytosis 3. Probable underlying obstructive sleep apnea. 4. Encephalopathy, toxic metabolic. Questionable anoxic brain injury following collapse 5. End-stage renal failure on hemodialysis. 6. Significant anemia, questionable GI bleed 7. History of hypertension. THE PATIENT WILL NEED: 1. Continued mechanical ventilation. CPAP weaning trial this morning will add fentanyl for pain control 2. Neurology recommendations. MRI noted 3. Monitor H&H 4. Continue antibiotics for possible pneumonia. 5. Continue glycemic management. 6. DVT and GI prophylaxis. 7. Hemodialysis per nephrology 8. DC right femoral line placed internal jugular line Disposition Continue ICU care Discussed with staff and family at bedside Problems: SANDI BUSCH MD, [facility] Jul 28, 2016 11:05
[2016-07-28] MEDS: VANCOMYCIN 1 GM in NS 250 ML IVPB SCH (12:36)
--- NOTE | 2016-07-28 12:45 | PN ---
DATE: 07/28/2016 SUBJECTIVE: The patient remains full ventilatory support, remains critically ill, no other acute ev ents noted, no hemoptysis, hematemesis, hematochezia. OBJECTIVE: VITAL SIGNS: Blood pressure is 172/60, respirations 16, pulse 77, temperature 98.3. I's and O's reviewed. HEENT: Head is normocephalic. NECK: Supple. HEART: Regular rate. LUNGS: Show diminished breath sounds at the base. ABDOMEN: Soft, nontender to palpation. No rebound or guarding. EXTREMITIES: Negative for clubbing, cyanosis, no edema. DERMATOLOGIC: No rashes. MUSCULOSKELETAL: No joint effusions. NEUROLOGIC: No change in exam. MEDICATIONS: Reviewed. LABORATORY DATA: Shows sodium 135, potassium 3.8, chloride 93, BUN 30, creatinine 3.96 phosphorus 2 .4. White count 17.2, hemoglobin 9.5, hematocrit 27.9, platelet count is 324. ASSESSMENT AND PLAN: 1. End-stage renal disease. The patient is scheduled for hemodialysis, stable, dialyze for 3 hours and 3 K bath, calcium 2.5, ultrafiltrate as tolerated. 2. Volume overload. Continue ultrafiltration dialysis. 3. Anemia. Continue to monitor hemoglobin and hematocrit levels. Continue Epogen. 4. Mineral bone disorder. Continue to monitor calcium and phosphorus levels. Phosphorus levels re main low, will give IV phosphate. 5. Hypokalemia, improved. 6. Sepsis, status post shock. Continue current antibiotic regimen. 7. Ventilator dependent respiratory failure. Vent settings have been reviewed. ABG has been revie wed. Continue to monitor. 8. Encephalopathy, likely due to anoxic injury. Continue to monitor. 9. Coronary artery disease. Continue current treatment plan. 10. Dyslipidemia. Continue statin therapy. 11. Diabetes. Continue Accu-Cheks and insulin sliding scale. 12. Hypertension. Continue current blood pressure regimen. Continue ultrafiltration with dialysis . Dictated By: TALITA GARCIA/RANI Conf#: [id number] DID#: [id number]
--- NOTE | 2016-07-28 12:46 | CONS ---
Date/Time of Note Date/Time of Note DATE: 07/28/16 TIME: 12:43 Assessment/Plan Assessment/Plan Chief Complaint/Hosp Course IMPRESSION: 1. Positive troponin in the setting of respiratory failure and renal failure- now downtrended. 2. Abnormal electrocardiogram, assess for acute coronary syndrome. 3. History of a recent PTCA and stent placement to circumflex June 2016 with drug-eluting stents.- EF 55% by echo this admit 4. Altered mental state.-MRI negative 07/23 5. Respiratory failure, status post intubation. 6. End-stage renal disease on hemodialysis. 7. Urinary tract infection. 8. Pneumonia. 9. Dyslipidemia. 10.HTN-elevated moderately Recc: -Tele -Continue BB -Continue norvasc/benazepril -Increase hydralazine to improve BP -Continue asa/brilinta -HD for volume removal -Continue abx's and f/u cx data -Vent weaning as tolerated -sedation vacation Problems: Consultation Date/Type/Reason Admit Date/Time Jul 20, 2016 at 15:20 Initial Consult Date 07/21/16 Type of Consultation: Cardiology Reason for Consultation CHF Referring Provider: KRZYSZTOF MAY M.D. Exam/Review of Systems Vital Signs Vitals Vital Signs Date Time Temp Pulse Resp B/P Pulse Ox O2 Delivery O2 Flow Rate FiO2 07/28/16 12:00 76 07/28/16 09:40 18 100 30 07/28/16 09:00 158/59 Mechanical Ventilator 07/28/16 08:00 99.1 Intake and Output 07/27/16 07/27/16 07/28/16 15:00 23:00 07:00 Intake Total 374.5 ml 273.0 ml 406.85 ml Output Total 10 ml Balance 364.5 ml 273.0 ml 406.85 ml Exam Review of Systems: CONSTITUTIONAL: No fevers, chills. PULMONARY: intubated CARDIOVASCULAR: No chest pain/palpitations GASTROINTESTINAL: No nausea/vomiting. GENITOURINARY: No hematuria/dysuria. MUSCULOSKELETAL: No obvious myagias/arthalgias. PSYCHIATRIC: The patient denies depression. NEUROLOGIC: sedated Constitutional: other (sedated) Psych: no complaints Head: normocephalic ENMT: intubated Neck: jvd (9 cm water), supple Respiratory: diminished breath sounds (at bases/B) Cardiovascular: regular rate and rhythm Gastrointestinal: non-tender, soft Musculoskeletal: muscle tone (normal) Extremities: edema (none) Neurological: other (No focal deficits) Results Result Diagram: 07/28/160 07/28/16 0440 Results 24 hrs Laboratory Tests Test 07/27/16 13:02 07/27/16 15:14 07/27/16 16:24 07/27/16 22:30 Bedside Glucose 148 141 125 Creatine Kinase < 20 L Creatine Kinase Index Creatinine Kinase MB (Mass) < 0.22 Troponin I 0.037 Test 07/28/16 04:40 07/28/16 07:00 07/28/16 08:43 Anion Gap 15 Basophils # 0.1 Basophils % 0.7 Blood Morphology Comment Blood Urea Nitrogen 30 #H Calcium Level 8.6 Carbon Dioxide Level 31 Chloride Level 93 L Creatinine 3.96 #H Eosinophils # 0.3 Eosinophils % 2.0 Glucose Level 114 Hematocrit 27.9 L Hemoglobin 9.5 L Lymphocytes # 1.6 Lymphocytes % 9.6 L Magnesium Level 2.1 Mean Corpuscular Hemoglobin 32.4 Mean Corpuscular Hemoglobin Concent 34.1 Mean Corpuscular Volume 94.9 Mean Platelet Volume 8.0 Monocytes # 1.7 H Monocytes % 9.7 Neutrophils # 13.4 H Neutrophils % 78.0 H Nucleated Red Blood Cells # 0.0 Nucleated Red Blood Cells % 0.0 Phosphorus Level 2.4 L Platelet Count 325 Potassium Level 3.8 Red Blood Count 2.94 L Red Cell Distribution Width 15.4 H Sodium Level 135 White Blood Count 17.2 H Arterial Blood HCO3 30.5 H Arterial Blood Base Excess 7.2 H Arterial Blood Oxygen Saturation 98.0 Javi Test ACCEPTAB Arterial Blood Gas Puncture Site Left Radial Arterial Blood Carboxyhemoglobin 0.4 Arterial Blood Date Drawn 07/28/2016 7:41:54 AM Arterial Blood Methemoglobin 0.1 Arterial Blood pCO2 (Temp correct) 38.2 Arterial Blood pH (Temp corrected) 7.520 H Arterial Blood pO2 (Temp corrected) 104.3 H Blood Gas A-a O2 Differential 64.7 H Blood Gas Actual Respiration Rate 16 Blood Gas Low PEEP Setting 5.0 Blood Gas Modality VENT - AC Blood Gas Notified Time 07/28/2016 7:58:50 AM Blood Gas Notified Whom JLD Blood Gas Respiration Rate 16.0 Blood Gas Specimen Source Blood arterial Blood Gas Temperature 37.0 Blood Gas Tidal Volume 500.0 FiO2 30.0 Oxyhemoglobin Percent 97.5 Total Hemoglobin 11.6 L Bedside Glucose 123 Medications Medications Current Medications Aspirin (Aspirin) 81 mg DAILY NGT Last administered on 07/28/16 08:42; Admin Dose 81 MG; Start 07/21/16 at 09:00 Atorvastatin Calcium (Lipitor) 40 mg QHS NGT Last administered on 07/27/16 21: 27; Admin Dose 40 MG; Start 07/20/16 at 21:00 Docusate Sodium (Colace Liquid Cup) 100 mg TID PRN NGT CONSTIPATION; Start 07/20 at 17:30 Folic Acid (Folic Acid) 1 mg DAILY NGT Last administered on 07/28/16 08:41; Admin Dose 1 MG; Start 07/21/16 at 09:00 Ticagrelor (Brilinta) 90 mg Q12 NGT Last administered on 07/28/16 08:48; Admin Dose 90 MG; Start 07/20/16 at 21:00 Acetaminophen (Tylenol Tab) 650 mg Q6H PRN NGT PAIN LEVEL 1-3 OR FEVER Last administered on 07/27/16 13:08; Admin Dose 650 MG; Start 07/20/16 at 17:30 Acetaminophen/ Hydrocodone Bitart ([place] (5/325)) 1 tab Q6H PRN NGT PAIN LEVEL 4-6; Start 07/20/16 at 17:30 Acetaminophen/ Hydrocodone Bitart ([place] (5/325)) 2 tab Q6H PRN NGT PAIN LEVEL 7-10; Start 07/20/16 at 17:30 Famotidine (Pepcid Iv) 20 mg Q24H IV Last administered on 07/27/16 22:31; Admin Dose 20 MG; Start 07/20/16 at 21:00 Heparin Sodium (Porcine) 5000 unit 5,000 unit Q8 SC Last administered on 06:43; Admin Dose 5,000 UNIT; Start 07/20/16 at 17:30 Cefepime HCl (Maxipime 1gm/50 ml (Pmx)) 50 ml @ 100 mls/hr Q24H IVPB Last administered on 07/27/16 17:34; Admin Dose 100 MLS/HR; Start 07/21/16 at 18:00 Insulin Aspart (Novolog Insulin Pen) NOVOLOG *MODERATE* ALGORI... Q4 SC Last administered on 07/28/16 12:39; Admin Dose 2 UNIT; Start 07/21/16 at 17:00 Miscellaneous Information 1 ea NOTE XX ; Start 07/21/16 at 16:30 Glucose (Glutose) 15 gm Q15M PRN PO DECREASED GLUCOSE; Start 07/21/16 at 16:30 Glucose (Glutose) 22.5 gm Q15M PRN PO DECREASED GLUCOSE; Start 07/21/16 at 16:30 Dextrose (D50w Syringe) 25 ml Q15M PRN IV DECREASED GLUCOSE Last administered on 07/21/16 21:13; Admin Dose 25 ML; Start 07/21/16 at 16:30 Dextrose (D50w Syringe) 50 ml Q15M PRN IV DECREASED GLUCOSE; Start 07/21/16 at 16:30 Glucagon (Glucagen) 1 mg Q15M PRN IM DECREASED GLUCOSE; Start 07/21/16 at 16:30 Glucose (Glutose) 15 gm Q15M PRN BUCCAL DECREASED GLUCOSE; Start 07/21/16 at 16: 30 Metoprolol Tartrate (Lopressor) 50 mg BID PO Last administered on 07/28/16 08: 48; Admin Dose 50 MG; Start 07/22/16 at 21:00 Amlodipine Besylate (Norvasc) 5 mg BID GTB Last administered on 07/28/16 08:48 ; Admin Dose 5 MG; Start 07/23/16 at 14:30 Benazepril HCl (Lotensin) 40 mg Q12 PO Last administered on 07/28/16 08:49; Admin Dose 40 MG; Start 07/24/16 at 21:00 Isosorbide Mononitrate 60 mg 60 mg DAILY PO Last administered on 07/28/16 08: 48; Admin Dose 60 MG; Start 07/25/16 at 10:30 Vancomycin HCl (Vancocin) 250 ml @ 125 mls/hr Q72H IVPB Last administered on 12:36; Admin Dose 125 MLS/HR; Start 07/25/16 at 13:00 Hydralazine HCl 25 mg 25 mg Q4H PRN IV SBP >170 Last administered on 07/28/16 01:22; Admin Dose 25 MG; Start 07/25/16 at 20:30 Fentanyl 1000 mcg/ Dextrose 100 ml @ 2.5 mls/hr TITRATE IV Last administered on 07/27/16 12:16; Admin Dose 2.5 MLS/HR; Start 07/27/16 at 12:00 Propofol (Diprivan) 100 ml @ 2.25 mls/hr Q12H IV Last administered on 03:22; Admin Dose 15.75 MLS/HR; Start 07/27/16 at 12:00 Hydralazine HCl (Apresoline) 50 mg Q8 PO Last administered on 07/28/16 06:42; Admin Dose 50 MG; Start 07/27/16 at 22:00 MATT PEARCE Jul 28, 2016 12:45
[2016-07-28] MEDS: EPOETIN 10000 UNITS/1 ML INJ (ESRD) SC SCH (17:09)
[2016-07-28] MEDS: CEFEPIME 1GM/50 ML (PMX) 50 ML IVPB SCH (17:33)
[2016-07-28 18:05] LABS: ADD UMIC YES; URINE BILIRUBIN (Dip) NEGATIVE (NEGATIVE); URINE BLOOD (Dip) 3+ (NEGATIVE); URINE COLOR LT. YELLOW (YELLOW); URINE GLUCOSE (Dip) NEGATIVE (NEGATIVE); URINE KETONES (Dip) NEGATIVE (NEGATIVE); URINE LEUKOCYTE ESTERASE (Dip) 1+ (NEGATIVE); URINE NITRITE (Dip) NEGATIVE (NEGATIVE); URINE TOTAL PROTEIN (Dip) 2+ (NEGATIVE); URINE UROBILINOGEN (Dip) 0.2 E.U./dL (0.1-1.0)
[2016-07-28 18:16] LABS: BACTERIA,URINE MODERATE; SQUAMOUS EPITHELIAL CELL,UR FEW
[2016-07-28] MEDS: ATORVASTATIN 40 MG TAB NGT SCH (21:25)
--- NOTE | 2016-07-28 22:36 | RADRPT ---
PROCEDURE: XR Chest. CLINICAL INDICATION: Shortness of breath. Central line placement. TECHNIQUE: Single frontal view. COMPARISON: 07/28/2016. 0608 hours. FINDINGS: The endotracheal tube and nasogastric tube remain in satisfactory position. There is a new left int ernal jugular vein triple-lumen catheter with the tip in the upper superior vena cava. Mild pulmona ry edema is unchanged. The heart is enlarged. There is calcification in the aorta consistent with atherosclerosis. There is no pleural effusion. There is no pneumothorax. IMPRESSION: 1. No pneumothorax following left internal jugular vein triple-lumen catheter placement. 2. No other change from the prior study done earlier the same day. RPTAT: QQ .Sebastian Banks MD, MD Date Time Electronically viewed and signed by .Sebastian Banks MD, on 07/28/2016 22:35 .R/
[2016-07-28] MEDS: FAMOTIDINE 20 MG INJ IV SCH (22:47)
[2016-07-29] VITALS (55 sets, daily range): BP systolic 104–183; BP diastolic 49–101; PULSE 66–101; RESP 13–37
[2016-07-29] MEDS: INSULIN ASPART [NOVOLOG] 3 ML PEN SC SCH ×6 (01:00→21:00)
--- NOTE | 2016-07-29 03:27 | OPR ---
DATE OF OPERATION: PREOPERATIVE DIAGNOSIS: Respiratory failure. POSTOPERATIVE DIAGNOSIS: Respiratory failure. OPERATION PERFORMED: 1. Left internal jugular vein central line placement. 2. Ultrasound guidance into the central vein. SURGEON: Samuel Skaggs MD ANESTHESIA: Local. CONSENT: Risks, benefits, complications, alternative therapies explained to the patient and the [facility]; consent obtained. OPERATIVE TECHNIQUE: The patient was placed in supine position, prepped and draped in usual sterile fashion; 1% lidocaine was used throughout the operation for local anesthesia. Access was gained in the left internal jugular vein. Guidewire was advanced through without any difficulty. Subcutaneo us tissues dilated. Central line advanced over guidewire, secured to skin using silk sutures. All ports of the catheter were aspirated and injected using heparinized saline solution. The patient to lerated the procedure well. Dictated By: SAMUEL CHERY/RANI Conf#: [id number] DID#: [id number]
[2016-07-29] MEDS: HEPARIN 5,000 UNIT/0.5 ML SYG SC SCH ×3 (06:00→21:19)
[2016-07-29 06:47] LABS: POTASSIUM 3.5 mmol/L (3.5-5.1)
[2016-07-29 06:49] LABS: CREATININE 3.44 mg/dl (0.44-1.00)
[2016-07-29 06:50] LABS: PHOSPHORUS 2.6 mg/dl (2.5-4.9)
[2016-07-29 06:51] LABS: CALCIUM 8.9 mg/dl (8.4-10.2); MAGNESIUM 2.1 mg/dl (1.7-2.5)
[2016-07-29 07:14] LABS: BASOPHILS % 0.2 % (0.0-2.0); EOSINOPHILS # 0.3 10^3/ul (0.0-0.5); EOSINOPHILS % 1.6 % (0.0-7.0); HEMATOCRIT 28.5 % (37.0-47.0); HEMOGLOBIN 9.7 g/dl (12.0-16.0); LYMPHOCYTES # 1.9 10^3/ul (0.8-2.9); LYMPHOCYTES % 10.3 % (15.0-51.0); MEAN CORPUSCULAR HEMOGLOBIN 32.5 pg (29.0-33.0); MEAN CORPUSCULAR HGB CONC 34.2 g/dl (32.0-37.0); MEAN CORPUSCULAR VOLUME 95.3 fl (82.0-101.0); MEAN PLATELET VOLUME 8.4 fl (7.4-10.4); MONOCYTE # 1.7 10^3/ul (0.3-0.9); MONOCYTES % 9.1 % (0.0-11.0); NEUTROPHIL # 14.5 10^3/ul (1.6-7.5); NEUTROPHILS % 78.8 % (39.0-77.0); PLATELET COUNT 336 10^3/UL (140-440); RED BLOOD COUNT 2.99 10^6/ul (4.20-5.40); RED CELL DISTRIBUTION WIDTH 15.9 % (11.5-14.5); UNCORRECTED WBC 18.4 10^3/ul (4.8-10.8); WHITE BLOOD COUNT 18.4 10^3/ul (4.8-10.8)
[2016-07-29 07:26] LABS: CONDITION 1; LH ANALYZER COMMENTS 1
[2016-07-29] MEDS: AMLODIPINE 5 MG TAB GTB SCH ×2 (08:28→21:17)
[2016-07-29] MEDS: METOPROLOL 50 MG TAB PO SCH ×2 (08:28→21:16)
[2016-07-29] MEDS: ISOSORBIDE MONONITRATE(SR)60 MG TAB PO SCH (08:28)
[2016-07-29] MEDS: ASPIRIN 81 MG TAB NGT SCH (08:28)
[2016-07-29] MEDS: FOLIC ACID 1 MG TAB NGT SCH (08:29)
[2016-07-29] MEDS: BENAZEPRIL 20 MG TAB PO SCH ×2 (08:29→21:16)
[2016-07-29] MEDS: TICAGRELOR 90 MG TABLET NGT SCH ×2 (08:34→21:18)
--- NOTE | 2016-07-29 08:45 | RADRPT ---
PROCEDURE: XR Chest AP portable CLINICAL INDICATION: Pneumonia, CHF TECHNIQUE: An AP portable radiograph of the chest was submitted. COMPARISON: 07/28/2016 FINDINGS: Support Hardware: The endotracheal tube, the NG tube, and the right jugular central venous catheter are stable in positioning. Cardiovascular: The cardiovascular silhouette appears unremarkable, except for atherosclerotic griffin e involving the aorta. Lung Lemons: The lung lemons are now clear Pleural Spaces: No pneumothorax or pleural effusion is identified. Osseous Structures: The osseous structures appear intact. Soft Tissues: The soft tissues appear generous. IMPRESSION: 1. The tubes and lines are stable in positioning. 2. The heart size has decreased and the cardiovascular silhouette is now upper normal. 3. The lung lemons are now clear Physician Lena Date Time Electronically viewed and signed by Physician Lena on 07/29/2016 08:45 /
--- NOTE | 2016-07-29 09:35 | PN ---
DATE: 07/29/2016 SUBJECTIVE: The patient had hemodialysis yesterday with 4 liters removed, tolerated well. No other acute events noted. No hemoptysis, hematemesis or hematochezia. The patient is currently on sedat ion vacation. OBJECTIVE: VITAL SIGNS: Blood pressure 152/61, respiration 17, pulse 75, temperature 98.6. I's and O's have b een reviewed. HEENT: Head is normocephalic. NECK: Supple. HEART: Regular rate. LUNGS: Show diminished breath sounds at base. ABDOMEN: Soft, nontender to palpation. No rebound or guarding. EXTREMITIES: Negative for clubbing, cyanosis, no edema. DERMATOLOGIC: No rashes. MUSCULOSKELETAL: No joint effusions. NEUROLOGIC: No change in exam. MEDICATIONS: The patient's medications have been reviewed. LABORATORY DATA: Sodium 139, potassium 5, chloride 95, bicarbonate 33, BUN 25, creatinine 3.44. Wh ite count 18.4, hemoglobin 9.7, hematocrit 28.5, platelet count is 336. IMAGING: Chest x-ray on 07/28/2016 reviewed, showed no significant change. ASSESSMENT AND PLAN: 1. End-stage renal disease. The patient had hemodialysis yesterday, tolerated well. Plan for dial ysis tomorrow. 2. Volume overload, improving. Continue ultrafiltration with dialysis. 3. Anemia. Hemoglobin level stable. Continue Epogen. 4. Mineral bone disorder. Calcium and phosphorus levels are stable. Continue to monitor. 5. Sepsis, status post shock. Continue current antibiotic regimen. 6. Ventilator dependent respiratory failure. Vent settings have been reviewed. ABG has been revie thu. Continue to monitor. Continue weaning per pulmonary. 7. Encephalopathy, likely from anoxic injury. Continue to monitor. 8. Coronary artery disease. Continue current treatment plan. 9. Dyslipidemia. Continue statin therapy. 10. Diabetes. Continue Accu-Cheks and sliding scale. 11. Hypertension. Blood pressure remains elevated, but stable. Continue current blood pressure re gimen. Continue ultrafiltration dialysis. Dictated By: TALITA GARCIA/RANI Conf#: [id number] DID#: [id number]
--- NOTE | 2016-07-29 11:00 | CONS ---
Date/Time of Note Date/Time of Note DATE: 07/29/16 TIME: 10:54 Assessment/Plan Assessment/Plan Additional Assessment/Plan 1. Positive troponin in the setting of respiratory failure and renal failure- now downtrended- better today, con't med rx 2. Abnormal electrocardiogram, assess for acute coronary syndrom - no CP, doubt ischemia 3. History of a recent PTCA and stent placement to circumflex June 2016 with drug-eluting stents.- EF 55% by echo this admit 4. Altered mental state.-MRI negative 07/23 5. Respiratory failure, status post intubation- 6. End-stage renal disease on hemodialysis- Rx as needed 7. Urinary tract infection - on anti-bx 8. Pneumonia. 9. Dyslipidemia. 10.HTN-elevated moderately - will follow closely Consultation Date/Type/Reason Admit Date/Time Jul 20, 2016 at 15:20 Initial Consult Date 07/21/16 Type of Consultation: Cardiology Referring Provider: KRZYSZTOF MAY M.D. 24 HR Interval Summary Free Text/Dictation NO acute change - con't resp Rx - better today. Family at bedside - happy with care. ROS: No fever, no chills, no nausea, no vomiting, no diarrhea/constipation No recent weight changes No chest pain, no PND, no orthopnea + SOB No dizziness, blurred vision No thirst, no heat or cold intolerance Exam/Review of Systems Vital Signs Vitals Vital Signs Date Time Temp Pulse Resp B/P Pulse Ox O2 Delivery O2 Flow Rate FiO2 07/29/16 09:00 66 16 122/54 100 Mechanical Ventilator 07/29/16 08:00 30 07/29/16 08:00 98.7 Intake and Output 07/28/16 07/28/16 07/29/16 15:00 23:00 07:00 Intake Total 430.75 ml 640 ml 324.5 ml Output Total 40 ml 4300 ml 10 ml Balance 390.75 ml -3660 ml 314.5 ml Exam General: WN/WD/NAD, AOx 1-2 - follows with eyes HEENT: Unicetric/atraumatic/EOMI (does not follow commands) NECK: JVD elevated, no thyromegaly, intubated Lymph: no lymphadenopathy HEART: regular with no S3, II/ systolic murmur at apex LUNGS: Coarse sounds ABD: soft, NT, ND, +BS : Intact Neuro: non focal SKIN: chronic changes EXT: trace edema Results Result Diagram: 07/29/16 0525 07/29/16 0525 Results 24 hrs Laboratory Tests Test 07/28/16 12:37 07/28/16 17:08 07/28/16 17:30 07/28/16 21:28 Bedside Glucose 156 136 129 Urine Bacteria MODERATE Urine Bilirubin NEGATIVE Urine Clarity SLIGHTLY CLOUDY Urine Color LT. YELLOW Urine Glucose NEGATIVE Urine Hemoglobin 3+ H Urine Ketones NEGATIVE Urine Leukocyte Esterase 1+ H Urine Microscopic RBC 10-25 Urine Microscopic WBC 10-25 Urine Nitrite NEGATIVE Urine Specific [place] 1.015 Urine Squamous Epithelial Cells FEW Urine Total Protein 2+ H Urine Urobilinogen 0.2 E.U./dL Urine pH >=9.0 Test 07/29/16 01:11 07/29/16 05:22 07/29/16 05:25 07/29/16 08:24 Bedside Glucose 139 135 147 Anion Gap 15 Basophils # 0.0 Basophils % 0.2 Blood Morphology Comment Blood Urea Nitrogen 25 H Calcium Level 8.9 Carbon Dioxide Level 33 H Chloride Level 95 L Creatinine 3.44 H Eosinophils # 0.3 Eosinophils % 1.6 Glucose Level 131 Hematocrit 28.5 L Hemoglobin 9.7 L Lymphocytes # 1.9 Lymphocytes % 10.3 L Magnesium Level 2.1 Mean Corpuscular Hemoglobin 32.5 Mean Corpuscular Hemoglobin Concent 34.2 Mean Corpuscular Volume 95.3 Mean Platelet Volume 8.4 Monocytes # 1.7 H Monocytes % 9.1 Neutrophils # 14.5 H Neutrophils % 78.8 H Nucleated Red Blood Cells # 0.0 Nucleated Red Blood Cells % 0.0 Phosphorus Level 2.6 Platelet Count 336 Potassium Level 3.5 Red Blood Count 2.99 L Red Cell Distribution Width 15.9 H Sodium Level 139 White Blood Count 18.4 H Medications Medications Current Medications Aspirin (Aspirin) 81 mg DAILY NGT Last administered on 07/29/16 08:28; Admin Dose 81 MG; Start 07/21/16 at 09:00 Atorvastatin Calcium (Lipitor) 40 mg QHS NGT Last administered on 07/28/16 21: 25; Admin Dose 40 MG; Start 07/20/16 at 21:00 Docusate Sodium (Colace Liquid Cup) 100 mg TID PRN NGT CONSTIPATION; Start 07/20 at 17:30 Folic Acid (Folic Acid) 1 mg DAILY NGT Last administered on 07/29/16 08:29; Admin Dose 1 MG; Start 07/21/16 at 09:00 Ticagrelor (Brilinta) 90 mg Q12 NGT Last administered on 07/29/16 08:34; Admin Dose 90 MG; Start 07/20/16 at 21:00 Acetaminophen (Tylenol Tab) 650 mg Q6H PRN NGT PAIN LEVEL 1-3 OR FEVER Last administered on 07/27/16 13:08; Admin Dose 650 MG; Start 07/20/16 at 17:30 Acetaminophen/ Hydrocodone Bitart ([place] (5/325)) 1 tab Q6H PRN NGT PAIN LEVEL 4-6; Start 07/20/16 at 17:30 Acetaminophen/ Hydrocodone Bitart ([place] (5/325)) 2 tab Q6H PRN NGT PAIN LEVEL 7-10; Start 07/20/16 at 17:30 Famotidine (Pepcid Iv) 20 mg Q24H IV Last administered on 07/28/16 22:47; Admin Dose 20 MG; Start 07/20/16 at 21:00 Heparin Sodium (Porcine) 5000 unit 5,000 unit Q8 SC Last administered on 21:23; Admin Dose 5,000 UNIT; Start 07/20/16 at 17:30 Cefepime HCl (Maxipime 1gm/50 ml (Pmx)) 50 ml @ 100 mls/hr Q24H IVPB Last administered on 07/28/16 17:33; Admin Dose 100 MLS/HR; Start 07/21/16 at 18:00 Insulin Aspart (Novolog Insulin Pen) NOVOLOG *MODERATE* ALGORI... Q4 SC Last administered on 07/29/16 08:35; Admin Dose 2 UNIT; Start 07/21/16 at 17:00 Miscellaneous Information 1 ea NOTE XX ; Start 07/21/16 at 16:30 Glucose (Glutose) 15 gm Q15M PRN PO DECREASED GLUCOSE; Start 07/21/16 at 16:30 Glucose (Glutose) 22.5 gm Q15M PRN PO DECREASED GLUCOSE; Start 07/21/16 at 16:30 Dextrose (D50w Syringe) 25 ml Q15M PRN IV DECREASED GLUCOSE Last administered on 07/21/16 21:13; Admin Dose 25 ML; Start 07/21/16 at 16:30 Dextrose (D50w Syringe) 50 ml Q15M PRN IV DECREASED GLUCOSE; Start 07/21/16 at 16:30 Glucagon (Glucagen) 1 mg Q15M PRN IM DECREASED GLUCOSE; Start 07/21/16 at 16:30 Glucose (Glutose) 15 gm Q15M PRN BUCCAL DECREASED GLUCOSE; Start 07/21/16 at 16: 30 Metoprolol Tartrate (Lopressor) 50 mg BID PO Last administered on 07/29/16 08: 28; Admin Dose 50 MG; Start 07/22/16 at 21:00 Amlodipine Besylate (Norvasc) 5 mg BID GTB Last administered on 07/29/16 08:28 ; Admin Dose 5 MG; Start 07/23/16 at 14:30 Benazepril HCl (Lotensin) 40 mg Q12 PO Last administered on 07/29/16 08:29; Admin Dose 40 MG; Start 07/24/16 at 21:00 Isosorbide Mononitrate 60 mg 60 mg DAILY PO Last administered on 07/29/16 08: 28; Admin Dose 60 MG; Start 07/25/16 at 10:30 Vancomycin HCl (Vancocin) 250 ml @ 125 mls/hr Q72H IVPB Last administered on 12:36; Admin Dose 125 MLS/HR; Start 07/25/16 at 13:00 Hydralazine HCl 25 mg 25 mg Q4H PRN IV SBP >170 Last administered on 07/28/16 01:22; Admin Dose 25 MG; Start 07/25/16 at 20:30 Fentanyl 1000 mcg/ Dextrose 100 ml @ 2.5 mls/hr TITRATE IV Last administered on 07/27/16 12:16; Admin Dose 2.5 MLS/HR; Start 07/27/16 at 12:00 Propofol (Diprivan) 100 ml @ 2.25 mls/hr Q12H IV Last administered on 03:22; Admin Dose 15.75 MLS/HR; Start 07/27/16 at 12:00 Hydralazine HCl (Apresoline) 75 mg Q8 PO Last administered on 1/17/17at 06:39; Admin Dose 75 MG; Start 07/28/16 at 14:00 ADELFO PUGA MD Jul 29, 2016 11:00
--- NOTE | 2016-07-29 11:10 | PN ---
Date/Time of Note Date/Time of Note DATE: 07/29/16 TIME: 10:40 Assessment/Plan VTE Prophylaxis VTE Prophylaxis Intervention: heparin Lines/Catheters IV Catheter Type (from Nrsg): Central Line Central line still needed: Yes (for IV access ) Urinary Cath still in place: Yes Reason Cath still needed: other (indicate) (intubated abd bed ridden for now ) Assessment/Plan Assessment/Plan 65-year-old woman: 1. Acute respiratory failure and unresponsiveness, s/p intubation on arrival in the ER. Etiology unclear She was hospitalized two weeks prior to this admission after she suffered a cardiac arrest with asystole in the ER. S/p Angio x 2 with stenting Repeat echo with EF 55% Mildly elevated troponin on this admission, appreciate cardiology recommendations Cardiology, Pulmonary, Nephrology and Neurology following. Still on Vent and CPAP trial today planned Volume status better, management with HD 2. Endstage renal disease on hemodialysis: on HD M/W/F Hemodialysis planned for today Appreciate assistance from Dr. Gomez. 3. Acute on chronic anemia with hb stable @ 9.5 stable. 4. Diabetes mellitus: OFF Lantus with episode of hypoglycemia noted SSI On TF and free H20 now 5. 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 There was a two-hour window during which she was "asleep" prior to being found unresponsive on admission EEG showing encephalopathy, MRI with no acute findings Appreciate Neurology consult with Dr. Arshad. No further intervention for now per Neurology. Minimizing sedative agents and attempt at CPAP tirial 6. CAD s/p angio and stenting x 2 approx 2 weeks ago, echo more consistent with diastolic dysfunction EKG similar to previous ekg two weeks ago. Serial troponins trended down Continue ASA and Brilinta, Dr Castelan following and back on BBlock. 7. Hypertension, better controlled BP with current regimen Metoprolol, Benazepril, Norvasc Imdur and now Hydralazine also added yesterday. 8. Leukocytosis recurrent, on abx for aspiration pneumonitis/pneumonia vs HCAP, Ua/Ucx NGTD, continue Vancomycin and Cefepime. Blood cx, fem line tip cx and sputum cx pending. 9. Right lower extremity pain with questionable history of sciatica. Doppler study negative ten days ago for DVT on the right. 10. ? Enterococcal UTI: on Vancomycin already, repeat UA and Urine cx NGTD Prophylaxis: Pepcid for gastrointestinal prophylaxis. SCDs for DVT prevention Disposition: ICU level of care. Dr Mayen, Dr Castelan, Dr Barraza and Dr Arshad following. CPAP trial today. Full-Code. Subjective 24 Hr Interval Summary Free Text/Dictation Patient remains stable currently and still on full vent support Afebrile, still with Leukocytosis, on Cefepime and Vanco Fem line removed and tip sent for cx this AM, Right IJ placed yesterday Off propofol since last night, on Fentanyl and plans for CPAP trial today. Exam/Review of Systems Vital Signs Vitals Vital Signs Date Time Temp Pulse Resp B/P Pulse Ox O2 Delivery O2 Flow Rate FiO2 07/29/16 09:00 66 16 122/54 100 Mechanical Ventilator 07/29/16 08:00 30 07/29/16 08:00 98.7 Intake and Output 07/28/16 07/28/16 07/29/16 15:00 23:00 07:00 Intake Total 430.75 ml 640 ml 324.5 ml Output Total 40 ml 4300 ml 10 ml Balance 390.75 ml -3660 ml 314.5 ml Exam Constitutional: alert, frail Respiratory: clear to auscultation, other (on vent ) Cardiovascular: nl pulses, regular rate and rhythm Gastrointestinal: non-tender, soft Musculoskeletal: nl extremities to inspection Extremities: normal pulses, other (no edema noted ) Neurological: PAYROLL ASSISTANT II-XII intact, other (moving all extremities and answering simple questions noding yes or no ) Results Result Diagram: 07/29/16 0525 07/29/16 0525 Results 24 hrs Laboratory Tests Test 07/28/16 12:37 07/28/16 17:08 07/28/16 17:30 07/28/16 21:28 Bedside Glucose 156 136 129 Urine Bacteria MODERATE Urine Bilirubin NEGATIVE Urine Clarity SLIGHTLY CLOUDY Urine Color LT. YELLOW Urine Glucose NEGATIVE Urine Hemoglobin 3+ H Urine Ketones NEGATIVE Urine Leukocyte Esterase 1+ H Urine Microscopic RBC 10-25 Urine Microscopic WBC 10-25 Urine Nitrite NEGATIVE Urine Specific [place] 1.015 Urine Squamous Epithelial Cells FEW Urine Total Protein 2+ H Urine Urobilinogen 0.2 E.U./dL Urine pH >=9.0 Test 07/29/16 01:11 07/29/16 05:22 07/29/16 05:25 07/29/16 08:24 Bedside Glucose 139 135 147 Anion Gap 15 Basophils # 0.0 Basophils % 0.2 Blood Morphology Comment Blood Urea Nitrogen 25 H Calcium Level 8.9 Carbon Dioxide Level 33 H Chloride Level 95 L Creatinine 3.44 H Eosinophils # 0.3 Eosinophils % 1.6 Glucose Level 131 Hematocrit 28.5 L Hemoglobin 9.7 L Lymphocytes # 1.9 Lymphocytes % 10.3 L Magnesium Level 2.1 Mean Corpuscular Hemoglobin 32.5 Mean Corpuscular Hemoglobin Concent 34.2 Mean Corpuscular Volume 95.3 Mean Platelet Volume 8.4 Monocytes # 1.7 H Monocytes % 9.1 Neutrophils # 14.5 H Neutrophils % 78.8 H Nucleated Red Blood Cells # 0.0 Nucleated Red Blood Cells % 0.0 Phosphorus Level 2.6 Platelet Count 336 Potassium Level 3.5 Red Blood Count 2.99 L Red Cell Distribution Width 15.9 H Sodium Level 139 White Blood Count 18.4 H Medications Medications Current Medications Aspirin (Aspirin) 81 mg DAILY NGT Last administered on 07/29/16 08:28; Admin Dose 81 MG; Start 07/21/16 at 09:00 Atorvastatin Calcium (Lipitor) 40 mg QHS NGT Last administered on 07/28/16 21: 25; Admin Dose 40 MG; Start 07/20/16 at 21:00 Docusate Sodium (Colace Liquid Cup) 100 mg TID PRN NGT CONSTIPATION; Start 07/20 at 17:30 Folic Acid (Folic Acid) 1 mg DAILY NGT Last administered on 07/29/16 08:29; Admin Dose 1 MG; Start 07/21/16 at 09:00 Ticagrelor (Brilinta) 90 mg Q12 NGT Last administered on 07/29/16 08:34; Admin Dose 90 MG; Start 07/20/16 at 21:00 Acetaminophen (Tylenol Tab) 650 mg Q6H PRN NGT PAIN LEVEL 1-3 OR FEVER Last administered on 07/27/16 13:08; Admin Dose 650 MG; Start 07/20/16 at 17:30 Acetaminophen/ Hydrocodone Bitart ([place] (5/325)) 1 tab Q6H PRN NGT PAIN LEVEL 4-6; Start 07/20/16 at 17:30 Acetaminophen/ Hydrocodone Bitart ([place] (5/325)) 2 tab Q6H PRN NGT PAIN LEVEL 7-10; Start 07/20/16 at 17:30 Famotidine (Pepcid Iv) 20 mg Q24H IV Last administered on 07/28/16 22:47; Admin Dose 20 MG; Start 07/20/16 at 21:00 Heparin Sodium (Porcine) 5000 unit 5,000 unit Q8 SC Last administered on 21:23; Admin Dose 5,000 UNIT; Start 07/20/16 at 17:30 Cefepime HCl (Maxipime 1gm/50 ml (Pmx)) 50 ml @ 100 mls/hr Q24H IVPB Last administered on 07/28/16 17:33; Admin Dose 100 MLS/HR; Start 07/21/16 at 18:00 Insulin Aspart (Novolog Insulin Pen) NOVOLOG *MODERATE* ALGORI... Q4 SC Last administered on 07/29/16 08:35; Admin Dose 2 UNIT; Start 07/21/16 at 17:00 Miscellaneous Information 1 ea NOTE XX ; Start 07/21/16 at 16:30 Glucose (Glutose) 15 gm Q15M PRN PO DECREASED GLUCOSE; Start 07/21/16 at 16:30 Glucose (Glutose) 22.5 gm Q15M PRN PO DECREASED GLUCOSE; Start 07/21/16 at 16:30 Dextrose (D50w Syringe) 25 ml Q15M PRN IV DECREASED GLUCOSE Last administered on 07/21/16 21:13; Admin Dose 25 ML; Start 07/21/16 at 16:30 Dextrose (D50w Syringe) 50 ml Q15M PRN IV DECREASED GLUCOSE; Start 07/21/16 at 16:30 Glucagon (Glucagen) 1 mg Q15M PRN IM DECREASED GLUCOSE; Start 07/21/16 at 16:30 Glucose (Glutose) 15 gm Q15M PRN BUCCAL DECREASED GLUCOSE; Start 07/21/16 at 16: 30 Metoprolol Tartrate (Lopressor) 50 mg BID PO Last administered on 07/29/16 08: 28; Admin Dose 50 MG; Start 07/22/16 at 21:00 Amlodipine Besylate (Norvasc) 5 mg BID GTB Last administered on 07/29/16 08:28 ; Admin Dose 5 MG; Start 07/23/16 at 14:30 Benazepril HCl (Lotensin) 40 mg Q12 PO Last administered on 07/29/16 08:29; Admin Dose 40 MG; Start 07/24/16 at 21:00 Isosorbide Mononitrate 60 mg 60 mg DAILY PO Last administered on 07/29/16 08: 28; Admin Dose 60 MG; Start 07/25/16 at 10:30 Vancomycin HCl (Vancocin) 250 ml @ 125 mls/hr Q72H IVPB Last administered on 12:36; Admin Dose 125 MLS/HR; Start 07/25/16 at 13:00 Hydralazine HCl 25 mg 25 mg Q4H PRN IV SBP >170 Last administered on 07/28/16 01:22; Admin Dose 25 MG; Start 07/25/16 at 20:30 Fentanyl 1000 mcg/ Dextrose 100 ml @ 2.5 mls/hr TITRATE IV Last administered on 07/27/16 12:16; Admin Dose 2.5 MLS/HR; Start 07/27/16 at 12:00 Propofol (Diprivan) 100 ml @ 2.25 mls/hr Q12H IV Last administered on 03:22; Admin Dose 15.75 MLS/HR; Start 07/27/16 at 12:00 Hydralazine HCl (Apresoline) 75 mg Q8 PO Last administered on 07/29/16 06:39; Admin Dose 75 MG; Start 07/28/16 at 14:00 NADIA SARGENT Jul 29, 2016 10:52
--- NOTE | 2016-07-29 11:38 | CONS ---
Date/Time of Note Date/Time of Note DATE: 07/29/16 TIME: 11:37 Consult Date/Type/Reason Admit Date/Time Jul 20, 2016 at 15:20 Initial Consult Date 07/21/16 Type of Consultation: Cardiology Ordering Provider: KRZYSZTOF MAY M.D. Subjective Patient's condition largely unchanged Continues fentanyl drip Status post left internal jugular central line placement Objective Vital Signs Date Time Temp Pulse Resp B/P Pulse Ox O2 Delivery O2 Flow Rate FiO2 07/29/16 09:00 66 16 122/54 100 Mechanical Ventilator 07/29/16 08:00 30 07/29/16 08:00 98.7 Intake and Output 07/28/16 07/28/16 07/29/16 15:00 23:00 07:00 Intake Total 430.75 ml 640 ml 324.5 ml Output Total 40 ml 4300 ml 10 ml Balance 390.75 ml -3660 ml 314.5 ml PHYSICAL EXAMINATION: GENERAL: Chronically ill appearing lady, intubated on mechanical ventilation, appears comfortable at rest, no acute distress. VITAL SIGNS: As above NECK: Supple, no JVD or lymphadenopathy. CARDIAC EXAMINATION: S1, S2, no added sounds or murmurs. CHEST: Diminished air entry bilaterally. ABDOMEN: Soft, nontender. No guarding or rebound. EXTREMITIES: No cyanosis, clubbing. !+ edema. NEUROLOGIC: Generalized weakness. Results/Medications Result Diagram: 07/29/16 0525 07/29/16 0525 Results 24 hrs Laboratory Tests Test 07/28/16 12:37 07/28/16 17:08 07/28/16 17:30 07/28/16 21:28 Bedside Glucose 156 136 129 Urine Bacteria MODERATE Urine Bilirubin NEGATIVE Urine Clarity SLIGHTLY CLOUDY Urine Color LT. YELLOW Urine Glucose NEGATIVE Urine Hemoglobin 3+ H Urine Ketones NEGATIVE Urine Leukocyte Esterase 1+ H Urine Microscopic RBC 10-25 Urine Microscopic WBC 10-25 Urine Nitrite NEGATIVE Urine Specific [place] 1.015 Urine Squamous Epithelial Cells FEW Urine Total Protein 2+ H Urine Urobilinogen 0.2 E.U./dL Urine pH >=9.0 Test 07/29/16 01:11 07/29/16 05:22 07/29/16 05:25 07/29/16 08:24 Bedside Glucose 139 135 147 Anion Gap 15 Basophils # 0.0 Basophils % 0.2 Blood Morphology Comment Blood Urea Nitrogen 25 H Calcium Level 8.9 Carbon Dioxide Level 33 H Chloride Level 95 L Creatinine 3.44 H Eosinophils # 0.3 Eosinophils % 1.6 Glucose Level 131 Hematocrit 28.5 L Hemoglobin 9.7 L Lymphocytes # 1.9 Lymphocytes % 10.3 L Magnesium Level 2.1 Mean Corpuscular Hemoglobin 32.5 Mean Corpuscular Hemoglobin Concent 34.2 Mean Corpuscular Volume 95.3 Mean Platelet Volume 8.4 Monocytes # 1.7 H Monocytes % 9.1 Neutrophils # 14.5 H Neutrophils % 78.8 H Nucleated Red Blood Cells # 0.0 Nucleated Red Blood Cells % 0.0 Phosphorus Level 2.6 Platelet Count 336 Potassium Level 3.5 Red Blood Count 2.99 L Red Cell Distribution Width 15.9 H Sodium Level 139 White Blood Count 18.4 H Medications Current Medications Aspirin (Aspirin) 81 mg DAILY NGT Last administered on 07/29/16 08:28; Admin Dose 81 MG; Start 07/21/16 at 09:00 Atorvastatin Calcium (Lipitor) 40 mg QHS NGT Last administered on 07/28/16 21: 25; Admin Dose 40 MG; Start 07/20/16 at 21:00 Docusate Sodium (Colace Liquid Cup) 100 mg TID PRN NGT CONSTIPATION; Start 07/20 at 17:30 Folic Acid (Folic Acid) 1 mg DAILY NGT Last administered on 07/29/16 08:29; Admin Dose 1 MG; Start 07/21/16 at 09:00 Ticagrelor (Brilinta) 90 mg Q12 NGT Last administered on 07/29/16 08:34; Admin Dose 90 MG; Start 07/20/16 at 21:00 Acetaminophen (Tylenol Tab) 650 mg Q6H PRN NGT PAIN LEVEL 1-3 OR FEVER Last administered on 07/27/16 13:08; Admin Dose 650 MG; Start 07/20/16 at 17:30 Acetaminophen/ Hydrocodone Bitart ([place] (5/325)) 1 tab Q6H PRN NGT PAIN LEVEL 4-6; Start 07/20/16 at 17:30 Acetaminophen/ Hydrocodone Bitart ([place] (5/325)) 2 tab Q6H PRN NGT PAIN LEVEL 7-10; Start 07/20/16 at 17:30 Famotidine (Pepcid Iv) 20 mg Q24H IV Last administered on 07/28/16 22:47; Admin Dose 20 MG; Start 07/20/16 at 21:00 Heparin Sodium (Porcine) 5000 unit 5,000 unit Q8 SC Last administered on 21:23; Admin Dose 5,000 UNIT; Start 07/20/16 at 17:30 Cefepime HCl (Maxipime 1gm/50 ml (Pmx)) 50 ml @ 100 mls/hr Q24H IVPB Last administered on 07/28/16 17:33; Admin Dose 100 MLS/HR; Start 07/21/16 at 18:00 Insulin Aspart (Novolog Insulin Pen) NOVOLOG *MODERATE* ALGORI... Q4 SC Last administered on 07/29/16 08:35; Admin Dose 2 UNIT; Start 07/21/16 at 17:00 Miscellaneous Information 1 ea NOTE XX ; Start 07/21/16 at 16:30 Glucose (Glutose) 15 gm Q15M PRN PO DECREASED GLUCOSE; Start 07/21/16 at 16:30 Glucose (Glutose) 22.5 gm Q15M PRN PO DECREASED GLUCOSE; Start 07/21/16 at 16:30 Dextrose (D50w Syringe) 25 ml Q15M PRN IV DECREASED GLUCOSE Last administered on 07/21/16 21:13; Admin Dose 25 ML; Start 07/21/16 at 16:30 Dextrose (D50w Syringe) 50 ml Q15M PRN IV DECREASED GLUCOSE; Start 07/21/16 at 16:30 Glucagon (Glucagen) 1 mg Q15M PRN IM DECREASED GLUCOSE; Start 07/21/16 at 16:30 Glucose (Glutose) 15 gm Q15M PRN BUCCAL DECREASED GLUCOSE; Start 07/21/16 at 16: 30 Metoprolol Tartrate (Lopressor) 50 mg BID PO Last administered on 07/29/16 08: 28; Admin Dose 50 MG; Start 07/22/16 at 21:00 Amlodipine Besylate (Norvasc) 5 mg BID GTB Last administered on 07/29/16 08:28 ; Admin Dose 5 MG; Start 07/23/16 at 14:30 Benazepril HCl (Lotensin) 40 mg Q12 PO Last administered on 1/17/17at 08:29; Admin Dose 40 MG; Start 07/24/16 at 21:00 Isosorbide Mononitrate 60 mg 60 mg DAILY PO Last administered on 07/29/16 08: 28; Admin Dose 60 MG; Start 07/25/16 at 10:30 Vancomycin HCl (Vancocin) 250 ml @ 125 mls/hr Q72H IVPB Last administered on 12:36; Admin Dose 125 MLS/HR; Start 07/25/16 at 13:00 Hydralazine HCl 25 mg 25 mg Q4H PRN IV SBP >170 Last administered on 07/28/16 01:22; Admin Dose 25 MG; Start 07/25/16 at 20:30 Fentanyl 1000 mcg/ Dextrose 100 ml @ 2.5 mls/hr TITRATE IV Last administered on 07/27/16 12:16; Admin Dose 2.5 MLS/HR; Start 07/27/16 at 12:00 Propofol (Diprivan) 100 ml @ 2.25 mls/hr Q12H IV Last administered on 03:22; Admin Dose 15.75 MLS/HR; Start 07/27/16 at 12:00 Hydralazine HCl (Apresoline) 75 mg Q8 PO Last administered on 07/29/16 06:39; Admin Dose 75 MG; Start 07/28/16 at 14:00 Assessment/Plan Chief Complaint/Hosp Course IMPRESSION AND PLAN: 1. Hypoxemic respiratory failure. Improved radiographic pulmonary edema 2. Possible aspiration pneumonia, worsening leukocytosis 3. Probable underlying obstructive sleep apnea. 4. Encephalopathy, toxic metabolic. Questionable anoxic brain injury following collapse 5. End-stage renal failure on hemodialysis. 6. Significant anemia, questionable GI bleed 7. History of hypertension. THE PATIENT WILL NEED: 1. Continued mechanical ventilation. CPAP weaning trial this morning will add fentanyl for pain control 2. Neurology recommendations. MRI noted 3. Monitor H&H 4. Continue antibiotics for possible pneumonia. 5. Continue glycemic management. 6. DVT and GI prophylaxis. 7. Hemodialysis per nephrology 8. DC right femoral line placed internal jugular line Disposition Continue ICU care Discussed with staff and family at bedside Problems: SANDI BUSCH MD, [facility] Jul 29, 2016 11:38
[2016-07-29] MEDS: PROPOFOL 100 ML IV SCH ×3 (12:00→21:22)
[2016-07-29 14:13] LABS: AADO2 Arterial 81.6 mmHg (7.0-24.0); Arterial Base Excess 4.4 mmol/L (-3.0-3); Arterial COHb 0.6 % (0.0-3.0); Arterial Fraction of Oxyhgb 94.1 % (93.0-99.0); Arterial HCO3 29.7 mmol/L (22.0-26.0); Arterial MetHb 0.3 % (0.0-1.5); Blood Gas PS 10; MODE VENT - CPAP
[2016-07-29] MEDS: CEFEPIME 1GM/50 ML (PMX) 50 ML IVPB SCH (17:42)
[2016-07-29] MEDS: FAMOTIDINE 20 MG INJ IV SCH (21:15)
[2016-07-29] MEDS: ATORVASTATIN 40 MG TAB NGT SCH (21:15)
[2016-07-30] VITALS (51 sets, daily range): BP systolic 134–184; BP diastolic 52–113; PULSE 75–107; RESP 18–34
[2016-07-30] MEDS: INSULIN ASPART [NOVOLOG] 3 ML PEN SC SCH ×6 (01:00→21:00)
[2016-07-30] MEDS: HYDROCODONE/APAP (5/325) TAB NGT PRN ×2 (05:29→21:42)
[2016-07-30] MEDS: HEPARIN 5,000 UNIT/0.5 ML SYG SC SCH ×3 (05:31→21:51)
[2016-07-30 06:40] LABS: BASOPHIL # 0.1 10^3/ul (0.0-0.1); BASOPHILS % 0.4 % (0.0-2.0); EOSINOPHILS # 0.4 10^3/ul (0.0-0.5); EOSINOPHILS % 2.4 % (0.0-7.0); HEMATOCRIT 28.9 % (37.0-47.0); HEMOGLOBIN 9.9 g/dl (12.0-16.0); LYMPHOCYTES % 10.6 % (15.0-51.0); MEAN CORPUSCULAR HEMOGLOBIN 32.7 pg (29.0-33.0); MEAN CORPUSCULAR HGB CONC 34.2 g/dl (32.0-37.0); MEAN CORPUSCULAR VOLUME 95.7 fl (82.0-101.0); MONOCYTE # 1.8 10^3/ul (0.3-0.9); MONOCYTES % 9.5 % (0.0-11.0); NEUTROPHIL # 14.6 10^3/ul (1.6-7.5); NEUTROPHILS % 77.1 % (39.0-77.0); PLATELET COUNT 387 10^3/UL (140-440); RED BLOOD COUNT 3.02 10^6/ul (4.20-5.40); UNCORRECTED WBC 18.9 10^3/ul (4.8-10.8); WHITE BLOOD COUNT 18.9 10^3/ul (4.8-10.8)
[2016-07-30 06:50] LABS: CONDITION 1; LH ANALYZER COMMENTS 1
[2016-07-30 06:57] LABS: POTASSIUM 3.7 mmol/L (3.5-5.1)
[2016-07-30 07:00] LABS: CREATININE 4.87 mg/dl (0.44-1.00); PHOSPHORUS 4.2 mg/dl (2.5-4.9)
[2016-07-30 07:01] LABS: CALCIUM 9.1 mg/dl (8.4-10.2); MAGNESIUM 2.1 mg/dl (1.7-2.5)
[2016-07-30] MEDS: FOLIC ACID 1 MG TAB NGT SCH (08:28)
[2016-07-30] MEDS: ASPIRIN 81 MG TAB NGT SCH (08:28)
[2016-07-30] MEDS: TICAGRELOR 90 MG TABLET NGT SCH ×2 (08:36→21:51)
[2016-07-30] MEDS: AMLODIPINE 5 MG TAB GTB SCH ×3 (08:36→21:41)
[2016-07-30] MEDS: ISOSORBIDE MONONITRATE(SR)60 MG TAB PO SCH ×2 (08:37→12:15)
[2016-07-30] MEDS: BENAZEPRIL 20 MG TAB PO SCH ×3 (08:37→21:39)
[2016-07-30] MEDS: METOPROLOL 50 MG TAB PO SCH ×3 (08:37→21:41)
--- NOTE | 2016-07-30 09:12 | PN ---
DATE: SUBJECTIVE: The patient is stable, no acute events overnight. Patient yesterday was extubated with out any complications. The patient remains restless, but more responsive. No other noted. OBJECTIVE: VITAL SIGNS: Blood pressure is 170/65, respirations 28, pulse 87, temperature is 98.6. HEENT: Head is normocephalic. NECK: Supple. HEART: Regular rate. LUNGS: Show diminished breath sounds at the base. ABDOMEN: Soft, nontender to palpation. No rebound or guarding. EXTREMITIES: Negative for clubbing, cyanosis. No edema. DERMATOLOGIC: No rashes. MUSCULOSKELETAL: No joint effusions. NEUROLOGIC: No change in exam. MEDICATIONS: The patient's medications have been reviewed. LABORATORY DATA: Sodium 140, potassium 3.7, chloride 94, BUN 36, creatinine 4.87. White count is 1 8.9, hemoglobin 9.9, hematocrit 28.9, platelet count is 387,000. IMAGING: Chest x-rays reviewed. ASSESSMENT AND PLAN: 1. End-stage renal disease. The patient is scheduled for hemodialysis today for 3 hours 2.5. Will ultrafiltrate as tolerated. 2. Volume overload, improved. Continue ultrafiltration with dialysis. 3. Anemia. Hemoglobin level stable. Continue Epogen. 4. Mineral bone disorder. Continue to monitor calcium and phosphorus levels. 5. Sepsis, status post shock. Continue current antibiotic regimen. 6. Respiratory failure, status post extubation. The patient is currently stable. Continue to [facility]. 7. Encephalopathy, likely from anoxic injury. Patient is slowly improving. Continue to monitor. 8. Coronary artery disease. Continue current treatment plan. 9. Continue statin therapy. 10. Diabetes. Continue Accu-Cheks and sliding scale. 11. Hypertension. Continue current blood pressure regimen. Continue ultrafiltration dialysis. Dictated By: TALITA GARCIA/RANI Conf#: [id number] DID#: [id number]
--- NOTE | 2016-07-30 09:34 | RADRPT ---
PROCEDURE: XR Chest. CLINICAL INDICATION: Shortness of breath TECHNIQUE: An AP view of the chest was obtained. COMPARISON: Chest x-ray dated 07/29/2016 FINDINGS: The tip of the enteric tube extends below the left diaphragm. There is a left internal jugular cent ral venous catheter with tip near the junction of the left brachiocephalic vein and SVC. The endotra cheal tube has been removed. There is prominence of the interstitial markings. No pleural effusion or pneumothorax is seen. Th e cardiomediastinal silhouette is mildly enlarged . Calcifications are seen within the aortic arch. The osseous structures demonstrate senescent changes. IMPRESSION: 1. Mild prominence of the interstitial markings, may reflect mild underlying interstitial edema or chronic lung changes. Findings are very mildly increased when compared to the prior examination. 2. Mild cardiomegaly and aortic atherosclerosis. 3. Tubes and lines, as described above. RPTAT: HH .Juhi Ruano MD, MD Date Time Electronically viewed and signed by .Juhi Ruano MD, on 07/30/2016 09:34 .G/
--- NOTE | 2016-07-30 10:10 | CONS ---
Date/Time of Note Date/Time of Note DATE: 07/30/16 TIME: 10:07 Assessment/Plan Assessment/Plan Chief Complaint/Hosp Course IMPRESSION: 1. Positive troponin in the setting of respiratory failure and renal failure- now downtrended. 2. Abnormal electrocardiogram, assess for acute coronary syndrome. 3. History of a recent PTCA and stent placement to circumflex June 2016 with drug-eluting stents.- EF 55% by echo this admit 4. Altered mental state.-MRI negative 07/23 5. Respiratory failure, status post extubation 6. End-stage renal disease on hemodialysis. 7. Urinary tract infection. 8. Pneumonia. 9. Dyslipidemia. 10.HTN-elevated but has not yet received anti-hypertensives today Recc: -Tele -Continue BB -Continue norvasc/benazepril/hydralazine -Continue asa/brilinta -HD for volume removal aggresively -Continue abx's and f/u cx data Problems: Consultation Date/Type/Reason Admit Date/Time Jul 20, 2016 at 15:20 Initial Consult Date 07/21/16 Type of Consultation: Cardiology Reason for Consultation CHF/positive troponin Referring Provider: [email or web address] MAY M.D. Exam/Review of Systems Vital Signs Vitals Vital Signs Date Time Temp Pulse Resp B/P Pulse Ox O2 Delivery O2 Flow Rate FiO2 07/30/16 09:45 87 07/30/16 09:30 24 169/64 100 07/30/16 09:00 Nasal Cannula 3.0 07/30/16 08:00 98.7 07/29/16 14:50 30 Intake and Output 07/29/16 07/29/16 07/30/16 15:00 23:00 07:00 Intake Total 7.5 ml 150 ml 105 ml Output Total 10 ml 5 ml Balance 7.5 ml 140 ml 100 ml Exam Review of Systems: CONSTITUTIONAL: No fevers, chills. PULMONARY: s/p extubation CARDIOVASCULAR: No chest pain/palpitations GASTROINTESTINAL: No nausea/vomiting. GENITOURINARY: No hematuria/dysuria. MUSCULOSKELETAL: No myagias/arthalgias. PSYCHIATRIC: The patient denies depression. NEUROLOGIC: agitation/confusion Constitutional: alert Psych: confusion Head: normocephalic ENMT: mucosa pink and moist Neck: jvd (9 cm water), supple Respiratory: diminished breath sounds (at bases/B) Cardiovascular: regular rate and rhythm Gastrointestinal: non-tender, soft Musculoskeletal: muscle tone (normal) Extremities: edema (none) Neurological: confused Results Result Diagram: 07/30/16 0455 07/30/16 0455 Results 24 hrs Laboratory Tests Test 07/29/16 13:12 07/29/16 14:00 07/29/16 17:43 07/29/16 21:21 Bedside Glucose 120 130 107 Arterial Blood HCO3 29.7 H Arterial Blood Base Excess 4.4 H Arterial Blood Oxygen Saturation 95.0 Javi Test N/A Arterial Blood Gas Puncture Site Right Brachial Arterial Blood Carboxyhemoglobin 0.6 Arterial Blood Date Drawn 07/29/2016 1:55:32 PM Arterial Blood Methemoglobin 0.3 Arterial Blood pCO2 (Temp correct) 47.2 H Arterial Blood pH (Temp corrected) 7.417 Arterial Blood pO2 (Temp corrected) 76.8 L Blood Gas A-a O2 Differential 81.6 H Blood Gas Actual Respiration Rate 22 Blood Gas Low PEEP Setting 5.0 Blood Gas Modality VENT - CPAP Blood Gas Notified Time 07/29/2016 2:13:14 PM Blood Gas Notified Whom JLD Blood Gas Pressure Support 10 Blood Gas Specimen Source Blood arterial Blood Gas Temperature 37.0 FiO2 30.0 Oxyhemoglobin Percent 94.1 Total Hemoglobin 12.0 Test 07/30/16 01:09 07/30/16 04:55 07/30/16 04:56 07/30/16 08:26 Bedside Glucose 116 131 116 Anion Gap 19 H Basophils # 0.1 Basophils % 0.4 Blood Morphology Comment Blood Urea Nitrogen 36 #H Calcium Level 9.1 Carbon Dioxide Level 31 Chloride Level 94 L Creatinine 4.87 #H Eosinophils # 0.4 Eosinophils % 2.4 Glucose Level 120 Hematocrit 28.9 L Hemoglobin 9.9 L Lymphocytes # 2.0 Lymphocytes % 10.6 L Magnesium Level 2.1 Mean Corpuscular Hemoglobin 32.7 Mean Corpuscular Hemoglobin Concent 34.2 Mean Corpuscular Volume 95.7 Mean Platelet Volume 8.0 Monocytes # 1.8 H Monocytes % 9.5 Neutrophils # 14.6 H Neutrophils % 77.1 H Nucleated Red Blood Cells # 0.0 Nucleated Red Blood Cells % 0.0 Phosphorus Level 4.2 Platelet Count 387 Potassium Level 3.7 Red Blood Count 3.02 L Red Cell Distribution Width 16.0 H Sodium Level 140 White Blood Count 18.9 H Medications Medications Current Medications Aspirin (Aspirin) 81 mg DAILY NGT Last administered on 07/30/16 08:28; Admin Dose 81 MG; Start 07/21/16 at 09:00 Atorvastatin Calcium (Lipitor) 40 mg QHS NGT Last administered on 07/29/16 21: 15; Admin Dose 40 MG; Start 07/20/16 at 21:00 Docusate Sodium (Colace Liquid Cup) 100 mg TID PRN NGT CONSTIPATION; Start 07/20 at 17:30 Folic Acid (Folic Acid) 1 mg DAILY NGT Last administered on 07/30/16 08:28; Admin Dose 1 MG; Start 07/21/16 at 09:00 Ticagrelor (Brilinta) 90 mg Q12 NGT Last administered on 07/30/16 08:36; Admin Dose 90 MG; Start 07/20/16 at 21:00 Acetaminophen (Tylenol Tab) 650 mg Q6H PRN NGT PAIN LEVEL 1-3 OR FEVER Last administered on 07/27/16 13:08; Admin Dose 650 MG; Start 07/20/16 at 17:30 Acetaminophen/ Hydrocodone Bitart ([place] (5/325)) 1 tab Q6H PRN NGT PAIN LEVEL 4-6 Last administered on 07/30/16 05:29; Admin Dose 1 TAB; Start 07/20/16 at 17: 30 Acetaminophen/ Hydrocodone Bitart ([place] (5/325)) 2 tab Q6H PRN NGT PAIN LEVEL 7-10; Start 07/20/16 at 17:30 Famotidine (Pepcid Iv) 20 mg Q24H IV Last administered on 07/29/16 21:15; Admin Dose 20 MG; Start 07/20/16 at 21:00 Heparin Sodium (Porcine) 5000 unit 5,000 unit Q8 SC Last administered on 05:31; Admin Dose 5,000 UNIT; Start 07/20/16 at 17:30 Cefepime HCl (Maxipime 1gm/50 ml (Pmx)) 50 ml @ 100 mls/hr Q24H IVPB Last administered on 07/29/16 17:42; Admin Dose 100 MLS/HR; Start 07/21/16 at 18:00 Insulin Aspart (Novolog Insulin Pen) NOVOLOG *MODERATE* ALGORI... Q4 SC Last administered on 07/29/16 08:35; Admin Dose 2 UNIT; Start 07/21/16 at 17:00 Miscellaneous Information 1 ea NOTE XX ; Start 07/21/16 at 16:30 Glucose (Glutose) 15 gm Q15M PRN PO DECREASED GLUCOSE; Start 07/21/16 at 16:30 Glucose (Glutose) 22.5 gm Q15M PRN PO DECREASED GLUCOSE; Start 07/21/16 at 16:30 Dextrose (D50w Syringe) 25 ml Q15M PRN IV DECREASED GLUCOSE Last administered on 07/21/16 21:13; Admin Dose 25 ML; Start 07/21/16 at 16:30 Dextrose (D50w Syringe) 50 ml Q15M PRN IV DECREASED GLUCOSE; Start 07/21/16 at 16:30 Glucagon (Glucagen) 1 mg Q15M PRN IM DECREASED GLUCOSE; Start 07/21/16 at 16:30 Glucose (Glutose) 15 gm Q15M PRN BUCCAL DECREASED GLUCOSE; Start 07/21/16 at 16: 30 Metoprolol Tartrate (Lopressor) 50 mg BID PO Last administered on 07/29/16 21: 16; Admin Dose 50 MG; Start 07/22/16 at 21:00 Amlodipine Besylate (Norvasc) 5 mg BID GTB Last administered on 07/29/16 21:17 ; Admin Dose 5 MG; Start 07/23/16 at 14:30 Benazepril HCl (Lotensin) 40 mg Q12 PO Last administered on 07/29/16 21:16; Admin Dose 40 MG; Start 07/24/16 at 21:00 Isosorbide Mononitrate 60 mg 60 mg DAILY PO Last administered on 07/29/16 08: 28; Admin Dose 60 MG; Start 07/25/16 at 10:30 Vancomycin HCl (Vancocin) 250 ml @ 125 mls/hr Q72H IVPB Last administered on 12:36; Admin Dose 125 MLS/HR; Start 07/25/16 at 13:00 Hydralazine HCl 25 mg 25 mg Q4H PRN IV SBP >170 Last administered on 07/28/16 01:22; Admin Dose 25 MG; Start 07/25/16 at 20:30 Fentanyl 1000 mcg/ Dextrose 100 ml @ 2.5 mls/hr TITRATE IV Last administered on 07/27/16 12:16; Admin Dose 2.5 MLS/HR; Start 07/27/16 at 12:00 Propofol (Diprivan) 100 ml @ 2.25 mls/hr Q12H IV Last administered on 03:22; Admin Dose 15.75 MLS/HR; Start 07/27/16 at 12:00 Hydralazine HCl (Apresoline) 75 mg Q8 PO Last administered on 07/30/16 05:29; Admin Dose 75 MG; Start 07/28/16 at 14:00 MATT PEARCE Jul 30, 2016 10:10
--- NOTE | 2016-07-30 10:38 | CONS ---
Date/Time of Note Date/Time of Note DATE: 07/30/16 TIME: 10:37 Consult Date/Type/Reason Admit Date/Time Jul 20, 2016 at 15:20 Initial Consult Date 07/21/16 Type of Consultation: pulmonary Ordering Provider: KRZYSZTOF MAY M.D. Subjective Extubated yesterday Remains confused and agitated Continues nasal cannula oxygen Having hemodialysis morning Currently hemodynamically stable Objective Vital Signs Date Time Temp Pulse Resp B/P Pulse Ox O2 Delivery O2 Flow Rate FiO2 07/30/16 10:36 92 07/30/16 09:30 24 169/64 100 07/30/16 09:00 Nasal Cannula 3.0 07/30/16 08:00 98.7 07/29/16 14:50 30 Intake and Output 07/29/16 07/29/16 07/30/16 15:00 23:00 07:00 Intake Total 7.5 ml 150 ml 105 ml Output Total 10 ml 5 ml Balance 7.5 ml 140 ml 100 ml PHYSICAL EXAMINATION: GENERAL: Chronically ill appearing lady, on nasal cannula oxygen VITAL SIGNS: As above NECK: Supple, no JVD or lymphadenopathy. CARDIAC EXAMINATION: S1, S2, no added sounds or murmurs. CHEST: Diminished air entry bilaterally. ABDOMEN: Soft, nontender. No guarding or rebound. EXTREMITIES: No cyanosis, clubbing. !+ edema. NEUROLOGIC: Generalized weakness. Results/Medications Result Diagram: 07/30/16 0455 07/30/16 0455 Results 24 hrs Laboratory Tests Test 07/29/16 13:12 07/29/16 14:00 07/29/16 17:43 07/29/16 21:21 Bedside Glucose 120 130 107 Arterial Blood HCO3 29.7 H Arterial Blood Base Excess 4.4 H Arterial Blood Oxygen Saturation 95.0 Javi Test N/A Arterial Blood Gas Puncture Site Right Brachial Arterial Blood Carboxyhemoglobin 0.6 Arterial Blood Date Drawn 07/29/2016 1:55:32 PM Arterial Blood Methemoglobin 0.3 Arterial Blood pCO2 (Temp correct) 47.2 H Arterial Blood pH (Temp corrected) 7.417 Arterial Blood pO2 (Temp corrected) 76.8 L Blood Gas A-a O2 Differential 81.6 H Blood Gas Actual Respiration Rate 22 Blood Gas Low PEEP Setting 5.0 Blood Gas Modality VENT - CPAP Blood Gas Notified Time 07/29/2016 2:13:14 PM Blood Gas Notified Whom JLD Blood Gas Pressure Support 10 Blood Gas Specimen Source Blood arterial Blood Gas Temperature 37.0 FiO2 30.0 Oxyhemoglobin Percent 94.1 Total Hemoglobin 12.0 Test 07/30/16 01:09 07/30/16 04:55 07/30/16 04:56 07/30/16 08:26 Bedside Glucose 116 131 116 Anion Gap 19 H Basophils # 0.1 Basophils % 0.4 Blood Morphology Comment Blood Urea Nitrogen 36 #H Calcium Level 9.1 Carbon Dioxide Level 31 Chloride Level 94 L Creatinine 4.87 #H Eosinophils # 0.4 Eosinophils % 2.4 Glucose Level 120 Hematocrit 28.9 L Hemoglobin 9.9 L Lymphocytes # 2.0 Lymphocytes % 10.6 L Magnesium Level 2.1 Mean Corpuscular Hemoglobin 32.7 Mean Corpuscular Hemoglobin Concent 34.2 Mean Corpuscular Volume 95.7 Mean Platelet Volume 8.0 Monocytes # 1.8 H Monocytes % 9.5 Neutrophils # 14.6 H Neutrophils % 77.1 H Nucleated Red Blood Cells # 0.0 Nucleated Red Blood Cells % 0.0 Phosphorus Level 4.2 Platelet Count 387 Potassium Level 3.7 Red Blood Count 3.02 L Red Cell Distribution Width 16.0 H Sodium Level 140 White Blood Count 18.9 H Medications Current Medications Aspirin (Aspirin) 81 mg DAILY NGT Last administered on 07/30/16 08:28; Admin Dose 81 MG; Start 07/21/16 at 09:00 Atorvastatin Calcium (Lipitor) 40 mg QHS NGT Last administered on 07/29/16 21: 15; Admin Dose 40 MG; Start 07/20/16 at 21:00 Docusate Sodium (Colace Liquid Cup) 100 mg TID PRN NGT CONSTIPATION; Start 07/20 at 17:30 Folic Acid (Folic Acid) 1 mg DAILY NGT Last administered on 07/30/16 08:28; Admin Dose 1 MG; Start 07/21/16 at 09:00 Ticagrelor (Brilinta) 90 mg Q12 NGT Last administered on 07/30/16 08:36; Admin Dose 90 MG; Start 07/20/16 at 21:00 Acetaminophen (Tylenol Tab) 650 mg Q6H PRN NGT PAIN LEVEL 1-3 OR FEVER Last administered on 07/27/16 13:08; Admin Dose 650 MG; Start 07/20/16 at 17:30 Acetaminophen/ Hydrocodone Bitart ([place] (5/325)) 1 tab Q6H PRN NGT PAIN LEVEL 4-6 Last administered on 07/30/16 05:29; Admin Dose 1 TAB; Start 07/20/16 at 17: 30 Acetaminophen/ Hydrocodone Bitart ([place] (5/325)) 2 tab Q6H PRN NGT PAIN LEVEL 7-10; Start 07/20/16 at 17:30 Famotidine (Pepcid Iv) 20 mg Q24H IV Last administered on 07/29/16 21:15; Admin Dose 20 MG; Start 07/20/16 at 21:00 Heparin Sodium (Porcine) 5000 unit 5,000 unit Q8 SC Last administered on 05:31; Admin Dose 5,000 UNIT; Start 07/20/16 at 17:30 Cefepime HCl (Maxipime 1gm/50 ml (Pmx)) 50 ml @ 100 mls/hr Q24H IVPB Last administered on 07/29/16 17:42; Admin Dose 100 MLS/HR; Start 07/21/16 at 18:00 Insulin Aspart (Novolog Insulin Pen) NOVOLOG *MODERATE* ALGORI... Q4 SC Last administered on 07/29/16 08:35; Admin Dose 2 UNIT; Start 07/21/16 at 17:00 Miscellaneous Information 1 ea NOTE XX ; Start 07/21/16 at 16:30 Glucose (Glutose) 15 gm Q15M PRN PO DECREASED GLUCOSE; Start 07/21/16 at 16:30 Glucose (Glutose) 22.5 gm Q15M PRN PO DECREASED GLUCOSE; Start 07/21/16 at 16:30 Dextrose (D50w Syringe) 25 ml Q15M PRN IV DECREASED GLUCOSE Last administered on 07/21/16 21:13; Admin Dose 25 ML; Start 07/21/16 at 16:30 Dextrose (D50w Syringe) 50 ml Q15M PRN IV DECREASED GLUCOSE; Start 07/21/16 at 16:30 Glucagon (Glucagen) 1 mg Q15M PRN IM DECREASED GLUCOSE; Start 07/21/16 at 16:30 Glucose (Glutose) 15 gm Q15M PRN BUCCAL DECREASED GLUCOSE; Start 07/21/16 at 16: 30 Metoprolol Tartrate (Lopressor) 50 mg BID PO Last administered on 07/29/16 21: 16; Admin Dose 50 MG; Start 07/22/16 at 21:00 Amlodipine Besylate (Norvasc) 5 mg BID GTB Last administered on 07/29/16 21:17 ; Admin Dose 5 MG; Start 07/23/16 at 14:30 Benazepril HCl (Lotensin) 40 mg Q12 PO Last administered on 07/29/16 21:16; Admin Dose 40 MG; Start 07/24/16 at 21:00 Isosorbide Mononitrate 60 mg 60 mg DAILY PO Last administered on 07/29/16 08: 28; Admin Dose 60 MG; Start 07/25/16 at 10:30 Vancomycin HCl (Vancocin) 250 ml @ 125 mls/hr Q72H IVPB Last administered on 12:36; Admin Dose 125 MLS/HR; Start 07/25/16 at 13:00 Hydralazine HCl 25 mg 25 mg Q4H PRN IV SBP >170 Last administered on 07/28/16 01:22; Admin Dose 25 MG; Start 07/25/16 at 20:30 Fentanyl 1000 mcg/ Dextrose 100 ml @ 2.5 mls/hr TITRATE IV Last administered on 07/27/16 12:16; Admin Dose 2.5 MLS/HR; Start 07/27/16 at 12:00 Propofol (Diprivan) 100 ml @ 2.25 mls/hr Q12H IV Last administered on 03:22; Admin Dose 15.75 MLS/HR; Start 07/27/16 at 12:00 Hydralazine HCl (Apresoline) 75 mg Q8 PO Last administered on 07/30/16 05:29; Admin Dose 75 MG; Start 07/28/16 at 14:00 Assessment/Plan Chief Complaint/Hosp Course IMPRESSION AND PLAN: 1. Hypoxemic respiratory failure. Ongoing pulmonary edema 2. Possible aspiration pneumonia, worsening leukocytosis 3. Probable underlying obstructive sleep apnea. 4. Encephalopathy, toxic metabolic. Questionable anoxic brain injury following collapse 5. End-stage renal failure on hemodialysis. 6. Significant anemia, questionable GI bleed 7. History of hypertension. THE PATIENT WILL NEED: 1. Continued nasal cannula oxygen and pulmonary toilet 2. Neurology recommendations. MRI noted 3. Monitor H&H 4. Continue antibiotics for possible pneumonia. 5. Continue glycemic management. 6. DVT and GI prophylaxis. 7. Hemodialysis per nephrology Disposition Continue ICU care Discussed with staff and family at bedside Problems: SANDI BUSCH MD, [facility] Jul 30, 2016 10:38
--- NOTE | 2016-07-30 10:43 | PN ---
Date/Time of Note Date/Time of Note DATE: 07/30/16 TIME: 10:28 Assessment/Plan VTE Prophylaxis VTE Prophylaxis Intervention: heparin Lines/Catheters IV Catheter Type (from Nrsg): Central Line Central line still needed: Yes (IV access ) Urinary Cath still in place: Yes Reason Cath still needed: other (indicate) (discontinue ) Assessment/Plan Assessment/Plan 65-year-old woman: 1. Acute respiratory failure and unresponsiveness, s/p intubation on arrival in the ER. Etiology unclear She was hospitalized two weeks prior to this admission after she suffered a cardiac arrest with asystole in the ER. S/p Angio x 2 with stenting Repeat echo with EF 55% Mildly elevated troponin on this admission, appreciate cardiology recommendations Cardiology, Pulmonary, Nephrology and Neurology following. Extubated and on 3L NC Volume status better, management with HD 2. Endstage renal disease on hemodialysis: on HD M/W/F Hemodialysis today Appreciate assistance from Dr. Gomez. 3. Acute on chronic anemia with hb stable @ 9.5 stable. 4. Diabetes mellitus: OFF Lantus with episode of hypoglycemia noted SSI On TF and free H20 now 5. 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 There was a two-hour window during which she was "asleep" prior to being found unresponsive on admission EEG showing encephalopathy, MRI with no acute findings Appreciate Neurology consult with Dr. Arshad. Patient extubated and agitated. Follow up reevaluation by Neurology Minimizing sedative agents. 6. CAD s/p angio and stenting x 2 approx 2 weeks ago, echo more consistent with diastolic dysfunction EKG similar to previous ekg two weeks ago. Serial troponins trended down to normal Continue ASA and Brilinta, Dr Castelan following and on BBlock. 7. Hypertension, better controlled BP with current regimen Metoprolol, Benazepril, Norvasc Imdur and now Hydralazine also added yesterday. 8. Leukocytosis recurrent, on abx for aspiration pneumonitis/pneumonia vs HCAP, Ua/Ucx NGTD, Continue Vancomycin and Cefepime. Blood cx, fem line tip cx and sputum cx pending. 9. Right lower extremity pain with questionable history of sciatica. Doppler study negative ten days ago for DVT on the right. 10. ? Enterococcal UTI: on Vancomycin already, Repeat UA and Urine cx NGTD Prophylaxis: Pepcid for gastrointestinal prophylaxis. SCDs for DVT prevention Disposition: ICU level of care with close monitoring per Dr Mayen for today. Dr Castelan, Dr Barraza and Dr Arshad following. Full-Code. Subjective 24 Hr Interval Summary Free Text/Dictation Patient extubated yesterday and respiratory status stable on 3L NC so far Exam/Review of Systems Vital Signs Vitals Vital Signs Date Time Temp Pulse Resp B/P Pulse Ox O2 Delivery O2 Flow Rate FiO2 07/30/16 10:10 106 07/30/16 09:30 24 169/64 100 07/30/16 09:00 Nasal Cannula 3.0 07/30/16 08:00 98.7 07/29/16 14:50 30 Intake and Output 07/29/16 07/29/16 07/30/16 15:00 23:00 07:00 Intake Total 7.5 ml 150 ml 105 ml Output Total 10 ml 5 ml Balance 7.5 ml 140 ml 100 ml Exam Constitutional: other (Agitated when awake ) Respiratory: clear to auscultation, normal air movement Cardiovascular: nl pulses, regular rate and rhythm Gastrointestinal: non-tender, soft Musculoskeletal: nl extremities to inspection Extremities: normal pulses, other (no edema, clubbing or cyanosis ) Neurological: [employer] II-XII intact, lethargic (but agitated when awake ) Results Result Diagram: 07/30/16 0455 07/30/16 0455 Results 24 hrs Laboratory Tests Test 07/29/16 13:12 07/29/16 14:00 07/29/16 17:43 07/29/16 21:21 Bedside Glucose 120 130 107 Arterial Blood HCO3 29.7 H Arterial Blood Base Excess 4.4 H Arterial Blood Oxygen Saturation 95.0 Javi Test N/A Arterial Blood Gas Puncture Site Right Brachial Arterial Blood Carboxyhemoglobin 0.6 Arterial Blood Date Drawn 07/29/2016 1:55:32 PM Arterial Blood Methemoglobin 0.3 Arterial Blood pCO2 (Temp correct) 47.2 H Arterial Blood pH (Temp corrected) 7.417 Arterial Blood pO2 (Temp corrected) 76.8 L Blood Gas A-a O2 Differential 81.6 H Blood Gas Actual Respiration Rate 22 Blood Gas Low PEEP Setting 5.0 Blood Gas Modality VENT - CPAP Blood Gas Notified Time 07/29/2016 2:13:14 PM Blood Gas Notified Whom JLD Blood Gas Pressure Support 10 Blood Gas Specimen Source Blood arterial Blood Gas Temperature 37.0 FiO2 30.0 Oxyhemoglobin Percent 94.1 Total Hemoglobin 12.0 Test 07/30/16 01:09 07/30/16 04:55 07/30/16 04:56 07/30/16 08:26 Bedside Glucose 116 131 116 Anion Gap 19 H Basophils # 0.1 Basophils % 0.4 Blood Morphology Comment Blood Urea Nitrogen 36 #H Calcium Level 9.1 Carbon Dioxide Level 31 Chloride Level 94 L Creatinine 4.87 #H Eosinophils # 0.4 Eosinophils % 2.4 Glucose Level 120 Hematocrit 28.9 L Hemoglobin 9.9 L Lymphocytes # 2.0 Lymphocytes % 10.6 L Magnesium Level 2.1 Mean Corpuscular Hemoglobin 32.7 Mean Corpuscular Hemoglobin Concent 34.2 Mean Corpuscular Volume 95.7 Mean Platelet Volume 8.0 Monocytes # 1.8 H Monocytes % 9.5 Neutrophils # 14.6 H Neutrophils % 77.1 H Nucleated Red Blood Cells # 0.0 Nucleated Red Blood Cells % 0.0 Phosphorus Level 4.2 Platelet Count 387 Potassium Level 3.7 Red Blood Count 3.02 L Red Cell Distribution Width 16.0 H Sodium Level 140 White Blood Count 18.9 H Medications Medications Current Medications Aspirin (Aspirin) 81 mg DAILY NGT Last administered on 07/30/16 08:28; Admin Dose 81 MG; Start 07/21/16 at 09:00 Atorvastatin Calcium (Lipitor) 40 mg QHS NGT Last administered on 07/29/16 21: 15; Admin Dose 40 MG; Start 07/20/16 at 21:00 Docusate Sodium (Colace Liquid Cup) 100 mg TID PRN NGT CONSTIPATION; Start 07/20 at 17:30 Folic Acid (Folic Acid) 1 mg DAILY NGT Last administered on 07/30/16 08:28; Admin Dose 1 MG; Start 07/21/16 at 09:00 Ticagrelor (Brilinta) 90 mg Q12 NGT Last administered on 07/30/16 08:36; Admin Dose 90 MG; Start 07/20/16 at 21:00 Acetaminophen (Tylenol Tab) 650 mg Q6H PRN NGT PAIN LEVEL 1-3 OR FEVER Last administered on 07/27/16 13:08; Admin Dose 650 MG; Start 07/20/16 at 17:30 Acetaminophen/ Hydrocodone Bitart ([place] (5/325)) 1 tab Q6H PRN NGT PAIN LEVEL 4-6 Last administered on 07/30/16 05:29; Admin Dose 1 TAB; Start 07/20/16 at 17: 30 Acetaminophen/ Hydrocodone Bitart ([place] (5/325)) 2 tab Q6H PRN NGT PAIN LEVEL 7-10; Start 07/20/16 at 17:30 Famotidine (Pepcid Iv) 20 mg Q24H IV Last administered on 07/29/16 21:15; Admin Dose 20 MG; Start 07/20/16 at 21:00 Heparin Sodium (Porcine) 5000 unit 5,000 unit Q8 SC Last administered on 05:31; Admin Dose 5,000 UNIT; Start 07/20/16 at 17:30 Cefepime HCl (Maxipime 1gm/50 ml (Pmx)) 50 ml @ 100 mls/hr Q24H IVPB Last administered on 07/29/16 17:42; Admin Dose 100 MLS/HR; Start 07/21/16 at 18:00 Insulin Aspart (Novolog Insulin Pen) NOVOLOG *MODERATE* ALGORI... Q4 SC Last administered on 07/29/16 08:35; Admin Dose 2 UNIT; Start 07/21/16 at 17:00 Miscellaneous Information 1 ea NOTE XX ; Start 07/21/16 at 16:30 Glucose (Glutose) 15 gm Q15M PRN PO DECREASED GLUCOSE; Start 07/21/16 at 16:30 Glucose (Glutose) 22.5 gm Q15M PRN PO DECREASED GLUCOSE; Start 07/21/16 at 16:30 Dextrose (D50w Syringe) 25 ml Q15M PRN IV DECREASED GLUCOSE Last administered on 07/21/16 21:13; Admin Dose 25 ML; Start 07/21/16 at 16:30 Dextrose (D50w Syringe) 50 ml Q15M PRN IV DECREASED GLUCOSE; Start 07/21/16 at 16:30 Glucagon (Glucagen) 1 mg Q15M PRN IM DECREASED GLUCOSE; Start 07/21/16 at 16:30 Glucose (Glutose) 15 gm Q15M PRN BUCCAL DECREASED GLUCOSE; Start 07/21/16 at 16: 30 Metoprolol Tartrate (Lopressor) 50 mg BID PO Last administered on 07/29/16 21: 16; Admin Dose 50 MG; Start 07/22/16 at 21:00 Amlodipine Besylate (Norvasc) 5 mg BID GTB Last administered on 07/29/16 21:17 ; Admin Dose 5 MG; Start 07/23/16 at 14:30 Benazepril HCl (Lotensin) 40 mg Q12 PO Last administered on 07/29/16 21:16; Admin Dose 40 MG; Start 07/24/16 at 21:00 Isosorbide Mononitrate 60 mg 60 mg DAILY PO Last administered on 07/29/16 08: 28; Admin Dose 60 MG; Start 07/25/16 at 10:30 Vancomycin HCl (Vancocin) 250 ml @ 125 mls/hr Q72H IVPB Last administered on 12:36; Admin Dose 125 MLS/HR; Start 07/25/16 at 13:00 Hydralazine HCl 25 mg 25 mg Q4H PRN IV SBP >170 Last administered on 07/28/16 01:22; Admin Dose 25 MG; Start 07/25/16 at 20:30 Fentanyl 1000 mcg/ Dextrose 100 ml @ 2.5 mls/hr TITRATE IV Last administered on 07/27/16 12:16; Admin Dose 2.5 MLS/HR; Start 07/27/16 at 12:00 Propofol (Diprivan) 100 ml @ 2.25 mls/hr Q12H IV Last administered on 03:22; Admin Dose 15.75 MLS/HR; Start 07/27/16 at 12:00 Hydralazine HCl (Apresoline) 75 mg Q8 PO Last administered on 07/30/16 05:29; Admin Dose 75 MG; Start 07/28/16 at 14:00 NADIA SARGENT Jul 30, 2016 10:39
[2016-07-30] MEDS: PROPOFOL 100 ML IV SCH (11:06)
[2016-07-30] MEDS: CEFEPIME 1GM/50 ML (PMX) 50 ML IVPB SCH (17:34)
[2016-07-30] MEDS: ATORVASTATIN 40 MG TAB NGT SCH (21:39)
[2016-07-30] MEDS: FAMOTIDINE 20 MG INJ IV SCH (21:42)
[2016-07-31] VITALS (37 sets, daily range): BP systolic 119–175; BP diastolic 51–75; PULSE 74–102; RESP 18–40
[2016-07-31] MEDS: INSULIN ASPART [NOVOLOG] 3 ML PEN SC SCH ×6 (00:55→20:45)
[2016-07-31 05:50] LABS: BASOPHIL # 0.1 10^3/ul (0.0-0.1); BASOPHILS % 0.5 % (0.0-2.0); EOSINOPHILS # 0.4 10^3/ul (0.0-0.5); EOSINOPHILS % 2.3 % (0.0-7.0); HEMATOCRIT 29.7 % (37.0-47.0); HEMOGLOBIN 10.2 g/dl (12.0-16.0); LYMPHOCYTES # 1.7 10^3/ul (0.8-2.9); LYMPHOCYTES % 9.3 % (15.0-51.0); MEAN CORPUSCULAR HEMOGLOBIN 32.6 pg (29.0-33.0); MEAN CORPUSCULAR HGB CONC 34.3 g/dl (32.0-37.0); MEAN CORPUSCULAR VOLUME 94.9 fl (82.0-101.0); MONOCYTE # 1.7 10^3/ul (0.3-0.9); NEUTROPHIL # 14.6 10^3/ul (1.6-7.5); NEUTROPHILS % 78.9 % (39.0-77.0); PLATELET COUNT 425 10^3/UL (140-440); RED BLOOD COUNT 3.13 10^6/ul (4.20-5.40); UNCORRECTED WBC 18.6 10^3/ul (4.8-10.8); WHITE BLOOD COUNT 18.6 10^3/ul (4.8-10.8)
[2016-07-31] MEDS: HEPARIN 5,000 UNIT/0.5 ML SYG SC SCH ×3 (05:54→22:54)
[2016-07-31 06:00] LABS: POTASSIUM 3.3 mmol/L (3.5-5.1)
[2016-07-31 06:03] LABS: CREATININE 3.81 mg/dl (0.44-1.00)
[2016-07-31 06:06] LABS: CONDITION 1; LH ANALYZER COMMENTS 1
[2016-07-31 06:08] LABS: MAGNESIUM 2.2 mg/dl (1.7-2.5); PHOSPHORUS 2.6 mg/dl (2.5-4.9)
[2016-07-31] MEDS ORDERED: POTASSIUM CHLORIDE 20 MEQ POWDER FOR ORAL SOLN NGT ONE (08:30)
--- NOTE | 2016-07-31 09:43 | PN ---
DATE: 07/31/2016 SUBJECTIVE: The patient had hemodialysis yesterday, 2.5 L removed, tolerated it well. The patient remains lethargic, not able to follow commands. OBJECTIVE: VITAL SIGNS: Blood pressure 163/68, respirations 26, pulse 95, temperature 98.4. HEENT: Head is normocephalic. NECK: Supple. HEART: Regular rate. LUNGS: Show diminished breath sounds at the base. ABDOMEN: Soft, nontender to palpation. No rebound or guarding. EXTREMITIES: Negative for clubbing, cyanosis, no edema. DERMATOLOGIC: No rashes. MUSCULOSKELETAL: No joint effusions. NEUROLOGIC: No change in exam. LABORATORY DATA: Shows sodium 143, potassium , chloride 96, BUN 25, creatinine 2.81. White co unt 82.6, hemoglobin 10.2, hematocrit 29.7, platelet count 424. Chest x-ray is reviewed. MEDICATIONS: Have been reviewed. ASSESSMENT AND PLAN: 1. End-stage renal disease. The patient had hemodialysis yesterday, tolerated it well. Plan for d ialysis tomorrow. 2. Volume overload, improving. Continue ultrafiltration with dialysis. 3. Anemia. Hemoglobin level stable. Continue Epogen. 4. Hyperkalemia, replete with potassium chloride. 5. Mineral bone disorder. Continue to monitor calcium and phosphorus levels. 6. Sepsis, status post shock. The patient is completing antibiotic course. 7. Respiratory failure, status post extubation, currently stable. Continue to monitor. 8. Dysphagia status post nasogastric tube. Continue tube feeding. 9. Encephalopathy, likely from anoxic injury, possibly toxic metabolic. Continue to monitor. 10. History of coronary artery disease. Continue current treatment plan. 11. Diabetes, continue Accu-Cheks and insulin sliding scale. 12. Hypertension. Continue current blood pressure regimen. Continue ultrafiltration with dialysis . Dictated By: TALITA GARCIA/RANI Conf#: [id number] DID#: [id number]
[2016-07-31] MEDS: ASPIRIN 81 MG TAB NGT SCH (09:49)
[2016-07-31] MEDS: ISOSORBIDE MONONITRATE(SR)60 MG TAB PO SCH (09:49)
[2016-07-31] MEDS: AMLODIPINE 5 MG TAB GTB SCH ×2 (09:49→20:36)
[2016-07-31] MEDS: METOPROLOL 50 MG TAB PO SCH ×2 (09:50→20:36)
[2016-07-31] MEDS: BENAZEPRIL 20 MG TAB PO SCH ×2 (09:50→20:35)
[2016-07-31] MEDS: TICAGRELOR 90 MG TABLET NGT SCH ×2 (09:54→20:42)
[2016-07-31] MEDS: FOLIC ACID 1 MG TAB NGT SCH (09:54)
[2016-07-31] MEDS: hydrALAzine 20 MG INJ IV PRN (09:54)
--- NOTE | 2016-07-31 10:13 | CONS ---
Date/Time of Note Date/Time of Note DATE: 07/31/16 TIME: 10:11 Assessment/Plan Assessment/Plan Chief Complaint/Hosp Course IMPRESSION: 1. Positive troponin in the setting of respiratory failure and renal failure- now downtrended./No obvious CP 2. Abnormal electrocardiogram, assess for acute coronary syndrome. 3. History of a recent PTCA and stent placement to circumflex June 2016 with drug-eluting stents.- EF 55% by echo this admit 4. Altered mental state.-MRI negative 07/23 5. Respiratory failure, status post extubation 6. End-stage renal disease on hemodialysis. 7. Urinary tract infection. 8. Pneumonia. 9. Dyslipidemia. 10.HTN-Remains elevated Recc: -Tele -Continue BB/norvasc/benazepril -Increase hydralazine and f/u BP closely -Continue asa/brilinta -Continue HD for volume removal aggresively -Continue abx's and f/u cx data -Follow MS closely Problems: Consultation Date/Type/Reason Admit Date/Time Jul 20, 2016 at 15:20 Initial Consult Date 07/21/16 Type of Consultation: Cardiology Reason for Consultation CHF Referring Provider: KRZYSZTOF MAY M.D. Exam/Review of Systems Vital Signs Vitals Vital Signs Date Time Temp Pulse Resp B/P Pulse Ox O2 Delivery O2 Flow Rate FiO2 07/31/16 08:00 89 07/31/16 06:00 26 163/68 98 Room Air 07/31/16 04:00 98.4 07/31/16 02:58 21 07/30/16 10:00 3.0 Intake and Output 07/30/16 07/30/16 07/31/16 15:00 23:00 07:00 Intake Total 500 ml 400 ml 350 ml Output Total 2950 ml 0 ml 0 ml Balance -2450 ml 400 ml 350 ml Exam Review of Systems: CONSTITUTIONAL: No fevers, chills. PULMONARY: mild sob CARDIOVASCULAR: No chest pain/palpitations GASTROINTESTINAL: No nausea/vomiting. GENITOURINARY: No hematuria/dysuria. MUSCULOSKELETAL: No myagias/arthalgias. PSYCHIATRIC: The patient denies depression. NEUROLOGIC: lethargic Constitutional: alert Psych: no complaints Head: normocephalic ENMT: mucosa pink and moist Neck: jvd (9 cm water), supple Respiratory: diminished breath sounds (at bases/B) Cardiovascular: regular rate and rhythm Gastrointestinal: non-tender, soft Musculoskeletal: muscle tone (normal) Extremities: edema (none) Neurological: other (No focal deficits) Results Result Diagram: 07/31/16 0453 07/31/16 0453 Results 24 hrs Laboratory Tests Test 07/30/16 13:28 07/30/16 17:33 07/30/16 21:49 07/31/16 00:52 Bedside Glucose 116 115 129 159 Test 07/31/16 04:49 07/31/16 04:53 07/31/16 09:52 Bedside Glucose 190 165 Anion Gap 19 H Basophils # 0.1 Basophils % 0.5 Blood Morphology Comment Blood Urea Nitrogen 25 #H Calcium Level 9.0 Carbon Dioxide Level 31 Chloride Level 96 L Creatinine 3.81 #H Eosinophils # 0.4 Eosinophils % 2.3 Glucose Level 175 Hematocrit 29.7 L Hemoglobin 10.2 L Lymphocytes # 1.7 Lymphocytes % 9.3 L Magnesium Level 2.2 Mean Corpuscular Hemoglobin 32.6 Mean Corpuscular Hemoglobin Concent 34.3 Mean Corpuscular Volume 94.9 Mean Platelet Volume 8.0 Monocytes # 1.7 H Monocytes % 9.0 Neutrophils # 14.6 H Neutrophils % 78.9 H Nucleated Red Blood Cells # 0.0 Nucleated Red Blood Cells % 0.0 Phosphorus Level 2.6 Platelet Count 425 Potassium Level 3.3 L Red Blood Count 3.13 L Red Cell Distribution Width 16.0 H Sodium Level 143 White Blood Count 18.6 H Medications Medications Current Medications Aspirin (Aspirin) 81 mg DAILY NGT Last administered on 07/31/16 09:49; Admin Dose 81 MG; Start 07/21/16 at 09:00 Atorvastatin Calcium (Lipitor) 40 mg QHS NGT Last administered on 07/30/16 21: 39; Admin Dose 40 MG; Start 07/20/16 at 21:00 Docusate Sodium (Colace Liquid Cup) 100 mg TID PRN NGT CONSTIPATION; Start 07/20 at 17:30 Folic Acid (Folic Acid) 1 mg DAILY NGT Last administered on 07/31/16 09:54; Admin Dose 1 MG; Start 07/21/16 at 09:00 Ticagrelor (Brilinta) 90 mg Q12 NGT Last administered on 07/31/16 09:54; Admin Dose 90 MG; Start 07/20/16 at 21:00 Acetaminophen (Tylenol Tab) 650 mg Q6H PRN NGT PAIN LEVEL 1-3 OR FEVER Last administered on 07/27/16 13:08; Admin Dose 650 MG; Start 07/20/16 at 17:30 Acetaminophen/ Hydrocodone Bitart ([place] (5/325)) 1 tab Q6H PRN NGT PAIN LEVEL 4-6 Last administered on 07/30/16 21:42; Admin Dose 1 TAB; Start 07/20/16 at 17: 30 Acetaminophen/ Hydrocodone Bitart ([place] (5/325)) 2 tab Q6H PRN NGT PAIN LEVEL 7-10; Start 07/20/16 at 17:30 Famotidine (Pepcid Iv) 20 mg Q24H IV Last administered on 07/30/16 21:42; Admin Dose 20 MG; Start 07/20/16 at 21:00 Heparin Sodium (Porcine) 5000 unit 5,000 unit Q8 SC Last administered on 05:54; Admin Dose 5,000 UNIT; Start 07/20/16 at 17:30 Cefepime HCl (Maxipime 1gm/50 ml (Pmx)) 50 ml @ 100 mls/hr Q24H IVPB Last administered on 07/30/16 17:34; Admin Dose 100 MLS/HR; Start 07/21/16 at 18:00 Insulin Aspart (Novolog Insulin Pen) NOVOLOG *MODERATE* ALGORI... Q4 SC Last administered on 07/31/16 09:53; Admin Dose 2 UNIT; Start 07/21/16 at 17:00 Miscellaneous Information 1 ea NOTE XX ; Start 07/21/16 at 16:30 Glucose (Glutose) 15 gm Q15M PRN PO DECREASED GLUCOSE; Start 07/21/16 at 16:30 Glucose (Glutose) 22.5 gm Q15M PRN PO DECREASED GLUCOSE; Start 07/21/16 at 16:30 Dextrose (D50w Syringe) 25 ml Q15M PRN IV DECREASED GLUCOSE Last administered on 07/21/16 21:13; Admin Dose 25 ML; Start 07/21/16 at 16:30 Dextrose (D50w Syringe) 50 ml Q15M PRN IV DECREASED GLUCOSE; Start 07/21/16 at 16:30 Glucagon (Glucagen) 1 mg Q15M PRN IM DECREASED GLUCOSE; Start 07/21/16 at 16:30 Glucose (Glutose) 15 gm Q15M PRN BUCCAL DECREASED GLUCOSE; Start 07/21/16 at 16: 30 Metoprolol Tartrate (Lopressor) 50 mg BID PO Last administered on 07/31/16 09: 50; Admin Dose 50 MG; Start 07/22/16 at 21:00 Amlodipine Besylate (Norvasc) 5 mg BID GTB Last administered on 07/31/16 09:49 ; Admin Dose 5 MG; Start 07/23/16 at 14:30 Benazepril HCl (Lotensin) 40 mg Q12 PO Last administered on 07/31/16 09:50; Admin Dose 40 MG; Start 07/24/16 at 21:00 Isosorbide Mononitrate 60 mg 60 mg DAILY PO Last administered on 07/31/16 09: 49; Admin Dose 60 MG; Start 07/25/16 at 10:30 Vancomycin HCl (Vancocin) 250 ml @ 125 mls/hr Q72H IVPB Last administered on 12:36; Admin Dose 125 MLS/HR; Start 07/25/16 at 13:00 Hydralazine HCl (Apresoline) 25 mg Q4H PRN IV SBP >170 Last administered on 09:54; Admin Dose 25 MG; Start 07/25/16 at 20:30 Hydralazine HCl (Apresoline) 75 mg Q8 PO Last administered on 07/31/16 05:40; Admin Dose 75 MG; Start 07/28/16 at 14:00 MATT PEARCE Jul 31, 2016 10:13
--- NOTE | 2016-07-31 10:26 | CONS ---
Date/Time of Note Date/Time of Note DATE: 07/31/16 TIME: 10:24 Consult Date/Type/Reason Admit Date/Time Jul 20, 2016 at 15:20 Initial Consult Date 07/21/16 Type of Consultation: pulmonary Ordering Provider: KRZYSZTOF MAY M.D. Subjective Patient remains agitated following extubation No respiratory distress at present Not opening eyes or following commands consistently Currently hemodynamically stable Objective Vital Signs Date Time Temp Pulse Resp B/P Pulse Ox O2 Delivery O2 Flow Rate FiO2 07/31/16 08:00 89 07/31/16 06:00 26 163/68 98 Room Air 07/31/16 04:00 98.4 07/31/16 02:58 21 07/30/16 10:00 3.0 Intake and Output 07/30/16 07/30/16 07/31/16 15:00 23:00 07:00 Intake Total 500 ml 400 ml 350 ml Output Total 2950 ml 0 ml 0 ml Balance -2450 ml 400 ml 350 ml PHYSICAL EXAMINATION: GENERAL: Chronically ill appearing lady, on nasal cannula oxygen VITAL SIGNS: As above NECK: Supple, no JVD or lymphadenopathy. CARDIAC EXAMINATION: S1, S2, no added sounds or murmurs. CHEST: Diminished air entry bilaterally. ABDOMEN: Soft, nontender. No guarding or rebound. EXTREMITIES: No cyanosis, clubbing. !+ edema. NEUROLOGIC: Generalized weakness. Results/Medications Result Diagram: 07/31/16 0453 07/31/16 0453 Results 24 hrs Laboratory Tests Test 07/30/16 13:28 07/30/16 17:33 07/30/16 21:49 07/31/16 00:52 Bedside Glucose 116 115 129 159 Test 07/31/16 04:49 07/31/16 04:53 07/31/16 09:52 Bedside Glucose 190 165 Anion Gap 19 H Basophils # 0.1 Basophils % 0.5 Blood Morphology Comment Blood Urea Nitrogen 25 #H Calcium Level 9.0 Carbon Dioxide Level 31 Chloride Level 96 L Creatinine 3.81 #H Eosinophils # 0.4 Eosinophils % 2.3 Glucose Level 175 Hematocrit 29.7 L Hemoglobin 10.2 L Lymphocytes # 1.7 Lymphocytes % 9.3 L Magnesium Level 2.2 Mean Corpuscular Hemoglobin 32.6 Mean Corpuscular Hemoglobin Concent 34.3 Mean Corpuscular Volume 94.9 Mean Platelet Volume 8.0 Monocytes # 1.7 H Monocytes % 9.0 Neutrophils # 14.6 H Neutrophils % 78.9 H Nucleated Red Blood Cells # 0.0 Nucleated Red Blood Cells % 0.0 Phosphorus Level 2.6 Platelet Count 425 Potassium Level 3.3 L Red Blood Count 3.13 L Red Cell Distribution Width 16.0 H Sodium Level 143 White Blood Count 18.6 H Medications Current Medications Aspirin (Aspirin) 81 mg DAILY NGT Last administered on 07/31/16 09:49; Admin Dose 81 MG; Start 07/21/16 at 09:00 Atorvastatin Calcium (Lipitor) 40 mg QHS NGT Last administered on 07/30/16 21: 39; Admin Dose 40 MG; Start 07/20/16 at 21:00 Docusate Sodium (Colace Liquid Cup) 100 mg TID PRN NGT CONSTIPATION; Start 07/20 at 17:30 Folic Acid (Folic Acid) 1 mg DAILY NGT Last administered on 07/31/16 09:54; Admin Dose 1 MG; Start 07/21/16 at 09:00 Ticagrelor (Brilinta) 90 mg Q12 NGT Last administered on 07/31/16 09:54; Admin Dose 90 MG; Start 07/20/16 at 21:00 Acetaminophen (Tylenol Tab) 650 mg Q6H PRN NGT PAIN LEVEL 1-3 OR FEVER Last administered on 07/27/16 13:08; Admin Dose 650 MG; Start 07/20/16 at 17:30 Acetaminophen/ Hydrocodone Bitart ([place] (5/325)) 1 tab Q6H PRN NGT PAIN LEVEL 4-6 Last administered on 07/30/16 21:42; Admin Dose 1 TAB; Start 07/20/16 at 17: 30 Acetaminophen/ Hydrocodone Bitart ([place] (5/325)) 2 tab Q6H PRN NGT PAIN LEVEL 7-10; Start 07/20/16 at 17:30 Famotidine (Pepcid Iv) 20 mg Q24H IV Last administered on 07/30/16 21:42; Admin Dose 20 MG; Start 07/20/16 at 21:00 Heparin Sodium (Porcine) 5000 unit 5,000 unit Q8 SC Last administered on 05:54; Admin Dose 5,000 UNIT; Start 07/20/16 at 17:30 Cefepime HCl (Maxipime 1gm/50 ml (Pmx)) 50 ml @ 100 mls/hr Q24H IVPB Last administered on 07/30/16 17:34; Admin Dose 100 MLS/HR; Start 07/21/16 at 18:00 Insulin Aspart (Novolog Insulin Pen) NOVOLOG *MODERATE* ALGORI... Q4 SC Last administered on 07/31/16 09:53; Admin Dose 2 UNIT; Start 07/21/16 at 17:00 Miscellaneous Information 1 ea NOTE XX ; Start 07/21/16 at 16:30 Glucose (Glutose) 15 gm Q15M PRN PO DECREASED GLUCOSE; Start 07/21/16 at 16:30 Glucose (Glutose) 22.5 gm Q15M PRN PO DECREASED GLUCOSE; Start 07/21/16 at 16:30 Dextrose (D50w Syringe) 25 ml Q15M PRN IV DECREASED GLUCOSE Last administered on 07/21/16 21:13; Admin Dose 25 ML; Start 07/21/16 at 16:30 Dextrose (D50w Syringe) 50 ml Q15M PRN IV DECREASED GLUCOSE; Start 07/21/16 at 16:30 Glucagon (Glucagen) 1 mg Q15M PRN IM DECREASED GLUCOSE; Start 07/21/16 at 16:30 Glucose (Glutose) 15 gm Q15M PRN BUCCAL DECREASED GLUCOSE; Start 07/21/16 at 16: 30 Metoprolol Tartrate (Lopressor) 50 mg BID PO Last administered on 07/31/16 09: 50; Admin Dose 50 MG; Start 07/22/16 at 21:00 Amlodipine Besylate (Norvasc) 5 mg BID GTB Last administered on 07/31/16 09:49 ; Admin Dose 5 MG; Start 07/23/16 at 14:30 Benazepril HCl (Lotensin) 40 mg Q12 PO Last administered on 07/31/16 09:50; Admin Dose 40 MG; Start 07/24/16 at 21:00 Isosorbide Mononitrate 60 mg 60 mg DAILY PO Last administered on 07/31/16 09: 49; Admin Dose 60 MG; Start 07/25/16 at 10:30 Vancomycin HCl (Vancocin) 250 ml @ 125 mls/hr Q72H IVPB Last administered on 12:36; Admin Dose 125 MLS/HR; Start 07/25/16 at 13:00 Hydralazine HCl (Apresoline) 25 mg Q4H PRN IV SBP >170 Last administered on 09:54; Admin Dose 25 MG; Start 07/25/16 at 20:30 Hydralazine HCl (Apresoline) 100 mg Q8 PO ; Start 07/31/16 at 14:00 Assessment/Plan Chief Complaint/Hosp Course IMPRESSION AND PLAN: 1. Status post Hypoxemic respiratory failure. 2. Possible aspiration pneumonia, worsening leukocytosis 3. Probable underlying obstructive sleep apnea. 4. Encephalopathy, toxic metabolic. Questionable anoxic brain injury following syncopal episode 5. End-stage renal failure on hemodialysis. 6. Significant anemia, questionable GI bleed 7. History of hypertension. THE PATIENT WILL NEED: 1. Continued nasal cannula oxygen and pulmonary toilet 2. Neurology recommendations. 3. Monitor H&H 4. Continue antibiotics for possible pneumonia. 5. Continue glycemic management. 6. DVT and GI prophylaxis. 7. Hemodialysis per nephrology Disposition Continue ICU care Problems: SANDI BUSCH MD, [facility] Jul 31, 2016 10:26
[2016-07-31] MEDS: EPOETIN 10000 UNITS/1 ML INJ (ESRD) SC SCH (11:11)
--- NOTE | 2016-07-31 11:29 | PN ---
Date/Time of Note Date/Time of Note DATE: 07/31/16 TIME: 11:12 Assessment/Plan VTE Prophylaxis VTE Prophylaxis Intervention: heparin Lines/Catheters IV Catheter Type (from Nrsg): Central Line Central line still needed: Yes (for IV access ) Urinary Cath still in place: No Assessment/Plan Assessment/Plan 65-year-old woman: 1. Acute respiratory failure and unresponsiveness, s/p intubation on arrival in the ER. Etiology unclear. Extubated and stable x 2 days, on NC actually now She was hospitalized two weeks prior to this admission after she suffered a cardiac arrest with asystole in the ER. S/p Angio x 2 with stenting Repeat echo with EF 55% Mildly elevated troponin on this admission, appreciate cardiology recommendations Cardiology, Pulmonary, Nephrology and Neurology following. Volume status better, management with HD 2. Likely Anoxic Marcel injury. There was a two-hour window during which she was "asleep" prior to being found unresponsive on admission EEG showing encephalopathy, MRI with no acute findings Appreciate Neurology consult with Dr. Arshad. Patient encephalopathic and may remain chronic. Minimizing sedative agents. Follow up reevaluation by Neurology 3. Leukocytosis recurrent, on abx for aspiration pneumonitis/pneumonia vs HCAP, WBC still up Ua/Ucx NGTD and all repeat cx, Blood cx, fem line tip cx , negative so far, Continue Vancomycin and Cefepime. Sputum cx pending. Hatch d/c'd 4. ? Enterococcal UTI: on Vancomycin already, Repeat UA and Urine cx NGTD 5. CAD s/p angio and stenting x 2 approx 2 weeks ago, echo more consistent with diastolic dysfunction EKG similar to previous ekg two weeks ago. Serial troponins trended down to normal Continue ASA and Brilinta, Dr Castelan following and on BBlock. 6. Endstage renal disease on hemodialysis: on HD M/W/F Appreciate assistance from Dr. Gomez. 7. Acute on chronic anemia with hb stable @ 9.5 stable. 8. Diabetes mellitus: OFF Lantus with episode of hypoglycemia noted, continue SSI On TF and free H20 now 9. Hypertension, better controlled BP with current regimen Metoprolol, Benazepril, Norvasc Imdur and now Hydralazine also added yesterday. 10. Right lower extremity pain with questionable history of sciatica. Doppler study negative ten days ago for DVT on the right. Prophylaxis: Pepcid for gastrointestinal prophylaxis. SCDs for DVT prevention Disposition: ICU level of care with close monitoring per Dr Mayen for today. Dr Castelan, Dr Barraza and Dr Arshad following. Full-Code. Subjective 24 Hr Interval Summary Free Text/Dictation Patient had been off Fentanyl x 2 days and HD yesterday and still with lethargy and agitation when awake WBC still up with no fever and no new source of infection identified so far Neuro re eval pending Exam/Review of Systems Vital Signs Vitals Vital Signs Date Time Temp Pulse Resp B/P Pulse Ox O2 Delivery O2 Flow Rate FiO2 07/31/16 08:00 89 07/31/16 06:00 26 163/68 98 Room Air 07/31/16 04:00 98.4 07/31/16 02:58 21 07/30/16 10:00 3.0 Intake and Output 07/30/16 07/30/16 07/31/16 15:00 23:00 07:00 Intake Total 500 ml 400 ml 350 ml Output Total 2950 ml 0 ml 0 ml Balance -2450 ml 400 ml 350 ml Exam Constitutional: other (lethargic and agitated when awake ) Psych: confusion Respiratory: clear to auscultation, normal air movement Cardiovascular: nl pulses, regular rate and rhythm Gastrointestinal: non-tender, soft Musculoskeletal: nl extremities to inspection Extremities: normal pulses, other (no edema, clubbing or cyanosis ) Neurological: [employer] II-XII intact, confused, lethargic, other Results Result Diagram: 07/31/16 0453 07/31/16 0453 Results 24 hrs Laboratory Tests Test 07/30/16 13:28 07/30/16 17:33 07/30/16 21:49 07/31/16 00:52 Bedside Glucose 116 115 129 159 Test 07/31/16 04:49 07/31/16 04:53 07/31/16 09:52 Bedside Glucose 190 165 Anion Gap 19 H Basophils # 0.1 Basophils % 0.5 Blood Morphology Comment Blood Urea Nitrogen 25 #H Calcium Level 9.0 Carbon Dioxide Level 31 Chloride Level 96 L Creatinine 3.81 #H Eosinophils # 0.4 Eosinophils % 2.3 Glucose Level 175 Hematocrit 29.7 L Hemoglobin 10.2 L Lymphocytes # 1.7 Lymphocytes % 9.3 L Magnesium Level 2.2 Mean Corpuscular Hemoglobin 32.6 Mean Corpuscular Hemoglobin Concent 34.3 Mean Corpuscular Volume 94.9 Mean Platelet Volume 8.0 Monocytes # 1.7 H Monocytes % 9.0 Neutrophils # 14.6 H Neutrophils % 78.9 H Nucleated Red Blood Cells # 0.0 Nucleated Red Blood Cells % 0.0 Phosphorus Level 2.6 Platelet Count 425 Potassium Level 3.3 L Red Blood Count 3.13 L Red Cell Distribution Width 16.0 H Sodium Level 143 White Blood Count 18.6 H Medications Medications Current Medications Aspirin (Aspirin) 81 mg DAILY NGT Last administered on 07/31/16 09:49; Admin Dose 81 MG; Start 07/21/16 at 09:00 Atorvastatin Calcium (Lipitor) 40 mg QHS NGT Last administered on 07/30/16 21: 39; Admin Dose 40 MG; Start 07/20/16 at 21:00 Docusate Sodium (Colace Liquid Cup) 100 mg TID PRN NGT CONSTIPATION; Start 07/20 at 17:30 Folic Acid (Folic Acid) 1 mg DAILY NGT Last administered on 07/31/16 09:54; Admin Dose 1 MG; Start 07/21/16 at 09:00 Ticagrelor (Brilinta) 90 mg Q12 NGT Last administered on 07/31/16 09:54; Admin Dose 90 MG; Start 07/20/16 at 21:00 Acetaminophen (Tylenol Tab) 650 mg Q6H PRN NGT PAIN LEVEL 1-3 OR FEVER Last administered on 07/27/16 13:08; Admin Dose 650 MG; Start 07/20/16 at 17:30 Acetaminophen/ Hydrocodone Bitart ([place] (5/325)) 1 tab Q6H PRN NGT PAIN LEVEL 4-6 Last administered on 07/30/16 21:42; Admin Dose 1 TAB; Start 07/20/16 at 17: 30 Acetaminophen/ Hydrocodone Bitart ([place] (5/325)) 2 tab Q6H PRN NGT PAIN LEVEL 7-10; Start 07/20/16 at 17:30 Famotidine (Pepcid Iv) 20 mg Q24H IV Last administered on 07/30/16 21:42; Admin Dose 20 MG; Start 07/20/16 at 21:00 Heparin Sodium (Porcine) 5000 unit 5,000 unit Q8 SC Last administered on 05:54; Admin Dose 5,000 UNIT; Start 07/20/16 at 17:30 Cefepime HCl (Maxipime 1gm/50 ml (Pmx)) 50 ml @ 100 mls/hr Q24H IVPB Last administered on 07/30/16 17:34; Admin Dose 100 MLS/HR; Start 07/21/16 at 18:00 Insulin Aspart (Novolog Insulin Pen) NOVOLOG *MODERATE* [place]... Q4 SC Last administered on 07/31/16 09:53; Admin Dose 2 UNIT; Start 07/21/16 at 17:00 Miscellaneous Information 1 ea NOTE XX ; Start 07/21/16 at 16:30 Glucose (Glutose) 15 gm Q15M PRN PO DECREASED GLUCOSE; Start 07/21/16 at 16:30 Glucose (Glutose) 22.5 gm Q15M PRN PO DECREASED GLUCOSE; Start 07/21/16 at 16:30 Dextrose (D50w Syringe) 25 ml Q15M PRN IV DECREASED GLUCOSE Last administered on 07/21/16 21:13; Admin Dose 25 ML; Start 07/21/16 at 16:30 Dextrose (D50w Syringe) 50 ml Q15M PRN IV DECREASED GLUCOSE; Start 07/21/16 at 16:30 Glucagon (Glucagen) 1 mg Q15M PRN IM DECREASED GLUCOSE; Start 07/21/16 at 16:30 Glucose (Glutose) 15 gm Q15M PRN BUCCAL DECREASED GLUCOSE; Start 07/21/16 at 16: 30 Metoprolol Tartrate (Lopressor) 50 mg BID PO Last administered on 07/31/16 09: 50; Admin Dose 50 MG; Start 07/22/16 at 21:00 Amlodipine Besylate (Norvasc) 5 mg BID GTB Last administered on 07/31/16 09:49 ; Admin Dose 5 MG; Start 07/23/16 at 14:30 Benazepril HCl (Lotensin) 40 mg Q12 PO Last administered on 07/31/16 09:50; Admin Dose 40 MG; Start 07/24/16 at 21:00 Isosorbide Mononitrate 60 mg 60 mg DAILY PO Last administered on 07/31/16 09: 49; Admin Dose 60 MG; Start 07/25/16 at 10:30 Vancomycin HCl (Vancocin) 250 ml @ 125 mls/hr Q72H IVPB Last administered on 12:36; Admin Dose 125 MLS/HR; Start 07/25/16 at 13:00 Hydralazine HCl (Apresoline) 25 mg Q4H PRN IV SBP >170 Last administered on 09:54; Admin Dose 25 MG; Start 07/25/16 at 20:30 Hydralazine HCl (Apresoline) 100 mg Q8 PO ; Start 07/31/16 at 14:00 Miscellaneous Information (*Rx Drug Level Order Reminder*) 1 ONCE ONCE XX ; Start 07/31/16 at 12:00; Stop 07/31/16 at 12:01 NADIA SARGENT Jul 31, 2016 11:22
--- NOTE | 2016-07-31 12:05 | CONS ---
Date/Time of Note Date/Time of Note DATE: 07/31/16 TIME: 11:59 Consult Date/Type/Reason Admit Date/Time Jul 20, 2016 at 15:20 Initial Consult Date 07/21/16 Type of Consultation: Neurology Reason for Consultation encephalopathy evaluate for anoxic injury Ordering Provider: KRZYSZTOF MAY M.D. Subjective extubated on Thursday, off sedation remains encephalopathic per daughter she was able to say hello this morning and state her name Objective Vital Signs Date Time Temp Pulse Resp B/P Pulse Ox O2 Delivery O2 Flow Rate FiO2 07/31/16 08:00 89 07/31/16 06:00 26 163/68 98 Room Air 07/31/16 04:00 98.4 07/31/16 02:58 21 07/30/16 10:00 3.0 Intake and Output 07/30/16 07/30/16 07/31/16 15:00 23:00 07:00 Intake Total 500 ml 400 ml 350 ml Output Total 2950 ml 0 ml 0 ml Balance -2450 ml 400 ml 350 ml Results/Medications Result Diagram: 07/31/16 0453 07/31/16 0453 Results 24 hrs Laboratory Tests Test 07/30/16 13:28 07/30/16 17:33 07/30/16 21:49 07/31/16 00:52 Bedside Glucose 116 115 129 159 Test 07/31/16 04:49 07/31/16 04:53 07/31/16 09:52 Bedside Glucose 190 165 Anion Gap 19 H Basophils # 0.1 Basophils % 0.5 Blood Morphology Comment Blood Urea Nitrogen 25 #H Calcium Level 9.0 Carbon Dioxide Level 31 Chloride Level 96 L Creatinine 3.81 #H Eosinophils # 0.4 Eosinophils % 2.3 Glucose Level 175 Hematocrit 29.7 L Hemoglobin 10.2 L Lymphocytes # 1.7 Lymphocytes % 9.3 L Magnesium Level 2.2 Mean Corpuscular Hemoglobin 32.6 Mean Corpuscular Hemoglobin Concent 34.3 Mean Corpuscular Volume 94.9 Mean Platelet Volume 8.0 Monocytes # 1.7 H Monocytes % 9.0 Neutrophils # 14.6 H Neutrophils % 78.9 H Nucleated Red Blood Cells # 0.0 Nucleated Red Blood Cells % 0.0 Phosphorus Level 2.6 Platelet Count 425 Potassium Level 3.3 L Red Blood Count 3.13 L Red Cell Distribution Width 16.0 H Sodium Level 143 White Blood Count 18.6 H Medications Current Medications Aspirin (Aspirin) 81 mg DAILY NGT Last administered on 07/31/16 09:49; Admin Dose 81 MG; Start 07/21/16 at 09:00 Atorvastatin Calcium (Lipitor) 40 mg QHS NGT Last administered on 07/30/16 21: 39; Admin Dose 40 MG; Start 07/20/16 at 21:00 Docusate Sodium (Colace Liquid Cup) 100 mg TID PRN NGT CONSTIPATION; Start 07/20 at 17:30 Folic Acid (Folic Acid) 1 mg DAILY NGT Last administered on 07/31/16 09:54; Admin Dose 1 MG; Start 07/21/16 at 09:00 Ticagrelor (Brilinta) 90 mg Q12 NGT Last administered on 07/31/16 09:54; Admin Dose 90 MG; Start 07/20/16 at 21:00 Acetaminophen (Tylenol Tab) 650 mg Q6H PRN NGT PAIN LEVEL 1-3 OR FEVER Last administered on 07/27/16 13:08; Admin Dose 650 MG; Start 07/20/16 at 17:30 Acetaminophen/ Hydrocodone Bitart ([place] (5/325)) 1 tab Q6H PRN NGT PAIN LEVEL 4-6 Last administered on 07/30/16 21:42; Admin Dose 1 TAB; Start 07/20/16 at 17: 30 Acetaminophen/ Hydrocodone Bitart ([place] (5/325)) 2 tab Q6H PRN NGT PAIN LEVEL 7-10; Start 07/20/16 at 17:30 Famotidine (Pepcid Iv) 20 mg Q24H IV Last administered on 07/30/16 21:42; Admin Dose 20 MG; Start 07/20/16 at 21:00 Heparin Sodium (Porcine) 5000 unit 5,000 unit Q8 SC Last administered on 05:54; Admin Dose 5,000 UNIT; Start 07/20/16 at 17:30 Cefepime HCl (Maxipime 1gm/50 ml (Pmx)) 50 ml @ 100 mls/hr Q24H IVPB Last administered on 07/30/16 17:34; Admin Dose 100 MLS/HR; Start 07/21/16 at 18:00 Insulin Aspart (Novolog Insulin Pen) NOVOLOG *MODERATE* [place]I... Q4 SC Last administered on 07/31/16 09:53; Admin Dose 2 UNIT; Start 07/21/16 at 17:00 Miscellaneous Information 1 ea NOTE XX ; Start 07/21/16 at 16:30 Glucose (Glutose) 15 gm Q15M PRN PO DECREASED GLUCOSE; Start 07/21/16 at 16:30 Glucose (Glutose) 22.5 gm Q15M PRN PO DECREASED GLUCOSE; Start 07/21/16 at 16:30 Dextrose (D50w Syringe) 25 ml Q15M PRN IV DECREASED GLUCOSE Last administered on 07/21/16 21:13; Admin Dose 25 ML; Start 07/21/16 at 16:30 Dextrose (D50w Syringe) 50 ml Q15M PRN IV DECREASED GLUCOSE; Start 07/21/16 at 16:30 Glucagon (Glucagen) 1 mg Q15M PRN IM DECREASED GLUCOSE; Start 07/21/16 at 16:30 Glucose (Glutose) 15 gm Q15M PRN BUCCAL DECREASED GLUCOSE; Start 07/21/16 at 16: 30 Metoprolol Tartrate (Lopressor) 50 mg BID PO Last administered on 07/31/16 09: 50; Admin Dose 50 MG; Start 07/22/16 at 21:00 Amlodipine Besylate (Norvasc) 5 mg BID GTB Last administered on 07/31/16 09:49 ; Admin Dose 5 MG; Start 07/23/16 at 14:30 Benazepril HCl (Lotensin) 40 mg Q12 PO Last administered on 07/31/16 09:50; Admin Dose 40 MG; Start 07/24/16 at 21:00 Isosorbide Mononitrate 60 mg 60 mg DAILY PO Last administered on 07/31/16 09: 49; Admin Dose 60 MG; Start 07/25/16 at 10:30 Vancomycin HCl (Vancocin) 250 ml @ 125 mls/hr Q72H IVPB Last administered on 12:36; Admin Dose 125 MLS/HR; Start 07/25/16 at 13:00 Hydralazine HCl (Apresoline) 25 mg Q4H PRN IV SBP >170 Last administered on 09:54; Admin Dose 25 MG; Start 07/25/16 at 20:30 Hydralazine HCl (Apresoline) 100 mg Q8 PO ; Start 07/31/16 at 14:00 Miscellaneous Information (*Rx Drug Level Order Reminder*) 1 ONCE ONCE XX ; Start 07/31/16 at 12:00; Stop 07/31/16 at 12:01 Assessment/Plan Chief Complaint/Hosp Course 65 year old F with ESRD on dialysis, recent admission for cardiac arrest s/p stent admitted on 07/20/16 after she was found unresponsive with respiratory distress possibly over 2 hours required intubation, treated with broad spectrum abx for pneumonia extubated 2 days ago with persistent encephalopathy. 07/20 CTH shows no acute changes 07/21 Routine EEG shows generalized background slowing c/w encephalopathy. MRI shows no acute areas of ischemia. Plan: -mental status remains poor post extubation, will repeat studies to evaluate for potential hypoxic injury by obtaining repeat MRI Brain without contrast and Routine EEG -will continue to follow -discussed plan with daughter at bedside Problems: CHARLIE MUNOZ MD Jul 31, 2016 12:05
[2016-07-31] MEDS: VANCOMYCIN 1 GM in NS 250 ML IVPB SCH (14:30)
[2016-07-31] MEDS: CEFEPIME 1GM/50 ML (PMX) 50 ML IVPB SCH (17:36)
[2016-07-31] MEDS: FAMOTIDINE 20 MG INJ IV SCH (20:35)
[2016-07-31] MEDS: ATORVASTATIN 40 MG TAB NGT SCH (20:37)
--- NOTE | 2016-07-31 22:53 | RADRPT ---
PROCEDURE: MR Brain without contrast. CLINICAL INDICATION: N TECHNIQUE: An MRI of the brain was performed on a 1.5 rao scanner utilizing the following sequen marcello: Sagittal T1 weighted, axial T2 weighted, axial FLAIR, coronal GRE, and axial diffusion weighted with ADC mapping. COMPARISON: None FINDINGS: No evidence of restricted diffusion to suggest acute or early subacute ischemic infarction. There i s no evidence of intracranial hemorrhage, mass effect, or midline shift. No extra-axial fluid collec tions are seen. No hypointense signal abnormalities are seen on the GRE images to suggest the presence of blood degr adation products. Patchy periventricular T2 signal hyperintensity foci compatible with sequelae of chronic microvascul ar ischemic injury. The brain parenchyma is otherwise normal in signal intensity and morphology wit h preservation of berger white differentiation. Mild prominence of the ventricles and subarachnoid spa marcello compatible with parenchymal volume loss. Dilated perivascular spaces along the anterior commiss ure. The posterior fossa contents, brainstem, pituitary axis and orbits are unremarkable. Fluid signal wi thin the mastoid air cells bilaterally right greater than left compatible with retained secretions o r inflammatory change. Right lens surgery. Lobulated mucosal thickening in the right maxillary sinus, partial opacification of the ethmoid air cells and mucosal thickening in the right sphenoid sinus compatible with chronic inflammatory change . Normal flow voids are visible in the proximal intracranial arteries and dural sinuses, indicating pa tency. IMPRESSION: 1. No evidence of acute intracranial pathology. No significant interval change compared to 07/23/19 17. 2. Chronic microvascular ischemic changes in the deep white matter with age-related volume loss. 3. Chronic inflammatory changes in the paranasal sinuses with fluid signal within the mastoid air c ells bilaterally right greater than left compatible with retained secretions or inflammatory change. RPTAT:AAJJ Physician Suzette Date Time Electronically viewed and signed by Physician Suzette on 07/31/2016 22:52 HAYLEE/
[2016-08-01] VITALS (29 sets, daily range): BP systolic 109–179; BP diastolic 48–73; PULSE 71–100; RESP 18–38
[2016-08-01] MEDS: INSULIN ASPART [NOVOLOG] 3 ML PEN SC SCH ×6 (01:11→20:31)
[2016-08-01 05:05] LABS: BASOPHILS % 0.2 % (0.0-2.0); EOSINOPHILS # 0.5 10^3/ul (0.0-0.5); EOSINOPHILS % 2.1 % (0.0-7.0); HEMATOCRIT 29.2 % (37.0-47.0); HEMOGLOBIN 9.6 g/dl (12.0-16.0); LYMPHOCYTES # 2.4 10^3/ul (0.8-2.9); LYMPHOCYTES % 10.9 % (15.0-51.0); MEAN CORPUSCULAR HEMOGLOBIN 31.7 pg (29.0-33.0); MEAN CORPUSCULAR HGB CONC 32.9 g/dl (32.0-37.0); MEAN CORPUSCULAR VOLUME 96.3 fl (82.0-101.0); MONOCYTE # 2.1 10^3/ul (0.3-0.9); MONOCYTES % 9.6 % (0.0-11.0); NEUTROPHILS % 77.2 % (39.0-77.0); PLATELET COUNT 425 10^3/UL (140-440); RED BLOOD COUNT 3.03 10^6/ul (4.20-5.40); RED CELL DISTRIBUTION WIDTH 16.2 % (11.5-14.5)
[2016-08-01 05:07] LABS: POTASSIUM 3.7 mmol/L (3.5-5.1)
[2016-08-01 05:09] LABS: CREATININE 5.07 mg/dl (0.44-1.00)
[2016-08-01 05:10] LABS: CALCIUM 9.3 mg/dl (8.4-10.2); MAGNESIUM 2.2 mg/dl (1.7-2.5); PHOSPHORUS 1.6 mg/dl (2.5-4.9)
[2016-08-01 05:14] LABS: CONDITION 1; LH ANALYZER COMMENTS 1; SUSPECT 1
[2016-08-01] MEDS: HEPARIN 5,000 UNIT/0.5 ML SYG SC SCH ×3 (05:20→20:57)
[2016-08-01] MEDS: hydrALAzine 20 MG INJ IV PRN (06:36)
--- NOTE | 2016-08-01 07:10 | SP ---
DATE OF PROCEDURE: 07/31/2016 EEG REPORT HISTORY: This is a 65-year-old female with end-stage renal disease, who was admitted with cardiac ar rest, status post stent, who was found unresponsive, in respiratory distress. EEG is done to rule o ut encephalopathy. CURRENT MEDICATIONS: Not known. PROCEDURE: Utilizing a 16-channel EEG machine, cap scalp electrodes were applied in accordance with the International 10/20 system. [id number] and [id number] montages were displayed. Electric al impedances were measured and reported. DESCRIPTION: During the resting state, posterior dominant rhythm of about 6 to 7 Hz were seen bihem ispherically. Photic stimulation had a good response. Hyperventilation was not performed. There w as no focal lateralizing or epileptiform discharge identified. INTERPRETATION: This is an abnormal EEG due to the presence of generalized bihemispheric background slowing, suggesting bihemispheric subcortical dysfunction, without any epileptiform activity, consi stent with encephalopathy. Please correlate these findings with the patient's clinical picture. Dictated By: CONCETTA ORTEGA/RANI Conf#: [id number] DID#: [id number]
[2016-08-01] MEDS ORDERED: SODIUM PHOSPHATE 15 MMOL in SOD CHLORIDE 0.9% 250 ML IVPB ONE (09:00)
[2016-08-01] MEDS: ASPIRIN 81 MG TAB NGT SCH (09:45)
[2016-08-01] MEDS: FOLIC ACID 1 MG TAB NGT SCH (09:45)
[2016-08-01] MEDS: ISOSORBIDE MONONITRATE(SR)60 MG TAB PO SCH (09:46)
[2016-08-01] MEDS: METOPROLOL 50 MG TAB PO SCH ×2 (09:46→20:33)
[2016-08-01] MEDS: AMLODIPINE 5 MG TAB GTB SCH ×2 (09:46→20:33)
[2016-08-01] MEDS: BENAZEPRIL 20 MG TAB PO SCH ×2 (09:46→20:34)
[2016-08-01] MEDS: TICAGRELOR 90 MG TABLET NGT SCH ×2 (09:49→20:57)
--- NOTE | 2016-08-01 09:53 | CONS ---
Date/Time of Note Date/Time of Note DATE: 08/01/16 TIME: 09:49 Assessment/Plan Assessment/Plan Chief Complaint/Hosp Course IMPRESSION: 1. Positive troponin in the setting of respiratory failure and renal failure- now downtrended./No obvious CP 2. Abnormal electrocardiogram, assess for acute coronary syndrome. 3. History of a recent PTCA and stent placement to circumflex June 2016 with drug-eluting stents.- EF 55% by echo this admit 4. Altered mental state.-MRI negative 07/23 5. Respiratory failure, status post extubation 6. End-stage renal disease on hemodialysis. 7. Urinary tract infection. 8. Pneumonia. 9. Dyslipidemia. 10.HTN-Remains elevated 11. Encephalopathy-s/p MRI with no findings/EEG c/w encephalopathy Recc: -Tele -norvasc/benazepril/hydralazine -Will make slight increase to BB to improve BP/HR -Continue asa/brilinta -Continue HD for volume removal aggresively -Continue abx's and f/u cx data -Follow MS closely with neuro eval ongoing Problems: Consultation Date/Type/Reason Admit Date/Time Jul 20, 2016 at 15:20 Initial Consult Date 07/21/16 Type of Consultation: Cardiology Reason for Consultation CHF Referring Provider: KRZYSZTOF MAY M.D. Exam/Review of Systems Vital Signs Vitals Vital Signs Date Time Temp Pulse Resp B/P Pulse Ox O2 Delivery O2 Flow Rate FiO2 08/01/16 06:00 100 19 171/63 96 Room Air 08/01/16 04:00 98.5 07/31/16 02:58 21 07/30/16 10:00 3.0 Intake and Output 07/31/16 07/31/16 08/01/16 15:00 23:00 07:00 Intake Total 440 ml 740 ml 395 ml Output Total 0 ml 0 ml 0 ml Balance 440 ml 740 ml 395 ml Exam Review of Systems: CONSTITUTIONAL: No fevers, chills. PULMONARY: No sob CARDIOVASCULAR: No chest pain/palpitations GASTROINTESTINAL: No nausea/vomiting. GENITOURINARY: No hematuria/dysuria. MUSCULOSKELETAL: No myagias/arthalgias. PSYCHIATRIC: The patient denies depression. NEUROLOGIC: encephalopathic Constitutional: other (sleeping) Psych: no complaints Head: normocephalic ENMT: mucosa pink and moist Neck: jvd (9 cm water), supple Respiratory: diminished breath sounds (at bases/B) Cardiovascular: regular rate and rhythm Gastrointestinal: non-tender, soft Musculoskeletal: muscle tone (normal) Extremities: edema (none) Neurological: other (Encephalopathy) Results Result Diagram: 08/01/16 0430 08/01/16 0430 Results 24 hrs Laboratory Tests Test 07/31/16 09:52 07/31/16 12:15 07/31/16 13:28 07/31/16 17:34 Bedside Glucose 165 205 119 Vancomycin Level Trough 16.4 Test 07/31/16 20:41 08/01/16 01:09 08/01/16 04:30 08/01/16 05:18 Bedside Glucose 151 183 184 Anion Gap 20 H Basophils # 0.0 Basophils % 0.2 Blood Morphology Comment Blood Urea Nitrogen 40 #H Calcium Level 9.3 Carbon Dioxide Level 27 Chloride Level 100 Creatinine 5.07 H Eosinophils # 0.5 Eosinophils % 2.1 Glucose Level 161 Hematocrit 29.2 L Hemoglobin 9.6 L Lymphocytes # 2.4 Lymphocytes % 10.9 L Magnesium Level 2.2 Mean Corpuscular Hemoglobin 31.7 Mean Corpuscular Hemoglobin Concent 32.9 Mean Corpuscular Volume 96.3 Mean Platelet Volume 8.0 Monocytes # 2.1 H Monocytes % 9.6 Neutrophils # 17.0 H Neutrophils % 77.2 H Nucleated Red Blood Cells # 0.0 Nucleated Red Blood Cells % 0.0 Phosphorus Level 1.6 #L Platelet Count 425 Potassium Level 3.7 Red Blood Count 3.03 L Red Cell Distribution Width 16.2 H Sodium Level 143 White Blood Count 22.0 H Medications Medications Current Medications Aspirin (Aspirin) 81 mg DAILY NGT Last administered on 07/31/16 09:49; Admin Dose 81 MG; Start 07/21/16 at 09:00 Atorvastatin Calcium (Lipitor) 40 mg QHS NGT Last administered on 07/31/16 20: 37; Admin Dose 40 MG; Start 07/20/16 at 21:00 Docusate Sodium (Colace Liquid Cup) 100 mg TID PRN NGT CONSTIPATION; Start 07/20 at 17:30 Folic Acid (Folic Acid) 1 mg DAILY NGT Last administered on 07/31/16 09:54; Admin Dose 1 MG; Start 07/21/16 at 09:00 Ticagrelor (Brilinta) 90 mg Q12 NGT Last administered on 07/31/16 20:42; Admin Dose 90 MG; Start 07/20/16 at 21:00 Acetaminophen (Tylenol Tab) 650 mg Q6H PRN NGT PAIN LEVEL 1-3 OR FEVER Last administered on 07/27/16 13:08; Admin Dose 650 MG; Start 07/20/16 at 17:30 Acetaminophen/ Hydrocodone Bitart ([place] (5/325)) 1 tab Q6H PRN NGT PAIN LEVEL 4-6 Last administered on 07/30/16 21:42; Admin Dose 1 TAB; Start 07/20/16 at 17: 30 Acetaminophen/ Hydrocodone Bitart ([place] (5/325)) 2 tab Q6H PRN NGT PAIN LEVEL 7-10; Start 07/20/16 at 17:30 Famotidine (Pepcid Iv) 20 mg Q24H IV Last administered on 07/31/16 20:35; Admin Dose 20 MG; Start 07/20/16 at 21:00 Heparin Sodium (Porcine) 5000 unit 5,000 unit Q8 SC Last administered on 05:20; Admin Dose 5,000 UNIT; Start 07/20/16 at 17:30 Cefepime HCl (Maxipime 1gm/50 ml (Pmx)) 50 ml @ 100 mls/hr Q24H IVPB Last administered on 07/31/16 17:36; Admin Dose 100 MLS/HR; Start 07/21/16 at 18:00 Insulin Aspart (Novolog Insulin Pen) NOVOLOG *MODERATE* [place]... Q4 SC Last administered on 08/01/16 05:21; Admin Dose 4 UNIT; Start 07/21/16 at 17:00 Miscellaneous Information 1 ea NOTE XX ; Start 07/21/16 at 16:30 Glucose (Glutose) 15 gm Q15M PRN PO DECREASED GLUCOSE; Start 07/21/16 at 16:30 Glucose (Glutose) 22.5 gm Q15M PRN PO DECREASED GLUCOSE; Start 07/21/16 at 16:30 Dextrose (D50w Syringe) 25 ml Q15M PRN IV DECREASED GLUCOSE Last administered on 07/21/16 21:13; Admin Dose 25 ML; Start 07/21/16 at 16:30 Dextrose (D50w Syringe) 50 ml Q15M PRN IV DECREASED GLUCOSE; Start 07/21/16 at 16:30 Glucagon (Glucagen) 1 mg Q15M PRN IM DECREASED GLUCOSE; Start 07/21/16 at 16:30 Glucose (Glutose) 15 gm Q15M PRN BUCCAL DECREASED GLUCOSE; Start 07/21/16 at 16: 30 Metoprolol Tartrate (Lopressor) 50 mg BID PO Last administered on 07/31/16 20: 36; Admin Dose 50 MG; Start 07/22/16 at 21:00 Amlodipine Besylate (Norvasc) 5 mg BID GTB Last administered on 07/31/16 20:36 ; Admin Dose 5 MG; Start 07/23/16 at 14:30 Benazepril HCl (Lotensin) 40 mg Q12 PO Last administered on 07/31/16 20:35; Admin Dose 40 MG; Start 07/24/16 at 21:00 Isosorbide Mononitrate (Imdur) 60 mg DAILY PO Last administered on 07/31/16 09 :49; Admin Dose 60 MG; Start 07/25/16 at 10:30 Hydralazine HCl (Apresoline) 25 mg Q4H PRN IV SBP >170 Last administered on 06:36; Admin Dose 25 MG; Start 07/25/16 at 20:30 Hydralazine HCl 100 mg 100 mg Q8 PO Last administered on 08/01/16 05:18; Admin Dose 100 MG; Start 07/31/16 at 14:00 Vancomycin HCl 250 ml @ 125 mls/hr Q96H IVPB ; Start 08/04/16 at 13:00 Sodium Phosphate/ Sodium Chloride (Sodium Phosphate/NS) 255 ml @ 63.75 mls/ hr ONCE ONCE IVPB ; Start 08/01/16 at 09:00; Stop 08/01/16 at 12:59 MATT PEARCE Aug 01, 2016 09:53
--- NOTE | 2016-08-01 10:32 | CONS ---
Date/Time of Note Date/Time of Note DATE: 08/01/16 TIME: 10:26 Assessment/Plan Assessment/Plan Chief Complaint/Hosp Course AMS Problems: Additional Assessment/Plan 65 year old F with ESRD on dialysis, recent admission for cardiac arrest s/p stent admitted on 07/20/16 after she was found unresponsive with respiratory distress possibly over 2 hours required intubation, treated with broad spectrum abx for pneumonia extubated 2 days ago with persistent encephalopathy. Repeat MRI of brain did not show anything acute. EEG showed encephalopathy without any epileptiform activity. Plan: -mental status remains poor post extubation, -will continue to follow -discussed plan with daughter at bedside Consultation Date/Type/Reason Admit Date/Time Jul 20, 2016 at 15:20 Initial Consult Date 07/21/16 Type of Consultation: Cardiology Referring Provider: KRZYSZTOF MAY M.D. 24 HR Interval Summary Free Text/Dictation Clinically slightly improving. Opens eyes to verbal commands but does not follow commands. Repeat MRI of brain did not show anything acute. EEG showed encephalopathy without any epileptiform activity. Constitutional: no complaints Exam/Review of Systems Vital Signs Vitals Vital Signs Date Time Temp Pulse Resp B/P Pulse Ox O2 Delivery O2 Flow Rate FiO2 08/01/16 10:00 86 29 151/48 98 Room Air 08/01/16 08:00 98.1 07/31/16 02:58 21 07/30/16 10:00 3.0 Intake and Output 07/31/16 07/31/16 08/01/16 15:00 23:00 07:00 Intake Total 440 ml 740 ml 395 ml Output Total 0 ml 0 ml 0 ml Balance 440 ml 740 ml 395 ml Exam Constitutional: non-verbal Psych: no complaints Head: atraumatic, normocephalic Eyes: EOMI, nl conjunctiva, nl lids, nl sclera ENMT: mucosa pink and moist, nl external ears & nose, nl lips & teeth, nl nasal mucosa & septum Neck: non-tender, supple Respiratory: clear to auscultation Cardiovascular: nl pulses, regular rate and rhythm Gastrointestinal: nl liver, spleen, non-tender, soft Extremities: normal pulses Neurological: confused, other (does not follow commands, limited exam) Results Result Diagram: 08/01/16 0430 08/01/16 0430 Results 24 hrs Laboratory Tests Test 07/31/16 12:15 07/31/16 13:28 07/31/16 17:34 07/31/16 20:41 Vancomycin Level Trough 16.4 Bedside Glucose 205 119 151 Test 08/01/16 01:09 08/01/16 04:30 08/01/16 05:18 08/01/16 09:44 Bedside Glucose 183 184 195 Anion Gap 20 H Basophils # 0.0 Basophils % 0.2 Blood Morphology Comment Blood Urea Nitrogen 40 #H Calcium Level 9.3 Carbon Dioxide Level 27 Chloride Level 100 Creatinine 5.07 H Eosinophils # 0.5 Eosinophils % 2.1 Glucose Level 161 Hematocrit 29.2 L Hemoglobin 9.6 L Lymphocytes # 2.4 Lymphocytes % 10.9 L Magnesium Level 2.2 Mean Corpuscular Hemoglobin 31.7 Mean Corpuscular Hemoglobin Concent 32.9 Mean Corpuscular Volume 96.3 Mean Platelet Volume 8.0 Monocytes # 2.1 H Monocytes % 9.6 Neutrophils # 17.0 H Neutrophils % 77.2 H Nucleated Red Blood Cells # 0.0 Nucleated Red Blood Cells % 0.0 Phosphorus Level 1.6 #L Platelet Count 425 Potassium Level 3.7 Red Blood Count 3.03 L Red Cell Distribution Width 16.2 H Sodium Level 143 White Blood Count 22.0 H Medications Medications Current Medications Aspirin (Aspirin) 81 mg DAILY NGT Last administered on 08/01/16 09:45; Admin Dose 81 MG; Start 07/21/16 at 09:00 Atorvastatin Calcium (Lipitor) 40 mg QHS NGT Last administered on 07/31/16 20: 37; Admin Dose 40 MG; Start 07/20/16 at 21:00 Docusate Sodium (Colace Liquid Cup) 100 mg TID PRN NGT CONSTIPATION; Start 07/20 at 17:30 Folic Acid (Folic Acid) 1 mg DAILY NGT Last administered on 08/01/16 09:45; Admin Dose 1 MG; Start 07/21/16 at 09:00 Ticagrelor (Brilinta) 90 mg Q12 NGT Last administered on 08/01/16 09:49; Admin Dose 90 MG; Start 07/20/16 at 21:00 Acetaminophen (Tylenol Tab) 650 mg Q6H PRN NGT PAIN LEVEL 1-3 OR FEVER Last administered on 07/27/16 13:08; Admin Dose 650 MG; Start 07/20/16 at 17:30 Acetaminophen/ Hydrocodone Bitart ([place] (5/325)) 1 tab Q6H PRN NGT PAIN LEVEL 4-6 Last administered on 07/30/16 21:42; Admin Dose 1 TAB; Start 07/20/16 at 17: 30 Acetaminophen/ Hydrocodone Bitart ([place] (5/325)) 2 tab Q6H PRN NGT PAIN LEVEL 7-10; Start 07/20/16 at 17:30 Famotidine (Pepcid Iv) 20 mg Q24H IV Last administered on 07/31/16 20:35; Admin Dose 20 MG; Start 07/20/16 at 21:00 Heparin Sodium (Porcine) 5000 unit 5,000 unit Q8 SC Last administered on 05:20; Admin Dose 5,000 UNIT; Start 07/20/16 at 17:30 Cefepime HCl (Maxipime 1gm/50 ml (Pmx)) 50 ml @ 100 mls/hr Q24H IVPB Last administered on 07/31/16 17:36; Admin Dose 100 MLS/HR; Start 07/21/16 at 18:00 Insulin Aspart (Novolog Insulin Pen) NOVOLOG *MODERATE* ALGORI... Q4 SC Last administered on 08/01/16 09:49; Admin Dose 4 UNIT; Start 07/21/16 at 17:00 Miscellaneous Information 1 ea NOTE XX ; Start 07/21/16 at 16:30 Glucose (Glutose) 15 gm Q15M PRN PO DECREASED GLUCOSE; Start 07/21/16 at 16:30 Glucose (Glutose) 22.5 gm Q15M PRN PO DECREASED GLUCOSE; Start 07/21/16 at 16:30 Dextrose (D50w Syringe) 25 ml Q15M PRN IV DECREASED GLUCOSE Last administered on 07/21/16 21:13; Admin Dose 25 ML; Start 07/21/16 at 16:30 Dextrose (D50w Syringe) 50 ml Q15M PRN IV DECREASED GLUCOSE; Start 07/21/16 at 16:30 Glucagon (Glucagen) 1 mg Q15M PRN IM DECREASED GLUCOSE; Start 07/21/16 at 16:30 Glucose (Glutose) 15 gm Q15M PRN BUCCAL DECREASED GLUCOSE; Start 07/21/16 at 16: 30 Amlodipine Besylate (Norvasc) 5 mg BID GTB Last administered on 08/01/16 09:46 ; Admin Dose 5 MG; Start 07/23/16 at 14:30 Benazepril HCl (Lotensin) 40 mg Q12 PO Last administered on 08/01/16 09:46; Admin Dose 40 MG; Start 07/24/16 at 21:00 Isosorbide Mononitrate (Imdur) 60 mg DAILY PO Last administered on 08/01/16 09 :46; Admin Dose 60 MG; Start 07/25/16 at 10:30 Hydralazine HCl (Apresoline) 25 mg Q4H PRN IV SBP >170 Last administered on 06:36; Admin Dose 25 MG; Start 07/25/16 at 20:30 Hydralazine HCl 100 mg 100 mg Q8 PO Last administered on 08/01/16 05:18; Admin Dose 100 MG; Start 07/31/16 at 14:00 Vancomycin HCl 250 ml @ 125 mls/hr Q96H IVPB ; Start 08/04/16 at 13:00 Sodium Phosphate/ Sodium Chloride (Sodium Phosphate/NS) 255 ml @ 63.75 mls/ hr ONCE ONCE IVPB Last administered on 08/01/16 09:47; Admin Dose 63.75 MLS/HR; Start 08/01/16 at 09:00; Stop 08/01/16 at 12:59 Metoprolol Tartrate (Lopressor) 75 mg BID PO ; Start 08/01/16 at 21:00 Procedures Procedures 07/31/16 MRI of brain IMPRESSION: 1. No evidence of acute intracranial pathology. No significant interval change compared to 07/23/2016. 2. Chronic microvascular ischemic changes in the deep white matter with age- related volume loss. 3. Chronic inflammatory changes in the paranasal sinuses with fluid signal within the mastoid air cells bilaterally right greater than left compatible with retained secretions or inflammatory change. RPTAT:AAJJ Physician Suzette Date Time Electronically viewed and signed by Physician Suzette on 07/31/2016 22:52 HAYLEE/ CONCETTA MARCELINO MD Aug 01, 2016 10:31
--- NOTE | 2016-08-01 10:32 | PN ---
DATE: 08/01/2016 SUBJECTIVE: The patient is stable, no acute events overnight. No hemoptysis, hematemesis, hematoch ezia. No other events noted. OBJECTIVE: VITAL SIGNS: Blood pressure 171/62, respiration 19, pulse 100, temperature 98.5. HEENT: Head is normocephalic. NECK: Supple. HEART: Regular rate. LUNGS: Show diminished breath sounds at the base. ABDOMEN: Soft, nontender to palpation without rebound or guarding. EXTREMITIES: Negative for clubbing, cyanosis. No edema. DERMATOLOGIC: No rashes. MUSCULOSKELETAL: No joint effusions. NEUROLOGIC: No change in exam. MEDICATIONS: Patient's medications have been reviewed. LABORATORY DATA: Showed sodium 143, potassium .7, chloride 100, BUN 2, creatinine 5.07, p hosphorus 1.6, white count 22, hemoglobin 9.6, hematocrit 29.2, platelet count is 425. IMAGING: MRI of the brain was reviewed. No acute findings. ASSESSMENT AND PLAN: 1. End-stage renal disease. The patient is on dialysis Thursday, Thursday, Thursday. Anticipate dial ysis today for 3 hours, 4K bath, calcium 2.5, we will ultrafiltrate as tolerated. 2. Volume overload, improving. Continue ultrafiltration with dialysis. 3. Anemia. Hemoglobin level stable. Continue Epogen. 4. Hypokalemia, improved. Continue to monitor. 5. Mineral bone disorder. Continue to monitor calcium and phosphorus levels. Hold any phosphate b inders at this time. 6. Sepsis, status post shock. The patient is completing antibiotic course. 7. Respiratory failure, status post extubation, currently stable. Continue to monitor. 8. Dysphagia status post nasogastric tube. Continue tube feeding. 9. Encephalopathy. Etiology is likely anoxic injury. The patient's repeat MRI shows no acute find ings. We will continue to monitor. 10. History of coronary artery disease. Continue current treatment plan. 11. Diabetes, continue Accu-Cheks and sliding scale. 12. Hypertension. Continue ultrafiltration dialysis. Continue current blood pressure regimen, adj ust as needed. Dictated By: TALITA GARCIA/RANI Conf#: [id number] DID#: [id number]
--- NOTE | 2016-08-01 11:28 | PN ---
Date/Time of Note Date/Time of Note DATE: 08/01/16 TIME: 11:06 Assessment/Plan VTE Prophylaxis VTE Prophylaxis Intervention: heparin Lines/Catheters IV Catheter Type (from Nrsg): Central Line Central line still needed: Yes (for IV access) Urinary Cath still in place: No Assessment/Plan Assessment/Plan 65-year-old woman: 1. Acute respiratory failure and unresponsiveness, s/p intubation on arrival in the ER. Etiology unclear. Extubated and stable x 2 days, on NC actually now She was hospitalized two weeks prior to this admission after she suffered a cardiac arrest with asystole in the ER. S/p Angio x 2 with stenting Repeat echo with EF 55% Mildly elevated troponin on this admission, appreciate cardiology recommendations Cardiology, Pulmonary, Nephrology and Neurology following. Volume status better, management with HD 2. Likely Anoxic Marcel injury. There was a two-hour window during which she was "asleep" prior to being found unresponsive on admission EEG showing encephalopathy, MRI with no acute findings Appreciate Neurology consult with Dr. Arshad. Patient encephalopathic and may remain chronic. Minimizing sedative agents. Follow up reevaluation by Neurology 3. Leukocytosis recurrent, on abx for aspiration pneumonitis/pneumonia vs HCAP, WBC still up and new cx coming in Fem line tip cx with coag neg staph, repeat blood cx pending, previous blood cx negative and continue Vanco for now Sputum cx with GNR and ESBL E coli. Abx changed to Imipenem and on contact isolation 4. ? Enterococcal UTI: on Vancomycin already, Repeat UA and Urine cx NGTD 5. CAD s/p angio and stenting x 2 approx 2 weeks ago, echo more consistent with diastolic dysfunction EKG similar to previous ekg two weeks ago. Serial troponins trended down to normal Continue ASA and Brilinta, Dr Castelan following and on BBlock. 6. Endstage renal disease on hemodialysis: on HD M/W/F Appreciate assistance from Dr. Gomez. 7. Acute on chronic anemia with hb stable @ 9.5 stable. 8. Diabetes mellitus: OFF Lantus with episode of hypoglycemia noted, continue SSI On TF and free H20 now 9. Hypertension, better controlled BP with current regimen Metoprolol, Benazepril, Norvasc Imdur and now Hydralazine also added yesterday. 10. Right lower extremity pain with questionable history of sciatica. Doppler study negative ten days ago for DVT on the right. Prophylaxis: Pepcid for gastrointestinal prophylaxis. SCDs for DVT prevention Disposition: Transfer to Telemetry. Dr Castelan, Dr Barraza and Dr Arshad following. Full-Code. Subjective 24 Hr Interval Summary Free Text/Dictation Patient remains stable and on isolation for MDR Patient on/off awake and having some words with family Afebrile but WBC up, adjusting abx today Tx to Tele post HD if OK with Pulmo, will need front room too Exam/Review of Systems Vital Signs Vitals Vital Signs Date Time Temp Pulse Resp B/P Pulse Ox O2 Delivery O2 Flow Rate FiO2 08/01/16 10:00 86 29 151/48 98 Room Air 08/01/16 08:00 98.1 07/31/16 02:58 21 07/30/16 10:00 3.0 Intake and Output 07/31/16 07/31/16 08/01/16 15:00 23:00 07:00 Intake Total 440 ml 740 ml 430 ml Output Total 0 ml 0 ml 0 ml Balance 440 ml 740 ml 430 ml Exam Constitutional: frail, other (lethargic with period of alertness ), well developed Respiratory: clear to auscultation, normal air movement Cardiovascular: nl pulses, regular rate and rhythm Gastrointestinal: non-tender, soft Musculoskeletal: nl extremities to inspection Extremities: normal pulses, other (no edema, clubbing or cyanosis ) Neurological: ROLL UP GUIDER OPERATOR II-XII intact, lethargic, nl mental status, nl speech Results Result Diagram: 08/01/16 0430 08/01/16 0430 Results 24 hrs Laboratory Tests Test 07/31/16 12:15 07/31/16 13:28 07/31/16 17:34 07/31/16 20:41 Vancomycin Level Trough 16.4 Bedside Glucose 205 119 151 Test 08/01/16 01:09 08/01/16 04:30 08/01/16 05:18 08/01/16 09:44 Bedside Glucose 183 184 195 Anion Gap 20 H Basophils # 0.0 Basophils % 0.2 Blood Morphology Comment Blood Urea Nitrogen 40 #H Calcium Level 9.3 Carbon Dioxide Level 27 Chloride Level 100 Creatinine 5.07 H Eosinophils # 0.5 Eosinophils % 2.1 Glucose Level 161 Hematocrit 29.2 L Hemoglobin 9.6 L Lymphocytes # 2.4 Lymphocytes % 10.9 L Magnesium Level 2.2 Mean Corpuscular Hemoglobin 31.7 Mean Corpuscular Hemoglobin Concent 32.9 Mean Corpuscular Volume 96.3 Mean Platelet Volume 8.0 Monocytes # 2.1 H Monocytes % 9.6 Neutrophils # 17.0 H Neutrophils % 77.2 H Nucleated Red Blood Cells # 0.0 Nucleated Red Blood Cells % 0.0 Phosphorus Level 1.6 #L Platelet Count 425 Potassium Level 3.7 Red Blood Count 3.03 L Red Cell Distribution Width 16.2 H Sodium Level 143 White Blood Count 22.0 H Medications Medications Current Medications Aspirin (Aspirin) 81 mg DAILY NGT Last administered on 08/01/16 09:45; Admin Dose 81 MG; Start 07/21/16 at 09:00 Atorvastatin Calcium (Lipitor) 40 mg QHS NGT Last administered on 07/31/16 20: 37; Admin Dose 40 MG; Start 07/20/16 at 21:00 Docusate Sodium (Colace Liquid Cup) 100 mg TID PRN NGT CONSTIPATION; Start 07/20 at 17:30 Folic Acid (Folic Acid) 1 mg DAILY NGT Last administered on 08/01/16 09:45; Admin Dose 1 MG; Start 07/21/16 at 09:00 Ticagrelor (Brilinta) 90 mg Q12 NGT Last administered on 08/01/16 09:49; Admin Dose 90 MG; Start 07/20/16 at 21:00 Acetaminophen (Tylenol Tab) 650 mg Q6H PRN NGT PAIN LEVEL 1-3 OR FEVER Last administered on 07/27/16 13:08; Admin Dose 650 MG; Start 07/20/16 at 17:30 Acetaminophen/ Hydrocodone Bitart ([place] (5/325)) 1 tab Q6H PRN NGT PAIN LEVEL 4-6 Last administered on 07/30/16 21:42; Admin Dose 1 TAB; Start 07/20/16 at 17: 30 Acetaminophen/ Hydrocodone Bitart ([place] (5/325)) 2 tab Q6H PRN NGT PAIN LEVEL 7-10; Start 07/20/16 at 17:30 Famotidine (Pepcid Iv) 20 mg Q24H IV Last administered on 07/31/16 20:35; Admin Dose 20 MG; Start 07/20/16 at 21:00 Heparin Sodium (Porcine) (Heparin (5000 Units/0.5 ml)) 5,000 unit Q8 SC Last administered on 08/01/16 05:20; Admin Dose 5,000 UNIT; Start 07/20/16 at 17:30 Insulin Aspart (Novolog Insulin Pen) NOVOLOG *MODERATE* ALGORI... Q4 SC Last administered on 08/01/16 09:49; Admin Dose 4 UNIT; Start 07/21/16 at 17:00 Miscellaneous Information 1 ea NOTE XX ; Start 07/21/16 at 16:30 Glucose (Glutose) 15 gm Q15M PRN PO DECREASED GLUCOSE; Start 07/21/16 at 16:30 Glucose (Glutose) 22.5 gm Q15M PRN PO DECREASED GLUCOSE; Start 07/21/16 at 16:30 Dextrose (D50w Syringe) 25 ml Q15M PRN IV DECREASED GLUCOSE Last administered on 07/21/16 21:13; Admin Dose 25 ML; Start 07/21/16 at 16:30 Dextrose (D50w Syringe) 50 ml Q15M PRN IV DECREASED GLUCOSE; Start 07/21/16 at 16:30 Glucagon (Glucagen) 1 mg Q15M PRN IM DECREASED GLUCOSE; Start 07/21/16 at 16:30 Glucose (Glutose) 15 gm Q15M PRN BUCCAL DECREASED GLUCOSE; Start 07/21/16 at 16: 30 Amlodipine Besylate (Norvasc) 5 mg BID GTB Last administered on 08/01/16 09:46 ; Admin Dose 5 MG; Start 07/23/16 at 14:30 Benazepril HCl (Lotensin) 40 mg Q12 PO Last administered on 08/01/16 09:46; Admin Dose 40 MG; Start 07/24/16 at 21:00 Isosorbide Mononitrate (Imdur) 60 mg DAILY PO Last administered on 08/01/16 09 :46; Admin Dose 60 MG; Start 07/25/16 at 10:30 Hydralazine HCl (Apresoline) 25 mg Q4H PRN IV SBP >170 Last administered on 06:36; Admin Dose 25 MG; Start 07/25/16 at 20:30 Hydralazine HCl 100 mg 100 mg Q8 PO Last administered on 08/01/16 05:18; Admin Dose 100 MG; Start 07/31/16 at 14:00 Vancomycin HCl 250 ml @ 125 mls/hr Q96H IVPB ; Start 08/04/16 at 13:00 Sodium Phosphate/ Sodium Chloride (Sodium Phosphate/NS) 255 ml @ 63.75 mls/ hr ONCE ONCE IVPB Last administered on 08/01/16 09:47; Admin Dose 63.75 MLS/HR; Start 08/01/16 at 09:00; Stop 08/01/16 at 12:59 Metoprolol Tartrate 75 mg 75 mg BID PO ; Start 08/01/16 at 21:00 Imipenem/ Cilastatin Sodium (Primaxin 500 Mg/ 100 ml (Pmx)) 100 ml @ 100 mls/ hr Q8 IVPB ; Start 08/01/16 at 14:00; Status UNV NADIA SARGENT Aug 01, 2016 11:16
--- NOTE | 2016-08-01 12:52 | PN ---
DATE: 08/01/2016 SUBJECTIVE: Chart reviewed. Events noted. Patient is currently undergoing hemodialysis. Hemodyna mically stable. The patient, however, is still quite encephalopathic. PHYSICAL EXAMINATION: VITAL SIGNS: Blood pressure 151/48, pulse 86, respirations 29, temperature 98.1 currently saturatin g 98% on room air. HEENT: Pupils are equal and reactive to light. NECK: Supple, no JVD noted, no cervical adenopathy, no carotid bruits heard. LUNGS: Fair breath sounds bilaterally. Few scattered rhonchi. CARDIOVASCULAR: S1, S2 normal. ABDOMEN: Soft, nontender. No organomegaly or masses noted. EXTREMITIES: No clubbing or cyanosis noted. Trace edema present. NEUROLOGIC: Encephalopathic. LABORATORY DATA: WBC 22, hemoglobin 9.6, hematocrit 29.2, platelets 425. Sodium 143, potassium 3.7 , chloride 100, CO2 of 27, BUN 40, creatinine 5.07, glucose 161. IMPRESSION 1. Status post acute hypoxemic respiratory failure, stable post-extubation. 2. Question aspiration. 3. End-stage renal disease on hemodialysis. 4. Encephalopathy. 5. Anemia. 6. History of hypertension. RECOMMENDATIONS 1. Continue hemodialysis. 2. Neuro followup noted. 3. Monitor neuro function. 4. Follow up labs. 5. Continue antibiotics. 6. Okay to transfer to [facility] from pulmonary perspective. Dictated By: ALBERT DOW MD, MA/RANI Conf#: [id number] DID#: [id number]
[2016-08-01] MEDS: IMIPENEM-CILAST 500MG IV (PMX) 100 ML IVPB SCH ×2 (13:33→20:35)
[2016-08-01] MEDS: EPOETIN 10000 UNITS/1 ML INJ (ESRD) SC SCH (14:51)
[2016-08-01] MEDS: ATORVASTATIN 40 MG TAB NGT SCH (20:34)
[2016-08-01] MEDS: FAMOTIDINE 20 MG INJ IV SCH (20:34)
[2016-08-02] VITALS (13 sets, daily range): BP systolic 158–177; BP diastolic 66–82; PULSE 73–101; RESP 20
[2016-08-02] MEDS: INSULIN ASPART [NOVOLOG] 3 ML PEN SC SCH ×6 (00:39→20:48)
[2016-08-02] MEDS: hydrALAzine 20 MG INJ IV PRN ×2 (00:57→13:39)
[2016-08-02 06:57] LABS: BASOPHIL # 0.1 10^3/ul (0.0-0.1); BASOPHILS % 0.3 % (0.0-2.0); EOSINOPHILS # 0.5 10^3/ul (0.0-0.5); EOSINOPHILS % 2.3 % (0.0-7.0); HEMATOCRIT 30.3 % (37.0-47.0); LYMPHOCYTES # 2.5 10^3/ul (0.8-2.9); LYMPHOCYTES % 10.8 % (15.0-51.0); MEAN CORPUSCULAR HEMOGLOBIN 31.7 pg (29.0-33.0); MEAN CORPUSCULAR VOLUME 96.2 fl (82.0-101.0); MEAN PLATELET VOLUME 8.3 fl (7.4-10.4); MONOCYTE # 2.2 10^3/ul (0.3-0.9); MONOCYTES % 9.5 % (0.0-11.0); NEUTROPHIL # 17.8 10^3/ul (1.6-7.5); NEUTROPHILS % 77.1 % (39.0-77.0); PLATELET COUNT 431 10^3/UL (140-440); RED BLOOD COUNT 3.14 10^6/ul (4.20-5.40); RED CELL DISTRIBUTION WIDTH 16.6 % (11.5-14.5); UNCORRECTED WBC 23.1 10^3/ul (4.8-10.8); WHITE BLOOD COUNT 23.1 10^3/ul (4.8-10.8)
[2016-08-02 07:04] LABS: CONDITION 1; LH ANALYZER COMMENTS 1; SUSPECT 1
[2016-08-02 07:32] LABS: POTASSIUM 3.2 mmol/L (3.5-5.1)
[2016-08-02 07:35] LABS: CALCIUM 9.6 mg/dl (8.4-10.2); CREATININE 4.3 mg/dl (0.44-1.00); PHOSPHORUS 1.1 mg/dl (2.5-4.9)
[2016-08-02 07:36] LABS: MAGNESIUM 2.1 mg/dl (1.7-2.5)
--- NOTE | 2016-08-02 09:12 | CONS ---
Date/Time of Note Date/Time of Note DATE: 08/02/16 TIME: 09:11 Consult Date/Type/Reason Admit Date/Time Jul 20, 2016 at 15:20 Initial Consult Date 07/21/16 Type of Consultation: nephrology Ordering Provider: KRZYSZTOF MAY M.D. Subjective s/p HD yesterday Objective Vital Signs Date Time Temp Pulse Resp B/P Pulse Ox O2 Delivery O2 Flow Rate FiO2 08/02/16 08:18 101 08/02/16 07:47 99.5 20 165/72 94 08/01/16 16:00 Room Air 07/31/16 02:58 21 07/30/16 10:00 3.0 Intake and Output 08/01/16 08/01/16 08/02/16 15:00 23:00 07:00 Intake Total 1085.00 ml 120 ml Output Total 2900 ml Balance -1815.00 ml 120 ml Results/Medications Result Diagram: 08/02/16 0545 08/02/16 0545 Results 24 hrs Laboratory Tests Test 08/01/16 09:44 08/01/16 12:27 08/01/16 16:41 08/01/16 20:28 Bedside Glucose 195 157 200 175 Test 08/02/16 00:35 08/02/16 04:47 08/02/16 05:45 08/02/16 07:52 Bedside Glucose 207 219 199 Anion Gap 19 H Basophils # 0.1 Basophils % 0.3 Blood Morphology Comment Blood Urea Nitrogen 34 H Calcium Level 9.6 Carbon Dioxide Level 28 Chloride Level 99 Creatinine 4.30 H Eosinophils # 0.5 Eosinophils % 2.3 Glucose Level 217 Hematocrit 30.3 L Hemoglobin 10.0 L Lymphocytes # 2.5 Lymphocytes % 10.8 L Magnesium Level 2.1 Mean Corpuscular Hemoglobin 31.7 Mean Corpuscular Hemoglobin Concent 33.0 Mean Corpuscular Volume 96.2 Mean Platelet Volume 8.3 Monocytes # 2.2 H Monocytes % 9.5 Neutrophils # 17.8 H Neutrophils % 77.1 H Nucleated Red Blood Cells # 0.0 Nucleated Red Blood Cells % 0.0 Phosphorus Level 1.1 L Platelet Count 431 Potassium Level 3.2 L Red Blood Count 3.14 L Red Cell Distribution Width 16.6 H Sodium Level 143 White Blood Count 23.1 H Medications Current Medications Aspirin (Aspirin) 81 mg DAILY NGT Last administered on 08/01/16 09:45; Admin Dose 81 MG; Start 07/21/16 at 09:00 Atorvastatin Calcium (Lipitor) 40 mg QHS NGT Last administered on 08/01/16 20: 34; Admin Dose 40 MG; Start 07/20/16 at 21:00 Docusate Sodium (Colace Liquid Cup) 100 mg TID PRN NGT CONSTIPATION; Start 07/20 at 17:30 Folic Acid (Folic Acid) 1 mg DAILY NGT Last administered on 08/01/16 09:45; Admin Dose 1 MG; Start 07/21/16 at 09:00 Ticagrelor (Brilinta) 90 mg Q12 NGT Last administered on 08/01/16 20:57; Admin Dose 90 MG; Start 07/20/16 at 21:00 Acetaminophen (Tylenol Tab) 650 mg Q6H PRN NGT PAIN LEVEL 1-3 OR FEVER Last administered on 07/27/16 13:08; Admin Dose 650 MG; Start 07/20/16 at 17:30 Acetaminophen/ Hydrocodone Bitart ([place] (5/325)) 1 tab Q6H PRN NGT PAIN LEVEL 4-6 Last administered on 07/30/16 21:42; Admin Dose 1 TAB; Start 07/20/16 at 17: 30 Acetaminophen/ Hydrocodone Bitart ([place] (5/325)) 2 tab Q6H PRN NGT PAIN LEVEL 7-10; Start 07/20/16 at 17:30 Famotidine (Pepcid Iv) 20 mg Q24H IV Last administered on 08/01/16 20:34; Admin Dose 20 MG; Start 07/20/16 at 21:00 Insulin Aspart (Novolog Insulin Pen) NOVOLOG *MODERATE* ALGORI... Q4 SC Last administered on 08/02/16 04:52; Admin Dose 4 UNIT; Start 07/21/16 at 17:00 Miscellaneous Information 1 ea NOTE XX ; Start 07/21/16 at 16:30 Glucose (Glutose) 15 gm Q15M PRN PO DECREASED GLUCOSE; Start 07/21/16 at 16:30 Glucose (Glutose) 22.5 gm Q15M PRN PO DECREASED GLUCOSE; Start 07/21/16 at 16:30 Dextrose (D50w Syringe) 25 ml Q15M PRN IV DECREASED GLUCOSE Last administered on 07/21/16 21:13; Admin Dose 25 ML; Start 07/21/16 at 16:30 Dextrose (D50w Syringe) 50 ml Q15M PRN IV DECREASED GLUCOSE; Start 07/21/16 at 16:30 Glucagon (Glucagen) 1 mg Q15M PRN IM DECREASED GLUCOSE; Start 07/21/16 at 16:30 Glucose (Glutose) 15 gm Q15M PRN BUCCAL DECREASED GLUCOSE; Start 07/21/16 at 16: 30 Amlodipine Besylate (Norvasc) 5 mg BID GTB Last administered on 08/01/16 20:33 ; Admin Dose 5 MG; Start 07/23/16 at 14:30 Benazepril HCl (Lotensin) 40 mg Q12 PO Last administered on 08/01/16 20:34; Admin Dose 40 MG; Start 07/24/16 at 21:00 Isosorbide Mononitrate (Imdur) 60 mg DAILY PO Last administered on 08/01/16 09 :46; Admin Dose 60 MG; Start 07/25/16 at 10:30 Hydralazine HCl (Apresoline) 25 mg Q4H PRN IV SBP >170 Last administered on 00:57; Admin Dose 25 MG; Start 07/25/16 at 20:30 Hydralazine HCl 100 mg 100 mg Q8 PO Last administered on 08/02/16 05:14; Admin Dose 100 MG; Start 07/31/16 at 14:00 Vancomycin HCl (Vancocin) 250 ml @ 125 mls/hr Q96H IVPB ; Start 08/04/16 at 13: 00 Metoprolol Tartrate 75 mg 75 mg BID PO Last administered on 08/01/16 20:33; Admin Dose 75 MG; Start 08/01/16 at 21:00 Imipenem/ Cilastatin Sodium (Primaxin 500 Mg/ 100 ml (Pmx)) 100 ml @ 100 mls/ hr Q12 IVPB Last administered on 08/01/16 20:35; Admin Dose 100 MLS/HR; Start 08/01/16 at 12:00 Assessment/Plan Chief Complaint/Hosp Course 1. End-stage renal disease. The patient is on dialysis Thursday, Thursday, Reji. Watch volume status, replete lytes. 2. Volume overload, improving. Continue ultrafiltration with dialysis. 3. Anemia. Hemoglobin level stable. Continue Epogen. 4. Hypokalemia, improved. Continue to monitor. 5. Mineral bone disorder. Continue to monitor calcium and phosphorus levels. Hold any phosphate binders at this time. 6. Sepsis, status post shock. The patient is completing antibiotic course. 7. Respiratory failure, status post extubation, currently stable. Continue to monitor. 8. Dysphagia status post nasogastric tube. Continue tube feeding. 9. Encephalopathy. Etiology is likely anoxic injury. The patient's repeat MRI shows no acute findings. We will continue to monitor. 10. History of coronary artery disease. Continue current treatment plan. 11. Diabetes, continue Accu-Cheks and sliding scale. 12. Hypertension. Continue ultrafiltration dialysis. Continue current blood pressure regimen, adjust as needed. Problems: ATA SHELTON MD Aug 02, 2016 09:12
[2016-08-02] MEDS: AMLODIPINE 5 MG TAB GTB SCH ×2 (09:14→20:43)
[2016-08-02] MEDS: FOLIC ACID 1 MG TAB NGT SCH (09:14)
[2016-08-02] MEDS: ASPIRIN 81 MG TAB NGT SCH (09:14)
[2016-08-02] MEDS: BENAZEPRIL 20 MG TAB PO SCH ×2 (09:15→20:46)
[2016-08-02] MEDS: ISOSORBIDE MONONITRATE(SR)60 MG TAB PO SCH (09:15)
[2016-08-02] MEDS: METOPROLOL 50 MG TAB PO SCH ×2 (09:16→20:45)
[2016-08-02] MEDS: TICAGRELOR 90 MG TABLET NGT SCH ×2 (09:20→20:44)
[2016-08-02] MEDS: IMIPENEM-CILAST 500MG IV (PMX) 100 ML IVPB SCH ×2 (09:24→20:44)
[2016-08-02] MEDS ORDERED: POTASSIUM PHOSPHATE 30 MM in SOD CHLORIDE 0.9% 250 ML IVPB ONE (10:00)
--- NOTE | 2016-08-02 11:55 | CONS ---
Date/Time of Note Date/Time of Note DATE: 08/02/16 TIME: 11:49 Assessment/Plan Assessment/Plan Additional Assessment/Plan 1. Renal failure 2. Abnormal electrocardiogram 3. CAD s/p PTCA and stent placement to circumflex June 2016 with drug- eluting stents 4. Altered mental state 5. Respiratory failure, status post extubation 6. End-stage renal disease on hemodialysis. 7. Urinary tract infection. 8. Pneumonia. 9. Dyslipidemia. 10.HTN 11. Encephalopathy Hypertensive Started on Hydralazine Continue metoprolol, Norvasc and lisinopril Continue Imdur Continue Brilinta Continue Antibiotics Continue HD as scheduled Consultation Date/Type/Reason Admit Date/Time Jul 20, 2016 at 15:20 Constitutional: no complaints Psychological: no complaints Social History Smoking Status: Former smoker Exam/Review of Systems Vital Signs Vitals Vital Signs Date Time Temp Pulse Resp B/P Pulse Ox O2 Delivery O2 Flow Rate FiO2 08/02/16 11:38 98.6 74 20 177/79 97 08/01/16 16:00 Room Air 07/31/16 02:58 21 07/30/16 10:00 3.0 Intake and Output 08/01/16 08/01/16 08/02/16 15:00 23:00 07:00 Intake Total 1085.00 ml 120 ml Output Total 2900 ml Balance -1815.00 ml 120 ml Exam Head: atraumatic, normocephalic Neck: non-tender, supple Respiratory: clear to auscultation Cardiovascular: regular rate and rhythm Gastrointestinal: nl liver, spleen, non-tender, soft Extremities: normal pulses Results Result Diagram: 08/02/16 0545 08/02/16 0545 Results 24 hrs Laboratory Tests Test 08/01/16 12:27 08/01/16 16:41 08/01/16 20:28 08/02/16 00:35 Bedside Glucose 157 200 175 207 Test 08/02/16 04:47 08/02/16 05:45 08/02/16 07:52 Bedside Glucose 219 199 Anion Gap 19 H Basophils # 0.1 Basophils % 0.3 Blood Morphology Comment Blood Urea Nitrogen 34 H Calcium Level 9.6 Carbon Dioxide Level 28 Chloride Level 99 Creatinine 4.30 H Eosinophils # 0.5 Eosinophils % 2.3 Glucose Level 217 Hematocrit 30.3 L Hemoglobin 10.0 L Lymphocytes # 2.5 Lymphocytes % 10.8 L Magnesium Level 2.1 Mean Corpuscular Hemoglobin 31.7 Mean Corpuscular Hemoglobin Concent 33.0 Mean Corpuscular Volume 96.2 Mean Platelet Volume 8.3 Monocytes # 2.2 H Monocytes % 9.5 Neutrophils # 17.8 H Neutrophils % 77.1 H Nucleated Red Blood Cells # 0.0 Nucleated Red Blood Cells % 0.0 Phosphorus Level 1.1 L Platelet Count 431 Potassium Level 3.2 L Red Blood Count 3.14 L Red Cell Distribution Width 16.6 H Sodium Level 143 White Blood Count 23.1 H Medications Medications Current Medications Aspirin (Aspirin) 81 mg DAILY NGT Last administered on 08/02/16 09:14; Admin Dose 81 MG; Start 07/21/16 at 09:00 Atorvastatin Calcium (Lipitor) 40 mg QHS NGT Last administered on 08/01/16 20: 34; Admin Dose 40 MG; Start 07/20/16 at 21:00 Docusate Sodium (Colace Liquid Cup) 100 mg TID PRN NGT CONSTIPATION; Start 07/20 at 17:30 Folic Acid (Folic Acid) 1 mg DAILY NGT Last administered on 08/02/16 09:14; Admin Dose 1 MG; Start 07/21/16 at 09:00 Ticagrelor (Brilinta) 90 mg Q12 NGT Last administered on 08/02/16 09:20; Admin Dose 90 MG; Start 07/20/16 at 21:00 Acetaminophen (Tylenol Tab) 650 mg Q6H PRN NGT PAIN LEVEL 1-3 OR FEVER Last administered on 07/27/16 13:08; Admin Dose 650 MG; Start 07/20/16 at 17:30 Acetaminophen/ Hydrocodone Bitart ([place] (5/325)) 1 tab Q6H PRN NGT PAIN LEVEL 4-6 Last administered on 07/30/16 21:42; Admin Dose 1 TAB; Start 07/20/16 at 17: 30 Acetaminophen/ Hydrocodone Bitart ([place] (5/325)) 2 tab Q6H PRN NGT PAIN LEVEL 7-10; Start 07/20/16 at 17:30 Famotidine (Pepcid Iv) 20 mg Q24H IV Last administered on 08/01/16 20:34; Admin Dose 20 MG; Start 07/20/16 at 21:00 Insulin Aspart (Novolog Insulin Pen) NOVOLOG *MODERATE* ALGORI... Q4 SC Last administered on 08/02/16 09:23; Admin Dose 4 UNIT; Start 07/21/16 at 17:00 Miscellaneous Information 1 ea NOTE XX ; Start 07/21/16 at 16:30 Glucose (Glutose) 15 gm Q15M PRN PO DECREASED GLUCOSE; Start 07/21/16 at 16:30 Glucose (Glutose) 22.5 gm Q15M PRN PO DECREASED GLUCOSE; Start 07/21/16 at 16:30 Dextrose (D50w Syringe) 25 ml Q15M PRN IV DECREASED GLUCOSE Last administered on 07/21/16 21:13; Admin Dose 25 ML; Start 07/21/16 at 16:30 Dextrose (D50w Syringe) 50 ml Q15M PRN IV DECREASED GLUCOSE; Start 07/21/16 at 16:30 Glucagon (Glucagen) 1 mg Q15M PRN IM DECREASED GLUCOSE; Start 07/21/16 at 16:30 Glucose (Glutose) 15 gm Q15M PRN BUCCAL DECREASED GLUCOSE; Start 07/21/16 at 16: 30 Amlodipine Besylate (Norvasc) 5 mg BID GTB Last administered on 08/02/16 09:14 ; Admin Dose 5 MG; Start 07/23/16 at 14:30 Benazepril HCl (Lotensin) 40 mg Q12 PO Last administered on 08/02/16 09:15; Admin Dose 40 MG; Start 07/24/16 at 21:00 Isosorbide Mononitrate (Imdur) 60 mg DAILY PO Last administered on 08/02/16 09 :15; Admin Dose 60 MG; Start 07/25/16 at 10:30 Hydralazine HCl (Apresoline) 25 mg Q4H PRN IV SBP >170 Last administered on 00:57; Admin Dose 25 MG; Start 07/25/16 at 20:30 Hydralazine HCl 100 mg 100 mg Q8 PO Last administered on 08/02/16 05:14; Admin Dose 100 MG; Start 07/31/16 at 14:00 Vancomycin HCl (Vancocin) 250 ml @ 125 mls/hr Q96H IVPB ; Start 08/04/16 at 13: 00 Metoprolol Tartrate 75 mg 75 mg BID PO Last administered on 08/02/16 09:16; Admin Dose 75 MG; Start 08/01/16 at 21:00 Imipenem/ Cilastatin Sodium 100 ml @ 100 mls/hr Q12 IVPB Last administered on 08/02/16 09:24; Admin Dose 100 MLS/HR; Start 08/01/16 at 12:00 Potassium Phosphate/Sodium Chloride (K Phos (Mm)/NS) 260 ml @ 65 mls/hr ONCE ONCE IVPB ; Start 08/02/16 at 10:00; Stop 08/02/16 at 13:59 NGUYEN PATEL M.D. Aug 02, 2016 11:55 NGUYEN PATEL M.D. Aug 02, 2016 11:55
[2016-08-02] MEDS: metroNIDAZOLE 500 MG TAB PO SCH ×3 (12:09→22:15)
--- NOTE | 2016-08-02 12:54 | CONS ---
Date/Time of Note Date/Time of Note DATE: 08/02/16 TIME: 12:51 Assessment/Plan Assessment/Plan Chief Complaint/Hosp Course AMS Problems: Additional Assessment/Plan 65 year old F with ESRD on dialysis, recent admission for cardiac arrest s/p stent admitted on 07/20/16 after she was found unresponsive with respiratory distress possibly over 2 hours required intubation, treated with broad spectrum abx for pneumonia extubated 2 days ago with persistent encephalopathy. Repeat MRI of brain did not show anything acute. EEG showed encephalopathy without any epileptiform activity. Improving in mental status. Plan: -mental status remains poor post extubation, -will continue to follow prn Consultation Date/Type/Reason Admit Date/Time Jul 20, 2016 at 15:20 Initial Consult Date 07/21/16 Type of Consultation: nephrology Referring Provider: [email or web address] MAY M.D. 24 HR Interval Summary Free Text/Dictation AMS improving. Out of ICU. NG tube in place. More awake and alert, following simple commands. Exam/Review of Systems Vital Signs Vitals Vital Signs Date Time Temp Pulse Resp B/P Pulse Ox O2 Delivery O2 Flow Rate FiO2 08/02/16 12:48 81 08/02/16 11:38 98.6 20 177/79 97 08/01/16 16:00 Room Air 07/31/16 02:58 21 07/30/16 10:00 3.0 Intake and Output 08/01/16 08/01/16 08/02/16 15:00 23:00 07:00 Intake Total 1085.00 ml 120 ml Output Total 2900 ml Balance -1815.00 ml 120 ml Exam Constitutional: alert Psych: no complaints Head: atraumatic, normocephalic Eyes: EOMI, nl conjunctiva, nl lids ENMT: mucosa pink and moist, nl external ears & nose, nl lips & teeth Neck: non-tender, supple Respiratory: clear to auscultation, normal air movement Cardiovascular: nl pulses, regular rate and rhythm Gastrointestinal: nl liver, spleen, non-tender, soft Extremities: normal pulses Neurological: other (Alert, awake, follows simple commands, NG tube in place, limited examnination, withdraws to noxious stimuli.) Skin: nl turgor, rash or lesions Results Result Diagram: 08/02/16 0545 08/02/16 0545 Results 24 hrs Laboratory Tests Test 08/01/16 16:41 08/01/16 20:28 08/02/16 00:35 08/02/16 04:47 Bedside Glucose 200 175 207 219 Test 08/02/16 05:45 08/02/16 07:52 08/02/16 11:56 Anion Gap 19 H Basophils # 0.1 Basophils % 0.3 Blood Morphology Comment Blood Urea Nitrogen 34 H Calcium Level 9.6 Carbon Dioxide Level 28 Chloride Level 99 Creatinine 4.30 H Eosinophils # 0.5 Eosinophils % 2.3 Glucose Level 217 Hematocrit 30.3 L Hemoglobin 10.0 L Lymphocytes # 2.5 Lymphocytes % 10.8 L Magnesium Level 2.1 Mean Corpuscular Hemoglobin 31.7 Mean Corpuscular Hemoglobin Concent 33.0 Mean Corpuscular Volume 96.2 Mean Platelet Volume 8.3 Monocytes # 2.2 H Monocytes % 9.5 Neutrophils # 17.8 H Neutrophils % 77.1 H Nucleated Red Blood Cells # 0.0 Nucleated Red Blood Cells % 0.0 Phosphorus Level 1.1 L Platelet Count 431 Potassium Level 3.2 L Red Blood Count 3.14 L Red Cell Distribution Width 16.6 H Sodium Level 143 White Blood Count 23.1 H Bedside Glucose 199 157 Medications Medications Current Medications Aspirin (Aspirin) 81 mg DAILY NGT Last administered on 08/02/16 09:14; Admin Dose 81 MG; Start 07/21/16 at 09:00 Atorvastatin Calcium (Lipitor) 40 mg QHS NGT Last administered on 08/01/16 20: 34; Admin Dose 40 MG; Start 07/20/16 at 21:00 Docusate Sodium (Colace Liquid Cup) 100 mg TID PRN NGT CONSTIPATION; Start 07/20 at 17:30 Folic Acid (Folic Acid) 1 mg DAILY NGT Last administered on 08/02/16 09:14; Admin Dose 1 MG; Start 07/21/16 at 09:00 Ticagrelor (Brilinta) 90 mg Q12 NGT Last administered on 08/02/16 09:20; Admin Dose 90 MG; Start 07/20/16 at 21:00 Acetaminophen (Tylenol Tab) 650 mg Q6H PRN NGT PAIN LEVEL 1-3 OR FEVER Last administered on 07/27/16 13:08; Admin Dose 650 MG; Start 07/20/16 at 17:30 Acetaminophen/ Hydrocodone Bitart ([place] (5/325)) 1 tab Q6H PRN NGT PAIN LEVEL 4-6 Last administered on 07/30/16 21:42; Admin Dose 1 TAB; Start 07/20/16 at 17: 30 Acetaminophen/ Hydrocodone Bitart ([place] (5/325)) 2 tab Q6H PRN NGT PAIN LEVEL 7-10; Start 07/20/16 at 17:30 Famotidine (Pepcid Iv) 20 mg Q24H IV Last administered on 08/01/16 20:34; Admin Dose 20 MG; Start 07/20/16 at 21:00 Insulin Aspart (Novolog Insulin Pen) NOVOLOG *MODERATE* ALGORI... Q4 SC Last administered on 08/02/16 12:14; Admin Dose 2 UNIT; Start 07/21/16 at 17:00 Miscellaneous Information 1 ea NOTE XX ; Start 07/21/16 at 16:30 Glucose (Glutose) 15 gm Q15M PRN PO DECREASED GLUCOSE; Start 07/21/16 at 16:30 Glucose (Glutose) 22.5 gm Q15M PRN PO DECREASED GLUCOSE; Start 07/21/16 at 16:30 Dextrose (D50w Syringe) 25 ml Q15M PRN IV DECREASED GLUCOSE Last administered on 07/21/16 21:13; Admin Dose 25 ML; Start 07/21/16 at 16:30 Dextrose (D50w Syringe) 50 ml Q15M PRN IV DECREASED GLUCOSE; Start 07/21/16 at 16:30 Glucagon (Glucagen) 1 mg Q15M PRN IM DECREASED GLUCOSE; Start 07/21/16 at 16:30 Glucose (Glutose) 15 gm Q15M PRN BUCCAL DECREASED GLUCOSE; Start 07/21/16 at 16: 30 Amlodipine Besylate (Norvasc) 5 mg BID GTB Last administered on 08/02/16 09:14 ; Admin Dose 5 MG; Start 07/23/16 at 14:30 Benazepril HCl (Lotensin) 40 mg Q12 PO Last administered on 08/02/16 09:15; Admin Dose 40 MG; Start 07/24/16 at 21:00 Isosorbide Mononitrate (Imdur) 60 mg DAILY PO Last administered on 08/02/16 09 :15; Admin Dose 60 MG; Start 07/25/16 at 10:30 Hydralazine HCl 25 mg 25 mg Q4H PRN IV SBP >170 Last administered on 08/02/16 00:57; Admin Dose 25 MG; Start 07/25/16 at 20:30 Vancomycin HCl (Vancocin) 250 ml @ 125 mls/hr Q96H IVPB ; Start 08/04/16 at 13: 00 Metoprolol Tartrate 75 mg 75 mg BID PO Last administered on 08/02/16 09:16; Admin Dose 75 MG; Start 08/01/16 at 21:00 Imipenem/ Cilastatin Sodium 100 ml @ 100 mls/hr Q12 IVPB Last administered on 08/02/16 09:24; Admin Dose 100 MLS/HR; Start 08/01/16 at 12:00 Potassium Phosphate/Sodium Chloride (K Phos (Mm)/NS) 260 ml @ 65 mls/hr ONCE ONCE IVPB Last administered on 08/02/16 12:00; Admin Dose 65 MLS/HR; Start at 10:00; Stop 08/02/16 at 13:59 Metronidazole (Flagyl) 500 mg Q8 PO Last administered on 08/02/16 12:20; Admin Dose 500 MG; Start 08/02/16 at 13:00 Hydralazine HCl (Apresoline) 75 mg Q8 PO Last administered on 08/02/16 12:22; Admin Dose 75 MG; Start 08/02/16 at 12:30 CONCETTA MARCELINO MD Aug 02, 2016 12:54
--- NOTE | 2016-08-02 16:10 | PN ---
Date/Time of Note Date/Time of Note DATE: 08/02/16 TIME: 15:56 Assessment/Plan VTE Prophylaxis VTE Prophylaxis Intervention: SCD's Lines/Catheters IV Catheter Type (from Nrsg): Central Line Central line still needed: Yes (for IV access ) Urinary Cath still in place: No Assessment/Plan Assessment/Plan 65-year-old woman: 1. Acute respiratory failure and unresponsiveness, s/p intubation on arrival in the ER. Etiology unclear. Extubated and stable for a few days now, on NC actually now She was hospitalized two weeks prior to this admission after she suffered a cardiac arrest with asystole in the ER. S/p Angio x 2 with stenting Repeat echo with EF 55% Mildly elevated troponin on this admission, appreciate cardiology recommendations Cardiology, Pulmonary, Nephrology and Neurology following. Volume status better, management with HD 2. Encephalopathy. Per Neurology not sure if anoxic injury vs metabolic encephalopathy There was a two-hour window during which she was "asleep" prior to being found unresponsive on admission EEG showing encephalopathy, MRI with no acute findings Appreciate Neurology consult with Dr. Arshad. Patient still encephalopathic. Minimizing sedative agents. Follow up reevaluation by Neurology 3. Leukocytosis recurrent, on abx for aspiration pneumonitis/pneumonia vs HCAP, WBC still up and new cx coming in Fem line tip cx with coag neg staph, repeat blood cx pending, previous blood cx negative and continue Vanco for now Sputum cx with GNR and ESBL E coli. Abx changed to Imipenem and on contact isolation 4. ? Enterococcal UTI: on Vancomycin already, Repeat UA and Urine cx NGTD 5. CAD s/p angio and stenting x 2 approx 2 weeks ago, echo more consistent with diastolic dysfunction EKG similar to previous ekg two weeks ago. Serial troponins trended down to normal Continue ASA and Brilinta, Dr Castelan following and on BBlock. 6. Endstage renal disease on hemodialysis: on HD M/W/F Appreciate assistance from Dr. Gomez. 7. Acute on chronic anemia with hb stable @ 9.5 stable. 8. Hematochezia: observed x 24 hrs, d/c heparin gtt. On Brilinta/ASA due to recent cardiac stents. CT abdo/pelvis pending and given elevated WBC, check Lactate 9. Diabetes mellitus: OFF Lantus with episode of hypoglycemia noted, continue SSI On TF and free H20 now 10. Hypertension, better controlled BP with current regimen Metoprolol, Benazepril, Norvasc Imdur and now Hydralazine also added yesterday. 11. Right lower extremity pain with questionable history of sciatica. Doppler study negative ten days ago for DVT on the right. Prophylaxis: Pepcid for gastrointestinal prophylaxis. SCDs for DVT prevention Disposition:Telemetry and CT Abdo/pelvis pending. Dr Castelan, Dr Barraza and Dr Arshad following. Full-Code. Subjective 24 Hr Interval Summary Free Text/Dictation Episodes of BRBPR last night and today with Hb stable CT abdo/pelvis pending today Stable hemodynamics Still poor Mental status so needs NGT back in WBC still trending up... Exam/Review of Systems Vital Signs Vitals Vital Signs Date Time Temp Pulse Resp B/P Pulse Ox O2 Delivery O2 Flow Rate FiO2 08/02/16 15:29 98.2 86 20 170/72 95 08/01/16 16:00 Room Air 07/31/16 02:58 21 07/30/16 10:00 3.0 Intake and Output 08/01/16 08/01/16 08/02/16 15:00 23:00 07:00 Intake Total 1085.00 ml 120 ml Output Total 2900 ml Balance -1815.00 ml 120 ml Exam Constitutional: alert, obese, oriented, other (lethargic ) Respiratory: clear to auscultation, normal air movement Cardiovascular: nl pulses, regular rate and rhythm Gastrointestinal: non-tender, other (BRBPR), soft Musculoskeletal: nl extremities to inspection Extremities: normal pulses, other (no edema, clubbing or cyanosis ) Neurological: lethargic, other (not following commands ) Results Result Diagram: 08/02/16 0545 08/02/16 0545 Results 24 hrs Laboratory Tests Test 08/01/16 16:41 08/01/16 20:28 08/02/16 00:35 08/02/16 04:47 Bedside Glucose 200 175 207 219 Test 08/02/16 05:45 08/02/16 07:52 08/02/16 11:56 Anion Gap 19 H Basophils # 0.1 Basophils % 0.3 Blood Morphology Comment Blood Urea Nitrogen 34 H Calcium Level 9.6 Carbon Dioxide Level 28 Chloride Level 99 Creatinine 4.30 H Eosinophils # 0.5 Eosinophils % 2.3 Glucose Level 217 Hematocrit 30.3 L Hemoglobin 10.0 L Lymphocytes # 2.5 Lymphocytes % 10.8 L Magnesium Level 2.1 Mean Corpuscular Hemoglobin 31.7 Mean Corpuscular Hemoglobin Concent 33.0 Mean Corpuscular Volume 96.2 Mean Platelet Volume 8.3 Monocytes # 2.2 H Monocytes % 9.5 Neutrophils # 17.8 H Neutrophils % 77.1 H Nucleated Red Blood Cells # 0.0 Nucleated Red Blood Cells % 0.0 Phosphorus Level 1.1 L Platelet Count 431 Potassium Level 3.2 L Red Blood Count 3.14 L Red Cell Distribution Width 16.6 H Sodium Level 143 White Blood Count 23.1 H Bedside Glucose 199 157 Medications Medications Current Medications Aspirin (Aspirin) 81 mg DAILY NGT Last administered on 08/02/16 09:14; Admin Dose 81 MG; Start 07/21/16 at 09:00 Atorvastatin Calcium (Lipitor) 40 mg QHS NGT Last administered on 08/01/16 20: 34; Admin Dose 40 MG; Start 07/20/16 at 21:00 Docusate Sodium (Colace Liquid Cup) 100 mg TID PRN NGT CONSTIPATION; Start 07/20 at 17:30 Folic Acid (Folic Acid) 1 mg DAILY NGT Last administered on 08/02/16 09:14; Admin Dose 1 MG; Start 07/21/16 at 09:00 Ticagrelor (Brilinta) 90 mg Q12 NGT Last administered on 08/02/16 09:20; Admin Dose 90 MG; Start 07/20/16 at 21:00 Acetaminophen (Tylenol Tab) 650 mg Q6H PRN NGT PAIN LEVEL 1-3 OR FEVER Last administered on 07/27/16 13:08; Admin Dose 650 MG; Start 07/20/16 at 17:30 Acetaminophen/ Hydrocodone Bitart ([place] (5/325)) 1 tab Q6H PRN NGT PAIN LEVEL 4-6 Last administered on 07/30/16 21:42; Admin Dose 1 TAB; Start 07/20/16 at 17: 30 Acetaminophen/ Hydrocodone Bitart ([place] (5/325)) 2 tab Q6H PRN NGT PAIN LEVEL 7-10; Start 07/20/16 at 17:30 Famotidine (Pepcid Iv) 20 mg Q24H IV Last administered on 08/01/16 20:34; Admin Dose 20 MG; Start 07/20/16 at 21:00 Insulin Aspart (Novolog Insulin Pen) NOVOLOG *MODERATE* ALGORI... Q4 SC Last administered on 08/02/16 12:14; Admin Dose 2 UNIT; Start 07/21/16 at 17:00 Miscellaneous Information 1 ea NOTE XX ; Start 07/21/16 at 16:30 Glucose (Glutose) 15 gm Q15M PRN PO DECREASED GLUCOSE; Start 07/21/16 at 16:30 Glucose (Glutose) 22.5 gm Q15M PRN PO DECREASED GLUCOSE; Start 07/21/16 at 16:30 Dextrose (D50w Syringe) 25 ml Q15M PRN IV DECREASED GLUCOSE Last administered on 07/21/16 21:13; Admin Dose 25 ML; Start 07/21/16 at 16:30 Dextrose (D50w Syringe) 50 ml Q15M PRN IV DECREASED GLUCOSE; Start 07/21/16 at 16:30 Glucagon (Glucagen) 1 mg Q15M PRN IM DECREASED GLUCOSE; Start 07/21/16 at 16:30 Glucose (Glutose) 15 gm Q15M PRN BUCCAL DECREASED GLUCOSE; Start 07/21/16 at 16: 30 Amlodipine Besylate (Norvasc) 5 mg BID GTB Last administered on 08/02/16 09:14 ; Admin Dose 5 MG; Start 07/23/16 at 14:30 Benazepril HCl (Lotensin) 40 mg Q12 PO Last administered on 08/02/16 09:15; Admin Dose 40 MG; Start 07/24/16 at 21:00 Isosorbide Mononitrate (Imdur) 60 mg DAILY PO Last administered on 08/02/16 09 :15; Admin Dose 60 MG; Start 07/25/16 at 10:30 Hydralazine HCl 25 mg 25 mg Q4H PRN IV SBP >170 Last administered on 08/02/16 13:39; Admin Dose 25 MG; Start 07/25/16 at 20:30 Vancomycin HCl (Vancocin) 250 ml @ 125 mls/hr Q96H IVPB ; Start 08/04/16 at 13: 00 Metoprolol Tartrate 75 mg 75 mg BID PO Last administered on 08/02/16 09:16; Admin Dose 75 MG; Start 08/01/16 at 21:00 Imipenem/ Cilastatin Sodium (Primaxin 500 Mg/ 100 ml (Pmx)) 100 ml @ 100 mls/ hr Q12 IVPB Last administered on 08/02/16 09:24; Admin Dose 100 MLS/HR; Start 08/01/16 at 12:00 Metronidazole (Flagyl) 500 mg Q8 PO Last administered on 08/02/16 12:20; Admin Dose 500 MG; Start 08/02/16 at 13:00 Hydralazine HCl (Apresoline) 75 mg Q8 PO Last administered on 08/02/16 12:22; Admin Dose 75 MG; Start 08/02/16 at 12:30 NADIA SARGENT Aug 02, 2016 16:10
--- NOTE | 2016-08-02 16:36 | PN ---
DATE: 08/02/2016 PULMONARY FOLLOW UP SUBJECTIVE: Chart reviewed. Events noted. Patient currently saturating 97%. PHYSICAL EXAMINATION: VITAL SIGNS: Blood pressure 177/79, pulse 74, respirations 20, temperature 98.6. HEENT: Pupils are equal and reactive to light. NECK: Supple. No JVD noted, no cervical adenopathy noted, no carotid bruits heard. LUNGS: Fair breath sounds bilaterally. CARDIOVASCULAR: S1, S2 normal. ABDOMEN: Soft, nontender. No organomegaly or masses noted. EXTREMITIES: No clubbing or cyanosis noted. NEUROLOGICAL: More responsive. LABORATORY DATA: WBC 23.1, hemoglobin 10, hematocrit 30.3, platelets 431. Sodium 143, potassium 3. 2, chloride 99, CO2 28, BUN 34, creatinine 4.3, glucose 217. IMPRESSION: 1. Status post acute hypoxemic respiratory failure, stable post-extubation. 2. End-stage renal disease on hemodialysis. 3. Encephalopathy, slowly improving. 4. Anemia. 5. History of hypertension. 6. Question aspiration. RECOMMENDATIONS: 1. Continue hemodialysis. 2. Neuro followup noted. 3. Blood pressure meds per nephrology. 4. Continue antibiotics. Dictated By: ALBERT DOW MD, MA/RANI Conf#: [id number] DID#: [id number]
--- NOTE | 2016-08-02 17:28 | RADRPT ---
PROCEDURE: CT abdomen and pelvis without contrast. CLINICAL INDICATION: Rectal bleeding TECHNIQUE: CT scan of the abdomen and pelvis without contrast was performed and is reconstructed a t 3.5 mm contiguous axial intervals from the dome of the diaphragm to the inferior pubic rami.. The patient was scanned without intravenous contrast. Sagittal and coronal reformatted images were obt ained from the axial source images. The calculated radiation dose measures 1035 mGy centimeters. The CTDI measures 20 mGy. COMPARISON: None. FINDINGS: The lung bases are clear of any infiltrate or nodule. No pleural effusion is seen. Plate-like atele ctasis is seen in the left lower lobe. There is cardiomegaly. A tiny pericardial effusion is prese nt. The liver is of normal size, contour and attenuation with no mass or ductal dilatation. No gallston es are visualized. No splenic, adrenal or pancreatic abnormalities present. Kidneys are atrophic. No hydronephrosis or mass is seen. There is a 3 mm nonobstructing stone in t he upper pole of the right kidney. Ureters are of normal course and caliber with no stone. No blad clotilde masses stone is seen. Atrophic postmenopausal uterus is normal. No adnexal mass is present. There is no aneurysm. No adenopathy is present. No bowel mass or obstruction is present. The appendix is normal. No phlegmon, ascites or pneumop eritoneum is visualized. There are healing fractures of the right superior and inferior pubic ramus. There are healing fract ures of the left and right sacral wings. IMPRESSION: No evidence of obstruct uropathy, diverticulitis or appendicitis. Tiny nonobstructing right renal ca lculus. Healing right pelvic and right and left sacral fractures. Plate-like atelectasis left lower lobe. Tiny pericardial effusion. .Colby Toledo MD, Date Time Electronically viewed and signed by .Colby Toledo MD, MD on 08/02/2016 17:28 .A/
--- NOTE | 2016-08-02 20:28 | RADRPT ---
PROCEDURE: XR Chest. CLINICAL INDICATION: The NG tube placement. TECHNIQUE: Single AP portable chest COMPARISON: 07/30/2016. FINDINGS: The cardiomediastinal silhouette is mildly enlarged. The NG tube tip overlies the region of the bod y of the stomach. A left central venous internal jugular catheter tip overlies the proximal superio r vena cava and stable position. <The lungs are clear though pleural effusion or focal consolidatio n. The osseous structures and soft tissues are unremarkable. IMPRESSION: NG tube tip in satisfactory position. Mild cardiomegaly. No acute intrathoracic abnormality. RPTAT:AAJJ Physician Suzette Date Time Electronically viewed and signed by Physician Suzette on 08/02/2016 20:28 HAYLEE/
[2016-08-02] MEDS: ATORVASTATIN 40 MG TAB NGT SCH (20:45)
[2016-08-02] MEDS: FAMOTIDINE 20 MG INJ IV SCH (22:15)
[2016-08-03] VITALS (21 sets, daily range): BP systolic 108–181; BP diastolic 57–108; PULSE 70–95; RESP 17–18
[2016-08-03] MEDS: INSULIN ASPART [NOVOLOG] 3 ML PEN SC SCH ×6 (01:56→21:51)
[2016-08-03] MEDS: metroNIDAZOLE 500 MG TAB PO SCH ×3 (05:41→21:46)
[2016-08-03 07:17] LABS: HEMATOCRIT 29.1 % (37.0-47.0); HEMOGLOBIN 9.8 g/dl (12.0-16.0); MEAN CORPUSCULAR HEMOGLOBIN 32.4 pg (29.0-33.0); MEAN CORPUSCULAR HGB CONC 33.6 g/dl (32.0-37.0); MEAN CORPUSCULAR VOLUME 96.5 fl (82.0-101.0); PLATELET COUNT 413 10^3/UL (140-440); RED BLOOD COUNT 3.02 10^6/ul (4.20-5.40); RED CELL DISTRIBUTION WIDTH 17.3 % (11.5-14.5); UNCORRECTED WBC 22.4 10^3/ul (4.8-10.8); WHITE BLOOD COUNT 22.4 10^3/ul (4.8-10.8)
[2016-08-03 07:27] LABS: ALBUMIN 3.6 g/dl (3.3-4.9)
[2016-08-03 07:29] LABS: CONDITION 1; CREATININE 5.51 mg/dl (0.44-1.00); LH ANALYZER COMMENTS 1; SUSPECT 1
[2016-08-03 07:30] LABS: ALBUMIN/GLOBULIN RATIO 0.78; CALCIUM 9.1 mg/dl (8.4-10.2); TOTAL PROTEIN 8.2 g/dl (6.1-8.1)
[2016-08-03 07:51] LABS: MAGNESIUM 2.1 mg/dl (1.7-2.5); PHOSPHORUS 3.9 mg/dl (2.5-4.9)
[2016-08-03] MEDS: IMIPENEM-CILAST 500MG IV (PMX) 100 ML IVPB SCH ×2 (08:15→21:48)
[2016-08-03] MEDS: ASPIRIN 81 MG TAB NGT SCH (08:17)
[2016-08-03] MEDS: METOPROLOL 50 MG TAB PO SCH ×2 (08:17→21:50)
[2016-08-03] MEDS: AMLODIPINE 5 MG TAB GTB SCH ×2 (08:17→21:48)
[2016-08-03] MEDS: ISOSORBIDE MONONITRATE(SR)60 MG TAB PO SCH (08:17)
[2016-08-03] MEDS: FOLIC ACID 1 MG TAB NGT SCH (08:17)
[2016-08-03] MEDS: BENAZEPRIL 20 MG TAB PO SCH ×2 (08:18→21:47)
[2016-08-03] MEDS: TICAGRELOR 90 MG TABLET NGT SCH ×2 (08:22→21:51)
--- NOTE | 2016-08-03 08:46 | CONS ---
Date/Time of Note Date/Time of Note DATE: 08/03/16 TIME: 08:46 Consult Date/Type/Reason Admit Date/Time Jul 20, 2016 at 15:20 Initial Consult Date 07/21/16 Type of Consultation: nephrology Ordering Provider: KRZYSZTOF MAY M.D. Subjective no new events Objective Vital Signs Date Time Temp Pulse Resp B/P Pulse Ox O2 Delivery O2 Flow Rate FiO2 08/03/16 08:34 90 08/03/16 07:58 98.7 18 177/74 98 08/01/16 16:00 Room Air 07/31/16 02:58 21 07/30/16 10:00 3.0 Intake and Output 08/02/16 08/02/16 08/03/16 15:00 23:00 07:00 Intake Total 100 ml 525 ml Balance 100 ml 525 ml HEENT: Pupils are equal and reactive to light. NECK: Supple. No JVD noted, no cervical adenopathy noted, no carotid bruits heard. LUNGS: Fair breath sounds bilaterally. CARDIOVASCULAR: S1, S2 normal. ABDOMEN: Soft, nontender. No organomegaly or masses noted. EXTREMITIES: No clubbing or cyanosis noted. NEUROLOGICAL: More responsive. Results/Medications Result Diagram: 08/03/16 0540 08/03/16 0540 Results 24 hrs Laboratory Tests Test 08/02/16 11:56 08/02/16 16:45 08/02/16 18:37 08/02/16 20:36 Bedside Glucose 157 134 142 Lactic Acid Level 0.9 Test 08/03/16 01:48 08/03/16 05:38 08/03/16 05:40 08/03/16 08:21 Bedside Glucose 176 224 H 188 Alanine Aminotransferase (ALT/SGPT) 14 Albumin 3.6 Albumin/Globulin Ratio 0.78 Alkaline Phosphatase 167 H Anion Gap 22 H Aspartate Amino Transf (AST/SGOT) 34 Basophils # Pending Basophils % Pending Blood Morphology Comment Blood Urea Nitrogen 53 H Calcium Level 9.1 Carbon Dioxide Level 27 Chloride Level 100 Creatinine 5.51 H Direct Bilirubin 0.00 Eosinophils # Pending Eosinophils % Pending Globulin 4.60 H Glucose Level 195 Hematocrit 29.1 L Hemoglobin 9.8 L Indirect Bilirubin 0.0 Lymphocytes # Pending Lymphocytes % Pending Magnesium Level 2.1 Mean Corpuscular Hemoglobin 32.4 Mean Corpuscular Hemoglobin Concent 33.6 Mean Corpuscular Volume 96.5 Mean Platelet Volume 8.0 Monocytes # Pending Monocytes % Pending Neutrophils # Pending Neutrophils % Pending Nucleated Red Blood Cells # Pending Nucleated Red Blood Cells % Pending Phosphorus Level 3.9 # Platelet Count 413 Potassium Level 4.0 Red Blood Count 3.02 L Red Cell Distribution Width 17.3 H Sodium Level 145 H Total Bilirubin 0.0 L Total Protein 8.2 H White Blood Count 22.4 H Medications Current Medications Aspirin (Aspirin) 81 mg DAILY NGT Last administered on 08/03/16 08:17; Admin Dose 81 MG; Start 07/21/16 at 09:00 Atorvastatin Calcium (Lipitor) 40 mg QHS NGT Last administered on 08/02/16 20: 45; Admin Dose 40 MG; Start 07/20/16 at 21:00 Docusate Sodium (Colace Liquid Cup) 100 mg TID PRN NGT CONSTIPATION; Start 07/20 at 17:30 Folic Acid (Folic Acid) 1 mg DAILY NGT Last administered on 08/03/16 08:17; Admin Dose 1 MG; Start 07/21/16 at 09:00 Ticagrelor (Brilinta) 90 mg Q12 NGT Last administered on 08/03/16 08:22; Admin Dose 90 MG; Start 07/20/16 at 21:00 Acetaminophen (Tylenol Tab) 650 mg Q6H PRN NGT PAIN LEVEL 1-3 OR FEVER Last administered on 07/27/16 13:08; Admin Dose 650 MG; Start 07/20/16 at 17:30 Acetaminophen/ Hydrocodone Bitart ([place] (5/325)) 1 tab Q6H PRN NGT PAIN LEVEL 4-6 Last administered on 07/30/16 21:42; Admin Dose 1 TAB; Start 07/20/16 at 17: 30 Acetaminophen/ Hydrocodone Bitart ([place] (5/325)) 2 tab Q6H PRN NGT PAIN LEVEL 7-10; Start 07/20/16 at 17:30 Famotidine (Pepcid Iv) 20 mg Q24H IV Last administered on 08/02/16 22:15; Admin Dose 20 MG; Start 07/20/16 at 21:00 Insulin Aspart (Novolog Insulin Pen) NOVOLOG *MODERATE* ALGORI... Q4 SC Last administered on 08/03/16 08:27; Admin Dose 4 UNIT; Start 07/21/16 at 17:00 Miscellaneous Information 1 ea NOTE XX ; Start 07/21/16 at 16:30 Glucose (Glutose) 15 gm Q15M PRN PO DECREASED GLUCOSE; Start 07/21/16 at 16:30 Glucose (Glutose) 22.5 gm Q15M PRN PO DECREASED GLUCOSE; Start 07/21/16 at 16:30 Dextrose (D50w Syringe) 25 ml Q15M PRN IV DECREASED GLUCOSE Last administered on 07/21/16 21:13; Admin Dose 25 ML; Start 07/21/16 at 16:30 Dextrose (D50w Syringe) 50 ml Q15M PRN IV DECREASED GLUCOSE; Start 07/21/16 at 16:30 Glucagon (Glucagen) 1 mg Q15M PRN IM DECREASED GLUCOSE; Start 07/21/16 at 16:30 Glucose (Glutose) 15 gm Q15M PRN BUCCAL DECREASED GLUCOSE; Start 07/21/16 at 16: 30 Amlodipine Besylate (Norvasc) 5 mg BID GTB Last administered on 08/03/16 08:17 ; Admin Dose 5 MG; Start 07/23/16 at 14:30 Benazepril HCl (Lotensin) 40 mg Q12 PO Last administered on 08/03/16 08:18; Admin Dose 40 MG; Start 07/24/16 at 21:00 Isosorbide Mononitrate (Imdur) 60 mg DAILY PO Last administered on 08/03/16 08 :17; Admin Dose 60 MG; Start 07/25/16 at 10:30 Hydralazine HCl 25 mg 25 mg Q4H PRN IV SBP >170 Last administered on 08/02/16 13:39; Admin Dose 25 MG; Start 07/25/16 at 20:30 Vancomycin HCl (Vancocin) 250 ml @ 125 mls/hr Q96H IVPB ; Start 08/04/16 at 13: 00 Metoprolol Tartrate 75 mg 75 mg BID PO Last administered on 08/03/16 08:17; Admin Dose 75 MG; Start 08/01/16 at 21:00 Imipenem/ Cilastatin Sodium (Primaxin 500 Mg/ 100 ml (Pmx)) 100 ml @ 100 mls/ hr Q12 IVPB Last administered on 08/03/16 08:15; Admin Dose 100 MLS/HR; Start 08/01/16 at 12:00 Metronidazole (Flagyl) 500 mg Q8 PO Last administered on 08/03/16 05:41; Admin Dose 500 MG; Start 08/02/16 at 13:00 Hydralazine HCl (Apresoline) 75 mg Q8 PO Last administered on 08/03/16 05:42; Admin Dose 75 MG; Start 08/02/16 at 12:30 Assessment/Plan Chief Complaint/Hosp Course 1. End-stage renal disease. The patient is on dialysis Thursday, Thursday, Thursday. Watch volume status, replete lytes. 2. Volume overload, improving. Continue ultrafiltration with dialysis. 3. Anemia. Hemoglobin level stable. Continue Epogen. 4. Hypokalemia, improved. Continue to monitor. 5. Mineral bone disorder. Continue to monitor calcium and phosphorus levels. Hold any phosphate binders at this time. 6. Sepsis, status post shock. The patient is completing antibiotic course. 7. Respiratory failure, status post extubation, currently stable. Continue to monitor. 8. Dysphagia status post nasogastric tube. Continue tube feeding. 9. Encephalopathy. Etiology is likely anoxic injury. The patient's repeat MRI shows no acute findings. We will continue to monitor. 10. History of coronary artery disease. Continue current treatment plan. 11. Diabetes, continue Accu-Cheks and sliding scale. 12. Hypertension. Continue ultrafiltration dialysis. Continue current blood pressure regimen, adjust as needed. Problems: ATA SHELTON MD Aug 03, 2016 08:46
[2016-08-03 10:26] LABS: BASOPHIL # 0.2 10^3/ul (0.0-0.1); EOSINOPHILS # 0.2 10^3/ul (0.0-0.5); LYMPHOCYTES # 1.3 10^3/ul (0.8-2.9); MONOCYTE # 5.4 10^3/ul (0.3-0.9); MYELOCYTES # 0.7; NEUTROPHIL # 13.9 10^3/ul (1.6-7.5)
--- NOTE | 2016-08-03 10:49 | CONS ---
Date/Time of Note Date/Time of Note DATE: 08/03/16 TIME: 10:46 Assessment/Plan Assessment/Plan Chief Complaint/Hosp Course AMS Problems: Additional Assessment/Plan 65 year old F with ESRD on dialysis, recent admission for cardiac arrest s/p stent admitted on 07/20/16 after she was found unresponsive with respiratory distress possibly over 2 hours required intubation, treated with broad spectrum abx for pneumonia extubated 2 days ago with persistent encephalopathy. Repeat MRI of brain did not show anything acute. EEG showed encephalopathy without any epileptiform activity. Improving in mental status. Plan: -mental status improving, -sign off now, reconsult if necessary Consultation Date/Type/Reason Admit Date/Time Jul 20, 2016 at 15:20 Initial Consult Date 07/21/16 Type of Consultation: nephrology Referring Provider: KRZYSZTOF MAY M.D. 24 HR Interval Summary Free Text/Dictation More awake and alert today. Following simple commands. NG tube in place. Exam/Review of Systems Vital Signs Vitals Vital Signs Date Time Temp Pulse Resp B/P Pulse Ox O2 Delivery O2 Flow Rate FiO2 08/03/16 08:34 90 08/03/16 07:58 98.7 18 177/74 98 08/01/16 16:00 Room Air 07/31/16 02:58 21 07/30/16 10:00 3.0 Intake and Output 08/02/16 08/02/16 08/03/16 15:00 23:00 07:00 Intake Total 100 ml 525 ml Balance 100 ml 525 ml Exam Constitutional: alert, oriented, well developed Psych: nl mood/affect, no complaints Head: atraumatic, normocephalic Eyes: EOMI, nl conjunctiva, nl lids, nl sclera ENMT: mucosa pink and moist, nl external ears & nose, nl lips & teeth, nl nasal mucosa & septum Neck: non-tender, supple Respiratory: clear to auscultation, normal air movement Cardiovascular: nl pulses, regular rate and rhythm Gastrointestinal: nl liver, spleen, non-tender, soft Extremities: normal pulses Neurological: other (Alert and awake, following simple commands, NG tube in place) Results Result Diagram: 08/03/16 0540 08/03/16 0540 Results 24 hrs Laboratory Tests Test 08/02/16 11:56 08/02/16 16:45 08/02/16 18:37 08/02/16 20:36 Bedside Glucose 157 134 142 Lactic Acid Level 0.9 Test 08/03/16 01:48 08/03/16 05:38 08/03/16 05:40 08/03/16 08:21 Bedside Glucose 176 224 H 188 Alanine Aminotransferase (ALT/SGPT) 14 Albumin 3.6 Albumin/Globulin Ratio 0.78 Alkaline Phosphatase 167 H Anion Gap 22 H Aspartate Amino Transf (AST/SGOT) 34 Band Neutrophils % Pending Basophils # Pending Basophils % Pending Blood Morphology Comment Blood Urea Nitrogen 53 H Calcium Level 9.1 Carbon Dioxide Level 27 Chloride Level 100 Creatinine 5.51 H Differential Comment MANUAL DIFF Direct Bilirubin 0.00 Eosinophils # Pending Eosinophils % Pending Globulin 4.60 H Glucose Level 195 Hematocrit 29.1 L Hemoglobin 9.8 L Indirect Bilirubin 0.0 Lymphocytes # Pending Lymphocytes % Pending Magnesium Level 2.1 Mean Corpuscular Hemoglobin 32.4 Mean Corpuscular Hemoglobin Concent 33.6 Mean Corpuscular Volume 96.5 Mean Platelet Volume 8.0 Metamyelocytes # Pending Metamyelocytes % Pending Monocytes # Pending Monocytes % Pending Myelocytes # Pending Myelocytes % Pending Neutrophils # Pending Neutrophils % Pending Nucleated Red Blood Cells # Nucleated Red Blood Cells % Pending Phosphorus Level 3.9 # Platelet Count 413 Potassium Level 4.0 Red Blood Count 3.02 L Red Cell Distribution Width 17.3 H Sodium Level 145 H Total Bilirubin 0.0 L Total Protein 8.2 H White Blood Count 22.4 H Medications Medications Current Medications Aspirin (Aspirin) 81 mg DAILY NGT Last administered on 08/03/16 08:17; Admin Dose 81 MG; Start 07/21/16 at 09:00 Atorvastatin Calcium (Lipitor) 40 mg QHS NGT Last administered on 08/02/16 20: 45; Admin Dose 40 MG; Start 07/20/16 at 21:00 Docusate Sodium (Colace Liquid Cup) 100 mg TID PRN NGT CONSTIPATION; Start 07/20 at 17:30 Folic Acid (Folic Acid) 1 mg DAILY NGT Last administered on 08/03/16 08:17; Admin Dose 1 MG; Start 07/21/16 at 09:00 Ticagrelor (Brilinta) 90 mg Q12 NGT Last administered on 08/03/16 08:22; Admin Dose 90 MG; Start 07/20/16 at 21:00 Acetaminophen (Tylenol Tab) 650 mg Q6H PRN NGT PAIN LEVEL 1-3 OR FEVER Last administered on 07/27/16 13:08; Admin Dose 650 MG; Start 07/20/16 at 17:30 Acetaminophen/ Hydrocodone Bitart ([place] (5/325)) 1 tab Q6H PRN NGT PAIN LEVEL 4-6 Last administered on 07/30/16 21:42; Admin Dose 1 TAB; Start 07/20/16 at 17: 30 Acetaminophen/ Hydrocodone Bitart ([place] (5/325)) 2 tab Q6H PRN NGT PAIN LEVEL 7-10; Start 07/20/16 at 17:30 Famotidine (Pepcid Iv) 20 mg Q24H IV Last administered on 08/02/16 22:15; Admin Dose 20 MG; Start 07/20/16 at 21:00 Insulin Aspart (Novolog Insulin Pen) NOVOLOG *MODERATE* ALGORI... Q4 SC Last administered on 08/03/16 08:27; Admin Dose 4 UNIT; Start 07/21/16 at 17:00 Miscellaneous Information 1 ea NOTE XX ; Start 07/21/16 at 16:30 Glucose (Glutose) 15 gm Q15M PRN PO DECREASED GLUCOSE; Start 07/21/16 at 16:30 Glucose (Glutose) 22.5 gm Q15M PRN PO DECREASED GLUCOSE; Start 07/21/16 at 16:30 Dextrose (D50w Syringe) 25 ml Q15M PRN IV DECREASED GLUCOSE Last administered on 07/21/16 21:13; Admin Dose 25 ML; Start 07/21/16 at 16:30 Dextrose (D50w Syringe) 50 ml Q15M PRN IV DECREASED GLUCOSE; Start 07/21/16 at 16:30 Glucagon (Glucagen) 1 mg Q15M PRN IM DECREASED GLUCOSE; Start 07/21/16 at 16:30 Glucose (Glutose) 15 gm Q15M PRN BUCCAL DECREASED GLUCOSE; Start 07/21/16 at 16: 30 Amlodipine Besylate (Norvasc) 5 mg BID GTB Last administered on 08/03/16 08:17 ; Admin Dose 5 MG; Start 07/23/16 at 14:30 Benazepril HCl (Lotensin) 40 mg Q12 PO Last administered on 08/03/16 08:18; Admin Dose 40 MG; Start 07/24/16 at 21:00 Isosorbide Mononitrate (Imdur) 60 mg DAILY PO Last administered on 08/03/16 08 :17; Admin Dose 60 MG; Start 07/25/16 at 10:30 Hydralazine HCl 25 mg 25 mg Q4H PRN IV SBP >170 Last administered on 08/02/16 13:39; Admin Dose 25 MG; Start 07/25/16 at 20:30 Vancomycin HCl (Vancocin) 250 ml @ 125 mls/hr Q96H IVPB ; Start 08/04/16 at 13: 00 Metoprolol Tartrate 75 mg 75 mg BID PO Last administered on 08/03/16 08:17; Admin Dose 75 MG; Start 08/01/16 at 21:00 Imipenem/ Cilastatin Sodium (Primaxin 500 Mg/ 100 ml (Pmx)) 100 ml @ 100 mls/ hr Q12 IVPB Last administered on 08/03/16 08:15; Admin Dose 100 MLS/HR; Start 08/01/16 at 12:00 Metronidazole (Flagyl) 500 mg Q8 PO Last administered on 08/03/16 05:41; Admin Dose 500 MG; Start 08/02/16 at 13:00 Hydralazine HCl (Apresoline) 75 mg Q8 PO Last administered on 08/03/16 05:42; Admin Dose 75 MG; Start 08/02/16 at 12:30 CONCETTA MARCELINO MD Aug 03, 2016 10:49
--- NOTE | 2016-08-03 14:09 | CONS ---
Date/Time of Note Date/Time of Note DATE: 08/03/16 TIME: 14:02 Assessment/Plan Assessment/Plan Additional Assessment/Plan 1. Renal failure 2. Abnormal electrocardiogram 3. CAD s/p PTCA and stent placement to circumflex June 2016 with drug- eluting stents 4. Altered mental state 5. Respiratory failure, status post extubation 6. End-stage renal disease on hemodialysis. 7. Urinary tract infection. 8. Pneumonia. 9. Dyslipidemia. 10.HTN 11. Encephalopathy Increased Hydralazine Continue metoprolol, Norvasc and lisinopril Continue Imdur Continue Brilinta Continue Antibiotics Continue HD as scheduled Consultation Date/Type/Reason Admit Date/Time Jul 20, 2016 at 15:20 Initial Consult Date 07/21/16 Type of Consultation: nephrology Referring Provider: KRZYSZTOF MAY M.D. Exam/Review of Systems Vital Signs Vitals Vital Signs Date Time Temp Pulse Resp B/P Pulse Ox O2 Delivery O2 Flow Rate FiO2 08/03/16 13:33 89 19 08/03/16 11:31 97.9 160/63 97 08/01/16 16:00 Room Air 07/31/16 02:58 21 07/30/16 10:00 3.0 Intake and Output 08/02/16 08/02/16 08/03/16 15:00 23:00 07:00 Intake Total 100 ml 525 ml Balance 100 ml 525 ml Exam Head: atraumatic, normocephalic Neck: non-tender, supple Respiratory: clear to auscultation Cardiovascular: regular rate and rhythm Gastrointestinal: nl liver, spleen, non-tender, soft Extremities: normal pulses Results Result Diagram: 08/03/16 0540 08/03/16 0540 Results 24 hrs Laboratory Tests Test 08/02/16 16:45 08/02/16 18:37 08/02/16 20:36 08/03/16 01:48 Lactic Acid Level 0.9 Bedside Glucose 134 142 176 Test 08/03/16 05:38 08/03/16 05:40 08/03/16 08:21 08/03/16 11:58 Bedside Glucose 224 H 188 138 Alanine Aminotransferase (ALT/SGPT) 14 Albumin 3.6 Albumin/Globulin Ratio 0.78 Alkaline Phosphatase 167 H Anion Gap 22 H Aspartate Amino Transf (AST/SGOT) 34 Band Neutrophils % 1.0 Basophils # 0.2 H Basophils % 1.0 Blood Morphology Comment Blood Urea Nitrogen 53 H Calcium Level 9.1 Carbon Dioxide Level 27 Chloride Level 100 Creatinine 5.51 H Differential Comment MANUAL DIFF Direct Bilirubin 0.00 Eosinophils # 0.2 Eosinophils % 1.0 Globulin 4.60 H Glucose Level 195 Hematocrit 29.1 L Hemoglobin 9.8 L Indirect Bilirubin 0.0 Lymphocytes # 1.3 Lymphocytes % 6.0 L Magnesium Level 2.1 Mean Corpuscular Hemoglobin 32.4 Mean Corpuscular Hemoglobin Concent 33.6 Mean Corpuscular Volume 96.5 Mean Platelet Volume 8.0 Metamyelocytes # 0.4 Metamyelocytes % 2.0 H Monocytes # 5.4 H Monocytes % 24.0 H Myelocytes # 0.7 Myelocytes % 3.0 H Neutrophils # 13.9 H Neutrophils % 62.0 Nucleated Red Blood Cells # Nucleated Red Blood Cells % 6.0 H Phosphorus Level 3.9 # Platelet Count 413 Potassium Level 4.0 Red Blood Count 3.02 L Red Cell Distribution Width 17.3 H Sodium Level 145 H Total Bilirubin 0.0 L Total Protein 8.2 H White Blood Count 22.4 H Medications Medications Current Medications Aspirin (Aspirin) 81 mg DAILY NGT Last administered on 08/03/16 08:17; Admin Dose 81 MG; Start 07/21/16 at 09:00 Atorvastatin Calcium (Lipitor) 40 mg QHS NGT Last administered on 08/02/16 20: 45; Admin Dose 40 MG; Start 07/20/16 at 21:00 Docusate Sodium (Colace Liquid Cup) 100 mg TID PRN NGT CONSTIPATION; Start 07/20 at 17:30 Folic Acid (Folic Acid) 1 mg DAILY NGT Last administered on 08/03/16 08:17; Admin Dose 1 MG; Start 07/21/16 at 09:00 Ticagrelor (Brilinta) 90 mg Q12 NGT Last administered on 08/03/16 08:22; Admin Dose 90 MG; Start 07/20/16 at 21:00 Acetaminophen (Tylenol Tab) 650 mg Q6H PRN NGT PAIN LEVEL 1-3 OR FEVER Last administered on 07/27/16 13:08; Admin Dose 650 MG; Start 07/20/16 at 17:30 Acetaminophen/ Hydrocodone Bitart ([place] (5/325)) 1 tab Q6H PRN NGT PAIN LEVEL 4-6 Last administered on 07/30/16 21:42; Admin Dose 1 TAB; Start 07/20/16 at 17: 30 Acetaminophen/ Hydrocodone Bitart ([place] (5/325)) 2 tab Q6H PRN NGT PAIN LEVEL 7-10; Start 07/20/16 at 17:30 Famotidine (Pepcid Iv) 20 mg Q24H IV Last administered on 08/02/16 22:15; Admin Dose 20 MG; Start 07/20/16 at 21:00 Insulin Aspart (Novolog Insulin Pen) NOVOLOG *MODERATE* ALGORI... Q4 SC Last administered on 08/03/16 08:27; Admin Dose 4 UNIT; Start 07/21/16 at 17:00 Miscellaneous Information 1 ea NOTE XX ; Start 07/21/16 at 16:30 Glucose (Glutose) 15 gm Q15M PRN PO DECREASED GLUCOSE; Start 07/21/16 at 16:30 Glucose (Glutose) 22.5 gm Q15M PRN PO DECREASED GLUCOSE; Start 07/21/16 at 16:30 Dextrose (D50w Syringe) 25 ml Q15M PRN IV DECREASED GLUCOSE Last administered on 07/21/16 21:13; Admin Dose 25 ML; Start 07/21/16 at 16:30 Dextrose (D50w Syringe) 50 ml Q15M PRN IV DECREASED GLUCOSE; Start 07/21/16 at 16:30 Glucagon (Glucagen) 1 mg Q15M PRN IM DECREASED GLUCOSE; Start 07/21/16 at 16:30 Glucose (Glutose) 15 gm Q15M PRN BUCCAL DECREASED GLUCOSE; Start 07/21/16 at 16: 30 Amlodipine Besylate (Norvasc) 5 mg BID GTB Last administered on 08/03/16 08:17 ; Admin Dose 5 MG; Start 07/23/16 at 14:30 Benazepril HCl (Lotensin) 40 mg Q12 PO Last administered on 08/03/16 08:18; Admin Dose 40 MG; Start 07/24/16 at 21:00 Isosorbide Mononitrate (Imdur) 60 mg DAILY PO Last administered on 08/03/16 08 :17; Admin Dose 60 MG; Start 07/25/16 at 10:30 Hydralazine HCl 25 mg 25 mg Q4H PRN IV SBP >170 Last administered on 08/02/16 13:39; Admin Dose 25 MG; Start 07/25/16 at 20:30 Vancomycin HCl (Vancocin) 250 ml @ 125 mls/hr Q96H IVPB ; Start 08/04/16 at 13: 00 Metoprolol Tartrate 75 mg 75 mg BID PO Last administered on 08/03/16 08:17; Admin Dose 75 MG; Start 08/01/16 at 21:00 Imipenem/ Cilastatin Sodium (Primaxin 500 Mg/ 100 ml (Pmx)) 100 ml @ 100 mls/ hr Q12 IVPB Last administered on 08/03/16 08:15; Admin Dose 100 MLS/HR; Start 08/01/16 at 12:00 Metronidazole (Flagyl) 500 mg Q8 PO Last administered on 08/03/16 05:41; Admin Dose 500 MG; Start 08/02/16 at 13:00 Hydralazine HCl (Apresoline) 75 mg Q8 PO Last administered on 08/03/16 05:42; Admin Dose 75 MG; Start 08/02/16 at 12:30 NGUYEN PATEL M.D. Aug 03, 2016 14:09
[2016-08-03] MEDS: HYDROCODONE/APAP (5/325) TAB NGT PRN (14:38)
--- NOTE | 2016-08-03 15:05 | PN ---
Date/Time of Note Date/Time of Note DATE: 08/03/16 TIME: 14:41 Assessment/Plan VTE Prophylaxis VTE Prophylaxis Intervention: SCD's Lines/Catheters IV Catheter Type (from Nrsg): Central Line Central line still needed: Yes (for IV access ) Urinary Cath still in place: No Assessment/Plan Assessment/Plan 65-year-old woman: 1. Acute respiratory failure and unresponsiveness, s/p intubation on arrival in the ER. Etiology unclear. Extubated and stable for a few days now, on NC. She was hospitalized two weeks prior to this admission after she suffered a cardiac arrest with asystole in the ER. S/p Angio x 2 with stenting Repeat echo with EF 55% Mildly elevated troponin on this admission, appreciate cardiology recommendations Cardiology, Pulmonary, Nephrology and Neurology following. Volume status better, management with HD 2. Encephalopathy. Per Neurology not sure if anoxic injury vs metabolic encephalopathy There was a two-hour window during which she was "asleep" prior to being found unresponsive on admission EEG showing encephalopathy, MRI with no acute findings Appreciate Neurology consult with Dr. Arshad. Patient still encephalopathic but more responsive per family and staff. Minimizing sedative agents. Follow up reevaluation by Neurology 3. Leukocytosis recurrent, on abx for aspiration pneumonitis/pneumonia vs HCAP, WBC still up and new cx coming in Fem line tip cx with coag neg staph, blood cx 1/2 from 07/29 with staph species, repeat blood cx NGTD, continue Vanco for now Sputum cx with GNR and ESBL E coli. Abx changed to Imipenem and on contact isolation Started Flagyl 08/02 and c diff pending 4. ? Enterococcal UTI: on Vancomycin already, Repeat UA and Urine cx NGTD 5. CAD s/p angio and stenting x 2 approx 2 weeks ago, echo more consistent with diastolic dysfunction EKG similar to previous ekg two weeks ago. Serial troponins trended down to normal Continue Dr Annelise Martinez following and on BBlock. Holding ASA due to ongoing significant hematochezia 6. Endstage renal disease on hemodialysis: on HD M/W/F Appreciate assistance from Dr. Gomez. 7. Acute on chronic anemia with hb stable @ 9.8 stable. 8. Hematochezia: observed x 48 hrs, Heparin SQ d/c'd. On Brilinta and will hold ASA as of tomorrow CT abdo/pelvis wnl and Lactate wnl C diff pending and on Flagyl empirically for now. 9. Diabetes mellitus: OFF Lantus with episode of hypoglycemia noted, continue SSI On TF and free H20 now 10. Hypertension, better controlled BP with current regimen Metoprolol, Benazepril, Norvasc Imdur and now Hydralazine at higher dose now . 11. Right lower extremity pain with questionable history of sciatica. Doppler study negative ten days ago for DVT on the right. Prophylaxis: Pepcid for gastrointestinal prophylaxis. SCDs for DVT prevention Disposition:Telemetry. PT/OT/ST to resume Dr Castelan, Dr Barraza and Dr Arshad following. Full-Code. Subjective 24 Hr Interval Summary Free Text/Dictation WBC still up at 22K, CT a/p OK, C diff pending and started on Flagyl Hematochezia noted x 3 days now, Heparin SQ discontinued and after discussion with Cardiology today, will hold ASA but have to continue Brilinta due to cardiac stents placed in June Exam/Review of Systems Vital Signs Vitals Vital Signs Date Time Temp Pulse Resp B/P Pulse Ox O2 Delivery O2 Flow Rate FiO2 08/03/16 13:33 89 19 08/03/16 11:31 97.9 160/63 97 08/01/16 16:00 Room Air 07/31/16 02:58 21 07/30/16 10:00 3.0 Intake and Output 08/02/16 08/02/16 08/03/16 15:00 23:00 07:00 Intake Total 100 ml 525 ml Balance 100 ml 525 ml Exam Constitutional: alert, frail, oriented (x2) Respiratory: diminished breath sounds (bases but otherwise clear ), normal air movement Cardiovascular: nl pulses, regular rate and rhythm Gastrointestinal: non-tender, soft Extremities: normal pulses, other (no edema, clubbing or cyanosis ) Neurological: [employer] II-XII intact, lethargic Results Result Diagram: 08/03/16 0540 08/03/16 0540 Results 24 hrs Laboratory Tests Test 08/02/16 16:45 08/02/16 18:37 08/02/16 20:36 08/03/16 01:48 Lactic Acid Level 0.9 Bedside Glucose 134 142 176 Test 08/03/16 05:38 08/03/16 05:40 08/03/16 08:21 08/03/16 11:58 Bedside Glucose 224 H 188 138 Alanine Aminotransferase (ALT/SGPT) 14 Albumin 3.6 Albumin/Globulin Ratio 0.78 Alkaline Phosphatase 167 H Anion Gap 22 H Aspartate Amino Transf (AST/SGOT) 34 Band Neutrophils % 1.0 Basophils # 0.2 H Basophils % 1.0 Blood Morphology Comment Blood Urea Nitrogen 53 H Calcium Level 9.1 Carbon Dioxide Level 27 Chloride Level 100 Creatinine 5.51 H Differential Comment MANUAL DIFF Direct Bilirubin 0.00 Eosinophils # 0.2 Eosinophils % 1.0 Globulin 4.60 H Glucose Level 195 Hematocrit 29.1 L Hemoglobin 9.8 L Indirect Bilirubin 0.0 Lymphocytes # 1.3 Lymphocytes % 6.0 L Magnesium Level 2.1 Mean Corpuscular Hemoglobin 32.4 Mean Corpuscular Hemoglobin Concent 33.6 Mean Corpuscular Volume 96.5 Mean Platelet Volume 8.0 Metamyelocytes # 0.4 Metamyelocytes % 2.0 H Monocytes # 5.4 H Monocytes % 24.0 H Myelocytes # 0.7 Myelocytes % 3.0 H Neutrophils # 13.9 H Neutrophils % 62.0 Nucleated Red Blood Cells # Nucleated Red Blood Cells % 6.0 H Phosphorus Level 3.9 # Platelet Count 413 Potassium Level 4.0 Red Blood Count 3.02 L Red Cell Distribution Width 17.3 H Sodium Level 145 H Total Bilirubin 0.0 L Total Protein 8.2 H White Blood Count 22.4 H Medications Medications Current Medications Aspirin (Aspirin) 81 mg DAILY NGT Last administered on 08/03/16 08:17; Admin Dose 81 MG; Start 07/21/16 at 09:00; Status Future Hold Atorvastatin Calcium (Lipitor) 40 mg QHS NGT Last administered on 08/02/16 20: 45; Admin Dose 40 MG; Start 07/20/16 at 21:00 Docusate Sodium (Colace Liquid Cup) 100 mg TID PRN NGT CONSTIPATION; Start 07/20 at 17:30 Folic Acid (Folic Acid) 1 mg DAILY NGT Last administered on 08/03/16 08:17; Admin Dose 1 MG; Start 07/21/16 at 09:00 Ticagrelor (Brilinta) 90 mg Q12 NGT Last administered on 08/03/16 08:22; Admin Dose 90 MG; Start 07/20/16 at 21:00 Acetaminophen (Tylenol Tab) 650 mg Q6H PRN NGT PAIN LEVEL 1-3 OR FEVER Last administered on 07/27/16 13:08; Admin Dose 650 MG; Start 07/20/16 at 17:30 Acetaminophen/ Hydrocodone Bitart ([place] (5/325)) 1 tab Q6H PRN NGT PAIN LEVEL 4-6 Last administered on 08/03/16 14:38; Admin Dose 1 TAB; Start 07/20/16 at 17: 30 Acetaminophen/ Hydrocodone Bitart ([place] (5/325)) 2 tab Q6H PRN NGT PAIN LEVEL 7-10; Start 07/20/16 at 17:30 Famotidine (Pepcid Iv) 20 mg Q24H IV Last administered on 08/02/16 22:15; Admin Dose 20 MG; Start 07/20/16 at 21:00 Insulin Aspart (Novolog Insulin Pen) NOVOLOG *MODERATE* ALGORI... Q4 SC Last administered on 08/03/16 08:27; Admin Dose 4 UNIT; Start 07/21/16 at 17:00 Miscellaneous Information 1 ea NOTE XX ; Start 07/21/16 at 16:30 Glucose (Glutose) 15 gm Q15M PRN PO DECREASED GLUCOSE; Start 07/21/16 at 16:30 Glucose (Glutose) 22.5 gm Q15M PRN PO DECREASED GLUCOSE; Start 07/21/16 at 16:30 Dextrose (D50w Syringe) 25 ml Q15M PRN IV DECREASED GLUCOSE Last administered on 07/21/16 21:13; Admin Dose 25 ML; Start 07/21/16 at 16:30 Dextrose (D50w Syringe) 50 ml Q15M PRN IV DECREASED GLUCOSE; Start 07/21/16 at 16:30 Glucagon (Glucagen) 1 mg Q15M PRN IM DECREASED GLUCOSE; Start 07/21/16 at 16:30 Glucose (Glutose) 15 gm Q15M PRN BUCCAL DECREASED GLUCOSE; Start 07/21/16 at 16: 30 Amlodipine Besylate (Norvasc) 5 mg BID GTB Last administered on 08/03/16 08:17 ; Admin Dose 5 MG; Start 07/23/16 at 14:30 Benazepril HCl (Lotensin) 40 mg Q12 PO Last administered on 08/03/16 08:18; Admin Dose 40 MG; Start 07/24/16 at 21:00 Isosorbide Mononitrate (Imdur) 60 mg DAILY PO Last administered on 08/03/16 08 :17; Admin Dose 60 MG; Start 07/25/16 at 10:30 Hydralazine HCl 25 mg 25 mg Q4H PRN IV SBP >170 Last administered on 08/02/16 13:39; Admin Dose 25 MG; Start 07/25/16 at 20:30 Vancomycin HCl (Vancocin) 250 ml @ 125 mls/hr Q96H IVPB ; Start 08/04/16 at 13: 00 Metoprolol Tartrate 75 mg 75 mg BID PO Last administered on 08/03/16 08:17; Admin Dose 75 MG; Start 08/01/16 at 21:00 Imipenem/ Cilastatin Sodium (Primaxin 500 Mg/ 100 ml (Pmx)) 100 ml @ 100 mls/ hr Q12 IVPB Last administered on 08/03/16 08:15; Admin Dose 100 MLS/HR; Start 08/01/16 at 12:00 Metronidazole (Flagyl) 500 mg Q8 PO Last administered on 08/03/16 14:39; Admin Dose 500 MG; Start 08/02/16 at 13:00 Hydralazine HCl (Apresoline) 100 mg QID NGT ; Start 08/03/16 at 14:30; Status UNV Procedures Procedures PROCEDURE: CT abdomen and pelvis without contrast. CLINICAL INDICATION: Rectal bleeding TECHNIQUE: CT scan of the abdomen and pelvis without contrast was performed and is reconstructed at 3.5 mm contiguous axial intervals from the dome of the diaphragm to the inferior pubic rami.. The patient was scanned without intravenous contrast. Sagittal and coronal reformatted images were obtained from the axial source images. The calculated radiation dose measures 1035 mGy centimeters. The CTDI measures 20 mGy. COMPARISON: None. FINDINGS: The lung bases are clear of any infiltrate or nodule. No pleural effusion is seen. Plate-like atelectasis is seen in the left lower lobe. There is cardiomegaly. A tiny pericardial effusion is present. The liver is of normal size, contour and attenuation with no mass or ductal dilatation. No gallstones are visualized. No splenic, adrenal or pancreatic abnormalities present. Kidneys are atrophic. No hydronephrosis or mass is seen. There is a 3 mm nonobstructing stone in the upper pole of the right kidney. Ureters are of normal course and caliber with no stone. No bladder masses stone is seen. Atrophic postmenopausal uterus is normal. No adnexal mass is present. There is no aneurysm. No adenopathy is present. No bowel mass or obstruction is present. The appendix is normal. No phlegmon , ascites or pneumoperitoneum is visualized. There are healing fractures of the right superior and inferior pubic ramus. There are healing fractures of the left and right sacral wings. IMPRESSION: No evidence of obstruct uropathy, diverticulitis or appendicitis. Tiny nonobstructing right renal calculus. Healing right pelvic and right and left sacral fractures. Plate-like atelectasis left lower lobe. Tiny pericardial effusion. .Colby Toledo MD, MD Date Time Electronically viewed and signed by .Colby Toledo MD, MD on 08/02/2016 17: 28 NADIA SARGENT Aug 03, 2016 14:51
[2016-08-03 15:42] LABS: ALBUMIN 3.3 g/dl (3.3-4.9)
[2016-08-03 15:43] LABS: INR 1.09; PROTIME 14.1 Sec (12.2-14.2); PT RATIO 1.1
[2016-08-03 15:44] LABS: BILIRUBIN,INDIRECT 0.1 mg/dl (0-1.1); BILIRUBIN,TOTAL 0.1 mg/dl (0.2-1.3); PARTIAL THROMBOPLASTIN TIME 29.4 Sec (25.0-35.0); TOTAL PROTEIN 7.4 g/dl (6.1-8.1)
--- NOTE | 2016-08-03 18:06 | PN ---
DATE: 08/03/2016 PULMONARY FOLLOWUP SUBJECTIVE: Chart reviewed. Events noted. The patient is more awake and responsive. PHYSICAL EXAMINATION: VITAL SIGNS: Blood pressure 160/63, pulse 85, respiration 18, temperature 97.9. Currently saturati ng 97%. HEENT: Pupils are equal and reactive to light. NECK: Supple. No JVD noted, no cervical adenopathy noted, no carotid bruits heard. LUNGS: Fair breath sounds bilaterally. CARDIOVASCULAR: S1, S2 normal. ABDOMEN: Soft, nontender. No organomegaly or masses noted. EXTREMITIES: No clubbing or cyanosis noted. NEUROLOGICAL: More awake and responsive. LABORATORY DATA: WBC 22.4, hemoglobin 9.8, hematocrit 29.1, platelets 413. Sodium 145, potassium 4 .0, chloride 100, CO2 of 27, BUN 53, creatinine 5.51, glucose 195. IMPRESSION: 1. Status post acute hypoxemic respiratory failure, stable post-extubation. 2. End-stage renal disease on hemodialysis. 3. Encephalopathy, significantly improved. 4. Anemia. 5. History of hypertension. 6. Possible aspiration. RECOMMENDATIONS: 1. Continue hemodialysis per nephrology. 2. Neuro followup noted. 3. Continue antibiotics. Dictated By: ALBERT DOW MD, MA/RANI Conf#: [id number] DID#: [id number] CC: KRZYSZTOF MAY MD;*EndCC*
[2016-08-03] MEDS: EPOETIN 10000 UNITS/1 ML INJ (ESRD) SC SCH (19:12)
[2016-08-03] MEDS: FAMOTIDINE 20 MG TAB GTB SCH (21:46)
[2016-08-03] MEDS: ATORVASTATIN 40 MG TAB NGT SCH (21:49)
[2016-08-04] VITALS (19 sets, daily range): BP systolic 107–156; BP diastolic 35–129; PULSE 55–114; RESP 16–20
[2016-08-04] MEDS: INSULIN ASPART [NOVOLOG] 3 ML PEN SC SCH ×6 (01:35→21:00)
[2016-08-04] MEDS: metroNIDAZOLE 500 MG TAB PO SCH ×3 (05:43→23:07)
[2016-08-04 08:02] LABS: CREATININE 4.14 mg/dl (0.44-1.00)
[2016-08-04 08:03] LABS: CALCIUM 8.6 mg/dl (8.4-10.2)
[2016-08-04 08:04] LABS: BASOPHILS % 0.3 % (0.0-2.0); EOSINOPHILS # 0.7 10^3/ul (0.0-0.5); EOSINOPHILS % 3.7 % (0.0-7.0); HEMATOCRIT 27.4 % (37.0-47.0); HEMOGLOBIN 8.9 g/dl (12.0-16.0); LYMPHOCYTES # 2.4 10^3/ul (0.8-2.9); LYMPHOCYTES % 13.7 % (15.0-51.0); MEAN CORPUSCULAR HEMOGLOBIN 32.2 pg (29.0-33.0); MEAN CORPUSCULAR HGB CONC 32.7 g/dl (32.0-37.0); MEAN CORPUSCULAR VOLUME 98.6 fl (82.0-101.0); MEAN PLATELET VOLUME 8.4 fl (7.4-10.4); MONOCYTE # 1.9 10^3/ul (0.3-0.9); MONOCYTES % 10.9 % (0.0-11.0); NEUTROPHIL # 12.7 10^3/ul (1.6-7.5); NEUTROPHILS % 71.4 % (39.0-77.0); PLATELET COUNT 280 10^3/UL (140-440); RED BLOOD COUNT 2.77 10^6/ul (4.20-5.40); RED CELL DISTRIBUTION WIDTH 18.6 % (11.5-14.5); UNCORRECTED WBC 17.8 10^3/ul (4.8-10.8); WHITE BLOOD COUNT 17.8 10^3/ul (4.8-10.8)
[2016-08-04 08:14] LABS: CONDITION 1; LH ANALYZER COMMENTS 1; NUCLEATED RED BLOOD CELLS # 0.4 10^3/ul (0.0-0.0)
[2016-08-04] MEDS: FOLIC ACID 1 MG TAB NGT SCH (09:00)
[2016-08-04] MEDS: AMLODIPINE 5 MG TAB GTB SCH ×2 (09:00→23:08)
[2016-08-04] MEDS: METOPROLOL 50 MG TAB PO SCH ×2 (09:00→23:09)
[2016-08-04] MEDS: BENAZEPRIL 20 MG TAB PO SCH ×2 (09:00→23:09)
[2016-08-04] MEDS: ISOSORBIDE MONONITRATE(SR)60 MG TAB PO SCH (09:00)
[2016-08-04] MEDS: IMIPENEM-CILAST 500MG IV (PMX) 100 ML IVPB SCH ×2 (09:19→23:06)
[2016-08-04] MEDS: TICAGRELOR 90 MG TABLET NGT SCH ×2 (09:27→23:22)
--- NOTE | 2016-08-04 10:16 | PN ---
DATE: SUBJECTIVE: The patient is noted to have bloody stools. No other acute events noted. No hemoptysi s, hematemesis or hematochezia. OBJECTIVE VITAL SIGNS: Blood pressure is 156/70, respirations 20, pulse 75, temperature 98.1. HEENT: Head is normocephalic. NECK: Supple. HEART: Regular rate. LUNGS: Show diminished breath sounds at the base. ABDOMEN: Soft, nontender to palpation. EXTREMITIES: Negative for clubbing, cyanosis, edema. DERMATOLOGIC: No rashes. MUSCULOSKELETAL: No joint effusions. NEUROLOGIC: No change in exam. MEDICATIONS: The patient's medications have been reviewed. LABORATORY DATA: Showed sodium 141, potassium , chloride 90, BUN 42, creatinine 4.14. White c ount 17.8, hemoglobin 9.9, hematocrit 27.4, platelet count is 280. IMAGING: CT scan of abdomen and pelvis was reviewed. ASSESSMENT AND PLAN 1. End-stage renal disease. The patient will be scheduled for dialysis today for 3 hours to keep _ ____ 2.5. 2. Volume overload, improving. Continue ultrafiltration dialysis. 3. Anemia with noted hematochezia. The patient's hemoglobin levels have been declining slowly. Wi ll continue Epogen. Monitor closely. Will transfuse PRBCs as needed. The patient's heparin was di scontinued, remains on Brilinta. We will monitor. 4. Hematochezia, etiology may be secondary to anticoagulation. The patient has been ruled out for C. difficile, currently on Flagyl. CT scan of the abdomen and pelvis was reviewed. No acute findin gs. Consider GI evaluation. 5. Mineral bone disorder. Will monitor calcium and phosphorus levels. Continue to hold phosphate binders. 6. Sepsis, status post shock. The patient is completing antibiotic course. 7. Respiratory failure, status post extubation, currently stable. Continue to monitor. 8. Dysphagia, status post nasogastric tube. Continue tube feeding. 9. Encephalopathy, likely from anoxic injury, toxic metabolic. Continue to monitor. 10. History of coronary artery disease. Continue current treatment plan. 11. Diabetes, continue Accu-Cheks and sliding scale. 12. Hypertension. Continue current blood pressure regimen. Continue ultrafiltration dialysis. Dictated By: TALITA GARCIA/RANI Conf#: [id number] [facility]#: [id number]
[2016-08-04] MEDS ORDERED: VANCOMYCIN 1 GM in NS 250 ML IVPB SCH (13:00)
--- NOTE | 2016-08-04 13:57 | CONS ---
Date/Time of Note Date/Time of Note DATE: 08/04/16 TIME: 13:56 Consult Date/Type/Reason Admit Date/Time Jul 20, 2016 at 15:20 Initial Consult Date 07/21/16 Type of Consultation: Pulm Ordering Provider: KRZYSZTOF MAY M.D. Subjective Comfortable Objective Vital Signs Date Time Temp Pulse Resp B/P Pulse Ox O2 Delivery O2 Flow Rate FiO2 08/04/16 12:18 100 08/04/16 11:59 98.2 20 125/35 98 08/01/16 16:00 Room Air Intake and Output 08/03/16 08/03/16 08/04/16 14:59 22:59 06:59 Intake Total 1025 ml 520 ml 520 ml Output Total 4500 ml Balance -3475 ml 520 ml 520 ml PHYSICAL EXAMINATION: VITAL SIGNS: comfortable. HEENT: Pupils are equal and reactive to light. NECK: Supple. No JVD noted, no cervical adenopathy noted, no carotid bruits heard. LUNGS: Fair breath sounds bilaterally. CARDIOVASCULAR: S1, S2 normal. ABDOMEN: Soft, nontender. No organomegaly or masses noted. EXTREMITIES: No clubbing or cyanosis noted. NEUROLOGICAL: More awake and responsive. Results/Medications Result Diagram: 08/04/16 0610 08/04/16 0610 Results 24 hrs Laboratory Tests Test 08/03/16 15:00 08/03/16 18:08 08/03/16 18:10 08/03/16 20:06 Activated Partial Thromboplast Time 29.4 Alanine Aminotransferase (ALT/SGPT) 20 Albumin 3.3 Alkaline Phosphatase 162 H Aspartate Amino Transf (AST/SGOT) 26 Direct Bilirubin 0.00 INR International Normalized Ratio 1.09 Indirect Bilirubin 0.1 Prothrombin Time 14.1 Prothrombin Time Ratio 1.1 Total Bilirubin 0.1 L Total Protein 7.4 Bedside Glucose 211 180 Stool Occult Blood POSITIVE Test 08/04/16 01:29 08/04/16 05:40 08/04/16 06:10 08/04/16 09:31 Bedside Glucose 206 282 H 219 Anion Gap 19 H Basophils # 0.0 Basophils % 0.3 Blood Morphology Comment Blood Urea Nitrogen 42 #H Calcium Level 8.6 Carbon Dioxide Level 28 Chloride Level 98 Creatinine 4.14 #H Eosinophils # 0.7 H Eosinophils % 3.7 Glucose Level 240 H Hematocrit 27.4 L Hemoglobin 8.9 L Lymphocytes # 2.4 Lymphocytes % 13.7 L Magnesium Level 2.0 Mean Corpuscular Hemoglobin 32.2 Mean Corpuscular Hemoglobin Concent 32.7 Mean Corpuscular Volume 98.6 Mean Platelet Volume 8.4 Monocytes # 1.9 H Monocytes % 10.9 Neutrophils # 12.7 H Neutrophils % 71.4 Nucleated Red Blood Cells # 0.4 H Nucleated Red Blood Cells % 2.0 H Phosphorus Level 3.0 Platelet Count 280 # Potassium Level 4.0 Red Blood Count 2.77 L Red Cell Distribution Width 18.6 H Sodium Level 141 White Blood Count 17.8 #H Test 08/04/16 12:42 Bedside Glucose 199 Medications Current Medications Aspirin (Aspirin) 81 mg DAILY NGT Last administered on 08/03/16 08:17; Admin Dose 81 MG; Start 07/21/16 at 09:00; Status Future Hold Atorvastatin Calcium (Lipitor) 40 mg QHS NGT Last administered on 08/03/16 21: 49; Admin Dose 40 MG; Start 07/20/16 at 21:00 Docusate Sodium (Colace Liquid Cup) 100 mg TID PRN NGT CONSTIPATION; Start 07/20 at 17:30 Folic Acid (Folic Acid) 1 mg DAILY NGT Last administered on 08/03/16 08:17; Admin Dose 1 MG; Start 07/21/16 at 09:00 Ticagrelor (Brilinta) 90 mg Q12 NGT Last administered on 08/04/16 09:27; Admin Dose 90 MG; Start 07/20/16 at 21:00 Acetaminophen (Tylenol Tab) 650 mg Q6H PRN NGT PAIN LEVEL 1-3 OR FEVER Last administered on 07/27/16 13:08; Admin Dose 650 MG; Start 07/20/16 at 17:30 Acetaminophen/ Hydrocodone Bitart ([place] (5/325)) 1 tab Q6H PRN NGT PAIN LEVEL 4-6 Last administered on 08/03/16 14:38; Admin Dose 1 TAB; Start 07/20/16 at 17: 30 Acetaminophen/ Hydrocodone Bitart ([place] (5/325)) 2 tab Q6H PRN NGT PAIN LEVEL 7-10; Start 07/20/16 at 17:30 Insulin Aspart (Novolog Insulin Pen) NOVOLOG *MODERATE* ALGORI... Q4 SC Last administered on 08/04/16 12:45; Admin Dose 4 UNIT; Start 07/21/16 at 17:00 Miscellaneous Information 1 ea NOTE XX ; Start 07/21/16 at 16:30 Glucose (Glutose) 15 gm Q15M PRN PO DECREASED GLUCOSE; Start 07/21/16 at 16:30 Glucose (Glutose) 22.5 gm Q15M PRN PO DECREASED GLUCOSE; Start 07/21/16 at 16:30 Dextrose (D50w Syringe) 25 ml Q15M PRN IV DECREASED GLUCOSE Last administered on 07/21/16 21:13; Admin Dose 25 ML; Start 07/21/16 at 16:30 Dextrose (D50w Syringe) 50 ml Q15M PRN IV DECREASED GLUCOSE; Start 07/21/16 at 16:30 Glucagon (Glucagen) 1 mg Q15M PRN IM DECREASED GLUCOSE; Start 07/21/16 at 16:30 Glucose (Glutose) 15 gm Q15M PRN BUCCAL DECREASED GLUCOSE; Start 07/21/16 at 16: 30 Amlodipine Besylate (Norvasc) 5 mg BID GTB Last administered on 08/03/16 21:48 ; Admin Dose 5 MG; Start 07/23/16 at 14:30 Benazepril HCl (Lotensin) 40 mg Q12 PO Last administered on 08/03/16 21:47; Admin Dose 40 MG; Start 07/24/16 at 21:00 Isosorbide Mononitrate (Imdur) 60 mg DAILY PO Last administered on 08/03/16 08 :17; Admin Dose 60 MG; Start 07/25/16 at 10:30 Hydralazine HCl 25 mg 25 mg Q4H PRN IV SBP >170 Last administered on 08/02/16 13:39; Admin Dose 25 MG; Start 07/25/16 at 20:30 Vancomycin HCl (Vancocin) 250 ml @ 125 mls/hr Q96H IVPB Last administered on 12:43; Admin Dose 125 MLS/HR; Start 08/04/16 at 13:00 Metoprolol Tartrate 75 mg 75 mg BID PO Last administered on 08/03/16 21:50; Admin Dose 75 MG; Start 08/01/16 at 21:00 Imipenem/ Cilastatin Sodium (Primaxin 500 Mg/ 100 ml (Pmx)) 100 ml @ 100 mls/ hr Q12 IVPB Last administered on 08/04/16 09:19; Admin Dose 100 MLS/HR; Start 08/01/16 at 12:00 Metronidazole (Flagyl) 500 mg Q8 PO Last administered on 08/04/16 05:43; Admin Dose 500 MG; Start 08/02/16 at 13:00 Hydralazine HCl (Apresoline) 100 mg QID NGT Last administered on 08/03/16 21: 49; Admin Dose 100 MG; Start 08/03/16 at 15:00 Famotidine (Pepcid) 20 mg Q24H GTB Last administered on 08/03/16 21:46; Admin Dose 20 MG; Start 08/03/16 at 21:00 Assessment/Plan Chief Complaint/Hosp Course IMPRESSION: 1. Status post acute hypoxemic respiratory failure, stable post-extubation. 2. End-stage renal disease on hemodialysis. 3. Encephalopathy, significantly improved. 4. Anemia. 5. History of hypertension. 6. Possible aspiration. RECOMMENDATIONS: 1. Continue hemodialysis per nephrology. 2. Neuro followup noted. 3. Continue antibiotics. 4. Discharge planning Problems: SANDI BUSCH MD, [facility] Aug 04, 2016 13:57
--- NOTE | 2016-08-04 14:28 | PN ---
Date/Time of Note Date/Time of Note DATE: 08/04/16 TIME: 13:27 Assessment/Plan VTE Prophylaxis VTE Prophylaxis Intervention: SCD's Lines/Catheters IV Catheter Type (from Nrsg): Central Line Central line still needed: Yes (for IV access ) Urinary Cath still in place: No Assessment/Plan Assessment/Plan 65-year-old woman: 1. Acute respiratory failure and unresponsiveness, s/p intubation on arrival in the ER. Etiology unclear. Extubated and stable for a few days now, on NC. She was hospitalized two weeks prior to this admission after she suffered a cardiac arrest with asystole in the ER. S/p Angio x 2 with stenting Repeat echo with EF 55% Mildly elevated troponin on this admission, appreciate cardiology recommendations Cardiology, Pulmonary, Nephrology and Neurology following. Volume status better, management with HD 2. Encephalopathy. Per Neurology not sure if anoxic injury vs metabolic encephalopathy. Improving MS however. There was a two-hour window during which she was "asleep" prior to being found unresponsive on admission EEG showing encephalopathy, MRI with no acute findings Appreciate Neurology consult with Dr. Arshad. Patient still encephalopathic but more responsive per family and staff. Minimizing sedative agents. 3. Leukocytosis recurrent, on abx for aspiration pneumonitis/pneumonia vs HCAP, WBC trending down today. Fem line tip cx with coag neg staph, blood cx 1/2 from 07/29 with staph species, repeat blood cx NGTD, continue Vanco for now Sputum cx with GNR and ESBL E coli. Continue Imipenem and on contact isolation Started empiric Flagyl 08/02 and c diff negative yesterday 4. ? Enterococcal UTI: on Vancomycin already, Repeat UA and Urine cx NGTD 5. CAD s/p angio and stenting x 2 approx 2 weeks prior to this admission, echo more consistent with diastolic dysfunction EKG similar to previous ekg two weeks ago. Continue Dr Annelise Martinez following and on BBlock. Holding ASA due to ongoing significant hematochezia 6. Endstage renal disease on hemodialysis: on HD M/W/F Appreciate assistance from Dr. Gomez. 7. Acute on chronic anemia with hb at 8.9 today, less hematochezia per RNs, monitor CBC daily. 8. Hematochezia: observed x 72 hrs, Heparin SQ and ASA d/c'd. On Brilinta CT abdo/pelvis wnl and Lactate wnl C diff negative and on Flagyl empirically for now. 9. Diabetes mellitus: OFF Lantus with episode of hypoglycemia noted, continue SSI On TF and free H20 now 10. Hypertension, better controlled BP with current regimen Metoprolol, Benazepril, Norvasc Imdur and now Hydralazine at higher dose now . 11. Right lower extremity pain with questionable history of sciatica. Doppler study negative ten days ago for DVT on the right. Prophylaxis: Pepcid for gastrointestinal prophylaxis. SCDs for DVT prevention Disposition:Telemetry. PT/OT/ST Dr Castelan, Dr Barraza and Dr Arshad following. Full-Code. Subjective 24 Hr Interval Summary Free Text/Dictation Patient doing OK with less hematochezia Off ASA and Heparin SQ More awake and seems to get more oriented Exam/Review of Systems Vital Signs Vitals Vital Signs Date Time Temp Pulse Resp B/P Pulse Ox O2 Delivery O2 Flow Rate FiO2 08/04/16 12:18 100 08/04/16 11:59 98.2 20 125/35 98 08/01/16 16:00 Room Air Intake and Output 08/03/16 08/03/16 08/04/16 14:59 22:59 06:59 Intake Total 1025 ml 520 ml 520 ml Output Total 4500 ml Balance -3475 ml 520 ml 520 ml Exam Constitutional: alert, frail, oriented (x 2 ) Respiratory: clear to auscultation, normal air movement Cardiovascular: nl pulses, regular rate and rhythm Gastrointestinal: non-tender, soft Musculoskeletal: nl extremities to inspection Extremities: normal pulses, other (edema ) Neurological: [employer] PROFESSION[employer] II-XII intact, confused, other (generalised weakness and not following complex commands yet ) Results Result Diagram: 08/04/16 0610 08/04/16 0610 Results 24 hrs Laboratory Tests Test 08/03/16 15:00 08/03/16 18:08 08/03/16 18:10 08/03/16 20:06 Activated Partial Thromboplast Time 29.4 Alanine Aminotransferase (ALT/SGPT) 20 Albumin 3.3 Alkaline Phosphatase 162 H Aspartate Amino Transf (AST/SGOT) 26 Direct Bilirubin 0.00 INR International Normalized Ratio 1.09 Indirect Bilirubin 0.1 Prothrombin Time 14.1 Prothrombin Time Ratio 1.1 Total Bilirubin 0.1 L Total Protein 7.4 Bedside Glucose 211 180 Stool Occult Blood POSITIVE Test 08/04/16 01:29 08/04/16 05:40 08/04/16 06:10 08/04/16 09:31 Bedside Glucose 206 282 H 219 Anion Gap 19 H Basophils # 0.0 Basophils % 0.3 Blood Morphology Comment Blood Urea Nitrogen 42 #H Calcium Level 8.6 Carbon Dioxide Level 28 Chloride Level 98 Creatinine 4.14 #H Eosinophils # 0.7 H Eosinophils % 3.7 Glucose Level 240 H Hematocrit 27.4 L Hemoglobin 8.9 L Lymphocytes # 2.4 Lymphocytes % 13.7 L Magnesium Level 2.0 Mean Corpuscular Hemoglobin 32.2 Mean Corpuscular Hemoglobin Concent 32.7 Mean Corpuscular Volume 98.6 Mean Platelet Volume 8.4 Monocytes # 1.9 H Monocytes % 10.9 Neutrophils # 12.7 H Neutrophils % 71.4 Nucleated Red Blood Cells # 0.4 H Nucleated Red Blood Cells % 2.0 H Phosphorus Level 3.0 Platelet Count 280 # Potassium Level 4.0 Red Blood Count 2.77 L Red Cell Distribution Width 18.6 H Sodium Level 141 White Blood Count 17.8 #H Test 08/04/16 12:42 Bedside Glucose 199 Medications Medications Current Medications Aspirin (Aspirin) 81 mg DAILY NGT Last administered on 08/03/16 08:17; Admin Dose 81 MG; Start 07/21/16 at 09:00; Status Future Hold Atorvastatin Calcium (Lipitor) 40 mg QHS NGT Last administered on 08/03/16 21: 49; Admin Dose 40 MG; Start 07/20/16 at 21:00 Docusate Sodium (Colace Liquid Cup) 100 mg TID PRN NGT CONSTIPATION; Start 07/20 at 17:30 Folic Acid (Folic Acid) 1 mg DAILY NGT Last administered on 08/03/16 08:17; Admin Dose 1 MG; Start 07/21/16 at 09:00 Ticagrelor (Brilinta) 90 mg Q12 NGT Last administered on 08/04/16 09:27; Admin Dose 90 MG; Start 07/20/16 at 21:00 Acetaminophen (Tylenol Tab) 650 mg Q6H PRN NGT PAIN LEVEL 1-3 OR FEVER Last administered on 07/27/16 13:08; Admin Dose 650 MG; Start 07/20/16 at 17:30 Acetaminophen/ Hydrocodone Bitart ([place] (5/325)) 1 tab Q6H PRN NGT PAIN LEVEL 4-6 Last administered on 08/03/16 14:38; Admin Dose 1 TAB; Start 07/20/16 at 17: 30 Acetaminophen/ Hydrocodone Bitart ([place] (5/325)) 2 tab Q6H PRN NGT PAIN LEVEL 7-10; Start 07/20/16 at 17:30 Insulin Aspart (Novolog Insulin Pen) NOVOLOG *MODERATE* ALGORI... Q4 SC Last administered on 08/04/16 12:45; Admin Dose 4 UNIT; Start 07/21/16 at 17:00 Miscellaneous Information 1 ea NOTE XX ; Start 07/21/16 at 16:30 Glucose (Glutose) 15 gm Q15M PRN PO DECREASED GLUCOSE; Start 07/21/16 at 16:30 Glucose (Glutose) 22.5 gm Q15M PRN PO DECREASED GLUCOSE; Start 07/21/16 at 16:30 Dextrose (D50w Syringe) 25 ml Q15M PRN IV DECREASED GLUCOSE Last administered on 07/21/16 21:13; Admin Dose 25 ML; Start 07/21/16 at 16:30 Dextrose (D50w Syringe) 50 ml Q15M PRN IV DECREASED GLUCOSE; Start 07/21/16 at 16:30 Glucagon (Glucagen) 1 mg Q15M PRN IM DECREASED GLUCOSE; Start 07/21/16 at 16:30 Glucose (Glutose) 15 gm Q15M PRN BUCCAL DECREASED GLUCOSE; Start 07/21/16 at 16: 30 Amlodipine Besylate (Norvasc) 5 mg BID GTB Last administered on 08/03/16 21:48 ; Admin Dose 5 MG; Start 07/23/16 at 14:30 Benazepril HCl (Lotensin) 40 mg Q12 PO Last administered on 08/03/16 21:47; Admin Dose 40 MG; Start 07/24/16 at 21:00 Isosorbide Mononitrate (Imdur) 60 mg DAILY PO Last administered on 08/03/16 08 :17; Admin Dose 60 MG; Start 07/25/16 at 10:30 Hydralazine HCl 25 mg 25 mg Q4H PRN IV SBP >170 Last administered on 08/02/16 13:39; Admin Dose 25 MG; Start 07/25/16 at 20:30 Vancomycin HCl (Vancocin) 250 ml @ 125 mls/hr Q96H IVPB Last administered on 12:43; Admin Dose 125 MLS/HR; Start 08/04/16 at 13:00 Metoprolol Tartrate 75 mg 75 mg BID PO Last administered on 08/03/16 21:50; Admin Dose 75 MG; Start 08/01/16 at 21:00 Imipenem/ Cilastatin Sodium (Primaxin 500 Mg/ 100 ml (Pmx)) 100 ml @ 100 mls/ hr Q12 IVPB Last administered on 08/04/16 09:19; Admin Dose 100 MLS/HR; Start 08/01/16 at 12:00 Metronidazole (Flagyl) 500 mg Q8 PO Last administered on 08/04/16 05:43; Admin Dose 500 MG; Start 08/02/16 at 13:00 Hydralazine HCl (Apresoline) 100 mg QID NGT Last administered on 08/03/16 21: 49; Admin Dose 100 MG; Start 08/03/16 at 15:00 Famotidine (Pepcid) 20 mg Q24H GTB Last administered on 08/03/16 21:46; Admin Dose 20 MG; Start 08/03/16 at 21:00 NADIA SARGENT Aug 04, 2016 13:43
--- NOTE | 2016-08-04 18:23 | CONS ---
Date/Time of Note Date/Time of Note DATE: 08/04/16 TIME: 18:21 Assessment/Plan Assessment/Plan Chief Complaint/Hosp Course IMPRESSION: 1. Positive troponin in the setting of respiratory failure and renal failure- now downtrended./No obvious CP 2. Abnormal electrocardiogram, assess for acute coronary syndrome. 3. History of a recent PTCA and stent placement to circumflex June 2016 with drug-eluting stents.- EF 55% by echo this admit 4. Altered mental state.-MRI negative 07/23 5. Respiratory failure, status post extubation 6. End-stage renal disease on hemodialysis. 7. Urinary tract infection. 8. Pneumonia. 9. Dyslipidemia. 10.HTN-Remains elevated 11. Encephalopathy-s/p MRI with no findings/EEG c/w encephalopathy Recc: -Tele -norvasc/benazepril/hydralazine/BB at current doses and follow BP closely -Continue asa/brilinta -Continue HD for volume removal aggresively -Continue abx's and f/u cx data -Follow MS closely which is slowly improving Problems: Consultation Date/Type/Reason Admit Date/Time Jul 20, 2016 at 15:20 Initial Consult Date 07/21/16 Type of Consultation: Cardiology Reason for Consultation positive troponin/CHF Referring Provider: [email or web address] MAY M.D. Exam/Review of Systems Vital Signs Vitals Vital Signs Date Time Temp Pulse Resp B/P Pulse Ox O2 Delivery O2 Flow Rate FiO2 08/04/16 17:11 98.0 89 18 140/64 96 08/01/16 16:00 Room Air Intake and Output 08/03/16 08/03/16 08/04/16 15:00 23:00 07:00 Intake Total 500 ml 520 ml 520 ml Output Total 4500 ml Balance -4000 ml 520 ml 520 ml Exam Review of Systems: CONSTITUTIONAL: No fevers, chills. PULMONARY: No sob CARDIOVASCULAR: No chest pain/palpitations GASTROINTESTINAL: No nausea/vomiting. GENITOURINARY: No hematuria/dysuria. MUSCULOSKELETAL: No myagias/arthalgias. PSYCHIATRIC: The patient denies depression. NEUROLOGIC: encephalopathy-slowly improving Constitutional: other (sleeping, arousable) Head: normocephalic ENMT: mucosa pink and moist Neck: jvd (9 cm water), supple Respiratory: diminished breath sounds (at bases/B) Cardiovascular: regular rate and rhythm Gastrointestinal: non-tender, soft Musculoskeletal: muscle tone (normal) Extremities: edema (none) Neurological: lethargic (No focal deficits) Results Result Diagram: 08/04/16 0610 08/04/16 0610 Results 24 hrs Laboratory Tests Test 08/03/16 20:06 08/04/16 01:29 08/04/16 05:40 08/04/16 06:10 Bedside Glucose 180 206 282 H Anion Gap 19 H Basophils # 0.0 Basophils % 0.3 Blood Morphology Comment Blood Urea Nitrogen 42 #H Calcium Level 8.6 Carbon Dioxide Level 28 Chloride Level 98 Creatinine 4.14 #H Eosinophils # 0.7 H Eosinophils % 3.7 Glucose Level 240 H Hematocrit 27.4 L Hemoglobin 8.9 L Lymphocytes # 2.4 Lymphocytes % 13.7 L Magnesium Level 2.0 Mean Corpuscular Hemoglobin 32.2 Mean Corpuscular Hemoglobin Concent 32.7 Mean Corpuscular Volume 98.6 Mean Platelet Volume 8.4 Monocytes # 1.9 H Monocytes % 10.9 Neutrophils # 12.7 H Neutrophils % 71.4 Nucleated Red Blood Cells # 0.4 H Nucleated Red Blood Cells % 2.0 H Phosphorus Level 3.0 Platelet Count 280 # Potassium Level 4.0 Red Blood Count 2.77 L Red Cell Distribution Width 18.6 H Sodium Level 141 White Blood Count 17.8 #H Test 08/04/16 09:31 08/04/16 12:42 08/04/16 16:40 Bedside Glucose 219 199 135 Medications Medications Current Medications Aspirin (Aspirin) 81 mg DAILY NGT Last administered on 08/03/16 08:17; Admin Dose 81 MG; Start 07/21/16 at 09:00; Status Future Hold Atorvastatin Calcium (Lipitor) 40 mg QHS NGT Last administered on 08/03/16 21: 49; Admin Dose 40 MG; Start 07/20/16 at 21:00 Docusate Sodium (Colace Liquid Cup) 100 mg TID PRN NGT CONSTIPATION; Start 07/20 at 17:30 Folic Acid (Folic Acid) 1 mg DAILY NGT Last administered on 08/03/16 08:17; Admin Dose 1 MG; Start 07/21/16 at 09:00 Ticagrelor (Brilinta) 90 mg Q12 NGT Last administered on 08/04/16 09:27; Admin Dose 90 MG; Start 07/20/16 at 21:00 Acetaminophen (Tylenol Tab) 650 mg Q6H PRN NGT PAIN LEVEL 1-3 OR FEVER Last administered on 07/27/16 13:08; Admin Dose 650 MG; Start 07/20/16 at 17:30 Acetaminophen/ Hydrocodone Bitart ([place] (5/325)) 1 tab Q6H PRN NGT PAIN LEVEL 4-6 Last administered on 08/03/16 14:38; Admin Dose 1 TAB; Start 07/20/16 at 17: 30 Acetaminophen/ Hydrocodone Bitart ([place] (5/325)) 2 tab Q6H PRN NGT PAIN LEVEL 7-10; Start 07/20/16 at 17:30 Insulin Aspart (Novolog Insulin Pen) NOVOLOG *MODERATE* ALGORI... Q4 SC Last administered on 08/04/16 12:45; Admin Dose 4 UNIT; Start 07/21/16 at 17:00 Miscellaneous Information 1 ea NOTE XX ; Start 07/21/16 at 16:30 Glucose (Glutose) 15 gm Q15M PRN PO DECREASED GLUCOSE; Start 07/21/16 at 16:30 Glucose (Glutose) 22.5 gm Q15M PRN PO DECREASED GLUCOSE; Start 07/21/16 at 16:30 Dextrose (D50w Syringe) 25 ml Q15M PRN IV DECREASED GLUCOSE Last administered on 07/21/16 21:13; Admin Dose 25 ML; Start 07/21/16 at 16:30 Dextrose (D50w Syringe) 50 ml Q15M PRN IV DECREASED GLUCOSE; Start 07/21/16 at 16:30 Glucagon (Glucagen) 1 mg Q15M PRN IM DECREASED GLUCOSE; Start 07/21/16 at 16:30 Glucose (Glutose) 15 gm Q15M PRN BUCCAL DECREASED GLUCOSE; Start 07/21/16 at 16: 30 Amlodipine Besylate (Norvasc) 5 mg BID GTB Last administered on 08/03/16 21:48 ; Admin Dose 5 MG; Start 07/23/16 at 14:30 Benazepril HCl (Lotensin) 40 mg Q12 PO Last administered on 08/03/16 21:47; Admin Dose 40 MG; Start 07/24/16 at 21:00 Isosorbide Mononitrate (Imdur) 60 mg DAILY PO Last administered on 08/03/16 08 :17; Admin Dose 60 MG; Start 07/25/16 at 10:30 Hydralazine HCl 25 mg 25 mg Q4H PRN IV SBP >170 Last administered on 08/02/16 13:39; Admin Dose 25 MG; Start 07/25/16 at 20:30 Vancomycin HCl (Vancocin) 250 ml @ 125 mls/hr Q96H IVPB Last administered on 12:43; Admin Dose 125 MLS/HR; Start 08/04/16 at 13:00 Metoprolol Tartrate 75 mg 75 mg BID PO Last administered on 08/03/16 21:50; Admin Dose 75 MG; Start 08/01/16 at 21:00 Imipenem/ Cilastatin Sodium (Primaxin 500 Mg/ 100 ml (Pmx)) 100 ml @ 100 mls/ hr Q12 IVPB Last administered on 08/04/16 09:19; Admin Dose 100 MLS/HR; Start 08/01/16 at 12:00 Metronidazole (Flagyl) 500 mg Q8 PO Last administered on 08/04/16 14:14; Admin Dose 500 MG; Start 08/02/16 at 13:00 Hydralazine HCl (Apresoline) 100 mg QID NGT Last administered on 08/03/16 21: 49; Admin Dose 100 MG; Start 08/03/16 at 15:00 Famotidine (Pepcid) 20 mg Q24H GTB Last administered on 08/03/16 21:46; Admin Dose 20 MG; Start 08/03/16 at 21:00 MATT PEARCE Aug 04, 2016 18:23
[2016-08-04] MEDS ORDERED: ONDANSETRON 4 MG INJ IV PRN (20:00)
[2016-08-04] MEDS: FAMOTIDINE 20 MG TAB GTB SCH (23:07)
[2016-08-04] MEDS: ATORVASTATIN 40 MG TAB NGT SCH (23:07)
[2016-08-05] VITALS (13 sets, daily range): BP systolic 116–157; BP diastolic 58–72; PULSE 69–92; RESP 16–18
[2016-08-05] MEDS: INSULIN ASPART [NOVOLOG] 3 ML PEN SC SCH ×6 (00:51→21:00)
[2016-08-05] MEDS: metroNIDAZOLE 500 MG TAB PO SCH ×3 (06:07→21:12)
[2016-08-05 07:46] LABS: ALBUMIN 3.1 g/dl (3.3-4.9); BASOPHIL # 0.1 10^3/ul (0.0-0.1); BASOPHILS % 0.5 % (0.0-2.0); EOSINOPHILS # 0.7 10^3/ul (0.0-0.5); EOSINOPHILS % 4.7 % (0.0-7.0); HEMATOCRIT 21.1 % (37.0-47.0); LYMPHOCYTES # 1.8 10^3/ul (0.8-2.9); MEAN CORPUSCULAR HEMOGLOBIN 33.5 pg (29.0-33.0); MEAN CORPUSCULAR HGB CONC 33.2 g/dl (32.0-37.0); MEAN CORPUSCULAR VOLUME 100.9 fl (82.0-101.0); MEAN PLATELET VOLUME 8.2 fl (7.4-10.4); MONOCYTE # 1.9 10^3/ul (0.3-0.9); MONOCYTES % 12.4 % (0.0-11.0); NEUTROPHIL # 10.8 10^3/ul (1.6-7.5); NEUTROPHILS % 70.4 % (39.0-77.0); PLATELET COUNT 228 10^3/UL (140-440); POTASSIUM 3.6 mmol/L (3.5-5.1); RED BLOOD COUNT 2.09 10^6/ul (4.20-5.40); RED CELL DISTRIBUTION WIDTH 19.3 % (11.5-14.5); UNCORRECTED WBC 15.3 10^3/ul (4.8-10.8); WHITE BLOOD COUNT 15.3 10^3/ul (4.8-10.8)
[2016-08-05 07:48] LABS: CREATININE 2.76 mg/dl (0.44-1.00)
[2016-08-05 07:49] LABS: ALBUMIN/GLOBULIN RATIO 0.81; TOTAL PROTEIN 6.9 g/dl (6.1-8.1)
[2016-08-05 07:50] LABS: CALCIUM 8.5 mg/dl (8.4-10.2); PHOSPHORUS 3.5 mg/dl (2.5-4.9)
[2016-08-05 08:02] LABS: CONDITION 1; LH ANALYZER COMMENTS 1
[2016-08-05] MEDS: ISOSORBIDE MONONITRATE(SR)60 MG TAB PO SCH (09:00)
[2016-08-05] MEDS: IMIPENEM-CILAST 500MG IV (PMX) 100 ML IVPB SCH ×2 (09:25→21:09)
--- NOTE | 2016-08-05 10:02 | PN ---
DATE: 08/05/2016 SUBJECTIVE: The patient is stable, no acute events overnight. The patient pulled out her NG tube. The patient had no further episodes of hematochezia overnight. No other acute events noted. OBJECTIVE: VITAL SIGNS: Blood pressure is 157/72, respirations 18, pulse 74, temperature 97.1. HEENT: Head is normocephalic. NECK: Supple. HEART: Regular rate. LUNGS: Show diminished breath sounds at the base. ABDOMEN: Soft, nontender to palpation, no rebound or guarding. EXTREMITIES: Negative for clubbing, cyanosis, no edema. DERMATOLOGIC: No rashes. MUSCULOSKELETAL: No joint effusions. NEUROLOGIC: No change in exam. MEDICATIONS: The patient's medications have been reviewed. LABORATORY DATA: Shows negative Clostridium difficile. Blood cultures negative x2. CBC shows whit e count 15.3, hemoglobin 7.0, hematocrit 21.1, platelet count 228. Sodium 140, potassium 3.6, chlor [place] 96, BUN 22, creatinine 2.76. ASSESSMENT AND PLAN: 1. End-stage renal disease. The patient had hemodialysis yesterday, tolerated it well. Plan for d ialysis tomorrow. 2. Anemia with noted GI bleed. The patient's hemoglobin level is 7 g/dL this morning. Will repeat an H and H. If hemoglobin levels remain below 7.5 g/dL, will transfuse 2 units of PRBC. Will radha nue Epogen following dialysis. The patient had no further episodes of GI bleed this morning. The p atient remains, however, on Brilinta due to underlying coronary artery disease. Continue to monitor closely. 3. Hematochezia, likely due to anticoagulation. The patient was ruled out for C diff. CT abdomen and pelvis was reviewed. Will continue to monitor. Consider GI evaluation. 4. Mineral bone disorder. Continue to monitor calcium and phosphorus levels. Continue to hold david sphate binders. 5. Sepsis, status post shock. Continue current antibiotic course. 6. Respiratory failure, status post extubation, currently stable. Continue to monitor. 7. Dysphagia. The patient is on pureed diet. 8. Encephalopathy from anoxic brain injury. Continue to monitor. 9. History of coronary artery disease. Continue current treatment plan. 10. Diabetes. Continue Accu-Cheks and insulin sliding scale. 11. Hypertension, improving. Continue current blood pressure regimen. Continue ultrafiltration wi th dialysis. Dictated By: TALITA GARCIA/RANI Conf#: [id number] DID#: [id number]
[2016-08-05 10:38] LABS: HEMATOCRIT 22.6 % (37.0-47.0); HEMOGLOBIN 7.6 g/dl (12.0-16.0)
[2016-08-05] MEDS: FOLIC ACID 1 MG TAB NGT SCH (10:45)
[2016-08-05] MEDS: BENAZEPRIL 20 MG TAB PO SCH ×2 (10:45→21:20)
[2016-08-05] MEDS: METOPROLOL 50 MG TAB PO SCH ×2 (10:46→21:20)
[2016-08-05] MEDS: AMLODIPINE 5 MG TAB GTB SCH ×2 (10:47→21:19)
[2016-08-05] MEDS: TICAGRELOR 90 MG TABLET NGT SCH ×2 (10:48→21:33)
[2016-08-05] MEDS ORDERED: SOD CHLORIDE 0.9% 250 ML IV* ONE (11:13)
--- NOTE | 2016-08-05 11:25 | PN ---
Date/Time of Note Date/Time of Note DATE: 08/05/16 TIME: 10:59 Assessment/Plan VTE Prophylaxis VTE Prophylaxis Intervention: SCD's Lines/Catheters IV Catheter Type (from Nrsg): Central Line Central line still needed: Yes (for IV access ) Urinary Cath still in place: No Assessment/Plan Assessment/Plan 65-year-old woman: 1. Acute respiratory failure and unresponsiveness, s/p intubation on arrival in the ER. Etiology unclear. Extubated and stable for a few days now, on NC. She was hospitalized two weeks prior to this admission after she suffered a cardiac arrest with asystole in the ER. S/p Angio x 2 with stenting Repeat echo with EF 55% Mildly elevated troponin on this admission, appreciate cardiology recommendations Cardiology, Pulmonary, Nephrology and Neurology following. Volume status better, management with HD 2. Encephalopathy. Per Neurology not sure if anoxic injury vs metabolic encephalopathy. Improving MS so far. There was a two-hour window during which she was "asleep" prior to being found unresponsive on admission EEG showing encephalopathy, MRI with no acute findings Appreciate Neurology consult with Dr. Arshad. Patient still disoriented especially at night but much more responsive, and passed speech eval, Ok for puree with nectar thick diet Minimizing sedative agents. 3. Leukocytosis recurrent, on abx for aspiration pneumonitis/pneumonia vs HCAP, WBC still trending down. Fem line tip cx with coag neg staph, blood cx 1/2 from 07/29 with staph species, repeat blood cx NGTD, continue Vanco for now Sputum cx with GNR and ESBL E coli. Continue Imipenem and on contact isolation On empiric Flagyl as of 08/02 and c diff negative. 4. ? Enterococcal UTI: on Vancomycin already, Repeat UA and Urine cx NGTD 5. CAD s/p angio and stenting x 2 approx 2 weeks prior to this admission, echo more consistent with diastolic dysfunction EKG similar to previous ekg two weeks ago. Continue Dr Annelise Martinez following and on BBlock. Holding ASA due to ongoing hematochezia 6. Endstage renal disease on hemodialysis: on HD M/W/F Appreciate assistance from Dr. Gomez. 7. Acute on chronic anemia with hb at 7.6 on repeat today, much less hematochezia per RNs, transfusing 2 units pRBC in AM with HD and continue to monitor CBC daily. 8. Hematochezia: observed x 72 hrs, Heparin SQ and ASA d/c'd. On Brilinta CT abdo/pelvis wnl and Lactate wnl. If any ongoing overt bleeding/hematochezia she may need a colonoscopy but for not stable for may procedure and will favor conservative management. C diff negative and on Flagyl empirically for now. 9. Diabetes mellitus: OFF Lantus with episode of hypoglycemia noted, continue SSI On TF and free H20 now 10. Hypertension, better controlled BP with current regimen Metoprolol, Benazepril, Norvasc Imdur and now Hydralazine at higher dose now . 11. Right lower extremity pain with questionable history of sciatica. Doppler study negative ten days ago for DVT on the right. Prophylaxis: Pepcid for gastrointestinal prophylaxis. SCDs for DVT prevention Disposition:Telemetry. PT/OT/ST. Dr Castelan, Dr Barraza and Dr Arshad following. Start evaluation for ARU vs SNF discharge soon hopefully. Full-Code. Subjective 24 Hr Interval Summary Free Text/Dictation Patient awake, alert and still with some encephalopathy and requiring re orientation often Afebrile and WBC trending down Hb down to 7.6 and hematochezia resolving, had to hold ASA and Heparin SQ and plans for 2 units pRBC in AM with HD Exam/Review of Systems Vital Signs Vitals Vital Signs Date Time Temp Pulse Resp B/P Pulse Ox O2 Delivery O2 Flow Rate FiO2 08/05/16 09:27 69 18 153/67 94 08/05/16 07:38 97.1 08/01/16 16:00 Room Air Intake and Output 08/04/16 08/04/16 08/05/16 15:00 23:00 07:00 Intake Total 815 ml 260 ml Output Total 930 ml Balance -115 ml 260 ml Exam Constitutional: alert, frail, oriented (x2) Respiratory: clear to auscultation, normal air movement Cardiovascular: nl pulses, regular rate and rhythm Gastrointestinal: non-tender, soft Musculoskeletal: nl extremities to inspection Extremities: normal pulses, other (no edema, clubbing or cyanosis ) Neurological: [employer] II-XII intact, nl mental status, nl speech, other (much improved strength ) Results Result Diagram: 08/05/16 1016 08/05/16 0615 Results 24 hrs Laboratory Tests Test 08/04/16 12:42 08/04/16 16:40 08/04/16 20:57 08/05/16 00:40 Bedside Glucose 199 135 150 124 Test 08/05/16 06:05 08/05/16 06:15 08/05/16 08:18 08/05/16 10:16 Bedside Glucose 145 107 Alanine Aminotransferase (ALT/SGPT) 22 Albumin 3.1 L Albumin/Globulin Ratio 0.81 Alkaline Phosphatase 133 H Anion Gap 17 H Aspartate Amino Transf (AST/SGOT) 31 Basophils # 0.1 Basophils % 0.5 Blood Morphology Comment Blood Urea Nitrogen 22 #H Calcium Level 8.5 Carbon Dioxide Level 31 Chloride Level 96 L Creatinine 2.76 #H Direct Bilirubin 0.00 Eosinophils # 0.7 H Eosinophils % 4.7 Globulin 3.80 H Glucose Level 129 # Hematocrit 21.1 #L 22.6 L Hemoglobin 7.0 #L 7.6 L Indirect Bilirubin 0.0 Lymphocytes # 1.8 Lymphocytes % 12.0 L Magnesium Level 2.0 Mean Corpuscular Hemoglobin 33.5 H Mean Corpuscular Hemoglobin Concent 33.2 Mean Corpuscular Volume 100.9 Mean Platelet Volume 8.2 Monocytes # 1.9 H Monocytes % 12.4 H Neutrophils # 10.8 H Neutrophils % 70.4 Nucleated Red Blood Cells # 0.0 Nucleated Red Blood Cells % 0.0 Phosphorus Level 3.5 Platelet Count 228 Potassium Level 3.6 Red Blood Count 2.09 #L Red Cell Distribution Width 19.3 H Sodium Level 140 Total Bilirubin 0.0 L Total Protein 6.9 White Blood Count 15.3 H Medications Medications Current Medications Aspirin (Aspirin) 81 mg DAILY NGT Last administered on 08/03/16 08:17; Admin Dose 81 MG; Start 07/21/16 at 09:00; Status Future Hold Atorvastatin Calcium (Lipitor) 40 mg QHS NGT Last administered on 08/04/16 23: 07; Admin Dose 40 MG; Start 07/20/16 at 21:00 Docusate Sodium (Colace Liquid Cup) 100 mg TID PRN NGT CONSTIPATION; Start 07/20 at 17:30 Folic Acid (Folic Acid) 1 mg DAILY NGT Last administered on 08/05/16 10:45; Admin Dose 1 MG; Start 07/21/16 at 09:00 Ticagrelor (Brilinta) 90 mg Q12 NGT Last administered on 08/05/16 10:48; Admin Dose 90 MG; Start 07/20/16 at 21:00 Acetaminophen (Tylenol Tab) 650 mg Q6H PRN NGT PAIN LEVEL 1-3 OR FEVER Last administered on 07/27/16 13:08; Admin Dose 650 MG; Start 07/20/16 at 17:30 Acetaminophen/ Hydrocodone Bitart ([place] (5/325)) 1 tab Q6H PRN NGT PAIN LEVEL 4-6 Last administered on 08/03/16 14:38; Admin Dose 1 TAB; Start 07/20/16 at 17: 30 Acetaminophen/ Hydrocodone Bitart ([place] (5/325)) 2 tab Q6H PRN NGT PAIN LEVEL 7-10; Start 07/20/16 at 17:30 Insulin Aspart (Novolog Insulin Pen) NOVOLOG *MODERATE* ALGORI... Q4 SC Last administered on 08/05/16 06:08; Admin Dose 2 UNIT; Start 07/21/16 at 17:00 Miscellaneous Information 1 ea NOTE XX ; Start 07/21/16 at 16:30 Glucose (Glutose) 15 gm Q15M PRN PO DECREASED GLUCOSE; Start 07/21/16 at 16:30 Glucose (Glutose) 22.5 gm Q15M PRN PO DECREASED GLUCOSE; Start 07/21/16 at 16:30 Dextrose (D50w Syringe) 25 ml Q15M PRN IV DECREASED GLUCOSE Last administered on 07/21/16 21:13; Admin Dose 25 ML; Start 07/21/16 at 16:30 Dextrose (D50w Syringe) 50 ml Q15M PRN IV DECREASED GLUCOSE; Start 07/21/16 at 16:30 Glucagon (Glucagen) 1 mg Q15M PRN IM DECREASED GLUCOSE; Start 07/21/16 at 16:30 Glucose (Glutose) 15 gm Q15M PRN BUCCAL DECREASED GLUCOSE; Start 07/21/16 at 16: 30 Amlodipine Besylate (Norvasc) 5 mg BID GTB Last administered on 08/05/16 10:47 ; Admin Dose 5 MG; Start 07/23/16 at 14:30 Benazepril HCl (Lotensin) 40 mg Q12 PO Last administered on 08/05/16 10:45; Admin Dose 40 MG; Start 07/24/16 at 21:00 Isosorbide Mononitrate (Imdur) 60 mg DAILY PO Last administered on 08/05/16 09 :00; Admin Dose 60 MG; Start 07/25/16 at 10:30 Hydralazine HCl 25 mg 25 mg Q4H PRN IV SBP >170 Last administered on 08/02/16 13:39; Admin Dose 25 MG; Start 07/25/16 at 20:30 Vancomycin HCl (Vancocin) 250 ml @ 125 mls/hr Q96H IVPB Last administered on 12:43; Admin Dose 125 MLS/HR; Start 08/04/16 at 13:00 Metoprolol Tartrate 75 mg 75 mg BID PO Last administered on 08/05/16 10:46; Admin Dose 75 MG; Start 08/01/16 at 21:00 Imipenem/ Cilastatin Sodium (Primaxin 500 Mg/ 100 ml (Pmx)) 100 ml @ 100 mls/ hr Q12 IVPB Last administered on 08/05/16 09:25; Admin Dose 100 MLS/HR; Start 08/01/16 at 12:00 Metronidazole (Flagyl) 500 mg Q8 PO Last administered on 08/05/16 06:07; Admin Dose 500 MG; Start 08/02/16 at 13:00 Hydralazine HCl (Apresoline) 100 mg QID NGT Last administered on 08/05/16 10: 45; Admin Dose 100 MG; Start 08/03/16 at 15:00 Famotidine (Pepcid) 20 mg Q24H GTB Last administered on 08/04/16 23:07; Admin Dose 20 MG; Start 08/03/16 at 21:00 Ondansetron HCl (Zofran Inj) 4 mg Q6H PRN IV NAUSEA AND/OR VOMITING Last administered on 08/04/16 20:53; Admin Dose 4 MG; Start 08/04/16 at 20:00 NADIA SARGENT Aug 05, 2016 11:13
--- NOTE | 2016-08-05 11:44 | CONS ---
Date/Time of Note Date/Time of Note DATE: 08/05/16 TIME: 11:43 Consult Date/Type/Reason Admit Date/Time Jul 20, 2016 at 15:20 Initial Consult Date 07/21/16 Type of Consultation: pulmonary Ordering Provider: [email or web address] MAY M.D. Subjective Sitting up in bed comfortable Mild confusion Objective Vital Signs Date Time Temp Pulse Resp B/P Pulse Ox O2 Delivery O2 Flow Rate FiO2 08/05/16 09:27 69 18 153/67 94 08/05/16 07:38 97.1 08/01/16 16:00 Room Air Intake and Output 08/04/16 08/04/16 08/05/16 15:00 23:00 07:00 Intake Total 815 ml 260 ml Output Total 930 ml Balance -115 ml 260 ml PHYSICAL EXAMINATION: VITAL SIGNS: comfortable. HEENT: Pupils are equal and reactive to light. NECK: Supple. No JVD noted, no cervical adenopathy noted, no carotid bruits heard. LUNGS: Fair breath sounds bilaterally. CARDIOVASCULAR: S1, S2 normal. ABDOMEN: Soft, nontender. No organomegaly or masses noted. EXTREMITIES: No clubbing or cyanosis noted. NEUROLOGICAL: More awake and responsive. Results/Medications Result Diagram: 08/05/16 1016 08/05/16 0615 Results 24 hrs Laboratory Tests Test 08/04/16 12:42 08/04/16 16:40 08/04/16 20:57 08/05/16 00:40 Bedside Glucose 199 135 150 124 Test 08/05/16 06:05 08/05/16 06:15 08/05/16 08:18 08/05/16 10:16 Bedside Glucose 145 107 Alanine Aminotransferase (ALT/SGPT) 22 Albumin 3.1 L Albumin/Globulin Ratio 0.81 Alkaline Phosphatase 133 H Anion Gap 17 H Aspartate Amino Transf (AST/SGOT) 31 Basophils # 0.1 Basophils % 0.5 Blood Morphology Comment Blood Urea Nitrogen 22 #H Calcium Level 8.5 Carbon Dioxide Level 31 Chloride Level 96 L Creatinine 2.76 #H Direct Bilirubin 0.00 Eosinophils # 0.7 H Eosinophils % 4.7 Globulin 3.80 H Glucose Level 129 # Hematocrit 21.1 #L 22.6 L Hemoglobin 7.0 #L 7.6 L Indirect Bilirubin 0.0 Lymphocytes # 1.8 Lymphocytes % 12.0 L Magnesium Level 2.0 Mean Corpuscular Hemoglobin 33.5 H Mean Corpuscular Hemoglobin Concent 33.2 Mean Corpuscular Volume 100.9 Mean Platelet Volume 8.2 Monocytes # 1.9 H Monocytes % 12.4 H Neutrophils # 10.8 H Neutrophils % 70.4 Nucleated Red Blood Cells # 0.0 Nucleated Red Blood Cells % 0.0 Phosphorus Level 3.5 Platelet Count 228 Potassium Level 3.6 Red Blood Count 2.09 #L Red Cell Distribution Width 19.3 H Sodium Level 140 Total Bilirubin 0.0 L Total Protein 6.9 White Blood Count 15.3 H Medications Current Medications Aspirin (Aspirin) 81 mg DAILY NGT Last administered on 08/03/16 08:17; Admin Dose 81 MG; Start 07/21/16 at 09:00; Status Future Hold Atorvastatin Calcium (Lipitor) 40 mg QHS NGT Last administered on 08/04/16 23: 07; Admin Dose 40 MG; Start 07/20/16 at 21:00 Docusate Sodium (Colace Liquid Cup) 100 mg TID PRN NGT CONSTIPATION; Start 07/20 at 17:30 Folic Acid (Folic Acid) 1 mg DAILY NGT Last administered on 08/05/16 10:45; Admin Dose 1 MG; Start 07/21/16 at 09:00 Ticagrelor (Brilinta) 90 mg Q12 NGT Last administered on 08/05/16 10:48; Admin Dose 90 MG; Start 07/20/16 at 21:00 Acetaminophen (Tylenol Tab) 650 mg Q6H PRN NGT PAIN LEVEL 1-3 OR FEVER Last administered on 07/27/16 13:08; Admin Dose 650 MG; Start 07/20/16 at 17:30 Acetaminophen/ Hydrocodone Bitart ([place] (5/325)) 1 tab Q6H PRN NGT PAIN LEVEL 4-6 Last administered on 08/03/16 14:38; Admin Dose 1 TAB; Start 07/20/16 at 17: 30 Acetaminophen/ Hydrocodone Bitart ([place] (5/325)) 2 tab Q6H PRN NGT PAIN LEVEL 7-10; Start 07/20/16 at 17:30 Insulin Aspart (Novolog Insulin Pen) NOVOLOG *MODERATE* ALGORI... Q4 SC Last administered on 08/05/16 06:08; Admin Dose 2 UNIT; Start 07/21/16 at 17:00 Miscellaneous Information 1 ea NOTE XX ; Start 07/21/16 at 16:30 Glucose (Glutose) 15 gm Q15M PRN PO DECREASED GLUCOSE; Start 07/21/16 at 16:30 Glucose (Glutose) 22.5 gm Q15M PRN PO DECREASED GLUCOSE; Start 07/21/16 at 16:30 Dextrose (D50w Syringe) 25 ml Q15M PRN IV DECREASED GLUCOSE Last administered on 07/21/16 21:13; Admin Dose 25 ML; Start 07/21/16 at 16:30 Dextrose (D50w Syringe) 50 ml Q15M PRN IV DECREASED GLUCOSE; Start 07/21/16 at 16:30 Glucagon (Glucagen) 1 mg Q15M PRN IM DECREASED GLUCOSE; Start 07/21/16 at 16:30 Glucose (Glutose) 15 gm Q15M PRN BUCCAL DECREASED GLUCOSE; Start 07/21/16 at 16: 30 Amlodipine Besylate (Norvasc) 5 mg BID GTB Last administered on 08/05/16 10:47 ; Admin Dose 5 MG; Start 07/23/16 at 14:30 Benazepril HCl (Lotensin) 40 mg Q12 PO Last administered on 08/05/16 10:45; Admin Dose 40 MG; Start 07/24/16 at 21:00 Isosorbide Mononitrate (Imdur) 60 mg DAILY PO Last administered on 08/05/16 09 :00; Admin Dose 60 MG; Start 07/25/16 at 10:30 Hydralazine HCl 25 mg 25 mg Q4H PRN IV SBP >170 Last administered on 08/02/16 13:39; Admin Dose 25 MG; Start 07/25/16 at 20:30 Vancomycin HCl (Vancocin) 250 ml @ 125 mls/hr Q96H IVPB Last administered on 12:43; Admin Dose 125 MLS/HR; Start 08/04/16 at 13:00 Metoprolol Tartrate 75 mg 75 mg BID PO Last administered on 08/05/16 10:46; Admin Dose 75 MG; Start 08/01/16 at 21:00 Imipenem/ Cilastatin Sodium (Primaxin 500 Mg/ 100 ml (Pmx)) 100 ml @ 100 mls/ hr Q12 IVPB Last administered on 08/05/16 09:25; Admin Dose 100 MLS/HR; Start 08/01/16 at 12:00 Metronidazole (Flagyl) 500 mg Q8 PO Last administered on 08/05/16 06:07; Admin Dose 500 MG; Start 08/02/16 at 13:00 Hydralazine HCl (Apresoline) 100 mg QID NGT Last administered on 08/05/16 10: 45; Admin Dose 100 MG; Start 08/03/16 at 15:00 Famotidine (Pepcid) 20 mg Q24H GTB Last administered on 08/04/16 23:07; Admin Dose 20 MG; Start 08/03/16 at 21:00 Ondansetron HCl (Zofran Inj) 4 mg Q6H PRN IV NAUSEA AND/OR VOMITING Last administered on 08/04/16 20:53; Admin Dose 4 MG; Start 08/04/16 at 20:00 Assessment/Plan Chief Complaint/Hosp Course IMPRESSION: 1. Status post acute hypoxemic respiratory failure, stable post-extubation. 2. End-stage renal disease on hemodialysis. 3. Encephalopathy, significantly improved. 4. Anemia. Questionable GI bleed 5. History of hypertension. RECOMMENDATIONS: 1. Continue hemodialysis per nephrology. 2. Neuro followup noted. 3. Continue antibiotics. 4. Consider transfusion packed red blood cells during hemodialysis 5. Physical therapy evaluation recommendations 6. Consider discharge to [facility] facility for continued care Problems: SANDI BUSCH MD, [facility] Aug 05, 2016 11:44
[2016-08-05] MEDS: EPOETIN 10000 UNITS/1 ML INJ (ESRD) SC SCH (13:27)
--- NOTE | 2016-08-05 17:42 | CONS ---
Date/Time of Note Date/Time of Note DATE: 08/05/16 TIME: 17:39 Assessment/Plan Assessment/Plan Chief Complaint/Hosp Course IMPRESSION: 1. Positive troponin in the setting of respiratory failure and renal failure- now downtrended./No obvious CP 2. Abnormal electrocardiogram, assess for acute coronary syndrome. 3. History of a recent PTCA and stent placement to circumflex June 2016 with drug-eluting stents.- EF 55% by echo this admit 4. Altered mental state.-MRI negative 07/23 5. Respiratory failure, status post extubation 6. End-stage renal disease on hemodialysis. 7. Urinary tract infection. 8. Pneumonia. 9. Dyslipidemia. 10.HTN-improving 11. Encephalopathy-s/p MRI with no findings/EEG c/w encephalopathy-improving MS in last 2 days significantly 12. Recc: -Tele -norvasc/benazepril/hydralazine/BB at current doses and follow BP closely -Continue brilinta -Holding asa in setting of rectal bleed -Continue HD for volume removal aggresively -Continue abx's and f/u cx data -Follow MS closely which is slowly improving Problems: Consultation Date/Type/Reason Admit Date/Time Jul 20, 2016 at 15:20 Initial Consult Date 07/21/16 Type of Consultation: Cardiology Reason for Consultation Positive troponin Referring Provider: [email or web address] MAY M.D. Exam/Review of Systems Vital Signs Vitals Vital Signs Date Time Temp Pulse Resp B/P Pulse Ox O2 Delivery O2 Flow Rate FiO2 08/05/16 16:34 98.2 80 16 124/61 97 08/01/16 16:00 Room Air Intake and Output 08/04/16 08/04/16 08/05/16 15:00 23:00 07:00 Intake Total 815 ml 260 ml Output Total 930 ml Balance -115 ml 260 ml Exam Review of Systems: CONSTITUTIONAL: No fevers, chills. PULMONARY: No sob CARDIOVASCULAR: No chest pain/palpitations GASTROINTESTINAL: No nausea/vomiting. GENITOURINARY: No hematuria/dysuria. MUSCULOSKELETAL: No myagias/arthalgias. PSYCHIATRIC: The patient denies depression. NEUROLOGIC: No weakness Constitutional: alert Psych: no complaints Head: normocephalic ENMT: mucosa pink and moist Neck: jvd (9 cm water), supple Respiratory: diminished breath sounds (at bases/B) Cardiovascular: regular rate and rhythm Gastrointestinal: non-tender, soft Musculoskeletal: muscle tone (normal) Extremities: edema (none) Neurological: lethargic Results Result Diagram: 08/05/16 1016 08/05/16 0615 Results 24 hrs Laboratory Tests Test 08/04/16 20:57 08/05/16 00:40 08/05/16 06:05 08/05/16 06:15 Bedside Glucose 150 124 145 Alanine Aminotransferase (ALT/SGPT) 22 Albumin 3.1 L Albumin/Globulin Ratio 0.81 Alkaline Phosphatase 133 H Anion Gap 17 H Aspartate Amino Transf (AST/SGOT) 31 Basophils # 0.1 Basophils % 0.5 Blood Morphology Comment Blood Urea Nitrogen 22 #H Calcium Level 8.5 Carbon Dioxide Level 31 Chloride Level 96 L Creatinine 2.76 #H Direct Bilirubin 0.00 Eosinophils # 0.7 H Eosinophils % 4.7 Globulin 3.80 H Glucose Level 129 # Hematocrit 21.1 #L Hemoglobin 7.0 #L Indirect Bilirubin 0.0 Lymphocytes # 1.8 Lymphocytes % 12.0 L Magnesium Level 2.0 Mean Corpuscular Hemoglobin 33.5 H Mean Corpuscular Hemoglobin Concent 33.2 Mean Corpuscular Volume 100.9 Mean Platelet Volume 8.2 Monocytes # 1.9 H Monocytes % 12.4 H Neutrophils # 10.8 H Neutrophils % 70.4 Nucleated Red Blood Cells # 0.0 Nucleated Red Blood Cells % 0.0 Phosphorus Level 3.5 Platelet Count 228 Potassium Level 3.6 Red Blood Count 2.09 #L Red Cell Distribution Width 19.3 H Sodium Level 140 Total Bilirubin 0.0 L Total Protein 6.9 White Blood Count 15.3 H Test 08/05/16 08:18 08/05/16 10:16 08/05/16 12:27 Bedside Glucose 107 147 Hematocrit 22.6 L Hemoglobin 7.6 L Medications Medications Current Medications Aspirin (Aspirin) 81 mg DAILY NGT Last administered on 08/03/16 08:17; Admin Dose 81 MG; Start 07/21/16 at 09:00; Status Future Hold Atorvastatin Calcium (Lipitor) 40 mg QHS NGT Last administered on 08/04/16 23: 07; Admin Dose 40 MG; Start 07/20/16 at 21:00 Docusate Sodium (Colace Liquid Cup) 100 mg TID PRN NGT CONSTIPATION; Start 07/20 at 17:30 Folic Acid (Folic Acid) 1 mg DAILY NGT Last administered on 08/05/16 10:45; Admin Dose 1 MG; Start 07/21/16 at 09:00 Ticagrelor (Brilinta) 90 mg Q12 NGT Last administered on 08/05/16 10:48; Admin Dose 90 MG; Start 07/20/16 at 21:00 Acetaminophen (Tylenol Tab) 650 mg Q6H PRN NGT PAIN LEVEL 1-3 OR FEVER Last administered on 07/27/16 13:08; Admin Dose 650 MG; Start 07/20/16 at 17:30 Acetaminophen/ Hydrocodone Bitart ([place] (5/325)) 1 tab Q6H PRN NGT PAIN LEVEL 4-6 Last administered on 08/03/16 14:38; Admin Dose 1 TAB; Start 07/20/16 at 17: 30 Acetaminophen/ Hydrocodone Bitart ([place] (5/325)) 2 tab Q6H PRN NGT PAIN LEVEL 7-10; Start 07/20/16 at 17:30 Insulin Aspart (Novolog Insulin Pen) NOVOLOG *MODERATE* ALGORI... Q4 SC Last administered on 08/05/16 06:08; Admin Dose 2 UNIT; Start 07/21/16 at 17:00 Miscellaneous Information 1 ea NOTE XX ; Start 07/21/16 at 16:30 Glucose (Glutose) 15 gm Q15M PRN PO DECREASED GLUCOSE; Start 07/21/16 at 16:30 Glucose (Glutose) 22.5 gm Q15M PRN PO DECREASED GLUCOSE; Start 07/21/16 at 16:30 Dextrose (D50w Syringe) 25 ml Q15M PRN IV DECREASED GLUCOSE Last administered on 07/21/16 21:13; Admin Dose 25 ML; Start 07/21/16 at 16:30 Dextrose (D50w Syringe) 50 ml Q15M PRN IV DECREASED GLUCOSE; Start 07/21/16 at 16:30 Glucagon (Glucagen) 1 mg Q15M PRN IM DECREASED GLUCOSE; Start 07/21/16 at 16:30 Glucose (Glutose) 15 gm Q15M PRN BUCCAL DECREASED GLUCOSE; Start 07/21/16 at 16: 30 Amlodipine Besylate (Norvasc) 5 mg BID GTB Last administered on 08/05/16 10:47 ; Admin Dose 5 MG; Start 07/23/16 at 14:30 Benazepril HCl (Lotensin) 40 mg Q12 PO Last administered on 08/05/16 10:45; Admin Dose 40 MG; Start 07/24/16 at 21:00 Isosorbide Mononitrate (Imdur) 60 mg DAILY PO Last administered on 08/05/16 09 :00; Admin Dose 60 MG; Start 07/25/16 at 10:30 Hydralazine HCl 25 mg 25 mg Q4H PRN IV SBP >170 Last administered on 08/02/16 13:39; Admin Dose 25 MG; Start 07/25/16 at 20:30 Vancomycin HCl (Vancocin) 250 ml @ 125 mls/hr Q96H IVPB Last administered on 12:43; Admin Dose 125 MLS/HR; Start 08/04/16 at 13:00 Metoprolol Tartrate 75 mg 75 mg BID PO Last administered on 08/05/16 10:46; Admin Dose 75 MG; Start 08/01/16 at 21:00 Imipenem/ Cilastatin Sodium (Primaxin 500 Mg/ 100 ml (Pmx)) 100 ml @ 100 mls/ hr Q12 IVPB Last administered on 08/05/16 09:25; Admin Dose 100 MLS/HR; Start 08/01/16 at 12:00 Metronidazole (Flagyl) 500 mg Q8 PO Last administered on 08/05/16 14:30; Admin Dose 500 MG; Start 08/02/16 at 13:00 Hydralazine HCl (Apresoline) 100 mg QID NGT Last administered on 08/05/16 17: 30; Admin Dose 100 MG; Start 08/03/16 at 15:00 Famotidine (Pepcid) 20 mg Q24H GTB Last administered on 08/04/16 23:07; Admin Dose 20 MG; Start 08/03/16 at 21:00 Ondansetron HCl (Zofran Inj) 4 mg Q6H PRN IV NAUSEA AND/OR VOMITING Last administered on 08/04/16 20:53; Admin Dose 4 MG; Start 08/04/16 at 20:00 MATT PEARCE Aug 05, 2016 17:42
[2016-08-05] MEDS: ATORVASTATIN 40 MG TAB NGT SCH (21:11)
[2016-08-05] MEDS: FAMOTIDINE 20 MG TAB GTB SCH (21:12)
[2016-08-06] VITALS (27 sets, daily range): BP systolic 124–176; BP diastolic 57–82; PULSE 66–77; RESP 17–19
[2016-08-06] MEDS: INSULIN ASPART [NOVOLOG] 3 ML PEN SC SCH ×6 (02:03→21:00)
[2016-08-06] MEDS: metroNIDAZOLE 500 MG TAB PO SCH ×3 (05:17→21:47)
[2016-08-06 05:45] LABS: PHOSPHORUS 4.8 mg/dl (2.5-4.9)
[2016-08-06 05:46] LABS: ALBUMIN 3.3 g/dl (3.3-4.9); BASOPHIL # 0.1 10^3/ul (0.0-0.1); BASOPHILS % 0.8 % (0.0-2.0); EOSINOPHILS # 0.6 10^3/ul (0.0-0.5); HEMATOCRIT 20.9 % (37.0-47.0); HEMOGLOBIN 7.1 g/dl (12.0-16.0); LYMPHOCYTES # 2.6 10^3/ul (0.8-2.9); LYMPHOCYTES % 18.5 % (15.0-51.0); MAGNESIUM 2.1 mg/dl (1.7-2.5); MEAN CORPUSCULAR HEMOGLOBIN 34.2 pg (29.0-33.0); MEAN CORPUSCULAR VOLUME 100.6 fl (82.0-101.0); MEAN PLATELET VOLUME 8.1 fl (7.4-10.4); MONOCYTE # 1.9 10^3/ul (0.3-0.9); MONOCYTES % 13.9 % (0.0-11.0); NEUTROPHIL # 8.7 10^3/ul (1.6-7.5); NEUTROPHILS % 62.8 % (39.0-77.0); PLATELET COUNT 251 10^3/UL (140-440); RED BLOOD COUNT 2.08 10^6/ul (4.20-5.40); RED CELL DISTRIBUTION WIDTH 20.4 % (11.5-14.5); UNCORRECTED WBC 13.9 10^3/ul (4.8-10.8); WHITE BLOOD COUNT 13.9 10^3/ul (4.8-10.8)
[2016-08-06 05:49] LABS: ALBUMIN/GLOBULIN RATIO 0.84; CALCIUM 8.3 mg/dl (8.4-10.2); CREATININE 4.4 mg/dl (0.44-1.00); TOTAL PROTEIN 7.2 g/dl (6.1-8.1)
[2016-08-06 05:59] LABS: CONDITION 1; LH ANALYZER COMMENTS 1; SUSPECT 1
[2016-08-06] MEDS: METOPROLOL 50 MG TAB PO SCH ×3 (08:51→21:49)
[2016-08-06] MEDS: ISOSORBIDE MONONITRATE(SR)60 MG TAB PO SCH ×2 (08:51→12:10)
[2016-08-06] MEDS: BENAZEPRIL 20 MG TAB PO SCH ×3 (08:51→21:47)
[2016-08-06] MEDS: IMIPENEM-CILAST 500MG IV (PMX) 100 ML IVPB SCH ×3 (08:52→21:46)
[2016-08-06] MEDS: FOLIC ACID 1 MG TAB NGT SCH (08:52)
[2016-08-06] MEDS: AMLODIPINE 5 MG TAB GTB SCH ×2 (08:52→21:48)
[2016-08-06] MEDS: TICAGRELOR 90 MG TABLET NGT SCH ×2 (08:53→21:47)
--- NOTE | 2016-08-06 09:11 | CONS ---
Date/Time of Note Date/Time of Note DATE: 08/06/16 TIME: 09:10 Consult Date/Type/Reason Admit Date/Time Jul 20, 2016 at 15:20 Initial Consult Date 07/21/16 Type of Consultation: pulmonary Ordering Provider: KRZYSZTOF MAY M.D. Subjective Remains intermittently confused Objective Vital Signs Date Time Temp Pulse Resp B/P Pulse Ox O2 Delivery O2 Flow Rate FiO2 08/06/16 08:55 72 08/06/16 08:25 16 08/06/16 07:48 97.6 154/82 96 Intake and Output 08/05/16 08/05/16 08/06/16 15:00 23:00 07:00 Intake Total 100 ml 50 ml Balance 100 ml 50 ml PHYSICAL EXAMINATION: VITAL SIGNS: comfortable. HEENT: Pupils are equal and reactive to light. NECK: Supple. No JVD noted, no cervical adenopathy noted, no carotid bruits heard. LUNGS: Fair breath sounds bilaterally. CARDIOVASCULAR: S1, S2 normal. ABDOMEN: Soft, nontender. No organomegaly or masses noted. EXTREMITIES: No clubbing or cyanosis noted. NEUROLOGICAL: Confused but no agitation Results/Medications Result Diagram: 08/06/16 0459 08/06/16 0459 Results 24 hrs Laboratory Tests Test 08/05/16 10:16 08/05/16 12:27 08/05/16 17:27 08/05/16 21:29 Hematocrit 22.6 L Hemoglobin 7.6 L Bedside Glucose 147 139 133 Test 08/06/16 02:02 08/06/16 04:52 08/06/16 04:59 08/06/16 08:50 Bedside Glucose 113 133 150 Alanine Aminotransferase (ALT/SGPT) 19 Albumin 3.3 Albumin/Globulin Ratio 0.84 Alkaline Phosphatase 124 H Anion Gap 17 H Aspartate Amino Transf (AST/SGOT) 23 Basophils # 0.1 Basophils % 0.8 Blood Morphology Comment Blood Urea Nitrogen 33 #H Calcium Level 8.3 L Carbon Dioxide Level 29 Chloride Level 97 Creatinine 4.40 #H Direct Bilirubin 0.00 Eosinophils # 0.6 H Eosinophils % 4.0 Globulin 3.90 H Glucose Level 112 Hematocrit 20.9 L Hemoglobin 7.1 L Indirect Bilirubin 0.0 Lymphocytes # 2.6 Lymphocytes % 18.5 Magnesium Level 2.1 Mean Corpuscular Hemoglobin 34.2 H Mean Corpuscular Hemoglobin Concent 34.0 Mean Corpuscular Volume 100.6 Mean Platelet Volume 8.1 Monocytes # 1.9 H Monocytes % 13.9 H Neutrophils # 8.7 H Neutrophils % 62.8 Nucleated Red Blood Cells # 0.0 Nucleated Red Blood Cells % 0.0 Phosphorus Level 4.8 Platelet Count 251 Potassium Level 4.0 Red Blood Count 2.08 L Red Cell Distribution Width 20.4 H Sodium Level 139 Total Bilirubin 0.0 L Total Protein 7.2 White Blood Count 13.9 H Medications Current Medications Aspirin (Aspirin) 81 mg DAILY NGT Last administered on 08/03/16 08:17; Admin Dose 81 MG; Start 07/21/16 at 09:00; Status Future Hold Atorvastatin Calcium (Lipitor) 40 mg QHS NGT Last administered on 08/05/16 21: 11; Admin Dose 40 MG; Start 07/20/16 at 21:00 Docusate Sodium (Colace Liquid Cup) 100 mg TID PRN NGT CONSTIPATION; Start 07/20 at 17:30 Folic Acid (Folic Acid) 1 mg DAILY NGT Last administered on 08/06/16 08:52; Admin Dose 1 MG; Start 07/21/16 at 09:00 Ticagrelor (Brilinta) 90 mg Q12 NGT Last administered on 08/06/16 08:53; Admin Dose 90 MG; Start 07/20/16 at 21:00 Acetaminophen (Tylenol Tab) 650 mg Q6H PRN NGT PAIN LEVEL 1-3 OR FEVER Last administered on 07/27/16 13:08; Admin Dose 650 MG; Start 07/20/16 at 17:30 Acetaminophen/ Hydrocodone Bitart ([place] (5/325)) 1 tab Q6H PRN NGT PAIN LEVEL 4-6 Last administered on 08/03/16 14:38; Admin Dose 1 TAB; Start 07/20/16 at 17: 30 Acetaminophen/ Hydrocodone Bitart ([place] (5/325)) 2 tab Q6H PRN NGT PAIN LEVEL 7-10; Start 07/20/16 at 17:30 Insulin Aspart (Novolog Insulin Pen) NOVOLOG *MODERATE* ALGORI... Q4 SC Last administered on 08/06/16 08:53; Admin Dose 2 UNIT; Start 07/21/16 at 17:00 Miscellaneous Information 1 ea NOTE XX ; Start 07/21/16 at 16:30 Glucose (Glutose) 15 gm Q15M PRN PO DECREASED GLUCOSE; Start 07/21/16 at 16:30 Glucose (Glutose) 22.5 gm Q15M PRN PO DECREASED GLUCOSE; Start 07/21/16 at 16:30 Dextrose (D50w Syringe) 25 ml Q15M PRN IV DECREASED GLUCOSE Last administered on 07/21/16 21:13; Admin Dose 25 ML; Start 07/21/16 at 16:30 Dextrose (D50w Syringe) 50 ml Q15M PRN IV DECREASED GLUCOSE; Start 07/21/16 at 16:30 Glucagon (Glucagen) 1 mg Q15M PRN IM DECREASED GLUCOSE; Start 07/21/16 at 16:30 Glucose (Glutose) 15 gm Q15M PRN BUCCAL DECREASED GLUCOSE; Start 07/21/16 at 16: 30 Amlodipine Besylate (Norvasc) 5 mg BID GTB Last administered on 08/05/16 21:19 ; Admin Dose 5 MG; Start 07/23/16 at 14:30 Benazepril HCl (Lotensin) 40 mg Q12 PO Last administered on 08/05/16 21:20; Admin Dose 40 MG; Start 07/24/16 at 21:00 Isosorbide Mononitrate (Imdur) 60 mg DAILY PO Last administered on 08/05/16 09 :00; Admin Dose 60 MG; Start 07/25/16 at 10:30 Hydralazine HCl 25 mg 25 mg Q4H PRN IV SBP >170 Last administered on 08/02/16 13:39; Admin Dose 25 MG; Start 07/25/16 at 20:30 Vancomycin HCl (Vancocin) 250 ml @ 125 mls/hr Q96H IVPB Last administered on 12:43; Admin Dose 125 MLS/HR; Start 08/04/16 at 13:00 Metoprolol Tartrate 75 mg 75 mg BID PO Last administered on 08/05/16 21:20; Admin Dose 75 MG; Start 08/01/16 at 21:00 Imipenem/ Cilastatin Sodium (Primaxin 500 Mg/ 100 ml (Pmx)) 100 ml @ 100 mls/ hr Q12 IVPB Last administered on 08/05/16 21:09; Admin Dose 100 MLS/HR; Start 08/01/16 at 12:00 Metronidazole (Flagyl) 500 mg Q8 PO Last administered on 08/06/16 05:17; Admin Dose 500 MG; Start 08/02/16 at 13:00 Hydralazine HCl (Apresoline) 100 mg QID NGT Last administered on 08/05/16 21: 19; Admin Dose 100 MG; Start 08/03/16 at 15:00 Famotidine (Pepcid) 20 mg Q24H GTB Last administered on 08/05/16 21:12; Admin Dose 20 MG; Start 08/03/16 at 21:00 Ondansetron HCl (Zofran Inj) 4 mg Q6H PRN IV NAUSEA AND/OR VOMITING Last administered on 08/04/16 20:53; Admin Dose 4 MG; Start 08/04/16 at 20:00 Assessment/Plan Chief Complaint/Hosp Course IMPRESSION: 1. Status post acute hypoxemic respiratory failure, stable post-extubation. 2. End-stage renal disease on hemodialysis. 3. Encephalopathy, significantly improved. 4. Anemia. Questionable GI bleed possibly secondary to chronic disease 5. History of hypertension. 6. Mild diastolic dysfunction preserved ejection fraction RECOMMENDATIONS: 1. Continue hemodialysis per nephrology. 2. Neuro followup noted. 3. Continue antibiotics. 4. Consider transfusion packed red blood cells during hemodialysis 5. Physical therapy evaluation recommendations 6. Aspiration precautions Problems: SANDI BUSCH MD, [facility] Aug 06, 2016 09:11
--- NOTE | 2016-08-06 09:48 | PN ---
DATE: 08/06/2016 SUBJECTIVE: The patient is stable, no acute events overnight. No hemoptysis, hematemesis. OBJECTIVE: VITAL SIGNS: Blood pressure is 124/57, respirations 18, pulse 67, temperature 98.8. HEENT: Head is normocephalic. NECK: Supple. HEART: Regular rate. LUNGS: Show diminished breath sounds at the base. ABDOMEN: Soft, nontender to palpation. No rebound or guarding. EXTREMITIES: Negative for clubbing, cyanosis, no edema. DERMATOLOGIC: No rashes. MUSCULOSKELETAL: No joint effusions. NEUROLOGIC: No change in exam. MEDICATIONS: The patient's medications have been reviewed. LABORATORY DATA: Shows sodium 139, potassium 4.0, chloride 97, bicarbonate 29, BUN 33, creatinine 4 .40. White count 13.9, hemoglobin 7.1, hematocrit 20.9, platelet count is 251. ASSESSMENT AND PLAN: 1. End-stage renal disease. The patient is scheduled for hemodialysis today for 3 hours, 3 K bath, calcium 2.5. 2. Anemia with hematochezia. The patient's hemoglobin and remains around 7 g/dL. At this point, w ill continue to monitor H and H levels. Will check an iron panel. If there is any evidence for iro n deficiency, will give the patient IV iron. Will otherwise continue Epogen with hemodialysis. Wou ld consider transfusing if hemoglobin level should fall below 7 g/dL. Will continue to monitor clos mundo. The patient's antiplatelets and heparin have been held. 3. Hematochezia. Etiology may be secondary to underlying anticoagulation. The patient was ruled o ut for C diff. CT scan was reviewed. No acute findings. Will continue to monitor H and H levels. Consider GI evaluation. 4. Mineral bone disorder. Continue to monitor calcium and phosphorus levels. Will continue to hol d phos binders. 5. Sepsis, status post shock. The patient is completing an antibiotic course. 6. Dysphagia. Will continue pureed diet. 7. Encephalopathy with anoxic injury, improving. Continue to monitor. 8. History of coronary artery disease. Continue current treatment plan. 9. Diabetes. Continue Accu-Cheks and insulin sliding scale. 10. Hypertension. Continue current blood pressure regimen. 11. Status post respiratory failure. Dictated By: TALITA GARCIA/RANI Conf#: [id number] [facility]#: [id number]
--- NOTE | 2016-08-06 13:08 | CONS ---
Date/Time of Note Date/Time of Note DATE: 08/06/16 TIME: 13:04 Assessment/Plan Assessment/Plan Additional Assessment/Plan 1. Positive troponin in the setting of respiratory failure and renal failure- now downtrended./No obvious CP - better now, much improved 2. Abnormal electrocardiogram, assess for acute coronary syndrome - no ischemia noted 3. History of a recent PTCA and stent placement to circumflex June 2016 with drug-eluting stents.- EF 55% by echo this admit 4. Altered mental state.-MRI negative 07/23 5. Respiratory failure, status post extubation - MUCH BETTER NOW 6. End-stage renal disease on hemodialysis- pe renal team. 7. Urinary tract infection- on anti-bx. 8. Pneumonia- on anti-bx. 9. Dyslipidemia. 10.HTN-improving 11. Encephalopathy-s/p MRI with no findings/EEG c/w encephalopathy-improving MS in last 2 days significantly 12. PRE-OP - pt with recurrent lower GI bleed - reasonable to proceed with colonoscopy to see if pt has easily reversible source. Consultation Date/Type/Reason Admit Date/Time Jul 20, 2016 at 15:20 Initial Consult Date 07/21/16 Type of Consultation: pulmonary Referring Provider: KRZYSZTOF MAY M.D. 24 HR Interval Summary Free Text/Dictation PRE-OP - pt with recurrent lower GI bleed - reasonable to proceed with colonoscopy to see if pt has easily reversible source. ROS: No fever, no chills, no nausea, no vomiting, no diarrhea/constipation No recent weight changes No chest pain, no PND, no orthopnea No dizziness, blurred vision No thirst, no heat or cold intolerance Exam/Review of Systems Vital Signs Vitals Vital Signs Date Time Temp Pulse Resp B/P Pulse Ox O2 Delivery O2 Flow Rate FiO2 08/06/16 12:43 71 08/06/16 11:25 16 08/06/16 07:48 97.6 154/82 96 Intake and Output 08/05/16 08/05/16 08/06/16 15:00 23:00 07:00 Intake Total 100 ml 50 ml Balance 100 ml 50 ml Exam General: WN/WD/NAD, AOx 2-3 [place] HEENT: Unicetric/atraumatic/EOMI (follows commands) NECK: JVD elevated, no thyromegaly Lymph: no lymphadenopathy HEART: regular with no S3, II/ systolic murmur at apex LUNGS: Coarse sounds ABD: soft, NT, ND, +BS : Intact Neuro: non focal SKIN: chronic changes EXT: trace edema Results Result Diagram: 08/06/16 0459 08/06/16 0459 Results 24 hrs Laboratory Tests Test 08/05/16 17:27 08/05/16 21:29 08/06/16 02:02 08/06/16 04:52 Bedside Glucose 139 133 113 133 Test 08/06/16 04:59 08/06/16 08:50 08/06/16 12:04 Alanine Aminotransferase (ALT/SGPT) 19 Albumin 3.3 Albumin/Globulin Ratio 0.84 Alkaline Phosphatase 124 H Anion Gap 17 H Aspartate Amino Transf (AST/SGOT) 23 Basophils # 0.1 Basophils % 0.8 Blood Morphology Comment Blood Urea Nitrogen 33 #H Calcium Level 8.3 L Carbon Dioxide Level 29 Chloride Level 97 Creatinine 4.40 #H Direct Bilirubin 0.00 Eosinophils # 0.6 H Eosinophils % 4.0 Globulin 3.90 H Glucose Level 112 Hematocrit 20.9 L Hemoglobin 7.1 L Indirect Bilirubin 0.0 Lymphocytes # 2.6 Lymphocytes % 18.5 Magnesium Level 2.1 Mean Corpuscular Hemoglobin 34.2 H Mean Corpuscular Hemoglobin Concent 34.0 Mean Corpuscular Volume 100.6 Mean Platelet Volume 8.1 Monocytes # 1.9 H Monocytes % 13.9 H Neutrophils # 8.7 H Neutrophils % 62.8 Nucleated Red Blood Cells # 0.0 Nucleated Red Blood Cells % 0.0 Phosphorus Level 4.8 Platelet Count 251 Potassium Level 4.0 Red Blood Count 2.08 L Red Cell Distribution Width 20.4 H Sodium Level 139 Total Bilirubin 0.0 L Total Protein 7.2 White Blood Count 13.9 H Bedside Glucose 150 122 Medications Medications Current Medications Aspirin (Aspirin) 81 mg DAILY NGT Last administered on 08/03/16 08:17; Admin Dose 81 MG; Start 07/21/16 at 09:00; Status Future Hold Atorvastatin Calcium (Lipitor) 40 mg QHS NGT Last administered on 08/05/16 21: 11; Admin Dose 40 MG; Start 07/20/16 at 21:00 Docusate Sodium (Colace Liquid Cup) 100 mg TID PRN NGT CONSTIPATION; Start 07/20 at 17:30 Folic Acid (Folic Acid) 1 mg DAILY NGT Last administered on 08/06/16 08:52; Admin Dose 1 MG; Start 07/21/16 at 09:00 Ticagrelor (Brilinta) 90 mg Q12 NGT Last administered on 08/06/16 08:53; Admin Dose 90 MG; Start 07/20/16 at 21:00 Acetaminophen (Tylenol Tab) 650 mg Q6H PRN NGT PAIN LEVEL 1-3 OR FEVER Last administered on 07/27/16 13:08; Admin Dose 650 MG; Start 07/20/16 at 17:30 Acetaminophen/ Hydrocodone Bitart ([place] (5/325)) 1 tab Q6H PRN NGT PAIN LEVEL 4-6 Last administered on 08/03/16 14:38; Admin Dose 1 TAB; Start 07/20/16 at 17: 30 Acetaminophen/ Hydrocodone Bitart ([place] (5/325)) 2 tab Q6H PRN NGT PAIN LEVEL 7-10; Start 07/20/16 at 17:30 Insulin Aspart (Novolog Insulin Pen) NOVOLOG *MODERATE* ALGORI... Q4 SC Last administered on 08/06/16 08:53; Admin Dose 2 UNIT; Start 07/21/16 at 17:00 Miscellaneous Information 1 ea NOTE XX ; Start 07/21/16 at 16:30 Glucose (Glutose) 15 gm Q15M PRN PO DECREASED GLUCOSE; Start 07/21/16 at 16:30 Glucose (Glutose) 22.5 gm Q15M PRN PO DECREASED GLUCOSE; Start 07/21/16 at 16:30 Dextrose (D50w Syringe) 25 ml Q15M PRN IV DECREASED GLUCOSE Last administered on 07/21/16 21:13; Admin Dose 25 ML; Start 07/21/16 at 16:30 Dextrose (D50w Syringe) 50 ml Q15M PRN IV DECREASED GLUCOSE; Start 07/21/16 at 16:30 Glucagon (Glucagen) 1 mg Q15M PRN IM DECREASED GLUCOSE; Start 07/21/16 at 16:30 Glucose (Glutose) 15 gm Q15M PRN BUCCAL DECREASED GLUCOSE; Start 07/21/16 at 16: 30 Amlodipine Besylate (Norvasc) 5 mg BID GTB Last administered on 08/05/16 21:19 ; Admin Dose 5 MG; Start 07/23/16 at 14:30 Benazepril HCl (Lotensin) 40 mg Q12 PO Last administered on 08/06/16 12:10; Admin Dose 40 MG; Start 07/24/16 at 21:00 Isosorbide Mononitrate (Imdur) 60 mg DAILY PO Last administered on 08/06/16 12 :10; Admin Dose 60 MG; Start 07/25/16 at 10:30 Hydralazine HCl 25 mg 25 mg Q4H PRN IV SBP >170 Last administered on 08/02/16 13:39; Admin Dose 25 MG; Start 07/25/16 at 20:30 Vancomycin HCl (Vancocin) 250 ml @ 125 mls/hr Q96H IVPB Last administered on 12:43; Admin Dose 125 MLS/HR; Start 08/04/16 at 13:00 Metoprolol Tartrate 75 mg 75 mg BID PO Last administered on 08/06/16 12:09; Admin Dose 75 MG; Start 08/01/16 at 21:00 Imipenem/ Cilastatin Sodium (Primaxin 500 Mg/ 100 ml (Pmx)) 100 ml @ 100 mls/ hr Q12 IVPB Last administered on 08/06/16 12:12; Admin Dose 100 MLS/HR; Start 08/01/16 at 12:00 Metronidazole (Flagyl) 500 mg Q8 PO Last administered on 08/06/16 05:17; Admin Dose 500 MG; Start 08/02/16 at 13:00 Hydralazine HCl (Apresoline) 100 mg QID NGT Last administered on 08/06/16 12: 10; Admin Dose 100 MG; Start 08/03/16 at 15:00 Famotidine (Pepcid) 20 mg Q24H GTB Last administered on 08/05/16 21:12; Admin Dose 20 MG; Start 08/03/16 at 21:00 Ondansetron HCl (Zofran Inj) 4 mg Q6H PRN IV NAUSEA AND/OR VOMITING Last administered on 08/04/16 20:53; Admin Dose 4 MG; Start 08/04/16 at 20:00 ADELFO PUGA MD Aug 06, 2016 13:08
--- NOTE | 2016-08-06 13:57 | CONS ---
DATE OF ADMISSION: 07/20/2016 DATE OF CONSULTATION: 08/06/[address] Sargent: Thank you for asking me to see Mrs. Carranza in GI consultation. HISTORY OF PRESENT ILLNESS: As you know, the patient is a 65-year-old female who was admit alicja to the hospital at this time because of respiratory failure unresponsive on admission. Subseque ntly, she was intubated. Now, she is extubated. In fact a month ago she had a cardiac arrest and s he had a cardiac catheterization and she had 2 stents placed at that time. She has been on Brilinta and subQ heparin prophylactically and also aspirin and she has been passing clots from the rectum f or the past 3 days. No history of hematemesis. REVIEW OF SYSTEMS: Indicates recent cardiac arrest, end-stage renal disease on hemodialysis, history of diabetes, Lantus insulin, history of anoxic injury, history of hypertension, history of sciatica . MEDICATIONS ON ADMISSION: 1. Metoprolol. 2. Brilinta. 3. Aspirin. 4. Tramadol. 5. Acetaminophen. 6. Gabapentin. 7. Diazepam. 8. Nifedipine. 9. Isosorbide. 10. NovoLog. 11. Hydralazine. 12. Renvela. 13. PhosLo. 14. Loniten. 15. Lantus. 16. Benazepril. 17. Colace. 18. Atorvastatin. 19. Cardura. 20. Folic acid. 21. Meloxicam. 22. Lopressor. PHYSICAL EXAMINATION: GENERAL: The patient is a 65-year-old female who at this time is alert. VITAL SIGNS: Afebrile. CARDIOVASCULAR: Normal heart sounds. RESPIRATORY: Normal breath sounds. ABDOMEN: Shows soft abdomen with no palpable masses, no tenderness, no distention. RECTAL: Blood and stool mixed together. LABORATORY: Laboratory workup is essentially as noted in the notes. Will review. CLINICAL IMPRESSION: Patient presenting with history of lower gastrointestinal bleeding. She has been on anticoagulation at this time. The source of bleeding could be diverticulosis, arteriovenous malformation of the GI tract, colorect al neoplasm should be ruled out. Hemorrhoids, probably unlikely. She has history of end-stage renal disease on hemodialysis, history of cardiac arrest, she has diabe yash, hypertension. PLAN: At this time, I would recommend upper endoscopy as well as lower endoscopy once the patient i s cleared from the pulmonary standpoint and also from the cardiology standpoint. LABORATORY WORKUP: The hemoglobin 10 today is 7.1, hematocrit 20.9, WBC is 13,900, platelet count 2 51,000. The prothrombin time 14.1. The potassium is 4.0, BUN 33, creatinine 4.4, alkaline phosphat ase 124. As mentioned early on we will do upper endoscopy as well as lower endoscopy. Once again, doctor, thank you for this consultation. Dictated By: BAILEY SEGOVIA/RANI Conf#: [id number] DID#: [id number] CC: NADIA SARGENT MD; BAILEY MCMANUS MD;*[facility]*
--- NOTE | 2016-08-06 14:35 | PN ---
Date/Time of Note Date/Time of Note DATE: 08/06/16 TIME: 14:15 Assessment/Plan VTE Prophylaxis VTE Prophylaxis Intervention: SCD's Lines/Catheters IV Catheter Type (from Nrsg): Central Line Central line still needed: Yes (for IV access ) Urinary Cath still in place: No Assessment/Plan Assessment/Plan 65-year-old woman: 1. Hematochezia: still persistent for the past few days despite discontinuing Heparin SQ and ASA. CT abdo/pelvis wnl and Lactate wnl. With ongoing hematochezia, need EGD/[place] hopefully to be done tomorrow with Dr Cordova C diff negative and on Flagyl empirically for now with WBC trending down ?VRE stool?. 2. Encephalopathy. Per Neurology not sure if anoxic injury vs metabolic encephalopathy. Improving MS so far. There was a two-hour window during which she was "asleep" prior to being found unresponsive on admission EEG showing encephalopathy, MRI with no acute findings Appreciate Neurology consult with Dr. Arshad. Patient's MS almost back to baseline, still some episodes of disorientation especially at night Passed speech eval, Ok for puree with nectar thick diet Minimizing sedative agents for now. 3. S/p episode of Acute respiratory failure and unresponsiveness, s/p intubation on arrival in the ER. Etiology unclear. Extubated and stable for a few days now, on RA now. She was hospitalized two weeks prior to this admission after she suffered a cardiac arrest with asystole in the ER. S/p Angio x 2 with stenting Repeat echo with EF 55% Mildly elevated troponin on this admission, appreciate cardiology recommendations Cardiology, Pulmonary, Nephrology and Neurology following. Volume status better, management with HD Ok to proceed with EGD/[place] tomorrow per [facility] 4. Leukocytosis recurrent, on abx for aspiration pneumonitis/pneumonia vs HCAP, WBC still trending down. Fem line tip cx with coag neg staph, blood cx 1/2 from 07/29 with staph species, repeat blood cx NGTD, continue Vanco for now Sputum cx with GNR and ESBL E coli. Continue Imipenem and on contact isolation On empiric Flagyl as of 08/02 and c diff negative. 5. ? Enterococcal UTI: on Vancomycin already, Repeat UA and Urine cx NGTD 6. CAD s/p angio and stenting x 2 approx 2 weeks prior to this admission, echo more consistent with diastolic dysfunction EKG similar to previous ekg two weeks ago. Continue Juan, Dr Castelan following and on BBlock. Holding ASA due to ongoing hematochezia OK to proceed with EGD/[place] per Cardiology, needs to remain on Brilinta 7. Endstage renal disease on hemodialysis: on HD M/W/F Appreciate assistance from Dr. Gomez. 8. Acute on chronic anemia with hb at 7.1 on repeat today, with still ongoing hematochezia, transfused 2units today with HD and plan for EGD/[place] tomorrow with Dr Cordova Continue to monitor CBC daily. 9. Diabetes mellitus: OFF Lantus with episode of hypoglycemia noted, continue SSI, QAC+HS On puree diet with nectar thick liquid 10. Hypertension, better controlled BP with current regimen Metoprolol, Benazepril, Norvasc Imdur and now Hydralazine at higher dose now . 11. Right lower extremity pain with questionable history of sciatica. Doppler study negative ten days ago for DVT on the right. Prophylaxis: Pepcid for gastrointestinal prophylaxis. SCDs for DVT prevention Disposition:Telemetry. PT/OT/ST. Egd/[place] tomorrow if possible Dr Castelan, Dr Barraza and Dr Arshad following. Start evaluation for ARU vs SNF discharge soon hopefully. Full-Code. Subjective 24 Hr Interval Summary Free Text/Dictation Patient doing better with improving mental status Still with ongoing Hematochezia and Hb drop to 7.1 requiring pRBC No abdo pain VRE stool Exam/Review of Systems Vital Signs Vitals Vital Signs Date Time Temp Pulse Resp B/P Pulse Ox O2 Delivery O2 Flow Rate FiO2 08/06/16 12:43 71 08/06/16 11:25 16 08/06/16 07:48 97.6 154/82 96 Intake and Output 08/05/16 08/05/16 08/06/16 15:00 23:00 07:00 Intake Total 100 ml 50 ml Balance 100 ml 50 ml Exam Constitutional: alert, oriented, well developed Respiratory: clear to auscultation, normal air movement Cardiovascular: nl pulses, regular rate and rhythm Gastrointestinal: non-tender, soft Musculoskeletal: nl extremities to inspection Extremities: normal pulses, other (no edema, clubbing or cyanosis ) Neurological: [employer] II-XII intact, nl speech, nl strength, other (Mental status improved ) Results Result Diagram: 08/06/16 0459 08/06/16 0459 Results 24 hrs Laboratory Tests Test 08/05/16 17:27 08/05/16 21:29 08/06/16 02:02 08/06/16 04:52 Bedside Glucose 139 133 113 133 Test 08/06/16 04:59 08/06/16 08:50 08/06/16 12:04 Alanine Aminotransferase (ALT/SGPT) 19 Albumin 3.3 Albumin/Globulin Ratio 0.84 Alkaline Phosphatase 124 H Anion Gap 17 H Aspartate Amino Transf (AST/SGOT) 23 Basophils # 0.1 Basophils % 0.8 Blood Morphology Comment Blood Urea Nitrogen 33 #H Calcium Level 8.3 L Carbon Dioxide Level 29 Chloride Level 97 Creatinine 4.40 #H Direct Bilirubin 0.00 Eosinophils # 0.6 H Eosinophils % 4.0 Globulin 3.90 H Glucose Level 112 Hematocrit 20.9 L Hemoglobin 7.1 L Indirect Bilirubin 0.0 Lymphocytes # 2.6 Lymphocytes % 18.5 Magnesium Level 2.1 Mean Corpuscular Hemoglobin 34.2 H Mean Corpuscular Hemoglobin Concent 34.0 Mean Corpuscular Volume 100.6 Mean Platelet Volume 8.1 Monocytes # 1.9 H Monocytes % 13.9 H Neutrophils # 8.7 H Neutrophils % 62.8 Nucleated Red Blood Cells # 0.0 Nucleated Red Blood Cells % 0.0 Phosphorus Level 4.8 Platelet Count 251 Potassium Level 4.0 Red Blood Count 2.08 L Red Cell Distribution Width 20.4 H Sodium Level 139 Total Bilirubin 0.0 L Total Protein 7.2 White Blood Count 13.9 H Bedside Glucose 150 122 Medications Medications Current Medications Aspirin (Aspirin) 81 mg DAILY NGT Last administered on 08/03/16 08:17; Admin Dose 81 MG; Start 07/21/16 at 09:00; Status Future Hold Atorvastatin Calcium (Lipitor) 40 mg QHS NGT Last administered on 08/05/16 21: 11; Admin Dose 40 MG; Start 07/20/16 at 21:00 Docusate Sodium (Colace Liquid Cup) 100 mg TID PRN NGT CONSTIPATION; Start 07/20 at 17:30 Folic Acid (Folic Acid) 1 mg DAILY NGT Last administered on 08/06/16 08:52; Admin Dose 1 MG; Start 07/21/16 at 09:00 Ticagrelor (Brilinta) 90 mg Q12 NGT Last administered on 08/06/16 08:53; Admin Dose 90 MG; Start 07/20/16 at 21:00 Acetaminophen (Tylenol Tab) 650 mg Q6H PRN NGT PAIN LEVEL 1-3 OR FEVER Last administered on 07/27/16 13:08; Admin Dose 650 MG; Start 07/20/16 at 17:30 Acetaminophen/ Hydrocodone Bitart ([place] (5/325)) 1 tab Q6H PRN NGT PAIN LEVEL 4-6 Last administered on 08/03/16 14:38; Admin Dose 1 TAB; Start 07/20/16 at 17: 30 Acetaminophen/ Hydrocodone Bitart ([place] (5/325)) 2 tab Q6H PRN NGT PAIN LEVEL 7-10; Start 07/20/16 at 17:30 Insulin Aspart (Novolog Insulin Pen) NOVOLOG *MODERATE* ALGORI... Q4 SC Last administered on 08/06/16 08:53; Admin Dose 2 UNIT; Start 07/21/16 at 17:00 Miscellaneous Information 1 ea NOTE XX ; Start 07/21/16 at 16:30 Glucose (Glutose) 15 gm Q15M PRN PO DECREASED GLUCOSE; Start 07/21/16 at 16:30 Glucose (Glutose) 22.5 gm Q15M PRN PO DECREASED GLUCOSE; Start 07/21/16 at 16:30 Dextrose (D50w Syringe) 25 ml Q15M PRN IV DECREASED GLUCOSE Last administered on 07/21/16 21:13; Admin Dose 25 ML; Start 07/21/16 at 16:30 Dextrose (D50w Syringe) 50 ml Q15M PRN IV DECREASED GLUCOSE; Start 07/21/16 at 16:30 Glucagon (Glucagen) 1 mg Q15M PRN IM DECREASED GLUCOSE; Start 07/21/16 at 16:30 Glucose (Glutose) 15 gm Q15M PRN BUCCAL DECREASED GLUCOSE; Start 07/21/16 at 16: 30 Amlodipine Besylate (Norvasc) 5 mg BID GTB Last administered on 08/05/16 21:19 ; Admin Dose 5 MG; Start 07/23/16 at 14:30 Benazepril HCl (Lotensin) 40 mg Q12 PO Last administered on 08/06/16 12:10; Admin Dose 40 MG; Start 07/24/16 at 21:00 Isosorbide Mononitrate (Imdur) 60 mg DAILY PO Last administered on 08/06/16 12 :10; Admin Dose 60 MG; Start 07/25/16 at 10:30 Hydralazine HCl 25 mg 25 mg Q4H PRN IV SBP >170 Last administered on 08/02/16 13:39; Admin Dose 25 MG; Start 07/25/16 at 20:30 Vancomycin HCl (Vancocin) 250 ml @ 125 mls/hr Q96H IVPB Last administered on 12:43; Admin Dose 125 MLS/HR; Start 08/04/16 at 13:00 Metoprolol Tartrate 75 mg 75 mg BID PO Last administered on 08/06/16 12:09; Admin Dose 75 MG; Start 08/01/16 at 21:00 Imipenem/ Cilastatin Sodium (Primaxin 500 Mg/ 100 ml (Pmx)) 100 ml @ 100 mls/ hr Q12 IVPB Last administered on 08/06/16 12:12; Admin Dose 100 MLS/HR; Start 08/01/16 at 12:00 Metronidazole (Flagyl) 500 mg Q8 PO Last administered on 08/06/16 05:17; Admin Dose 500 MG; Start 08/02/16 at 13:00 Hydralazine HCl (Apresoline) 100 mg QID NGT Last administered on 08/06/16 12: 10; Admin Dose 100 MG; Start 08/03/16 at 15:00 Famotidine (Pepcid) 20 mg Q24H GTB Last administered on 08/05/16 21:12; Admin Dose 20 MG; Start 08/03/16 at 21:00 Ondansetron HCl (Zofran Inj) 4 mg Q6H PRN IV NAUSEA AND/OR VOMITING Last administered on 08/04/16 20:53; Admin Dose 4 MG; Start 08/04/16 at 20:00 NADIA SARGENT Aug 06, 2016 14:28
[2016-08-06] MEDS: EPOETIN 10000 UNITS/1 ML INJ (ESRD) SC SCH (18:40)
[2016-08-06] MEDS: FAMOTIDINE 20 MG TAB GTB SCH (21:46)
[2016-08-06] MEDS: LACTOBACILLUS CHEW TAB PO SCH (21:47)
[2016-08-06] MEDS: ATORVASTATIN 40 MG TAB NGT SCH (21:48)
[2016-08-07] VITALS (11 sets, daily range): BP systolic 130–159; BP diastolic 61–77; PULSE 66–75; RESP 18–20
[2016-08-07] MEDS: metroNIDAZOLE 500 MG TAB PO SCH ×3 (06:14→21:11)
[2016-08-07 07:23] LABS: INR 1.17; PT RATIO 1.2
[2016-08-07 07:24] LABS: PARTIAL THROMBOPLASTIN TIME 28.1 Sec (25.0-35.0)
[2016-08-07 07:24] LABS: POTASSIUM 4.1 mmol/L (3.5-5.1)
[2016-08-07] MEDS: INSULIN ASPART [NOVOLOG] 3 ML PEN SC SCH ×4 (07:25→20:38)
[2016-08-07 07:27] LABS: CREATININE 3.57 mg/dl (0.44-1.00)
[2016-08-07 07:28] LABS: CALCIUM 8.4 mg/dl (8.4-10.2); MAGNESIUM 2.1 mg/dl (1.7-2.5); PHOSPHORUS 4.7 mg/dl (2.5-4.9)
[2016-08-07 07:29] LABS: BASOPHIL # 0.1 10^3/ul (0.0-0.1); BASOPHILS % 0.6 % (0.0-2.0); EOSINOPHILS # 0.2 10^3/ul (0.0-0.5); EOSINOPHILS % 1.4 % (0.0-7.0); HEMATOCRIT 33.2 % (37.0-47.0); HEMOGLOBIN 11.3 g/dl (12.0-16.0); LYMPHOCYTES # 2.9 10^3/ul (0.8-2.9); LYMPHOCYTES % 21.2 % (15.0-51.0); MEAN CORPUSCULAR HEMOGLOBIN 32.7 pg (29.0-33.0); MEAN PLATELET VOLUME 8.3 fl (7.4-10.4); MONOCYTE # 1.8 10^3/ul (0.3-0.9); MONOCYTES % 13.5 % (0.0-11.0); NEUTROPHIL # 8.6 10^3/ul (1.6-7.5); NEUTROPHILS % 63.3 % (39.0-77.0); PLATELET COUNT 258 10^3/UL (140-440); RED BLOOD COUNT 3.45 10^6/ul (4.20-5.40); UNCORRECTED WBC 13.6 10^3/ul (4.8-10.8); WHITE BLOOD COUNT 13.6 10^3/ul (4.8-10.8)
[2016-08-07 07:38] LABS: CONDITION 1; LH ANALYZER COMMENTS 1
[2016-08-07] MEDS: LACTOBACILLUS CHEW TAB PO SCH ×3 (08:18→20:23)
[2016-08-07] MEDS: FOLIC ACID 1 MG TAB NGT SCH (08:18)
[2016-08-07] MEDS: ISOSORBIDE MONONITRATE(SR)60 MG TAB PO SCH (08:18)
[2016-08-07] MEDS: IMIPENEM-CILAST 500MG IV (PMX) 100 ML IVPB SCH ×2 (08:19→20:22)
[2016-08-07] MEDS: METOPROLOL 50 MG TAB PO SCH ×2 (08:19→20:24)
[2016-08-07] MEDS: AMLODIPINE 5 MG TAB GTB SCH ×2 (08:19→20:24)
[2016-08-07] MEDS: BENAZEPRIL 20 MG TAB PO SCH ×2 (08:19→20:25)
[2016-08-07] MEDS: TICAGRELOR 90 MG TABLET NGT SCH ×2 (08:28→20:29)
--- NOTE | 2016-08-07 08:54 | CONS ---
Date/Time of Note Date/Time of Note DATE: 08/07/16 TIME: 08:52 Assessment/Plan Assessment/Plan Additional Assessment/Plan 1. Positive troponin in the setting of respiratory failure and renal failure- now downtrended./No obvious CP - better now, much improved - OK to proceed with EGD/Colonoscopy as needed. 2. Abnormal electrocardiogram, assess for acute coronary syndrome - no ischemia noted 3. History of a recent PTCA and stent placement to circumflex June 2016 with drug-eluting stents.- EF 55% by echo this admit 4. Altered mental state.-MRI negative 07/23 5. Respiratory failure, status post extubation - MUCH BETTER NOW 6. End-stage renal disease on hemodialysis- pe renal team. HD after. 7. Urinary tract infection- on anti-bx. 8. Pneumonia- on anti-bx. 9. Dyslipidemia. 10.HTN-improving 11. Encephalopathy-s/p MRI with no findings/EEG c/w encephalopathy-improving MS in last 2 days significantly 12. PRE-OP - pt with recurrent lower GI bleed - reasonable to proceed with colonoscopy to see if pt has easily reversible source- No acute change - GI procedure scheduled today - pt aware and ready. Family t bedside happy with care. Consultation Date/Type/Reason Admit Date/Time Jul 20, 2016 at 15:20 Initial Consult Date 07/21/16 Type of Consultation: pulmonary Referring Provider: KRZYSZTOF MAY M.D. 24 HR Interval Summary Free Text/Dictation No acute change - GI procedure scheduled today - pt aware and ready. Family t bedside happy with care. ROS: No fever, no chills, no nausea, no vomiting, no diarrhea/constipation No recent weight changes No chest pain, no PND, no orthopnea No dizziness, blurred vision No thirst, no heat or cold intolerance Exam/Review of Systems Vital Signs Vitals Vital Signs Date Time Temp Pulse Resp B/P Pulse Ox O2 Delivery O2 Flow Rate FiO2 08/07/16 08:31 98.0 73 20 159/77 98 08/07/16 03:55 Room Air Intake and Output 08/06/16 08/06/16 08/07/16 15:00 23:00 07:00 Intake Total 500 ml 1600 ml 200 ml Output Total 3000 ml Balance -2500 ml 1600 ml 200 ml Exam General: WN/WD/NAD, AOx 2-3 HEENT: Unicetric/atraumatic/EOMI (follows commands) NECK: JVD elevated, no thyromegaly Lymph: no lymphadenopathy HEART: regular with no S3, II/ systolic murmur at apex LUNGS: Coarse sounds ABD: soft, NT, ND, +BS : Intact Neuro: non focal SKIN: chronic changes EXT: trace edema Results Result Diagram: 08/07/16 0620 08/07/16 0500 Results 24 hrs Laboratory Tests Test 08/06/16 12:04 08/06/16 16:57 08/06/16 21:59 08/07/16 05:00 Bedside Glucose 122 129 112 Anion Gap 18 H Blood Urea Nitrogen 17 # Calcium Level 8.4 Carbon Dioxide Level 29 Chloride Level 98 Creatinine 3.57 H Glucose Level 91 Magnesium Level 2.1 Phosphorus Level 4.7 Potassium Level 4.1 Sodium Level 141 Test 08/07/16 06:20 08/07/16 08:03 Activated Partial Thromboplast Time 28.1 Basophils # 0.1 Basophils % 0.6 Eosinophils # 0.2 Eosinophils % 1.4 Hematocrit 33.2 #L Hemoglobin 11.3 #L INR International Normalized Ratio 1.17 Lymphocytes # 2.9 Lymphocytes % 21.2 Mean Corpuscular Hemoglobin 32.7 Mean Corpuscular Hemoglobin Concent 34.0 Mean Corpuscular Volume Pending Mean Platelet Volume 8.3 Monocytes # 1.8 H Monocytes % 13.5 H Neutrophils # 8.6 H Neutrophils % 63.3 Nucleated Red Blood Cells # 0.0 Nucleated Red Blood Cells % 0.0 Platelet Count 258 Prothrombin Time 15.0 H Prothrombin Time Ratio 1.2 Red Blood Count 3.45 #L Red Cell Distribution Width Pending White Blood Count 13.6 H Bedside Glucose 119 Medications Medications Current Medications Aspirin (Aspirin) 81 mg DAILY NGT Last administered on 08/03/16 08:17; Admin Dose 81 MG; Start 07/21/16 at 09:00; Status Future Hold Atorvastatin Calcium (Lipitor) 40 mg QHS NGT Last administered on 08/06/16 21: 48; Admin Dose 40 MG; Start 07/20/16 at 21:00 Docusate Sodium (Colace Liquid Cup) 100 mg TID PRN NGT CONSTIPATION Last administered on 08/07/16 03:22; Admin Dose 100 MG; Start 07/20/16 at 17:30 Folic Acid (Folic Acid) 1 mg DAILY NGT Last administered on 08/07/16 08:18; Admin Dose 1 MG; Start 07/21/16 at 09:00 Ticagrelor (Brilinta) 90 mg Q12 NGT Last administered on 08/07/16 08:28; Admin Dose 90 MG; Start 07/20/16 at 21:00 Acetaminophen (Tylenol Tab) 650 mg Q6H PRN NGT PAIN LEVEL 1-3 OR FEVER Last administered on 07/27/16 13:08; Admin Dose 650 MG; Start 07/20/16 at 17:30 Acetaminophen/ Hydrocodone Bitart ([place] (5/325)) 1 tab Q6H PRN NGT PAIN LEVEL 4-6 Last administered on 08/03/16 14:38; Admin Dose 1 TAB; Start 07/20/16 at 17: 30 Acetaminophen/ Hydrocodone Bitart ([place] (5/325)) 2 tab Q6H PRN NGT PAIN LEVEL 7-10; Start 07/20/16 at 17:30 Miscellaneous Information 1 ea NOTE XX ; Start 07/21/16 at 16:30 Glucose (Glutose) 15 gm Q15M PRN PO DECREASED GLUCOSE; Start 07/21/16 at 16:30 Glucose (Glutose) 22.5 gm Q15M PRN PO DECREASED GLUCOSE; Start 07/21/16 at 16:30 Dextrose (D50w Syringe) 25 ml Q15M PRN IV DECREASED GLUCOSE Last administered on 07/21/16 21:13; Admin Dose 25 ML; Start 07/21/16 at 16:30 Dextrose (D50w Syringe) 50 ml Q15M PRN IV DECREASED GLUCOSE; Start 07/21/16 at 16:30 Glucagon (Glucagen) 1 mg Q15M PRN IM DECREASED GLUCOSE; Start 07/21/16 at 16:30 Glucose (Glutose) 15 gm Q15M PRN BUCCAL DECREASED GLUCOSE; Start 07/21/16 at 16: 30 Amlodipine Besylate (Norvasc) 5 mg BID GTB Last administered on 08/07/16 08:19 ; Admin Dose 5 MG; Start 07/23/16 at 14:30 Benazepril HCl (Lotensin) 40 mg Q12 PO Last administered on 08/07/16 08:19; Admin Dose 40 MG; Start 07/24/16 at 21:00 Isosorbide Mononitrate (Imdur) 60 mg DAILY PO Last administered on 08/07/16 08 :18; Admin Dose 60 MG; Start 07/25/16 at 10:30 Hydralazine HCl (Apresoline) 25 mg Q4H PRN IV SBP >170 Last administered on 13:39; Admin Dose 25 MG; Start 07/25/16 at 20:30 Metoprolol Tartrate 75 mg 75 mg BID PO Last administered on 08/07/16 08:19; Admin Dose 75 MG; Start 08/01/16 at 21:00 Imipenem/ Cilastatin Sodium (Primaxin 500 Mg/ 100 ml (Pmx)) 100 ml @ 100 mls/ hr Q12 IVPB Last administered on 08/07/16 08:19; Admin Dose 100 MLS/HR; Start 08/01/16 at 12:00 Metronidazole (Flagyl) 500 mg Q8 PO Last administered on 08/07/16 06:14; Admin Dose 500 MG; Start 08/02/16 at 13:00 Hydralazine HCl (Apresoline) 100 mg QID NGT Last administered on 08/07/16 08: 18; Admin Dose 100 MG; Start 08/03/16 at 15:00 Famotidine (Pepcid) 20 mg Q24H GTB Last administered on 08/06/16 21:46; Admin Dose 20 MG; Start 08/03/16 at 21:00 Ondansetron HCl (Zofran Inj) 4 mg Q6H PRN IV NAUSEA AND/OR VOMITING Last administered on 08/04/16 20:53; Admin Dose 4 MG; Start 08/04/16 at 20:00 Lactobacillus Acidoph/Bulgaricus (Floranex) 1 tab TID PO Last administered on 08:18; Admin Dose 1 TAB; Start 08/06/16 at 21:00 ADELFO PUGA MD Aug 07, 2016 08:54
--- NOTE | 2016-08-07 10:17 | CONS ---
Date/Time of Note Date/Time of Note DATE: 08/07/16 TIME: 10:15 Consult Date/Type/Reason Admit Date/Time Jul 20, 2016 at 15:20 Initial Consult Date 07/21/16 Type of Consultation: pulmonary Ordering Provider: KRZYSZTOF MAY M.D. Subjective Comfortable Less confused. Objective Vital Signs Date Time Temp Pulse Resp B/P Pulse Ox O2 Delivery O2 Flow Rate FiO2 08/07/16 08:31 98.0 73 20 159/77 98 08/07/16 03:55 Room Air Intake and Output 08/06/16 08/06/16 08/07/16 15:00 23:00 07:00 Intake Total 500 ml 1600 ml 200 ml Output Total 3000 ml Balance -2500 ml 1600 ml 200 ml PHYSICAL EXAMINATION: VITAL SIGNS: comfortable. HEENT: Pupils are equal and reactive to light. NECK: Supple. No JVD noted, no cervical adenopathy noted, no carotid bruits heard. LUNGS: Fair breath sounds bilaterally. CARDIOVASCULAR: S1, S2 normal. ABDOMEN: Soft, nontender. No organomegaly or masses noted. EXTREMITIES: No clubbing or cyanosis noted. NEUROLOGICAL: Confused but no agitation Results/Medications Result Diagram: 08/07/16 0620 08/07/16 0500 Results 24 hrs Laboratory Tests Test 08/06/16 12:04 08/06/16 16:57 08/06/16 21:59 08/07/16 05:00 Bedside Glucose 122 129 112 Anion Gap 18 H Blood Urea Nitrogen 17 # Calcium Level 8.4 Carbon Dioxide Level 29 Chloride Level 98 Creatinine 3.57 H Glucose Level 91 Magnesium Level 2.1 Phosphorus Level 4.7 Potassium Level 4.1 Sodium Level 141 Test 08/07/16 06:20 08/07/16 08:03 Activated Partial Thromboplast Time 28.1 Basophils # 0.1 Basophils % 0.6 Eosinophils # 0.2 Eosinophils % 1.4 Hematocrit 33.2 #L Hemoglobin 11.3 #L INR International Normalized Ratio 1.17 Lymphocytes # 2.9 Lymphocytes % 21.2 Mean Corpuscular Hemoglobin 32.7 Mean Corpuscular Hemoglobin Concent 34.0 Mean Corpuscular Volume Pending Mean Platelet Volume 8.3 Monocytes # 1.8 H Monocytes % 13.5 H Neutrophils # 8.6 H Neutrophils % 63.3 Nucleated Red Blood Cells # 0.0 Nucleated Red Blood Cells % 0.0 Platelet Count 258 Prothrombin Time 15.0 H Prothrombin Time Ratio 1.2 Red Blood Count 3.45 #L Red Cell Distribution Width Pending White Blood Count 13.6 H Bedside Glucose 119 Medications Current Medications Aspirin (Aspirin) 81 mg DAILY NGT Last administered on 08/03/16 08:17; Admin Dose 81 MG; Start 07/21/16 at 09:00; Status Future Hold Atorvastatin Calcium (Lipitor) 40 mg QHS NGT Last administered on 08/06/16 21: 48; Admin Dose 40 MG; Start 07/20/16 at 21:00 Docusate Sodium (Colace Liquid Cup) 100 mg TID PRN NGT CONSTIPATION Last administered on 08/07/16 03:22; Admin Dose 100 MG; Start 07/20/16 at 17:30 Folic Acid (Folic Acid) 1 mg DAILY NGT Last administered on 08/07/16 08:18; Admin Dose 1 MG; Start 07/21/16 at 09:00 Ticagrelor (Brilinta) 90 mg Q12 NGT Last administered on 08/07/16 08:28; Admin Dose 90 MG; Start 07/20/16 at 21:00 Acetaminophen (Tylenol Tab) 650 mg Q6H PRN NGT PAIN LEVEL 1-3 OR FEVER Last administered on 07/27/16 13:08; Admin Dose 650 MG; Start 07/20/16 at 17:30 Acetaminophen/ Hydrocodone Bitart ([place] (5/325)) 1 tab Q6H PRN NGT PAIN LEVEL 4-6 Last administered on 08/03/16 14:38; Admin Dose 1 TAB; Start 07/20/16 at 17: 30 Acetaminophen/ Hydrocodone Bitart ([place] (5/325)) 2 tab Q6H PRN NGT PAIN LEVEL 7-10; Start 07/20/16 at 17:30 Miscellaneous Information 1 ea NOTE XX ; Start 07/21/16 at 16:30 Glucose (Glutose) 15 gm Q15M PRN PO DECREASED GLUCOSE; Start 07/21/16 at 16:30 Glucose (Glutose) 22.5 gm Q15M PRN PO DECREASED GLUCOSE; Start 07/21/16 at 16:30 Dextrose (D50w Syringe) 25 ml Q15M PRN IV DECREASED GLUCOSE Last administered on 07/21/16 21:13; Admin Dose 25 ML; Start 07/21/16 at 16:30 Dextrose (D50w Syringe) 50 ml Q15M PRN IV DECREASED GLUCOSE; Start 07/21/16 at 16:30 Glucagon (Glucagen) 1 mg Q15M PRN IM DECREASED GLUCOSE; Start 07/21/16 at 16:30 Glucose (Glutose) 15 gm Q15M PRN BUCCAL DECREASED GLUCOSE; Start 07/21/16 at 16: 30 Amlodipine Besylate (Norvasc) 5 mg BID GTB Last administered on 08/07/16 08:19 ; Admin Dose 5 MG; Start 07/23/16 at 14:30 Benazepril HCl (Lotensin) 40 mg Q12 PO Last administered on 08/07/16 08:19; Admin Dose 40 MG; Start 07/24/16 at 21:00 Isosorbide Mononitrate (Imdur) 60 mg DAILY PO Last administered on 08/07/16 08 :18; Admin Dose 60 MG; Start 07/25/16 at 10:30 Hydralazine HCl (Apresoline) 25 mg Q4H PRN IV SBP >170 Last administered on 13:39; Admin Dose 25 MG; Start 07/25/16 at 20:30 Metoprolol Tartrate 75 mg 75 mg BID PO Last administered on 08/07/16 08:19; Admin Dose 75 MG; Start 08/01/16 at 21:00 Imipenem/ Cilastatin Sodium (Primaxin 500 Mg/ 100 ml (Pmx)) 100 ml @ 100 mls/ hr Q12 IVPB Last administered on 08/07/16 08:19; Admin Dose 100 MLS/HR; Start 08/01/16 at 12:00 Metronidazole (Flagyl) 500 mg Q8 PO Last administered on 08/07/16 06:14; Admin Dose 500 MG; Start 08/02/16 at 13:00 Hydralazine HCl (Apresoline) 100 mg QID NGT Last administered on 08/07/16 08: 18; Admin Dose 100 MG; Start 08/03/16 at 15:00 Famotidine (Pepcid) 20 mg Q24H GTB Last administered on 08/06/16 21:46; Admin Dose 20 MG; Start 08/03/16 at 21:00 Ondansetron HCl (Zofran Inj) 4 mg Q6H PRN IV NAUSEA AND/OR VOMITING Last administered on 08/04/16 20:53; Admin Dose 4 MG; Start 08/04/16 at 20:00 Lactobacillus Acidoph/Bulgaricus (Floranex) 1 tab TID PO Last administered on 08:18; Admin Dose 1 TAB; Start 08/06/16 at 21:00 Assessment/Plan Chief Complaint/Hosp Course IMPRESSION: 1. Status post acute hypoxemic respiratory failure, stable post-extubation. 2. End-stage renal disease on hemodialysis. 3. Encephalopathy, improving. 4. Anemia. Endoscopies pending. Stable for procedures from pulmonary standpoint. 5. History of hypertension. 6. Mild diastolic dysfunction preserved ejection fraction RECOMMENDATIONS: 1. Continue hemodialysis per nephrology. 2. Neuro followup noted. 3. Continue antibiotics. 4. GI recs. 5. Physical therapy evaluation recommendations 6. Aspiration precautions Problems: SANDI BUSCH MD, [facility] Aug 07, 2016 10:17
[2016-08-07 10:40] LABS: MEAN CORPUSCULAR VOLUME 96.8 fl (82.0-101.0); RED CELL DISTRIBUTION WIDTH 21.3 % (11.5-14.5)
--- NOTE | 2016-08-07 10:56 | PN ---
DATE: 08/07/2016 SUBJECTIVE: The patient is stable. The patient received 2 units of PRBC with hemodialysis and tole rated well. The patient was seen by tap puller and pending possible endoscopy. No other ac [place] events noted. The patient continues to have intermittent episodes of hematochezia. OBJECTIVE: VITAL SIGNS: Blood pressure is 150/61, respiration 18, pulse 72, temperature 97.8. HEENT: Head is normocephalic. NECK: Supple. HEART: Regular rate. LUNGS: Show diminished breath sounds at base. ABDOMEN: Soft, nontender to palpation. No rebound or guarding. EXTREMITIES: Negative for clubbing, cyanosis, no edema. DERMATOLOGIC: No rashes. MUSCULOSKELETAL: No joint effusions. NEUROLOGIC: No change in exam. MEDICATIONS: Reviewed. LABORATORY DATA: Showed sodium 141, potassium 4.1, chloride 98, BUN 17, creatinine 3.57. White cou nt is 13.6, hemoglobin 9.3, hematocrit 30.2, platelet count is 258. ASSESSMENT AND PLAN: 1. End-stage renal disease. The patient had hemodialysis yesterday, tolerated well. Anticipate di alysis tomorrow for 3 hours, 3 K bath, calcium 2.5. 2. Anemia with active gastrointestinal bleed. The patient is status post 2 units of PRBC. Will co ntinue to monitor hemoglobin and hematocrit levels. Continue Epogen. The patient was seen by GI, p ending possible endoscopy. The patient's antiplatelets and heparins have been held. 3. Mineral bone disorder. Continue to monitor calcium and phosphorus levels. Continue to hold david sphate binders. 4. Sepsis, status post shock. The patient is completing antibiotic course. 5. Dysphagia, patient tolerating pureed diet. 6. Encephalopathy, clinically improving. Continue to monitor. 7. History of coronary artery disease. Continue current treatment plan. 8. Diabetes, continue Accu-Cheks and sliding scale. 9. Hypertension. Continue current blood pressure regimen. 10. Status post respiratory failure. Dictated By: TALITA LEON DO NR/RANI Conf#: [id number] DID#: [id number]
[2016-08-07] MEDS ORDERED: PEG/ELECTROLYTES 4L BTL PO ONE (12:00)
--- NOTE | 2016-08-07 12:33 | PN ---
Date/Time of Note Date/Time of Note DATE: 08/07/16 TIME: 12:29 Assessment/Plan VTE Prophylaxis VTE Prophylaxis Intervention: SCD's Lines/Catheters IV Catheter Type (from Nrs): Central Line Central line still needed: Yes (for Iv access) Urinary Cath still in place: No Assessment/Plan Assessment/Plan 65-year-old woman: 1. Hematochezia: still persistent for the past few days despite discontinuing Heparin SQ and ASA. CT abdo/pelvis wnl and Lactate wnl. With ongoing hematochezia, need EGD/[facility] hopefully to be done tomorrow with Dr Cordova C diff negative and on Flagyl empirically for now with WBC trending down VRE stool, on isolation. D/c Vanco 2. Encephalopathy. Per Neurology not sure if anoxic injury vs metabolic encephalopathy. Improving MS so far. There was a two-hour window during which she was "asleep" prior to being found unresponsive on admission EEG showing encephalopathy, MRI with no acute findings Appreciate Neurology consult with Dr. Arshad. Patient's MS almost back to baseline, still some episodes of disorientation especially at night Passed speech eval, Ok for puree with nectar thick diet Minimizing sedative agents for now. 3. S/p episode of Acute respiratory failure and unresponsiveness, s/p intubation on arrival in the ER. Etiology unclear. Extubated and stable for a few days now, on RA now. She was hospitalized two weeks prior to this admission after she suffered a cardiac arrest with asystole in the ER. S/p Angio x 2 with stenting Repeat echo with EF 55% Mildly elevated troponin on this admission, appreciate cardiology recommendations Cardiology, Pulmonary, Nephrology and Neurology following. Volume status better, management with HD Ok to proceed with EGD/[facility] tomorrow per Dr Mayen 4. Leukocytosis recurrent, on abx for aspiration pneumonitis/pneumonia vs HCAP, WBC down to 13K. Fem line tip cx with coag neg staph, blood cx 1/2 from 07/29 with staph species, repeat blood cx NGTD, OFF Vanco for now Sputum cx with GNR and ESBL E coli. Continue Imipenem and on contact isolation On empiric Flagyl as of 08/02 and c diff negative. 5. ? Enterococcal UTI: s/p Vancomycin course Repeat UA and Urine cx NGTD 6. CAD s/p angio and stenting x 2 approx 2 weeks prior to this admission, echo more consistent with diastolic dysfunction EKG similar to previous ekg two weeks ago. Continue Juan, Dr Castelan following and on BBlock. Holding ASA due to ongoing hematochezia OK to proceed with EGD/[facility] per Cardiology, needs to remain on Brilinta 7. Endstage renal disease on hemodialysis: on HD M/W/F Appreciate assistance from Dr. Gomez. 8. Acute on chronic anemia, s/p 2 unit pRBC yesterday with hb up to 11.3 today Still with ongoing hematochezia, plan for EGD/[facility] tomorrow with Dr Cordova Continue to monitor CBC daily. 9. Diabetes mellitus: OFF Lantus with episode of hypoglycemia noted, continue SSI, QAC+HS On puree diet with nectar thick liquid 10. Hypertension, better controlled BP with current regimen Metoprolol, Benazepril, Norvasc Imdur and now Hydralazine at higher dose now . 11. Right lower extremity pain with questionable history of sciatica. Doppler study negative ten days ago for DVT on the right. Prophylaxis: Pepcid for gastrointestinal prophylaxis. SCDs for DVT prevention Disposition:Telemetry. PT/OT/ST. Egd/[facility] tomorrow. Dr Castelan, Dr Barraza and Dr Arshad following. Start evaluation for ARU vs SNF discharge soon hopefully. Full-Code. Subjective 24 Hr Interval Summary Free Text/Dictation Patient doing OK with MS improving daily Unfortunately with ongoing rectal bleeding. Plans for EGD and [facility] tomorrow Exam/Review of Systems Vital Signs Vitals Vital Signs Date Time Temp Pulse Resp B/P Pulse Ox O2 Delivery O2 Flow Rate FiO2 08/07/16 11:28 98.2 72 20 146/70 96 08/07/16 03:55 Room Air Intake and Output 08/06/16 08/06/16 08/07/16 14:59 22:59 06:59 Intake Total 500 ml 1500 ml 300 ml Output Total 3000 ml Balance -2500 ml 1500 ml 300 ml Exam Constitutional: alert, frail, oriented Respiratory: clear to auscultation, normal air movement Cardiovascular: nl pulses, regular rate and rhythm Gastrointestinal: non-tender, other (rectal bleeding ), soft Musculoskeletal: nl extremities to inspection Extremities: normal pulses, other (no edema, clubbing or cyanosis ) Neurological: SUPERVISOR TILE AND MOTTLE II-XII intact, nl speech, nl strength, other (improving mental status ) Results Result Diagram: 08/07/16 0620 08/07/16 0500 Results 24 hrs Laboratory Tests Test 08/06/16 16:57 08/06/16 21:59 08/07/16 05:00 08/07/16 06:20 Bedside Glucose 129 112 Anion Gap 18 H Blood Urea Nitrogen 17 # Calcium Level 8.4 Carbon Dioxide Level 29 Chloride Level 98 Creatinine 3.57 H Glucose Level 91 Magnesium Level 2.1 Phosphorus Level 4.7 Potassium Level 4.1 Sodium Level 141 Activated Partial Thromboplast Time 28.1 Basophils # 0.1 Basophils % 0.6 Eosinophils # 0.2 Eosinophils % 1.4 Hematocrit 33.2 #L Hemoglobin 11.3 #L INR International Normalized Ratio 1.17 Lymphocytes # 2.9 Lymphocytes % 21.2 Mean Corpuscular Hemoglobin 32.7 Mean Corpuscular Hemoglobin Concent 34.0 Mean Corpuscular Volume 96.8 Mean Platelet Volume 8.3 Monocytes # 1.8 H Monocytes % 13.5 H Neutrophils # 8.6 H Neutrophils % 63.3 Nucleated Red Blood Cells # 0.0 Nucleated Red Blood Cells % 0.0 Platelet Count 258 Prothrombin Time 15.0 H Prothrombin Time Ratio 1.2 Red Blood Count 3.45 #L Red Cell Distribution Width 21.3 H White Blood Count 13.6 H Test 08/07/16 08:03 08/07/16 11:48 Bedside Glucose 119 128 Medications Medications Current Medications Aspirin (Aspirin) 81 mg DAILY NGT Last administered on 08/03/16 08:17; Admin Dose 81 MG; Start 07/21/16 at 09:00; Status Future Hold Atorvastatin Calcium (Lipitor) 40 mg QHS NGT Last administered on 08/06/16 21: 48; Admin Dose 40 MG; Start 07/20/16 at 21:00 Docusate Sodium (Colace Liquid Cup) 100 mg TID PRN NGT CONSTIPATION Last administered on 08/07/16 03:22; Admin Dose 100 MG; Start 07/20/16 at 17:30 Folic Acid (Folic Acid) 1 mg DAILY NGT Last administered on 08/07/16 08:18; Admin Dose 1 MG; Start 07/21/16 at 09:00 Ticagrelor (Brilinta) 90 mg Q12 NGT Last administered on 08/07/16 08:28; Admin Dose 90 MG; Start 07/20/16 at 21:00 Acetaminophen (Tylenol Tab) 650 mg Q6H PRN NGT PAIN LEVEL 1-3 OR FEVER Last administered on 07/27/16 13:08; Admin Dose 650 MG; Start 07/20/16 at 17:30 Acetaminophen/ Hydrocodone Bitart ([place] (5/325)) 1 tab Q6H PRN NGT PAIN LEVEL 4-6 Last administered on 08/03/16 14:38; Admin Dose 1 TAB; Start 07/20/16 at 17: 30 Acetaminophen/ Hydrocodone Bitart ([place] (5/325)) 2 tab Q6H PRN NGT PAIN LEVEL 7-10; Start 07/20/16 at 17:30 Miscellaneous Information 1 ea NOTE XX ; Start 07/21/16 at 16:30 Glucose (Glutose) 15 gm Q15M PRN PO DECREASED GLUCOSE; Start 07/21/16 at 16:30 Glucose (Glutose) 22.5 gm Q15M PRN PO DECREASED GLUCOSE; Start 07/21/16 at 16:30 Dextrose (D50w Syringe) 25 ml Q15M PRN IV DECREASED GLUCOSE Last administered on 07/21/16 21:13; Admin Dose 25 ML; Start 07/21/16 at 16:30 Dextrose (D50w Syringe) 50 ml Q15M PRN IV DECREASED GLUCOSE; Start 07/21/16 at 16:30 Glucagon (Glucagen) 1 mg Q15M PRN IM DECREASED GLUCOSE; Start 07/21/16 at 16:30 Glucose (Glutose) 15 gm Q15M PRN BUCCAL DECREASED GLUCOSE; Start 07/21/16 at 16: 30 Amlodipine Besylate (Norvasc) 5 mg BID GTB Last administered on 08/07/16 08:19 ; Admin Dose 5 MG; Start 07/23/16 at 14:30 Benazepril HCl (Lotensin) 40 mg Q12 PO Last administered on 08/07/16 08:19; Admin Dose 40 MG; Start 07/24/16 at 21:00 Isosorbide Mononitrate (Imdur) 60 mg DAILY PO Last administered on 08/07/16 08 :18; Admin Dose 60 MG; Start 07/25/16 at 10:30 Hydralazine HCl (Apresoline) 25 mg Q4H PRN IV SBP >170 Last administered on 13:39; Admin Dose 25 MG; Start 07/25/16 at 20:30 Metoprolol Tartrate 75 mg 75 mg BID PO Last administered on 08/07/16 08:19; Admin Dose 75 MG; Start 08/01/16 at 21:00 Imipenem/ Cilastatin Sodium (Primaxin 500 Mg/ 100 ml (Pmx)) 100 ml @ 100 mls/ hr Q12 IVPB Last administered on 08/07/16 08:19; Admin Dose 100 MLS/HR; Start 08/01/16 at 12:00 Metronidazole (Flagyl) 500 mg Q8 PO Last administered on 08/07/16 06:14; Admin Dose 500 MG; Start 08/02/16 at 13:00 Hydralazine HCl (Apresoline) 100 mg QID NGT Last administered on 08/07/16 12: 22; Admin Dose 100 MG; Start 08/03/16 at 15:00 Famotidine (Pepcid) 20 mg Q24H GTB Last administered on 08/06/16 21:46; Admin Dose 20 MG; Start 08/03/16 at 21:00 Ondansetron HCl (Zofran Inj) 4 mg Q6H PRN IV NAUSEA AND/OR VOMITING Last administered on 08/04/16 20:53; Admin Dose 4 MG; Start 08/04/16 at 20:00 Lactobacillus Acidoph/Bulgaricus (Floranex) 1 tab TID PO Last administered on 12:21; Admin Dose 1 TAB; Start 08/06/16 at 21:00 NADIA SARGENT Aug 07, 2016 12:33
[2016-08-07] MEDS ORDERED: LORAZEPAM 0.5 MG TAB PO PRN (13:00)
[2016-08-07] MEDS: ATORVASTATIN 40 MG TAB NGT SCH (20:24)
[2016-08-07] MEDS: FAMOTIDINE 20 MG TAB GTB SCH (20:24)
[2016-08-08] VITALS (26 sets, daily range): BP systolic 102–177; BP diastolic 59–86; PULSE 62–85; RESP 16–27
[2016-08-08] MEDS ORDERED: LACTULOSE 30ML CUP PO ONE (06:00)
[2016-08-08] MEDS: metroNIDAZOLE 500 MG TAB PO SCH ×3 (06:13→22:16)
[2016-08-08 07:08] LABS: BASOPHIL # 0.1 10^3/ul (0.0-0.1); BASOPHILS % 0.6 % (0.0-2.0); EOSINOPHILS # 0.2 10^3/ul (0.0-0.5); EOSINOPHILS % 1.4 % (0.0-7.0); HEMATOCRIT 31.7 % (37.0-47.0); HEMOGLOBIN 10.6 g/dl (12.0-16.0); MEAN CORPUSCULAR HEMOGLOBIN 32.5 pg (29.0-33.0); MEAN CORPUSCULAR HGB CONC 33.6 g/dl (32.0-37.0); MEAN CORPUSCULAR VOLUME 96.4 fl (82.0-101.0); MONOCYTE # 1.2 10^3/ul (0.3-0.9); MONOCYTES % 9.5 % (0.0-11.0); NEUTROPHILS % 72.5 % (39.0-77.0); PLATELET COUNT 232 10^3/UL (140-440); RED BLOOD COUNT 3.28 10^6/ul (4.20-5.40); UNCORRECTED WBC 12.4 10^3/ul (4.8-10.8); WHITE BLOOD COUNT 12.4 10^3/ul (4.8-10.8)
[2016-08-08 07:13] LABS: POTASSIUM 4.1 mmol/L (3.5-5.1)
[2016-08-08 07:16] LABS: CREATININE 4.96 mg/dl (0.44-1.00); PHOSPHORUS 5.6 mg/dl (2.5-4.9)
[2016-08-08 07:17] LABS: MAGNESIUM 2.2 mg/dl (1.7-2.5)
[2016-08-08] MEDS: INSULIN ASPART [NOVOLOG] 3 ML PEN SC SCH ×4 (07:25→21:00)
[2016-08-08 07:37] LABS: CONDITION 1; LH ANALYZER COMMENTS 1; SUSPECT 1
[2016-08-08] MEDS: LACTOBACILLUS CHEW TAB PO SCH ×3 (09:00→21:32)
[2016-08-08] MEDS: IMIPENEM-CILAST 500MG IV (PMX) 100 ML IVPB SCH ×2 (09:00→21:31)
--- NOTE | 2016-08-08 09:22 | CONS ---
Date/Time of Note Date/Time of Note DATE: 08/08/16 TIME: 09:20 Assessment/Plan Assessment/Plan Additional Assessment/Plan 1. CAD - obvious CP - better now, much improved - OK to proceed with EGD/ Colonoscopy as needed, rescheduled for AM today 2. Abnormal electrocardiogram, assess for acute coronary syndrome - no ischemia noted 3. History of a recent PTCA and stent placement to circumflex June 2016 with drug-eluting stents.- EF 55% by echo this admit 4. Altered mental state.-MRI negative 07/23- much better now 5. Respiratory failure, status post extubation - MUCH BETTER NOW 6. End-stage renal disease on hemodialysis- pe renal team. HD after. 7. Urinary tract infection- on anti-bx. 8. Pneumonia- on anti-bx. 9. Dyslipidemia. 10.HTN-high today - will Rx with HD 11. Encephalopathy-s/p MRI with no findings/EEG c/w encephalopathy-improving MS in last 2 days significantly 12. PRE-OP - pt with recurrent lower GI bleed - reasonable to proceed with colonoscopy to see if pt has easily reversible source- No acute change - GI procedure scheduled today - pt aware and ready. Family t bedside happy with care. Consultation Date/Type/Reason Admit Date/Time Jul 20, 2016 at 15:20 Initial Consult Date 07/21/16 Type of Consultation: pulmonary Referring Provider: [email or web address] MAY M.D. 24 HR Interval Summary Free Text/Dictation NO acute change - BP high - Rx now - plan for GI eval and HD top follow today ROS: No fever, no chills, no nausea, no vomiting, no diarrhea/constipation No recent weight changes No chest pain, no PND, no orthopnea No dizziness, blurred vision No thirst, no heat or cold intolerance Exam/Review of Systems Vital Signs Vitals Vital Signs Date Time Temp Pulse Resp B/P Pulse Ox O2 Delivery O2 Flow Rate FiO2 08/08/16 08:30 71 08/08/16 07:44 97.3 18 177/74 100 08/07/16 03:55 Room Air Intake and Output 08/07/16 08/07/16 08/08/16 15:00 23:00 07:00 Intake Total 1320 ml 500 ml Balance 1320 ml 500 ml Exam General: WN/WD/NAD, AOx 2-3 HEENT: Unicetric/atraumatic/EOMI (follow commands) NECK: JVD elevated, no thyromegaly Lymph: no lymphadenopathy HEART: regular with no S3, II/ systolic murmur at apex LUNGS: Coarse sounds ABD: soft, NT, ND, +BS : Intact Neuro: non focal SKIN: chronic changes EXT: trace edema Results Result Diagram: 08/08/16 0600 08/08/16 0600 Results 24 hrs Laboratory Tests Test 08/07/16 11:48 08/07/16 17:06 08/07/16 20:22 08/08/16 06:00 Bedside Glucose 128 127 108 Anion Gap 23 H Basophils # 0.1 Basophils % 0.6 Blood Morphology Comment Blood Urea Nitrogen 26 H Calcium Level 8.0 L Carbon Dioxide Level 25 Chloride Level 97 Creatinine 4.96 #H Eosinophils # 0.2 Eosinophils % 1.4 Glucose Level 82 Hematocrit 31.7 L Hemoglobin 10.6 L Lymphocytes # 2.0 Lymphocytes % 16.0 Magnesium Level 2.2 Mean Corpuscular Hemoglobin 32.5 Mean Corpuscular Hemoglobin Concent 33.6 Mean Corpuscular Volume 96.4 Mean Platelet Volume 8.0 Monocytes # 1.2 H Monocytes % 9.5 Neutrophils # 9.0 H Neutrophils % 72.5 Nucleated Red Blood Cells # 0.0 Nucleated Red Blood Cells % 0.0 Phosphorus Level 5.6 H Platelet Count 232 Potassium Level 4.1 Red Blood Count 3.28 L Red Cell Distribution Width 22.0 H Sodium Level 141 White Blood Count 12.4 H Test 08/08/16 07:25 Bedside Glucose 106 Medications Medications Current Medications Aspirin (Aspirin) 81 mg DAILY NGT Last administered on 08/03/16 08:17; Admin Dose 81 MG; Start 07/21/16 at 09:00; Status Future Hold Atorvastatin Calcium (Lipitor) 40 mg QHS NGT Last administered on 08/07/16 20: 24; Admin Dose 40 MG; Start 07/20/16 at 21:00 Docusate Sodium (Colace Liquid Cup) 100 mg TID PRN NGT CONSTIPATION Last administered on 08/07/16 03:22; Admin Dose 100 MG; Start 07/20/16 at 17:30 Folic Acid (Folic Acid) 1 mg DAILY NGT Last administered on 08/07/16 08:18; Admin Dose 1 MG; Start 07/21/16 at 09:00 Ticagrelor (Brilinta) 90 mg Q12 NGT Last administered on 08/07/16 20:29; Admin Dose 90 MG; Start 07/20/16 at 21:00 Acetaminophen (Tylenol Tab) 650 mg Q6H PRN NGT PAIN LEVEL 1-3 OR FEVER Last administered on 07/27/16 13:08; Admin Dose 650 MG; Start 07/20/16 at 17:30 Acetaminophen/ Hydrocodone Bitart ([place] (5/325)) 1 tab Q6H PRN NGT PAIN LEVEL 4-6 Last administered on 08/03/16 14:38; Admin Dose 1 TAB; Start 07/20/16 at 17: 30 Acetaminophen/ Hydrocodone Bitart ([place] (5/325)) 2 tab Q6H PRN NGT PAIN LEVEL 7-10; Start 07/20/16 at 17:30 Miscellaneous Information 1 ea NOTE XX ; Start 07/21/16 at 16:30 Glucose (Glutose) 15 gm Q15M PRN PO DECREASED GLUCOSE; Start 07/21/16 at 16:30 Glucose (Glutose) 22.5 gm Q15M PRN PO DECREASED GLUCOSE; Start 07/21/16 at 16:30 Dextrose (D50w Syringe) 25 ml Q15M PRN IV DECREASED GLUCOSE Last administered on 07/21/16 21:13; Admin Dose 25 ML; Start 07/21/16 at 16:30 Dextrose (D50w Syringe) 50 ml Q15M PRN IV DECREASED GLUCOSE; Start 07/21/16 at 16:30 Glucagon (Glucagen) 1 mg Q15M PRN IM DECREASED GLUCOSE; Start 07/21/16 at 16:30 Glucose (Glutose) 15 gm Q15M PRN BUCCAL DECREASED GLUCOSE; Start 07/21/16 at 16: 30 Amlodipine Besylate (Norvasc) 5 mg BID GTB Last administered on 08/07/16 20:24 ; Admin Dose 5 MG; Start 07/23/16 at 14:30 Benazepril HCl (Lotensin) 40 mg Q12 PO Last administered on 08/07/16 20:25; Admin Dose 40 MG; Start 07/24/16 at 21:00 Isosorbide Mononitrate (Imdur) 60 mg DAILY PO Last administered on 08/07/16 08 :18; Admin Dose 60 MG; Start 07/25/16 at 10:30 Hydralazine HCl (Apresoline) 25 mg Q4H PRN IV SBP >170 Last administered on 13:39; Admin Dose 25 MG; Start 07/25/16 at 20:30 Metoprolol Tartrate 75 mg 75 mg BID PO Last administered on 08/07/16 20:24; Admin Dose 75 MG; Start 08/01/16 at 21:00 Imipenem/ Cilastatin Sodium (Primaxin 500 Mg/ 100 ml (Pmx)) 100 ml @ 100 mls/ hr Q12 IVPB Last administered on 08/08/16 09:00; Admin Dose 100 MLS/HR; Start 08/01/16 at 12:00 Metronidazole (Flagyl) 500 mg Q8 PO Last administered on 08/08/16 06:13; Admin Dose 500 MG; Start 08/02/16 at 13:00 Hydralazine HCl (Apresoline) 100 mg QID NGT Last administered on 08/07/16 20: 25; Admin Dose 100 MG; Start 08/03/16 at 15:00 Famotidine (Pepcid) 20 mg Q24H GTB Last administered on 08/07/16 20:24; Admin Dose 20 MG; Start 08/03/16 at 21:00 Ondansetron HCl (Zofran Inj) 4 mg Q6H PRN IV NAUSEA AND/OR VOMITING Last administered on 08/04/16 20:53; Admin Dose 4 MG; Start 08/04/16 at 20:00 Lactobacillus Acidoph/Bulgaricus (Floranex) 1 tab TID PO Last administered on 20:23; Admin Dose 1 TAB; Start 08/06/16 at 21:00 Lorazepam (Ativan) 0.5 mg HS PRN PO INSOMNIA; Start 08/07/16 at 13:00 ADELFO PUGA MD Aug 08, 2016 09:22
--- NOTE | 2016-08-08 09:37 | PN ---
DATE: 08/08/2016 SUBJECTIVE: The patient is scheduled for endoscopy this morning. The patient is also scheduled for hemodialysis. The patient continues to have hematochezia, although improving. No other events not ed. OBJECTIVE: VITAL SIGNS: Blood pressure is 174/74, respirations 18, pulse 73, temperature 97.3. HEENT: Head is normocephalic. NECK: Supple. HEART: Regular rate. LUNGS: Showed diminished breath sounds at the base. ABDOMEN: Soft, nontender to palpation. No rebound or guarding. EXTREMITIES: Negative for clubbing or cyanosis. No edema. DERMATOLOGIC: No rashes. MUSCULOSKELETAL: Have no joint effusion. NEUROLOGIC: No change in exam. MEDICATIONS: The patient's medications have been reviewed. LABORATORY DATA: Shows sodium 141, potassium 4.1, chloride 97, BUN 26, creatinine 4.96, phosphorus 5.6, calcium 8.0. White count 12.4, hemoglobin 10.6, hematocrit 31.7, platelet count 232. ASSESSMENT AND PLAN: 1. End-stage renal disease. The patient is scheduled for hemodialysis today for 3 hours on a 3K ba th, calcium 2.5. Will ultrafiltrate as tolerated. 2. Anemia. Etiology is in part due to gastrointestinal bleed and chronic kidney disease. The andrea ent is status post blood transfusion. Will continue to monitor H and H levels. The patient is pend ing endoscopy today by gastroenterology. Antiplatelets have been held. Will continue Epogen with h emodialysis. Continue to monitor. 3. Mineral bone disorder. Continue to monitor calcium and phosphorus levels. Will resume phosphate binders. 4. Sepsis. Status post shock. The patient is clinically improving, completing an antibiotic cour se. 5. Dysphagia. Currently on a pureed diet. 6. Encephalopathy. The patient is clinically improving. Will continue to monitor. 7. History of coronary artery disease. Continue the current treatment plan. 8. Diabetes. Continue Accu-Cheks and insulin sliding scale. 9. Hypertension. Continue the current blood pressure regimen. 10. Status post respiratory failure. Dictated By: TALITA GARCIA/RANI Conf#: [id number] DID#: [id number]
--- NOTE | 2016-08-08 12:10 | PN ---
Date/Time of Note Date/Time of Note DATE: 08/08/16 TIME: 11:59 Assessment/Plan VTE Prophylaxis VTE Prophylaxis Intervention: SCD's Lines/Catheters IV Catheter Type (from Nrsg): Central Line Central line still needed: Yes (for IV access ) Urinary Cath still in place: No Assessment/Plan Assessment/Plan 65-year-old woman: 1. Hematochezia: still persistent for the past few days despite discontinuing Heparin SQ and ASA. CT abdo/pelvis wnl and Lactate wnl. With ongoing hematochezia, EGD/[place] today with Dr Cordova C diff negative and on Flagyl empirically for now with WBC trending down VRE stool, on isolation. D/c Vanco. 2. Encephalopathy. Per Neurology not sure if anoxic injury vs metabolic encephalopathy. Improving MS so far. There was a two-hour window during which she was "asleep" prior to being found unresponsive on admission EEG showing encephalopathy, MRI with no acute findings Appreciate Neurology consult with Dr. Arshad. Patient's MS almost back to baseline, still some episodes of disorientation especially at night but even that is clearing up. Passed speech eval, tolerating po Minimizing sedative agents for now. 3. S/p episode of Acute respiratory failure and unresponsiveness, s/p intubation on arrival in the ER. Etiology unclear. Extubated and stable for a few days now, on RA now. She was hospitalized two weeks prior to this admission after she suffered a cardiac arrest with asystole in the ER. S/p Angio x 2 with stenting Repeat echo with EF 55% Mildly elevated troponin on this admission, appreciate cardiology recommendations Cardiology, Pulmonary, Nephrology and Neurology following. Volume status better, management with HD Ok to proceed with EGD/COLO today per Dr Mayen 4. Leukocytosis recurrent, on abx for aspiration pneumonitis/pneumonia vs HCAP, WBC down to 13K. Fem line tip cx with coag neg staph, blood cx 1/2 from 07/29 with staph species, repeat blood cx NGTD, OFF Vanco for now Sputum cx with GNR and ESBL E coli. Continue Imipenem and on contact isolation On empiric Flagyl as of 08/02 and c diff negative. 5. ? Enterococcal UTI: s/p Vancomycin course Repeat UA and Urine cx negative 6. CAD s/p angio and stenting x 2 approx 2 weeks prior to this admission, echo more consistent with diastolic dysfunction EKG similar to previous ekg two weeks ago. Continue Juan, Dr Castelan following and on BBlock. Holding ASA due to ongoing hematochezia OK to proceed with EGD/[place] per Cardiology, needs to remain on Brilinta 7. Endstage renal disease on hemodialysis: on HD M/W/F Appreciate assistance from Dr. Gomez. 8. Acute on chronic anemia, s/p 2 unit pRBC yesterday with hb up to 11.3 today Still with ongoing hematochezia, plan for EGD/COLO today with Dr Cordova Continue to monitor CBC daily. h/h stable over past 2 days 9. Diabetes mellitus: OFF Lantus with episode of hypoglycemia noted, continue SSI, QAC+HS On puree diet with nectar thick liquid 10. Hypertension, better controlled BP with current regimen Metoprolol, Benazepril, Norvasc Imdur and now Hydralazine at higher dose now . 11. Right lower extremity pain with questionable history of sciatica. Doppler study negative ten days ago for DVT on the right. Prophylaxis: Pepcid for gastrointestinal prophylaxis. SCDs for DVT prevention Disposition:Telemetry. PT/OT/ST. Egd/[place] today. Dr Castelan, Dr Barraza and Dr Arshad following. Start evaluation for ARU vs SNF discharge soon hopefully. Patient however wants to go home. Full-Code. Subjective 24 Hr Interval Summary Free Text/Dictation Patient doing much better No complaints today except wants to go home EGD/[place] this AM Afebrile and WBC almost back to normal Exam/Review of Systems Vital Signs Vitals Vital Signs Date Time Temp Pulse Resp B/P Pulse Ox O2 Delivery O2 Flow Rate FiO2 08/08/16 08:30 71 08/08/16 07:44 97.3 18 177/74 100 08/07/16 03:55 Room Air Intake and Output 08/07/16 08/07/16 08/08/16 15:00 23:00 07:00 Intake Total 1320 ml 500 ml Balance 1320 ml 500 ml Exam Constitutional: alert, oriented, well developed Respiratory: clear to auscultation, normal air movement Cardiovascular: nl pulses, regular rate and rhythm Gastrointestinal: non-tender, soft Extremities: normal pulses, other (no edema, clubbing or cyanosis ) Neurological: [employer] II-XII intact, nl mental status, nl speech, other (improving weakness ) Results Result Diagram: 08/08/16 0600 08/08/16 0600 Results 24 hrs Laboratory Tests Test 08/07/16 17:06 08/07/16 20:22 08/08/16 06:00 08/08/16 07:25 Bedside Glucose 127 108 106 Anion Gap 23 H Basophils # 0.1 Basophils % 0.6 Blood Morphology Comment Blood Urea Nitrogen 26 H Calcium Level 8.0 L Carbon Dioxide Level 25 Chloride Level 97 Creatinine 4.96 #H Eosinophils # 0.2 Eosinophils % 1.4 Glucose Level 82 Hematocrit 31.7 L Hemoglobin 10.6 L Lymphocytes # 2.0 Lymphocytes % 16.0 Magnesium Level 2.2 Mean Corpuscular Hemoglobin 32.5 Mean Corpuscular Hemoglobin Concent 33.6 Mean Corpuscular Volume 96.4 Mean Platelet Volume 8.0 Monocytes # 1.2 H Monocytes % 9.5 Neutrophils # 9.0 H Neutrophils % 72.5 Nucleated Red Blood Cells # 0.0 Nucleated Red Blood Cells % 0.0 Phosphorus Level 5.6 H Platelet Count 232 Potassium Level 4.1 Red Blood Count 3.28 L Red Cell Distribution Width 22.0 H Sodium Level 141 White Blood Count 12.4 H Medications Medications Current Medications Aspirin (Aspirin) 81 mg DAILY NGT Last administered on 08/03/16 08:17; Admin Dose 81 MG; Start 07/21/16 at 09:00; Status Future Hold Atorvastatin Calcium (Lipitor) 40 mg QHS NGT Last administered on 08/07/16 20: 24; Admin Dose 40 MG; Start 07/20/16 at 21:00 Docusate Sodium (Colace Liquid Cup) 100 mg TID PRN NGT CONSTIPATION Last administered on 08/07/16 03:22; Admin Dose 100 MG; Start 07/20/16 at 17:30 Folic Acid (Folic Acid) 1 mg DAILY NGT Last administered on 08/07/16 08:18; Admin Dose 1 MG; Start 07/21/16 at 09:00 Ticagrelor (Brilinta) 90 mg Q12 NGT Last administered on 08/07/16 20:29; Admin Dose 90 MG; Start 07/20/16 at 21:00 Acetaminophen (Tylenol Tab) 650 mg Q6H PRN NGT PAIN LEVEL 1-3 OR FEVER Last administered on 07/27/16 13:08; Admin Dose 650 MG; Start 07/20/16 at 17:30 Acetaminophen/ Hydrocodone Bitart ([place] (5/325)) 1 tab Q6H PRN NGT PAIN LEVEL 4-6 Last administered on 08/03/16 14:38; Admin Dose 1 TAB; Start 07/20/16 at 17: 30 Acetaminophen/ Hydrocodone Bitart ([place] (5/325)) 2 tab Q6H PRN NGT PAIN LEVEL 7-10; Start 07/20/16 at 17:30 Miscellaneous Information 1 ea NOTE XX ; Start 07/21/16 at 16:30 Glucose (Glutose) 15 gm Q15M PRN PO DECREASED GLUCOSE; Start 07/21/16 at 16:30 Glucose (Glutose) 22.5 gm Q15M PRN PO DECREASED GLUCOSE; Start 07/21/16 at 16:30 Dextrose (D50w Syringe) 25 ml Q15M PRN IV DECREASED GLUCOSE Last administered on 07/21/16 21:13; Admin Dose 25 ML; Start 07/21/16 at 16:30 Dextrose (D50w Syringe) 50 ml Q15M PRN IV DECREASED GLUCOSE; Start 07/21/16 at 16:30 Glucagon (Glucagen) 1 mg Q15M PRN IM DECREASED GLUCOSE; Start 07/21/16 at 16:30 Glucose (Glutose) 15 gm Q15M PRN BUCCAL DECREASED GLUCOSE; Start 07/21/16 at 16: 30 Amlodipine Besylate (Norvasc) 5 mg BID GTB Last administered on 08/07/16 20:24 ; Admin Dose 5 MG; Start 07/23/16 at 14:30 Benazepril HCl (Lotensin) 40 mg Q12 PO Last administered on 08/07/16 20:25; Admin Dose 40 MG; Start 07/24/16 at 21:00 Isosorbide Mononitrate (Imdur) 60 mg DAILY PO Last administered on 08/07/16 08 :18; Admin Dose 60 MG; Start 07/25/16 at 10:30 Hydralazine HCl (Apresoline) 25 mg Q4H PRN IV SBP >170 Last administered on 13:39; Admin Dose 25 MG; Start 07/25/16 at 20:30 Metoprolol Tartrate 75 mg 75 mg BID PO Last administered on 08/07/16 20:24; Admin Dose 75 MG; Start 08/01/16 at 21:00 Imipenem/ Cilastatin Sodium (Primaxin 500 Mg/ 100 ml (Pmx)) 100 ml @ 100 mls/ hr Q12 IVPB Last administered on 08/08/16 09:00; Admin Dose 100 MLS/HR; Start 08/01/16 at 12:00 Metronidazole (Flagyl) 500 mg Q8 PO Last administered on 08/08/16 06:13; Admin Dose 500 MG; Start 08/02/16 at 13:00 Hydralazine HCl (Apresoline) 100 mg QID NGT Last administered on 08/07/16 20: 25; Admin Dose 100 MG; Start 08/03/16 at 15:00 Famotidine (Pepcid) 20 mg Q24H GTB Last administered on 08/07/16 20:24; Admin Dose 20 MG; Start 08/03/16 at 21:00 Ondansetron HCl (Zofran Inj) 4 mg Q6H PRN IV NAUSEA AND/OR VOMITING Last administered on 08/04/16 20:53; Admin Dose 4 MG; Start 08/04/16 at 20:00 Lactobacillus Acidoph/Bulgaricus (Floranex) 1 tab TID PO Last administered on 20:23; Admin Dose 1 TAB; Start 08/06/16 at 21:00 Lorazepam (Ativan) 0.5 mg HS PRN PO INSOMNIA; Start 08/07/16 at 13:00 NADIA SARGENT Aug 08, 2016 12:09
[2016-08-08] MEDS ORDERED: PROPOFOL 40 ML ONE (12:41)
[2016-08-08] MEDS: AMLODIPINE 5 MG TAB GTB SCH ×2 (15:02→21:30)
[2016-08-08] MEDS: BENAZEPRIL 20 MG TAB PO SCH ×2 (15:03→21:32)
[2016-08-08] MEDS: METOPROLOL 50 MG TAB PO SCH ×2 (15:04→21:32)
[2016-08-08] MEDS: FOLIC ACID 1 MG TAB NGT SCH (15:04)
[2016-08-08] MEDS: ISOSORBIDE MONONITRATE(SR)60 MG TAB PO SCH (15:05)
[2016-08-08] MEDS: TICAGRELOR 90 MG TABLET NGT SCH ×2 (15:06→21:38)
--- NOTE | 2016-08-08 16:33 | CONS ---
Date/Time of Note Date/Time of Note DATE: 08/08/16 TIME: 16:32 Consult Date/Type/Reason Admit Date/Time Jul 20, 2016 at 15:20 Initial Consult Date 07/21/16 Type of Consultation: pulmonary Ordering Provider: KRZYSZTOF MAY M.D. Subjective Patient remains stable no new events Status post colonoscopy and endoscopy without significant respiratory distress currently remains hemodynamically stable Objective Vital Signs Date Time Temp Pulse Resp B/P Pulse Ox O2 Delivery O2 Flow Rate FiO2 08/08/16 16:22 67 08/08/16 14:22 97.5 16 164/66 98 08/08/16 13:36 Room Air Intake and Output 08/07/16 08/07/16 08/08/16 15:00 23:00 07:00 Intake Total 1320 ml 500 ml Balance 1320 ml 500 ml Results/Medications Result Diagram: 08/08/16 0600 08/08/16 0600 Results 24 hrs Laboratory Tests Test 08/07/16 17:06 08/07/16 20:22 08/08/16 06:00 08/08/16 07:25 Bedside Glucose 127 108 106 Anion Gap 23 H Basophils # 0.1 Basophils % 0.6 Blood Morphology Comment Blood Urea Nitrogen 26 H Calcium Level 8.0 L Carbon Dioxide Level 25 Chloride Level 97 Creatinine 4.96 #H Eosinophils # 0.2 Eosinophils % 1.4 Glucose Level 82 Hematocrit 31.7 L Hemoglobin 10.6 L Lymphocytes # 2.0 Lymphocytes % 16.0 Magnesium Level 2.2 Mean Corpuscular Hemoglobin 32.5 Mean Corpuscular Hemoglobin Concent 33.6 Mean Corpuscular Volume 96.4 Mean Platelet Volume 8.0 Monocytes # 1.2 H Monocytes % 9.5 Neutrophils # 9.0 H Neutrophils % 72.5 Nucleated Red Blood Cells # 0.0 Nucleated Red Blood Cells % 0.0 Phosphorus Level 5.6 H Platelet Count 232 Potassium Level 4.1 Red Blood Count 3.28 L Red Cell Distribution Width 22.0 H Sodium Level 141 White Blood Count 12.4 H Medications Current Medications Aspirin (Aspirin) 81 mg DAILY NGT Last administered on 08/03/16 08:17; Admin Dose 81 MG; Start 07/21/16 at 09:00; Status Future Hold Atorvastatin Calcium (Lipitor) 40 mg QHS NGT Last administered on 08/07/16 20: 24; Admin Dose 40 MG; Start 07/20/16 at 21:00 Docusate Sodium (Colace Liquid Cup) 100 mg TID PRN NGT CONSTIPATION Last administered on 08/07/16 03:22; Admin Dose 100 MG; Start 07/20/16 at 17:30 Folic Acid (Folic Acid) 1 mg DAILY NGT Last administered on 08/08/16 15:04; Admin Dose 1 MG; Start 07/21/16 at 09:00 Ticagrelor (Brilinta) 90 mg Q12 NGT Last administered on 08/08/16 15:06; Admin Dose 90 MG; Start 07/20/16 at 21:00 Acetaminophen (Tylenol Tab) 650 mg Q6H PRN NGT PAIN LEVEL 1-3 OR FEVER Last administered on 07/27/16 13:08; Admin Dose 650 MG; Start 07/20/16 at 17:30 Acetaminophen/ Hydrocodone Bitart ([place] (5/325)) 1 tab Q6H PRN NGT PAIN LEVEL 4-6 Last administered on 08/03/16 14:38; Admin Dose 1 TAB; Start 07/20/16 at 17: 30 Acetaminophen/ Hydrocodone Bitart ([place] (5/325)) 2 tab Q6H PRN NGT PAIN LEVEL 7-10; Start 07/20/16 at 17:30 Miscellaneous Information 1 ea NOTE XX ; Start 07/21/16 at 16:30 Glucose (Glutose) 15 gm Q15M PRN PO DECREASED GLUCOSE; Start 07/21/16 at 16:30 Glucose (Glutose) 22.5 gm Q15M PRN PO DECREASED GLUCOSE; Start 07/21/16 at 16:30 Dextrose (D50w Syringe) 25 ml Q15M PRN IV DECREASED GLUCOSE Last administered on 07/21/16 21:13; Admin Dose 25 ML; Start 07/21/16 at 16:30 Dextrose (D50w Syringe) 50 ml Q15M PRN IV DECREASED GLUCOSE; Start 07/21/16 at 16:30 Glucagon (Glucagen) 1 mg Q15M PRN IM DECREASED GLUCOSE; Start 07/21/16 at 16:30 Glucose (Glutose) 15 gm Q15M PRN BUCCAL DECREASED GLUCOSE; Start 07/21/16 at 16: 30 Amlodipine Besylate (Norvasc) 5 mg BID GTB Last administered on 08/08/16 15:02 ; Admin Dose 5 MG; Start 07/23/16 at 14:30 Benazepril HCl (Lotensin) 40 mg Q12 PO Last administered on 08/08/16 15:03; Admin Dose 40 MG; Start 07/24/16 at 21:00 Isosorbide Mononitrate (Imdur) 60 mg DAILY PO Last administered on 08/08/16 15 :05; Admin Dose 60 MG; Start 07/25/16 at 10:30 Hydralazine HCl (Apresoline) 25 mg Q4H PRN IV SBP >170 Last administered on 13:39; Admin Dose 25 MG; Start 07/25/16 at 20:30 Metoprolol Tartrate 75 mg 75 mg BID PO Last administered on 08/08/16 15:04; Admin Dose 75 MG; Start 08/01/16 at 21:00 Imipenem/ Cilastatin Sodium (Primaxin 500 Mg/ 100 ml (Pmx)) 100 ml @ 100 mls/ hr Q12 IVPB Last administered on 08/08/16 09:00; Admin Dose 100 MLS/HR; Start 08/01/16 at 12:00 Metronidazole (Flagyl) 500 mg Q8 PO Last administered on 08/08/16 15:04; Admin Dose 500 MG; Start 08/02/16 at 13:00 Hydralazine HCl (Apresoline) 100 mg QID NGT Last administered on 08/08/16 15: 05; Admin Dose 100 MG; Start 08/03/16 at 15:00 Famotidine (Pepcid) 20 mg Q24H GTB Last administered on 08/07/16 20:24; Admin Dose 20 MG; Start 08/03/16 at 21:00 Ondansetron HCl (Zofran Inj) 4 mg Q6H PRN IV NAUSEA AND/OR VOMITING Last administered on 08/04/16 20:53; Admin Dose 4 MG; Start 08/04/16 at 20:00 Lactobacillus Acidoph/Bulgaricus (Floranex) 1 tab TID PO Last administered on 15:05; Admin Dose 1 TAB; Start 08/06/16 at 21:00 Lorazepam (Ativan) 0.5 mg HS PRN PO INSOMNIA; Start 08/07/16 at 13:00 Assessment/Plan Chief Complaint/Hosp Course IMPRESSION: 1. Status post acute hypoxemic respiratory failure, stable post-extubation. 2. End-stage renal disease on hemodialysis. 3. Encephalopathy, improving. 4. Anemia. Status post colonoscopy and upper GI endoscopy await final findings 5. History of hypertension. 6. Mild diastolic dysfunction preserved ejection fraction RECOMMENDATIONS: 1. Continue hemodialysis per nephrology. 2. Neuro followup noted. 3. Continue antibiotics. 4. GI recs. 5. Physical therapy evaluation recommendations 6. Aspiration precautions Problems: SANDI BUSCH MD, [facility] Aug 08, 2016 16:33
[2016-08-08] MEDS: ATORVASTATIN 40 MG TAB NGT SCH (21:29)
[2016-08-08] MEDS: FAMOTIDINE 20 MG TAB GTB SCH (21:30)
[2016-08-09] VITALS (14 sets, daily range): BP systolic 120–157; BP diastolic 66–81; PULSE 69–85; RESP 20–21
[2016-08-09] MEDS: metroNIDAZOLE 500 MG TAB PO SCH ×3 (06:06→22:51)
[2016-08-09 07:06] LABS: POTASSIUM 3.2 mmol/L (3.5-5.1)
[2016-08-09 07:08] LABS: CREATININE 3.61 mg/dl (0.44-1.00)
[2016-08-09 07:09] LABS: CALCIUM 7.8 mg/dl (8.4-10.2)
[2016-08-09 07:18] LABS: MAGNESIUM 2.1 mg/dl (1.7-2.5); PHOSPHORUS 5.2 mg/dl (2.5-4.9)
[2016-08-09 07:25] LABS: BASOPHILS % 0.4 % (0.0-2.0); EOSINOPHILS # 0.1 10^3/ul (0.0-0.5); EOSINOPHILS % 1.2 % (0.0-7.0); HEMATOCRIT 32.2 % (37.0-47.0); LYMPHOCYTES # 1.8 10^3/ul (0.8-2.9); LYMPHOCYTES % 17.9 % (15.0-51.0); MEAN CORPUSCULAR HEMOGLOBIN 32.9 pg (29.0-33.0); MEAN CORPUSCULAR HGB CONC 34.1 g/dl (32.0-37.0); MEAN CORPUSCULAR VOLUME 96.6 fl (82.0-101.0); MEAN PLATELET VOLUME 8.5 fl (7.4-10.4); MONOCYTE # 1.2 10^3/ul (0.3-0.9); MONOCYTES % 11.6 % (0.0-11.0); NEUTROPHIL # 6.9 10^3/ul (1.6-7.5); NEUTROPHILS % 68.9 % (39.0-77.0); PLATELET COUNT 257 10^3/UL (140-440); RED BLOOD COUNT 3.33 10^6/ul (4.20-5.40); RED CELL DISTRIBUTION WIDTH 23.2 % (11.5-14.5); UNCORRECTED WBC 10.1 10^3/ul (4.8-10.8); WHITE BLOOD COUNT 10.1 10^3/ul (4.8-10.8)
[2016-08-09 07:31] LABS: CONDITION 1; LH ANALYZER COMMENTS 1
--- NOTE | 2016-08-09 07:51 | GILP ---
DATE OF PROCEDURE: PROCEDURE: Esophagogastroduodenoscopy. PREOPERATIVE DIAGNOSIS: Patient presenting with history of anemia and gastrointestinal bleeding, ru le out peptic ulcer disease. POSTOPERATIVE DIAGNOSES: 1. Grade I reflux esophagitis. 2. Hiatal hernia. 3. Patchy gastritis. 4. Duodenitis. DESCRIPTION OF PROCEDURE: After the informed written consent was obtained, the patient was asked to lie on the left lateral side. Intravenous anesthesia was given by anesthesiologist, Dr. Rose. Velia garcia the patient became somnolent, the Olympus video upper endoscope was introduced into the oropharynx , then into the esophagus. Minimal reflux esophagitis was noted. Small hiatal hernia was noted. S tomach showed patchy gastritis with no ulcers, no neoplasm. CLOtest was performed from the antrum a nd the fundus. Duodenum showed minimal duodenitis. Scope at this time was withdrawn and the proced ure was terminated. PLAN: Recommend proton pump inhibitor therapy. Dictated By: BAILEY SEGOVIA/RANI Conf#: [id number] DID#: [id number] CC: KRZYSZTOF MAY MD;*EndCC*
--- NOTE | 2016-08-09 07:52 | GILP ---
DATE OF PROCEDURE: PROCEDURE: Colonoscopy. PREOPERATIVE DIAGNOSIS: Rectal bleeding, rule out colorectal neoplasm, colitis, etc. POSTOPERATIVE DIAGNOSES: 1. A 1 cm ulcer noted in the rectum. This was not actively bleeding at this time. 2. A 3 mm flat polyp was noted in the mid transverse colon. 3. Rest of the colon appeared normal. DESCRIPTION OF PROCEDURE: After the informed written consent was obtained, the patient was asked to lie on the left lateral side. Intravenous anesthesia was given by anesthesiologist, Dr. Rose. Whe n the patient became somnolent, the Olympus video colonoscope was introduced into the rectum and in the rectum at about 5 cm from the anus, there is evidence of a 1 cm ulcer noted with no active bleed ing, no visible clot noted, no visible vessel noted. Mid transverse colon showed 3 mm lobulated gonzales yp. This was removed with a cold biopsy forceps. Rest of the colon up to the cecum appeared normal . On the way out, no additional abnormalities detected and no hemorrhoids of significance noted. T he procedure was terminated. PLAN: Recommend to watch the patient closely. Dictated By: BAILEY SEGOVIA/RANI Conf#: [id number] DID#: [id number]
[2016-08-09] MEDS ORDERED: POTASSIUM CHLORIDE (SR) 20 MEQ TAB PO STA (07:54)
[2016-08-09] MEDS: AMLODIPINE 5 MG TAB GTB SCH ×2 (08:33→20:12)
[2016-08-09] MEDS: BENAZEPRIL 20 MG TAB PO SCH ×2 (08:33→20:13)
[2016-08-09] MEDS: FOLIC ACID 1 MG TAB NGT SCH (08:33)
[2016-08-09] MEDS: METOPROLOL 50 MG TAB PO SCH ×2 (08:33→20:13)
[2016-08-09] MEDS: ISOSORBIDE MONONITRATE(SR)60 MG TAB PO SCH (08:34)
[2016-08-09] MEDS: LACTOBACILLUS CHEW TAB PO SCH ×3 (08:34→20:14)
[2016-08-09] MEDS: IMIPENEM-CILAST 500MG IV (PMX) 100 ML IVPB SCH ×2 (08:34→20:12)
[2016-08-09] MEDS: INSULIN ASPART [NOVOLOG] 3 ML PEN SC SCH ×4 (08:35→20:20)
[2016-08-09] MEDS: TICAGRELOR 90 MG TABLET NGT SCH ×2 (08:36→20:33)
--- NOTE | 2016-08-09 10:53 | PN ---
DATE: 08/09/2016 SUBJECTIVE: The patient yesterday had hemodialysis, tolerated it well. Patient also had endoscopy performed without any complications, results are pending. No other acute events noted. OBJECTIVE: VITAL SIGNS: Blood pressure 163/72, respirations 20, pulse 69, temperature 97.9. HEENT: Head is normocephalic. NECK: Supple. HEART: Regular rate. LUNGS: Show diminished breath sounds at base. ABDOMEN: Soft, nontender to palpation without rebound or guarding. EXTREMITIES: Negative for clubbing, cyanosis, no edema. DERMATOLOGIC: No rashes. MUSCULOSKELETAL: No joint effusions. NEUROLOGIC: No change in exam. MEDICATIONS: The patient's medications have been reviewed. LABORATORY DATA: Shows sodium 142, potassium ____, chloride 97, BUN 15, creatinine 3.61. White co unt 10.1, hemoglobin 11.0, hematocrit 32.2, platelet count is 257. ASSESSMENT AND PLAN: 1. End-stage renal disease. The patient had hemodialysis yesterday, tolerated well. Anticipate di alysis on Thursday. 2. Anemia with gastrointestinal bleed. The patient is status post EGD, colonoscopy. Results are p ending. Continue to monitor H and H levels. Continue Epogen. 3. Mineral bone disorder. Continue to monitor calcium and phosphorus levels. Will likely resume p hosphate binders. 4. Hypokalemia, replete with potassium chloride. 5. Sepsis, status post shock, clinically improving. Continue antibiotic therapy. 6. Dysphagia. The patient is tolerating p.o. as well. 7. Acute encephalopathy, improving. The patient is back to near baseline state. 8. History of coronary artery disease. Continue medical management. 9. Diabetes. Continue Accu-Cheks and sliding scale. 10. Hypertension. Continue current blood pressure regimen. 11. Status post respiratory failure. Dictated By: TALITA LEON DO NR/NTS Conf#: [id number] DID#: [id number]
--- NOTE | 2016-08-09 10:56 | PN ---
Date/Time of Note Date/Time of Note DATE: 08/09/16 TIME: 10:51 Assessment/Plan VTE Prophylaxis VTE Prophylaxis Intervention: SCD's Lines/Catheters IV C[facility]ter Type (from [facility]): Central Line Central line still needed: Yes Urinary Cath still in place: No Assessment/Plan Assessment/Plan Assessment/Plan 65-year-old woman: 1. Hematochezia: still persistent for the past few days despite discontinuing Heparin SQ and ASA. CT abdo/pelvis wnl and Lactate wnl. With ongoing hematochezia, Colonoscopy revealed 1 cm rectal ulcer. C diff negative and on Flagyl empirically for now with WBC trending down VRE stool, on isolation. D/c Vanco. 2. Encephalopathy. Essentially resolved. She is able to articulate thoughts and answer correctly. This is likely secondary to illness. Appreciate Neurology consult with Dr. Arshad. 3. S/p episode of Acute respiratory failure and unresponsiveness, s/p intubation on arrival in the ER. Etiology unclear. Extubated and stable for a few days now, on RA now. She was hospitalized two weeks prior to this admission after she suffered a cardiac arrest with asystole in the ER. S/p Angio x 2 with stenting Repeat echo with EF 55% Mildly elevated troponin on this admission, appreciate cardiology recommendations Cardiology, Pulmonary, Nephrology and Neurology following. Volume status better, management with HD 4. Leukocytosis recurrent, on abx for aspiration pneumonitis/pneumonia vs HCAP, WBC NORMAL TODAY. Fem line tip cx with coag neg staph, blood cx 1/2 from 07/29 with staph species, repeat blood cx NGTD, OFF Vanco for now Sputum cx with GNR and ESBL E coli. Continue Imipenem and on contact isolation On empiric Flagyl as of 08/02 and c diff negative. 5. ? Enterococcal UTI: s/p Vancomycin course Repeat UA and Urine cx negative 6. CAD s/p angio and stenting x 2 approx 2 weeks prior to this admission, echo more consistent with diastolic dysfunction EKG similar to previous ekg two weeks ago. Continue Juan, Dr Castelan following and on BBlock. Holding ASA due to ongoing hematochezia OK to proceed with EGD/[facility] per Cardiology, needs to remain on Brilinta 7. Endstage renal disease on hemodialysis: on HD M/W/F Appreciate assistance from Dr. Gomez. 8. Acute on chronic anemia, s/p 2 unit pRBC yesterday with hb up to 11.3 today Still with ongoing hematochezia, plan for EGD/COLO today with Dr Cordova Continue to monitor CBC daily. h/h stable over past 2 days 9. Diabetes mellitus: OFF Lantus with episode of hypoglycemia noted, continue SSI, QAC+HS On puree diet with nectar thick liquid 10. Hypertension, better controlled BP with current regimen Metoprolol, Benazepril, Norvasc Imdur and now Hydralazine at higher dose now . 11. Right lower extremity pain with questionable history of sciatica. Doppler study negative ten days ago for DVT on the right. Prophylaxis: Pepcid for gastrointestinal prophylaxis. SCDs for DVT prevention Disposition:Telemetry. PT/OT/ST. Egd/[facility] today. Dr Castelan, Dr Barraza and Dr Arshad following. Start evaluation for ARU vs SNF discharge soon hopefully. Patient however wants to go home. Long discussion with the patient and daughter at the bedside. Full-Code. Subjective 24 Hr Interval Summary Free Text/Dictation Cough improved. Overall better and anxious to go home. Exam/Review of Systems Vital Signs Vitals Vital Signs Date Time Temp Pulse Resp B/P Pulse Ox O2 Delivery O2 Flow Rate FiO2 08/09/16 10:13 83 08/09/16 03:43 97.9 20 153/72 98 Room Air Intake and Output 08/08/16 08/08/16 08/09/16 15:00 23:00 07:00 Intake Total 500 ml 100 ml Output Total 2200 ml Balance -1700 ml 100 ml Exam Constitutional: alert, oriented Head: normocephalic Eyes: nl conjunctiva ENMT: nl external ears & nose Neck: supple Respiratory: clear to auscultation Cardiovascular: regular rate and rhythm Gastrointestinal: soft Results Result Diagram: 08/09/16 0605 08/09/16 0605 Results 24 hrs Laboratory Tests Test 08/08/16 17:01 08/08/16 21:27 08/09/16 06:05 08/09/16 08:30 Bedside Glucose 152 136 141 Anion Gap 19 H Basophils # 0.0 Basophils % 0.4 Blood Morphology Comment Blood Urea Nitrogen 15 # Calcium Level 7.8 L Carbon Dioxide Level 29 Chloride Level 97 Creatinine 3.61 #H Eosinophils # 0.1 Eosinophils % 1.2 Glucose Level 74 Hematocrit 32.2 L Hemoglobin 11.0 L Lymphocytes # 1.8 Lymphocytes % 17.9 Magnesium Level 2.1 Mean Corpuscular Hemoglobin 32.9 Mean Corpuscular Hemoglobin Concent 34.1 Mean Corpuscular Volume 96.6 Mean Platelet Volume 8.5 Monocytes # 1.2 H Monocytes % 11.6 H Neutrophils # 6.9 Neutrophils % 68.9 Nucleated Red Blood Cells # 0.0 Nucleated Red Blood Cells % 0.0 Phosphorus Level 5.2 H Platelet Count 257 Potassium Level 3.2 L Red Blood Count 3.33 L Red Cell Distribution Width 23.2 H Sodium Level 142 White Blood Count 10.1 Medications Medications Current Medications Aspirin (Aspirin) 81 mg DAILY NGT Last administered on 08/03/16 08:17; Admin Dose 81 MG; Start 07/21/16 at 09:00; Status Future Hold Atorvastatin Calcium (Lipitor) 40 mg QHS NGT Last administered on 08/08/16 21: 29; Admin Dose 40 MG; Start 07/20/16 at 21:00 Docusate Sodium (Colace Liquid Cup) 100 mg TID PRN NGT CONSTIPATION Last administered on 08/07/16 03:22; Admin Dose 100 MG; Start 07/20/16 at 17:30 Folic Acid (Folic Acid) 1 mg DAILY NGT Last administered on 08/09/16 08:33; Admin Dose 1 MG; Start 07/21/16 at 09:00 Ticagrelor (Brilinta) 90 mg Q12 NGT Last administered on 08/09/16 08:36; Admin Dose 90 MG; Start 07/20/16 at 21:00 Acetaminophen (Tylenol Tab) 650 mg Q6H PRN NGT PAIN LEVEL 1-3 OR FEVER Last administered on 07/27/16 13:08; Admin Dose 650 MG; Start 07/20/16 at 17:30 Acetaminophen/ Hydrocodone Bitart ([place] (5/325)) 1 tab Q6H PRN NGT PAIN LEVEL 4-6 Last administered on 08/03/16 14:38; Admin Dose 1 TAB; Start 07/20/16 at 17: 30 Acetaminophen/ Hydrocodone Bitart ([place] (5/325)) 2 tab Q6H PRN NGT PAIN LEVEL 7-10; Start 07/20/16 at 17:30 Miscellaneous Information 1 ea NOTE XX ; Start 07/21/16 at 16:30 Glucose (Glutose) 15 gm Q15M PRN PO DECREASED GLUCOSE; Start 07/21/16 at 16:30 Glucose (Glutose) 22.5 gm Q15M PRN PO DECREASED GLUCOSE; Start 07/21/16 at 16:30 Dextrose (D50w Syringe) 25 ml Q15M PRN IV DECREASED GLUCOSE Last administered on 07/21/16 21:13; Admin Dose 25 ML; Start 07/21/16 at 16:30 Dextrose (D50w Syringe) 50 ml Q15M PRN IV DECREASED GLUCOSE; Start 07/21/16 at 16:30 Glucagon (Glucagen) 1 mg Q15M PRN IM DECREASED GLUCOSE; Start 07/21/16 at 16:30 Glucose (Glutose) 15 gm Q15M PRN BUCCAL DECREASED GLUCOSE; Start 07/21/16 at 16: 30 Amlodipine Besylate (Norvasc) 5 mg BID GTB Last administered on 08/09/16 08:33 ; Admin Dose 5 MG; Start 07/23/16 at 14:30 Benazepril HCl (Lotensin) 40 mg Q12 PO Last administered on 08/09/16 08:33; Admin Dose 40 MG; Start 07/24/16 at 21:00 Isosorbide Mononitrate (Imdur) 60 mg DAILY PO Last administered on 08/09/16 08 :34; Admin Dose 60 MG; Start 07/25/16 at 10:30 Hydralazine HCl (Apresoline) 25 mg Q4H PRN IV SBP >170 Last administered on 13:39; Admin Dose 25 MG; Start 07/25/16 at 20:30 Metoprolol Tartrate 75 mg 75 mg BID PO Last administered on 08/09/16 08:33; Admin Dose 75 MG; Start 08/01/16 at 21:00 Imipenem/ Cilastatin Sodium (Primaxin 500 Mg/ 100 ml (Pmx)) 100 ml @ 100 mls/ hr Q12 IVPB Last administered on 08/09/16 08:34; Admin Dose 100 MLS/HR; Start 08/01/16 at 12:00 Metronidazole (Flagyl) 500 mg Q8 PO Last administered on 08/09/16 06:06; Admin Dose 500 MG; Start 08/02/16 at 13:00 Hydralazine HCl (Apresoline) 100 mg QID NGT Last administered on 08/09/16 08: 32; Admin Dose 100 MG; Start 08/03/16 at 15:00 Famotidine (Pepcid) 20 mg Q24H GTB Last administered on 08/08/16 21:30; Admin Dose 20 MG; Start 08/03/16 at 21:00 Ondansetron HCl (Zofran Inj) 4 mg Q6H PRN IV NAUSEA AND/OR VOMITING Last administered on 08/04/16 20:53; Admin Dose 4 MG; Start 08/04/16 at 20:00 Lactobacillus Acidoph/Bulgaricus (Floranex) 1 tab TID PO Last administered on 08:34; Admin Dose 1 TAB; Start 08/06/16 at 21:00 Lorazepam (Ativan) 0.5 mg HS PRN PO INSOMNIA Last administered on 08/08/16 22: 50; Admin Dose 0.5 MG; Start 08/07/16 at 13:00 SEBASTIAN HELMS MD Aug 09, 2016 10:56
--- NOTE | 2016-08-09 11:25 | CONS ---
Date/Time of Note Date/Time of Note DATE: 08/09/16 TIME: 11:24 Assessment/Plan Assessment/Plan Additional Assessment/Plan 1. CAD - obvious CP - better now, much improved - s/p EGD/Colonoscopy - tolearted procedure w ell - Rx per GI now. 2. Abnormal electrocardiogram, assess for acute coronary syndrome - no ischemia noted 3. History of a recent PTCA and stent placement to circumflex June 2016 with drug-eluting stents.- EF 55% by echo this admit 4. Altered mental state.-MRI negative 07/23- much better now - BETTER NOW - feels very tired, but alert and self aware 5. Respiratory failure, status post extubation - MUCH BETTER NOW 6. End-stage renal disease on hemodialysis- pe renal team. HD after. 7. Urinary tract infection- on anti-bx. 8. Pneumonia- on anti-bx. 9. Dyslipidemia. 10.HTN-high today - will Rx with HD 11. Encephalopathy-s/p MRI with no findings/EEG c/w encephalopathy-improving MS in last 2 days significantly 12. PRE-OP - pt with recurrent lower GI bleed - reasonable to proceed with colonoscopy to see if pt has easily reversible source- No acute change - GI procedure scheduled today - pt aware and ready. Family t bedside happy with care. Consultation Date/Type/Reason Admit Date/Time Jul 20, 2016 at 15:20 Initial Consult Date 07/21/16 Type of Consultation: pulmonary Referring Provider: KRZYSZTOF MAY M.D. 24 HR Interval Summary Free Text/Dictation Tolerated GI procedures well. Tired - wants to have a nap - family at bedside will follow. ROS: No fever, no chills, no nausea, no vomiting, no diarrhea/constipation No recent weight changes No chest pain, no PND, no orthopnea No dizziness, blurred vision No thirst, no heat or cold intolerance Exam/Review of Systems Vital Signs Vitals Vital Signs Date Time Temp Pulse Resp B/P Pulse Ox O2 Delivery O2 Flow Rate FiO2 08/09/16 10:13 83 08/09/16 03:43 97.9 20 153/72 98 Room Air Intake and Output 08/08/16 08/08/16 08/09/16 15:00 23:00 07:00 Intake Total 500 ml 100 ml Output Total 2200 ml Balance -1700 ml 100 ml Exam General: WN/WD/NAD, AOx 3 - tired HEENT: Unicetric/atraumatic/EOMI ( follow commands) NECK: JVD elevated, no thyromegaly Lymph: no lymphadenopathy HEART: regular with no S3, II/ systolic murmur at apex LUNGS: Coarse sounds ABD: soft, NT, ND, +BS : Intact Neuro: non focal SKIN: chronic changes EXT: trace edema Results Result Diagram: 08/09/1660408/09/16604 Results 24 hrs Laboratory Tests Test 08/08/16 17:01 08/08/16 21:27 08/09/16 06:05 08/09/16 08:30 Bedside Glucose 152 136 141 Anion Gap 19 H Basophils # 0.0 Basophils % 0.4 Blood Morphology Comment Blood Urea Nitrogen 15 # Calcium Level 7.8 L Carbon Dioxide Level 29 Chloride Level 97 Creatinine 3.61 #H Eosinophils # 0.1 Eosinophils % 1.2 Glucose Level 74 Hematocrit 32.2 L Hemoglobin 11.0 L Lymphocytes # 1.8 Lymphocytes % 17.9 Magnesium Level 2.1 Mean Corpuscular Hemoglobin 32.9 Mean Corpuscular Hemoglobin Concent 34.1 Mean Corpuscular Volume 96.6 Mean Platelet Volume 8.5 Monocytes # 1.2 H Monocytes % 11.6 H Neutrophils # 6.9 Neutrophils % 68.9 Nucleated Red Blood Cells # 0.0 Nucleated Red Blood Cells % 0.0 Phosphorus Level 5.2 H Platelet Count 257 Potassium Level 3.2 L Red Blood Count 3.33 L Red Cell Distribution Width 23.2 H Sodium Level 142 White Blood Count 10.1 Medications Medications Current Medications Aspirin (Aspirin) 81 mg DAILY NGT Last administered on 08/03/16 08:17; Admin Dose 81 MG; Start 07/21/16 at 09:00; Status Future Hold Atorvastatin Calcium (Lipitor) 40 mg QHS NGT Last administered on 08/08/16 21: 29; Admin Dose 40 MG; Start 07/20/16 at 21:00 Docusate Sodium (Colace Liquid Cup) 100 mg TID PRN NGT CONSTIPATION Last administered on 08/07/16 03:22; Admin Dose 100 MG; Start 07/20/16 at 17:30 Folic Acid (Folic Acid) 1 mg DAILY NGT Last administered on 08/09/16 08:33; Admin Dose 1 MG; Start 07/21/16 at 09:00 Ticagrelor (Brilinta) 90 mg Q12 NGT Last administered on 08/09/16 08:36; Admin Dose 90 MG; Start 07/20/16 at 21:00 Acetaminophen (Tylenol Tab) 650 mg Q6H PRN NGT PAIN LEVEL 1-3 OR FEVER Last administered on 07/27/16 13:08; Admin Dose 650 MG; Start 07/20/16 at 17:30 Acetaminophen/ Hydrocodone Bitart ([place] (5/325)) 1 tab Q6H PRN NGT PAIN LEVEL 4-6 Last administered on 08/03/16 14:38; Admin Dose 1 TAB; Start 07/20/16 at 17: 30 Acetaminophen/ Hydrocodone Bitart ([place] (5/325)) 2 tab Q6H PRN NGT PAIN LEVEL 7-10; Start 07/20/16 at 17:30 Miscellaneous Information 1 ea NOTE XX ; Start 07/21/16 at 16:30 Glucose (Glutose) 15 gm Q15M PRN PO DECREASED GLUCOSE; Start 07/21/16 at 16:30 Glucose (Glutose) 22.5 gm Q15M PRN PO DECREASED GLUCOSE; Start 07/21/16 at 16:30 Dextrose (D50w Syringe) 25 ml Q15M PRN IV DECREASED GLUCOSE Last administered on 07/21/16 21:13; Admin Dose 25 ML; Start 07/21/16 at 16:30 Dextrose (D50w Syringe) 50 ml Q15M PRN IV DECREASED GLUCOSE; Start 07/21/16 at 16:30 Glucagon (Glucagen) 1 mg Q15M PRN IM DECREASED GLUCOSE; Start 07/21/16 at 16:30 Glucose (Glutose) 15 gm Q15M PRN BUCCAL DECREASED GLUCOSE; Start 07/21/16 at 16: 30 Amlodipine Besylate (Norvasc) 5 mg BID GTB Last administered on 08/09/16 08:33 ; Admin Dose 5 MG; Start 07/23/16 at 14:30 Benazepril HCl (Lotensin) 40 mg Q12 PO Last administered on 08/09/16 08:33; Admin Dose 40 MG; Start 07/24/16 at 21:00 Isosorbide Mononitrate (Imdur) 60 mg DAILY PO Last administered on 08/09/16 08 :34; Admin Dose 60 MG; Start 07/25/16 at 10:30 Hydralazine HCl (Apresoline) 25 mg Q4H PRN IV SBP >170 Last administered on 13:39; Admin Dose 25 MG; Start 07/25/16 at 20:30 Metoprolol Tartrate 75 mg 75 mg BID PO Last administered on 08/09/16 08:33; Admin Dose 75 MG; Start 08/01/16 at 21:00 Imipenem/ Cilastatin Sodium (Primaxin 500 Mg/ 100 ml (Pmx)) 100 ml @ 100 mls/ hr Q12 IVPB Last administered on 08/09/16 08:34; Admin Dose 100 MLS/HR; Start 08/01/16 at 12:00 Metronidazole (Flagyl) 500 mg Q8 PO Last administered on 08/09/16 06:06; Admin Dose 500 MG; Start 08/02/16 at 13:00 Hydralazine HCl (Apresoline) 100 mg QID NGT Last administered on 08/09/16 08: 32; Admin Dose 100 MG; Start 08/03/16 at 15:00 Famotidine (Pepcid) 20 mg Q24H GTB Last administered on 08/08/16 21:30; Admin Dose 20 MG; Start 08/03/16 at 21:00 Ondansetron HCl (Zofran Inj) 4 mg Q6H PRN IV NAUSEA AND/OR VOMITING Last administered on 08/04/16 20:53; Admin Dose 4 MG; Start 08/04/16 at 20:00 Lactobacillus Acidoph/Bulgaricus (Floranex) 1 tab TID PO Last administered on 08:34; Admin Dose 1 TAB; Start 08/06/16 at 21:00 Lorazepam (Ativan) 0.5 mg HS PRN PO INSOMNIA Last administered on 08/08/16 22: 50; Admin Dose 0.5 MG; Start 08/07/16 at 13:00 ADELFO PUGA MD Aug 09, 2016 11:25
[2016-08-09] MEDS ORDERED: ZOLPIDEM 5 MG TAB PO PRN (12:00)
--- NOTE | 2016-08-09 17:59 | CONS ---
Date/Time of Note Date/Time of Note DATE: 08/09/16 TIME: 17:58 Consult Date/Type/Reason Admit Date/Time Jul 20, 2016 at 15:20 Initial Consult Date 07/21/16 Type of Consultation: pulmonary Ordering Provider: KRZYSZTOF MAY M.D. Subjective No events overnight Objective Vital Signs Date Time Temp Pulse Resp B/P Pulse Ox O2 Delivery O2 Flow Rate FiO2 08/09/16 17:09 74 08/09/16 16:00 98.8 20 142/70 98 08/09/16 03:43 Room Air Intake and Output 08/08/16 08/08/16 08/09/16 15:00 23:00 07:00 Intake Total 500 ml 100 ml Output Total 2200 ml Balance -1700 ml 100 ml HEENT: Neck supple; no JVD; no LAD CVS: RRR, S1 and S2 CHEST: Clear ABD: Soft, NT, + BS EXT: No c/c/e Results/Medications Result Diagram: 08/09/16 0605 08/09/16 0605 Results 24 hrs Laboratory Tests Test 08/08/16 21:27 08/09/16 06:05 08/09/16 08:30 08/09/16 12:14 Bedside Glucose 136 141 111 Anion Gap 19 H Basophils # 0.0 Basophils % 0.4 Blood Morphology Comment Blood Urea Nitrogen 15 # Calcium Level 7.8 L Carbon Dioxide Level 29 Chloride Level 97 Creatinine 3.61 #H Eosinophils # 0.1 Eosinophils % 1.2 Glucose Level 74 Hematocrit 32.2 L Hemoglobin 11.0 L Lymphocytes # 1.8 Lymphocytes % 17.9 Magnesium Level 2.1 Mean Corpuscular Hemoglobin 32.9 Mean Corpuscular Hemoglobin Concent 34.1 Mean Corpuscular Volume 96.6 Mean Platelet Volume 8.5 Monocytes # 1.2 H Monocytes % 11.6 H Neutrophils # 6.9 Neutrophils % 68.9 Nucleated Red Blood Cells # 0.0 Nucleated Red Blood Cells % 0.0 Phosphorus Level 5.2 H Platelet Count 257 Potassium Level 3.2 L Red Blood Count 3.33 L Red Cell Distribution Width 23.2 H Sodium Level 142 White Blood Count 10.1 Test 08/09/16 14:42 08/09/16 17:30 Bedside Glucose 160 119 Medications Current Medications Aspirin (Aspirin) 81 mg DAILY NGT Last administered on 08/03/16 08:17; Admin Dose 81 MG; Start 07/21/16 at 09:00; Status Future Hold Atorvastatin Calcium (Lipitor) 40 mg QHS NGT Last administered on 08/08/16 21: 29; Admin Dose 40 MG; Start 07/20/16 at 21:00 Docusate Sodium (Colace Liquid Cup) 100 mg TID PRN NGT CONSTIPATION Last administered on 08/07/16 03:22; Admin Dose 100 MG; Start 07/20/16 at 17:30 Folic Acid (Folic Acid) 1 mg DAILY NGT Last administered on 08/09/16 08:33; Admin Dose 1 MG; Start 07/21/16 at 09:00 Ticagrelor (Brilinta) 90 mg Q12 NGT Last administered on 08/09/16 08:36; Admin Dose 90 MG; Start 07/20/16 at 21:00 Acetaminophen (Tylenol Tab) 650 mg Q6H PRN NGT PAIN LEVEL 1-3 OR FEVER Last administered on 07/27/16 13:08; Admin Dose 650 MG; Start 07/20/16 at 17:30 Acetaminophen/ Hydrocodone Bitart ([place] (5/325)) 1 tab Q6H PRN NGT PAIN LEVEL 4-6 Last administered on 08/03/16 14:38; Admin Dose 1 TAB; Start 07/20/16 at 17: 30 Acetaminophen/ Hydrocodone Bitart ([place] (5/325)) 2 tab Q6H PRN NGT PAIN LEVEL 7-10; Start 07/20/16 at 17:30 Miscellaneous Information 1 ea NOTE XX ; Start 07/21/16 at 16:30 Glucose (Glutose) 15 gm Q15M PRN PO DECREASED GLUCOSE; Start 07/21/16 at 16:30 Glucose (Glutose) 22.5 gm Q15M PRN PO DECREASED GLUCOSE; Start 07/21/16 at 16:30 Dextrose (D50w Syringe) 25 ml Q15M PRN IV DECREASED GLUCOSE Last administered on 07/21/16 21:13; Admin Dose 25 ML; Start 07/21/16 at 16:30 Dextrose (D50w Syringe) 50 ml Q15M PRN IV DECREASED GLUCOSE; Start 07/21/16 at 16:30 Glucagon (Glucagen) 1 mg Q15M PRN IM DECREASED GLUCOSE; Start 07/21/16 at 16:30 Glucose (Glutose) 15 gm Q15M PRN BUCCAL DECREASED GLUCOSE; Start 07/21/16 at 16: 30 Amlodipine Besylate (Norvasc) 5 mg BID GTB Last administered on 08/09/16 08:33 ; Admin Dose 5 MG; Start 07/23/16 at 14:30 Benazepril HCl (Lotensin) 40 mg Q12 PO Last administered on 08/09/16 08:33; Admin Dose 40 MG; Start 07/24/16 at 21:00 Isosorbide Mononitrate (Imdur) 60 mg DAILY PO Last administered on 08/09/16 08 :34; Admin Dose 60 MG; Start 07/25/16 at 10:30 Hydralazine HCl (Apresoline) 25 mg Q4H PRN IV SBP >170 Last administered on 13:39; Admin Dose 25 MG; Start 07/25/16 at 20:30 Metoprolol Tartrate 75 mg 75 mg BID PO Last administered on 08/09/16 08:33; Admin Dose 75 MG; Start 08/01/16 at 21:00 Imipenem/ Cilastatin Sodium (Primaxin 500 Mg/ 100 ml (Pmx)) 100 ml @ 100 mls/ hr Q12 IVPB Last administered on 08/09/16 08:34; Admin Dose 100 MLS/HR; Start 08/01/16 at 12:00 Metronidazole (Flagyl) 500 mg Q8 PO Last administered on 08/09/16 13:24; Admin Dose 500 MG; Start 08/02/16 at 13:00 Hydralazine HCl (Apresoline) 100 mg QID NGT Last administered on 08/09/16 17: 32; Admin Dose 100 MG; Start 08/03/16 at 15:00 Famotidine (Pepcid) 20 mg Q24H GTB Last administered on 08/08/16 21:30; Admin Dose 20 MG; Start 08/03/16 at 21:00 Ondansetron HCl (Zofran Inj) 4 mg Q6H PRN IV NAUSEA AND/OR VOMITING Last administered on 08/04/16 20:53; Admin Dose 4 MG; Start 08/04/16 at 20:00 Lactobacillus Acidoph/Bulgaricus (Floranex) 1 tab TID PO Last administered on 13:24; Admin Dose 1 TAB; Start 08/06/16 at 21:00 Lorazepam (Ativan) 0.5 mg HS PRN PO INSOMNIA Last administered on 08/08/16 22: 50; Admin Dose 0.5 MG; Start 08/07/16 at 13:00 Assessment/Plan Additional Assessment/Plan IMP: 1. Status post acute hypoxemic respiratory failure, stable post-extubation. 2. End-stage renal disease on hemodialysis. 3. Encephalopathy, improving. 4. Anemia. Status post colonoscopy and upper GI endoscopy await final findings 5. History of hypertension. 6. Mild diastolic dysfunction preserved ejection fraction RECS: 1. Continue hemodialysis per nephrology. 2. Neuro followup noted. 3. Continue antibiotics 4. Aspiration precautions DESMOND ARRIETA MD Aug 09, 2016 17:59
[2016-08-09] MEDS: FAMOTIDINE 20 MG TAB GTB SCH (20:12)
[2016-08-09] MEDS: ATORVASTATIN 40 MG TAB NGT SCH (20:13)
[2016-08-10] VITALS (8 sets, daily range): BP systolic 137–179; BP diastolic 64–77; PULSE 65–78; RESP 20
[2016-08-10] MEDS: metroNIDAZOLE 500 MG TAB PO SCH ×2 (05:08→13:26)
[2016-08-10] MEDS: INSULIN ASPART [NOVOLOG] 3 ML PEN SC SCH ×3 (07:25→17:25)
[2016-08-10 07:59] LABS: POTASSIUM 4.1 mmol/L (3.5-5.1)
[2016-08-10 08:01] LABS: CREATININE 5.29 mg/dl (0.44-1.00)
[2016-08-10 08:02] LABS: MAGNESIUM 2.2 mg/dl (1.7-2.5); PHOSPHORUS 4.8 mg/dl (2.5-4.9)
[2016-08-10] MEDS: BENAZEPRIL 20 MG TAB PO SCH (08:15)
[2016-08-10] MEDS: AMLODIPINE 5 MG TAB GTB SCH (08:15)
[2016-08-10] MEDS: METOPROLOL 50 MG TAB PO SCH (08:15)
[2016-08-10] MEDS: FOLIC ACID 1 MG TAB NGT SCH (08:16)
[2016-08-10] MEDS: LACTOBACILLUS CHEW TAB PO SCH ×2 (08:16→13:26)
[2016-08-10] MEDS: ISOSORBIDE MONONITRATE(SR)60 MG TAB PO SCH (08:16)
[2016-08-10] MEDS: IMIPENEM-CILAST 500MG IV (PMX) 100 ML IVPB SCH ×2 (08:16→17:28)
[2016-08-10 08:21] LABS: BASOPHIL # 0.1 10^3/ul (0.0-0.1); BASOPHILS % 0.6 % (0.0-2.0); EOSINOPHILS # 0.1 10^3/ul (0.0-0.5); EOSINOPHILS % 0.8 % (0.0-7.0); HEMOGLOBIN 11.5 g/dl (12.0-16.0); LYMPHOCYTES # 2.7 10^3/ul (0.8-2.9); LYMPHOCYTES % 21.9 % (15.0-51.0); MEAN CORPUSCULAR HEMOGLOBIN 32.7 pg (29.0-33.0); MEAN CORPUSCULAR HGB CONC 33.8 g/dl (32.0-37.0); MEAN CORPUSCULAR VOLUME 96.6 fl (82.0-101.0); MEAN PLATELET VOLUME 8.4 fl (7.4-10.4); MONOCYTE # 1.2 10^3/ul (0.3-0.9); MONOCYTES % 9.7 % (0.0-11.0); NEUTROPHIL # 8.2 10^3/ul (1.6-7.5); PLATELET COUNT 281 10^3/UL (140-440); RED BLOOD COUNT 3.52 10^6/ul (4.20-5.40); RED CELL DISTRIBUTION WIDTH 21.8 % (11.5-14.5); UNCORRECTED WBC 12.2 10^3/ul (4.8-10.8); WHITE BLOOD COUNT 12.2 10^3/ul (4.8-10.8)
[2016-08-10 08:26] LABS: CONDITION 1; LH ANALYZER COMMENTS 1
[2016-08-10] MEDS: TICAGRELOR 90 MG TABLET NGT SCH (08:53)
--- NOTE | 2016-08-10 12:43 | CONS ---
Date/Time of Note Date/Time of Note DATE: 08/10/16 TIME: 12:41 Assessment/Plan Assessment/Plan Additional Assessment/Plan 1. CAD - obvious CP - better now, much improved - s/p EGD/Colonoscopy - tolearted procedure w ell - Rx per GI now. BP stable now. 2. Abnormal electrocardiogram, assess for acute coronary syndrome - no ischemia noted 3. History of a recent PTCA and stent placement to circumflex June 2016 with drug-eluting stents.- EF 55% by echo this admit 4. Altered mental state.-MRI negative 07/23- much better now - BETTER NOW - feels very tired, but alert and self aware 5. Respiratory failure, status post extubation - MUCH BETTER NOW 6. End-stage renal disease on hemodialysis- pe renal team. HD after. Renal team follows. 7. Urinary tract infection- on anti-bx. On rx. 8. Pneumonia- on anti-bx. 9. Dyslipidemia. 10.HTN-high today - will Rx with HD 11. Encephalopathy-s/p MRI with no findings/EEG c/w encephalopathy-improving MS in last 2 days significantly 12. PRE-OP - pt with recurrent lower GI bleed - reasonable to proceed with colonoscopy to see if pt has easily reversible source- No acute change - GI procedure scheduled today - pt aware and ready. Family t bedside happy with care. Consultation Date/Type/Reason Admit Date/Time Jul 20, 2016 at 15:20 Initial Consult Date 07/21/16 Type of Consultation: pulmonary Referring Provider: KRZYSZTOF MAY M.D. 24 HR Interval Summary Free Text/Dictation No acute events. BP in good range - will adjust therapy as needed. ROS: No fever, no chills, no nausea, no vomiting, no diarrhea/constipation No recent weight changes No chest pain, no PND, no orthopnea No dizziness, blurred vision No thirst, no heat or cold intolerance Exam/Review of Systems Vital Signs Vitals Vital Signs Date Time Temp Pulse Resp B/P Pulse Ox O2 Delivery O2 Flow Rate FiO2 08/10/16 11:06 98.4 73 20 137/64 100 08/09/16 20:00 Room Air Intake and Output 08/09/16 08/09/16 08/10/16 15:00 23:00 07:00 Intake Total 400 ml Balance 400 ml Exam General: WN/WD/NAD, AOx 2-3 HEENT: Unicetric/atraumatic/EOMI (follows commands) NECK: JVD elevated, no thyromegaly Lymph: no lymphadenopathy HEART: regular with no S3, II/ systolic murmur at apex LUNGS: Coarse sounds ABD: soft, NT, ND, +BS : Intact Neuro: non focal SKIN: chronic changes EXT: trace edema Results Result Diagram: 08/10/16 0650 08/10/16 0650 Results 24 hrs Laboratory Tests Test 08/09/16 14:42 08/09/16 17:30 08/09/16 20:19 08/10/16 06:50 Bedside Glucose 160 119 126 Anion Gap 22 H Basophils # 0.1 Basophils % 0.6 Blood Morphology Comment Blood Urea Nitrogen 21 H Calcium Level 8.0 L Carbon Dioxide Level 24 Chloride Level 100 Creatinine 5.29 H Eosinophils # 0.1 Eosinophils % 0.8 Glucose Level 68 L Hematocrit 34.0 L Hemoglobin 11.5 L Lymphocytes # 2.7 Lymphocytes % 21.9 Magnesium Level 2.2 Mean Corpuscular Hemoglobin 32.7 Mean Corpuscular Hemoglobin Concent 33.8 Mean Corpuscular Volume 96.6 Mean Platelet Volume 8.4 Monocytes # 1.2 H Monocytes % 9.7 Neutrophils # 8.2 H Neutrophils % 67.0 Nucleated Red Blood Cells # 0.0 Nucleated Red Blood Cells % 0.0 Phosphorus Level 4.8 Platelet Count 281 Potassium Level 4.1 Red Blood Count 3.52 L Red Cell Distribution Width 21.8 H Sodium Level 142 White Blood Count 12.2 #H Test 08/10/16 08:13 08/10/16 11:41 Bedside Glucose 118 119 Medications Medications Current Medications Aspirin (Aspirin) 81 mg DAILY NGT Last administered on 08/03/16 08:17; Admin Dose 81 MG; Start 07/21/16 at 09:00; Status Future Hold Atorvastatin Calcium (Lipitor) 40 mg QHS NGT Last administered on 08/09/16 20: 13; Admin Dose 40 MG; Start 07/20/16 at 21:00 Docusate Sodium (Colace Liquid Cup) 100 mg TID PRN NGT CONSTIPATION Last administered on 08/07/16 03:22; Admin Dose 100 MG; Start 07/20/16 at 17:30 Folic Acid (Folic Acid) 1 mg DAILY NGT Last administered on 08/10/16 08:16; Admin Dose 1 MG; Start 07/21/16 at 09:00 Ticagrelor (Brilinta) 90 mg Q12 NGT Last administered on 08/10/16 08:53; Admin Dose 90 MG; Start 07/20/16 at 21:00 Acetaminophen (Tylenol Tab) 650 mg Q6H PRN NGT PAIN LEVEL 1-3 OR FEVER Last administered on 07/27/16 13:08; Admin Dose 650 MG; Start 07/20/16 at 17:30 Acetaminophen/ Hydrocodone Bitart ([place] (5/325)) 1 tab Q6H PRN NGT PAIN LEVEL 4-6 Last administered on 08/03/16 14:38; Admin Dose 1 TAB; Start 07/20/16 at 17: 30 Acetaminophen/ Hydrocodone Bitart ([place] (5/325)) 2 tab Q6H PRN NGT PAIN LEVEL 7-10; Start 07/20/16 at 17:30 Miscellaneous Information 1 ea NOTE XX ; Start 07/21/16 at 16:30 Glucose (Glutose) 15 gm Q15M PRN PO DECREASED GLUCOSE; Start 07/21/16 at 16:30 Glucose (Glutose) 22.5 gm Q15M PRN PO DECREASED GLUCOSE; Start 07/21/16 at 16:30 Dextrose (D50w Syringe) 25 ml Q15M PRN IV DECREASED GLUCOSE Last administered on 07/21/16 21:13; Admin Dose 25 ML; Start 07/21/16 at 16:30 Dextrose (D50w Syringe) 50 ml Q15M PRN IV DECREASED GLUCOSE; Start 07/21/16 at 16:30 Glucagon (Glucagen) 1 mg Q15M PRN IM DECREASED GLUCOSE; Start 07/21/16 at 16:30 Glucose (Glutose) 15 gm Q15M PRN BUCCAL DECREASED GLUCOSE; Start 07/21/16 at 16: 30 Amlodipine Besylate (Norvasc) 5 mg BID GTB Last administered on 08/10/16 08:15 ; Admin Dose 5 MG; Start 07/23/16 at 14:30 Benazepril HCl (Lotensin) 40 mg Q12 PO Last administered on 08/10/16 08:15; Admin Dose 40 MG; Start 07/24/16 at 21:00 Isosorbide Mononitrate (Imdur) 60 mg DAILY PO Last administered on 08/10/16 08 :16; Admin Dose 60 MG; Start 07/25/16 at 10:30 Hydralazine HCl (Apresoline) 25 mg Q4H PRN IV SBP >170 Last administered on 13:39; Admin Dose 25 MG; Start 07/25/16 at 20:30 Metoprolol Tartrate 75 mg 75 mg BID PO Last administered on 08/10/16 08:15; Admin Dose 75 MG; Start 08/01/16 at 21:00 Imipenem/ Cilastatin Sodium (Primaxin 500 Mg/ 100 ml (Pmx)) 100 ml @ 100 mls/ hr Q12 IVPB Last administered on 08/10/16 08:16; Admin Dose 100 MLS/HR; Start 08/01/16 at 12:00 Metronidazole (Flagyl) 500 mg Q8 PO Last administered on 08/09/16 22:51; Admin Dose 500 MG; Start 08/02/16 at 13:00 Hydralazine HCl (Apresoline) 100 mg QID NGT Last administered on 08/10/16 08: 15; Admin Dose 100 MG; Start 08/03/16 at 15:00 Famotidine (Pepcid) 20 mg Q24H GTB Last administered on 08/09/16 20:12; Admin Dose 20 MG; Start 08/03/16 at 21:00 Ondansetron HCl (Zofran Inj) 4 mg Q6H PRN IV NAUSEA AND/OR VOMITING Last administered on 08/04/16 20:53; Admin Dose 4 MG; Start 08/04/16 at 20:00 Lactobacillus Acidoph/Bulgaricus (Floranex) 1 tab TID PO Last administered on 08:16; Admin Dose 1 TAB; Start 08/06/16 at 21:00 Lorazepam (Ativan) 0.5 mg HS PRN PO INSOMNIA Last administered on 08/08/16 22: 50; Admin Dose 0.5 MG; Start 08/07/16 at 13:00 ADELFO PUGA MD Aug 10, 2016 12:43
--- NOTE | 2016-08-10 14:53 | PN ---
DATE: 08/10/2016 SUBJECTIVE: The patient is stable, no acute events overnight. No fevers, chills, nausea, vomiting, shortness of breath. OBJECTIVE: VITAL SIGNS: Blood pressure 179/65, respirations 20, pulse 76, temperature 97.9. HEENT: Head is normocephalic. NECK: Supple. HEART: Regular rate. LUNGS: Show diminished breath sounds at base. ABDOMEN: Soft, nontender to palpation without rebound or guarding. EXTREMITIES: Negative for clubbing, cyanosis, no edema. DERMATOLOGIC: No rashes. MUSCULOSKELETAL: No joint effusions. NEUROLOGIC: No change in exam. MEDICATIONS: The patient's medications have been reviewed. LABORATORY DATA: Currently pending. ASSESSMENT AND PLAN: 1. End-stage renal disease. The patient dialysis is Thursday, Thursday, Thursday. Anticipate hemodia lysis tomorrow. 2. Anemia with gastrointestinal bleed. The patient is status post EGD, colonoscopy which showed un derlying ulcer. Continue current medical management. Continue PPI. 3. Mineral bone disorder. Continue to monitor calcium and phosphorus levels. Will continue phos b amy. 4. Sepsis, status post shock, clinically improving. 5. Dysphagia. The patient is tolerating p.o. well. 6. Acute encephalopathy, improving. Continue to monitor. 7. History of coronary artery disease. Continue medical management. 8. Diabetes. Continue Accu-Cheks and sliding scale. 9. Hypertension. 10. Status post respiratory failure. Dictated By: TALITA GARCIA/RANI Conf#: [id number] DID#: [id number]
--- NOTE | 2016-08-10 17:44 | CONS ---
Date/Time of Note Date/Time of Note DATE: 08/10/16 TIME: 17:42 Consult Date/Type/Reason Admit Date/Time Jul 20, 2016 at 15:20 Initial Consult Date 07/21/16 Type of Consultation: pulmonary Ordering Provider: KRZYSZTOF MAY M.D. Subjective No events. Objective Vital Signs Date Time Temp Pulse Resp B/P Pulse Ox O2 Delivery O2 Flow Rate FiO2 08/10/16 16:22 75 08/10/16 15:56 98.5 20 141/77 98 08/09/16 20:00 Room Air Intake and Output 08/09/16 08/09/16 08/10/16 15:00 23:00 07:00 Intake Total 400 ml Balance 400 ml HEENT: Neck supple; no JVD; no LAD CVS: RRR, S1 and S2 CHEST: Clear ABD: Soft, NT, + BS EXT: No c/c/e Results/Medications Result Diagram: 08/10/16 0650 08/10/16 0650 Results 24 hrs Laboratory Tests Test 08/09/16 20:19 08/10/16 06:50 08/10/16 08:13 08/10/16 11:41 Bedside Glucose 126 118 119 Anion Gap 22 H Basophils # 0.1 Basophils % 0.6 Blood Morphology Comment Blood Urea Nitrogen 21 H Calcium Level 8.0 L Carbon Dioxide Level 24 Chloride Level 100 Creatinine 5.29 H Eosinophils # 0.1 Eosinophils % 0.8 Glucose Level 68 L Hematocrit 34.0 L Hemoglobin 11.5 L Lymphocytes # 2.7 Lymphocytes % 21.9 Magnesium Level 2.2 Mean Corpuscular Hemoglobin 32.7 Mean Corpuscular Hemoglobin Concent 33.8 Mean Corpuscular Volume 96.6 Mean Platelet Volume 8.4 Monocytes # 1.2 H Monocytes % 9.7 Neutrophils # 8.2 H Neutrophils % 67.0 Nucleated Red Blood Cells # 0.0 Nucleated Red Blood Cells % 0.0 Phosphorus Level 4.8 Platelet Count 281 Potassium Level 4.1 Red Blood Count 3.52 L Red Cell Distribution Width 21.8 H Sodium Level 142 White Blood Count 12.2 #H Test 08/10/16 17:23 Bedside Glucose 97 Medications Current Medications Aspirin (Aspirin) 81 mg DAILY NGT Last administered on 08/03/16t 08:17; Admin Dose 81 MG; Start 07/21/16 at 09:00; Status Future Hold Atorvastatin Calcium (Lipitor) 40 mg QHS NGT Last administered on 08/09/16 20: 13; Admin Dose 40 MG; Start 07/20/16 at 21:00 Docusate Sodium (Colace Liquid Cup) 100 mg TID PRN NGT CONSTIPATION Last administered on 08/07/16 03:22; Admin Dose 100 MG; Start 07/20/16 at 17:30 Folic Acid (Folic Acid) 1 mg DAILY NGT Last administered on 08/10/16 08:16; Admin Dose 1 MG; Start 07/21/16 at 09:00 Ticagrelor (Brilinta) 90 mg Q12 NGT Last administered on 08/10/16 08:53; Admin Dose 90 MG; Start 07/20/16 at 21:00 Acetaminophen (Tylenol Tab) 650 mg Q6H PRN NGT PAIN LEVEL 1-3 OR FEVER Last administered on 07/27/16 13:08; Admin Dose 650 MG; Start 07/20/16 at 17:30 Acetaminophen/ Hydrocodone Bitart ([place] (5/325)) 1 tab Q6H PRN NGT PAIN LEVEL 4-6 Last administered on 08/03/16 14:38; Admin Dose 1 TAB; Start 07/20/16 at 17: 30 Acetaminophen/ Hydrocodone Bitart ([place] (5/325)) 2 tab Q6H PRN NGT PAIN LEVEL 7-10; Start 07/20/16 at 17:30 Miscellaneous Information 1 ea NOTE XX ; Start 07/21/16 at 16:30 Glucose (Glutose) 15 gm Q15M PRN PO DECREASED GLUCOSE; Start 07/21/16 at 16:30 Glucose (Glutose) 22.5 gm Q15M PRN PO DECREASED GLUCOSE; Start 07/21/16 at 16:30 Dextrose (D50w Syringe) 25 ml Q15M PRN IV DECREASED GLUCOSE Last administered on 07/21/16 21:13; Admin Dose 25 ML; Start 07/21/16 at 16:30 Dextrose (D50w Syringe) 50 ml Q15M PRN IV DECREASED GLUCOSE; Start 07/21/16 at 16:30 Glucagon (Glucagen) 1 mg Q15M PRN IM DECREASED GLUCOSE; Start 07/21/16 at 16:30 Glucose (Glutose) 15 gm Q15M PRN BUCCAL DECREASED GLUCOSE; Start 07/21/16 at 16: 30 Amlodipine Besylate (Norvasc) 5 mg BID GTB Last administered on 08/10/16 08:15 ; Admin Dose 5 MG; Start 07/23/16 at 14:30 Benazepril HCl (Lotensin) 40 mg Q12 PO Last administered on 08/10/16 08:15; Admin Dose 40 MG; Start 07/24/16 at 21:00 Isosorbide Mononitrate (Imdur) 60 mg DAILY PO Last administered on 08/10/16 08 :16; Admin Dose 60 MG; Start 07/25/16 at 10:30 Hydralazine HCl (Apresoline) 25 mg Q4H PRN IV SBP >170 Last administered on 13:39; Admin Dose 25 MG; Start 07/25/16 at 20:30 Metoprolol Tartrate 75 mg 75 mg BID PO Last administered on 08/10/16 08:15; Admin Dose 75 MG; Start 08/01/16 at 21:00 Imipenem/ Cilastatin Sodium (Primaxin 500 Mg/ 100 ml (Pmx)) 100 ml @ 100 mls/ hr Q12 IVPB Last administered on 08/10/16 17:28; Admin Dose 100 MLS/HR; Start 08/01/16 at 12:00 Metronidazole (Flagyl) 500 mg Q8 PO Last administered on 08/10/16 13:26; Admin Dose 500 MG; Start 08/02/16 at 13:00 Hydralazine HCl (Apresoline) 100 mg QID NGT Last administered on 08/10/16 17: 28; Admin Dose 100 MG; Start 08/03/16 at 15:00 Famotidine (Pepcid) 20 mg Q24H GTB Last administered on 08/09/16 20:12; Admin Dose 20 MG; Start 08/03/16 at 21:00 Ondansetron HCl (Zofran Inj) 4 mg Q6H PRN IV NAUSEA AND/OR VOMITING Last administered on 08/04/16 20:53; Admin Dose 4 MG; Start 08/04/16 at 20:00 Lactobacillus Acidoph/Bulgaricus (Floranex) 1 tab TID PO Last administered on 13:26; Admin Dose 1 TAB; Start 08/06/16 at 21:00 Lorazepam (Ativan) 0.5 mg HS PRN PO INSOMNIA Last administered on 08/08/16 22: 50; Admin Dose 0.5 MG; Start 08/07/16 at 13:00 Assessment/Plan Additional Assessment/Plan IMP: 1. Status post acute hypoxemic respiratory failure, stable post-extubation. 2. End-stage renal disease on hemodialysis. 3. Encephalopathy, improving. 4. Anemia. Status post colonoscopy and upper GI endoscopy await final findings 5. History of hypertension. 6. Mild diastolic dysfunction preserved ejection fraction RECS: 1. Continue hemodialysis per nephrology. 2. Am labs 3. Continue antibiotics 4. Aspiration precautions 5. TF's DESMOND ARRIETA MD Aug 10, 2016 17:44
--- NOTE | 2016-08-11 07:03 | DS ---
DATE OF ADMISSION: 07/20/2016 DATE OF DISCHARGE: 08/10/2016 DISCHARGE DIAGNOSES: 1. Acute respiratory failure: Resolved. The patient was intubated on arrival in the emergency senait . 2. End-stage renal disease on hemodialysis: Stable. Continue hemodialysis on Thursday, Thursday an d Thursday at 9:00 a.m. She is under the care of Dr. Calvin Hall. 3. Acute on chronic anemia: Improved. The patient's hematochezia was likely secondary to a rectal ulcer that is approximately 1 cm. It was well healed, and for 3 continuous days prior to discharge , the patient's hemoglobin has been stable at approximately 11. 4. Diabetes mellitus with renal manifestations: Stable. The patient has tolerated sliding scale i nsulin well during her hospitalization. 5. Acute encephalopathy: Resolved. This is likely secondary to her tracheobronchitis. She has co mpleted 12 days of imipenem and is completely alert and oriented. 6. Coronary artery disease: Stable. She had angioplasty and stenting approximately 2-1/2 weeks ag o by Dr. Castelan. She had serial troponins that were being monitored, and she is continued on aspir in and Brilinta and followed by Dr. Castelan as an outpatient. 7. Hypertension: Stable. She was initially hypotensive, and her outpatient medications were reini tiated, and her hemoglobin had been stable prior to discharge. 8. Leukocytosis, likely secondary to aspiration pneumonia: This is resolving. As stated above, batsheva dominguez has completed 12 days of antibiotics and is faring well without cough. HOSPITAL COURSE: The patient is a pleasant 65-year-old female who was recently hospitalized at [facility] for recent NSTEMI, status post PTCA and stent placement to the ostial circu mflex lesion and distal circumflex lesion in 06/2016 as well as end-stage renal disease on hemodialy sis, dyslipidemia and hypertension, who was in her usual state of health up until 1 day prior to adm ission. She presented to the emergency department intubated and unresponsive. She was unresponsive for approximately 2 hours per the medical record, and the patient was found to have pneumonia, like ly aspiration. The patient was treated with antibiotics, and sputum cultures subsequently grew E. c nida ESBL and Pseudomonas aeruginosa in the respiratory culture. These ____ were multidrug sensitive , and the patient was treated with imipenem for approximately 12 days. The patient was also found t o have vancomycin-resistant enterococcus in the stool culture which may be colonization. However, t he patient was treated with imipenem for 12 days. In the first 10 days of her hospitalization, the patient was "very altered" and had ongoing medical issues including GI bleed. A neurological consul tation was obtained, and ultimately the patient's encephalopathy was likely due to metabolic causes. As her infection resolved, so did her confusion. At 3 days prior to discharge, the patient was am bulating without difficulty, tolerating a diabetic diet and answering questions appropriately. Two days prior to ____, the patient voiced concerns that she wanted to discharge home. She stated she w as safe at home with family members. She was able to answer questions appropriately and was alert a nd oriented x4. Per her daughter who was at the bedside, the patient was "back to her usual self." This meant that the patient was back to her baseline mental status. The patient was also found to have GI bleeding, underwent blood transfusions. Her hemoglobin had de creased to as low as 7.1. She received blood transfusions. She had an endoscopy and colonoscopy wh ich revealed grade I reflux esophagitis, a hiatal hernia, patchy gastritis and duodenitis. Her colo noscopy revealed a 1 cm ulcer noted in the rectum that was not actively bleeding, a 3 mm flat polyp that was in the mid transverse colon. The rest of the colon appeared normal. The colonoscopy was d one on 08/08/2016. The patient was monitored on the telemetry unit, thereafter had no signs of blee ding whatsoever. She was tolerating a diabetic diet at the time of discharge and did have a bowel m ovement on the day of discharge which was brown and formed. Of note, the patient was started on emp iric Flagyl throughout her course of her hospitalization for risk of C. difficile colitis. Her C. d iff was negative, and the patient fared well on her course of imipenem. CONDITION ON DISCHARGE: Stable. DISPOSITION: Discharged to home. VITAL SIGNS ON DISCHARGE: Include a temperature of 98.4, pulse of 73, respiratory rate of 20, oxyge n saturation 100% on room air and blood pressure of 137/64. MEDICATIONS: 1. Brilinta 90 mg twice daily. 2. Atorvastatin 40 mg at bedtime. 3. Benazepril 40 mg at daily. 4. Doxazosin 2 mg at bedtime. 5. Hydralazine 25 mg 3 times a day. 6. Imdur ER 60 mg once daily. 7. Metoprolol 75 mg 3 times a day. 8. Minoxidil 1.25 mg twice daily. 9. Nifedipine ER 120 mg once daily. 10. Aspirin 81 mg once daily. 11. Gabapentin 100 mg 3 times a day. 12. Ultram 50 mg every 4 hours. 13. Calcium acetate 667 mg with each meal. 14. Renvela 3.2 grams with each meal. 15. Colace 100 mg p.o. t.i.d. p.r.n. constipation. 16. Lantus 10 units subQ daily at bedtime. 17. Folic acid 1 mg daily. FOLLOWUP APPOINTMENTS: 1. The patient to follow up with Dr. Calvin Hall on dialysis tomorrow morning at 9:00 a.m. She gets dialysis at [facility]. She gets a ride to dialysis at approximately 8:30 to located within [facility] at a 9:00 dialysis time. She has been established at this facility and uses an AV fistula in her left upper extremity which is patent, has a thrill. 2. The patient to also follow up with her primary care physician for ongoing post-hospital checkup. The patient is noted to have 9 children, all of whom are actively involved in her care per the patiangelica nt, although 2 of her daughters are working. The patient will safely discharge home with close outp atient followup. Dictated By: SEBASTIAN YOON/RANI Conf#: [id number] DID#: [id number]
== END 2016-08-10 19:40 | disposition home or self-care (01) | DRG 870 ==
LOC: E/R 13:23 → ICU 15:20 → TEL 08-01 16:09
PROVIDERS: ADMIT Internal Medicine; ATTEND Internal Medicine
PROC: 06HM33Z Insertion of Infusion Device into Right Femoral Vein, Percutaneous Approach (ICD-10-PCS; principal; 2016-07-20)
PROC: 5A1955Z Respiratory Ventilation, Greater than 96 Consecutive Hours (ICD-10-PCS; 2016-07-20)
PROC: 0BH17EZ Insertion of Endotracheal Airway into Trachea, Via Natural or Artificial Opening (ICD-10-PCS; 2016-07-20)
PROC: 5A1D60Z (ICD-10-PCS; 2016-07-21)
PROC: 30233N1 Transfusion of Nonautologous Red Blood Cells into Peripheral Vein, Percutaneous Approach (ICD-10-PCS; 2016-07-22)
PROC: 02HV33Z Insertion of Infusion Device into Superior Vena Cava, Percutaneous Approach (ICD-10-PCS; 2016-07-28)
PROC: 0DJ08ZZ Inspection of Upper Intestinal Tract, Via Natural or Artificial Opening Endoscopic (ICD-10-PCS; 2016-08-08)
PROC: 0DBL8ZX Excision of Transverse Colon, Via Natural or Artificial Opening Endoscopic, Diagnostic (ICD-10-PCS; 2016-08-08)
DX: A41.9 Sepsis, unspecified organism (principal); J96.00 Acute respiratory failure, unspecified whether with hypoxia or hypercapnia; I21.4 Non-ST elevation (NSTEMI) myocardial infarction; J69.0 Pneumonitis due to inhalation of food and vomit; R65.21 Severe sepsis with septic shock; G92 Toxic encephalopathy; J18.9 Pneumonia, unspecified organism; N18.6 End stage renal disease; I22.2 Subsequent non-ST elevation (NSTEMI) myocardial infarction; I12.0 Hypertensive chronic kidney disease with stage 5 chronic kidney disease or end stage renal disease; N39.0 Urinary tract infection, site not specified; K92.2 Gastrointestinal hemorrhage, unspecified; K62.6 Ulcer of anus and rectum; Z99.2 Dependence on renal dialysis; E11.9 Type 2 diabetes mellitus without complications; Z79.4 Long term (current) use of insulin; M79.604 Pain in right leg; Z95.5 Presence of coronary angioplasty implant and graft; E78.5 Hyperlipidemia, unspecified; D64.9 Anemia, unspecified; Y95 Nosocomial condition; E87.70 Fluid overload, unspecified; G47.33 Obstructive sleep apnea (adult) (pediatric); B95.2 Enterococcus as the cause of diseases classified elsewhere; E87.5 Hyperkalemia; K21.0 Gastro-esophageal reflux disease with esophagitis; K44.9 Diaphragmatic hernia without obstruction or gangrene; K29.70 Gastritis, unspecified, without bleeding; K29.80 Duodenitis without bleeding; D12.3 Benign neoplasm of transverse colon; B96.20 Unspecified Escherichia coli [E. coli] as the cause of diseases classified elsewhere; B96.5 Pseudomonas (aeruginosa) (mallei) (pseudomallei) as the cause of diseases classified elsewhere; Z16.21 Resistance to vancomycin
CPT/HCPCS: 31500; 36430; 36600; 70450; 70551; 71010; 74176; 80048; 80053; 80061; 80076; 80202; 80306; 81001; 81003; 82270; 82550; 82553; 82803; 82962; 83605; 83735; 84100; 84484; 85014; 85018; 85025; 85610; 85730; 86644; 86850; 86870; 86900; 86901; 86920; 87040; 87045; 87070; 87075; 87081; 87086; 88305; 88312; 89220; 90935; 92526; 92610; 93005; 93306; 94002; 94003; 94770; 94799; 95819; 97116; 97161; 97530; J0360; J0692; J0743; J0886; J1170; J1815; J2405; J3010; J3370; J7030; J7040; J7050; J7070; P9016